=== PATIENT | female | born 1960 | race Caucasian/White ===

== ENCOUNTER 2020-02-23 09:09 | Outpatient (REF) | payer OTHER, SELFPAY ==
--- NOTE | 2020-02-23 09:18 | MM_ITS ---
EXAMINATION: BONE DENSITOMETRY CLINICAL INDICATION: Osteopenia after menopause. COMPARISON: Previous BD dated 11/26/2017 and baseline BD dated 07/01/2015. TECHNIQUE: Using a [employer] DXA System (software version: 13.1) manufactured by [employer], dual-energy x-ray absorptiometry was performed of the lumbar spine and left hip. The images are of good technical quality. Summary results are attached. FINDINGS: AP SPINE L1-L4: Current: BMD 1.064 g/cm2, Z-score 0.0, T-score -1.0, normal, 1.6% decrease from previous, 4.4% increase from baseline (<5% change is not significant). Prior: BMD 1.081 g/cm2. Baseline: BMD 1.019 g/cm2. LEFT FEMUR, NECK: Current: BMD 0.852 g/cm2, Z-score 0.3, T-score -1.3, osteopenia. Prior: BMD 0.725 g/cm2. Baseline: BMD 0.861 g/cm2. LEFT FEMUR, TOTAL: Current: BMD 0.930 g/cm2, Z-score 0.1, T-score -0.6, normal, 12.2% increase from previous, 0.2% decrease from baseline (<5% change is not significant). Prior: BMD 0.829 g/cm2. Baseline: BMD 0.932 g/cm2. IDENTIFIED RISK FACTORS: Menopause. HISTORY OF FRACTURE: None listed. MEDICATIONS: Calcium supplement and/or multivitamin. Vitamin D. IMPRESSION: 1. DIAGNOSIS: Osteopenia based on the lowest T-score value of -1.3 in the femoral neck applying World Health Organization criteria. 2. 10-YEAR FRACTURE RISK PREDICTION, FRAX: Major osteoporotic fracture (clinical spine, forearm, hip or shoulder) 4.2%. Hip fracture 0.3%. 3. Treatment Recommendations: NOF guidelines recommend consideration for treatment in postmenopausal women and men age 50 and older presenting with the following: -A hip or vertebral (clinical or morphometric) fracture. -T-score less than or equal to -2.5 at the femoral neck or spine after appropriate evaluation to exclude secondary causes. -Low bone mass at the hip or spine and a 10-year fracture probability by FRAX of greater than or equal to 3% for hip fracture or greater than or equal to 20% for major osteoporotic fracture based on the [place] adapted WHO algorithm. 4. Other Recommendations: All treatment decisions require clinical judgment and consideration of individual patient factors, including patient preferences, comorbidities, previous drug use, risk factors not captured in the FRAX model (e.g. frailty, falls, vitamin D deficiency, increased bone turnover, interval significant decline in bone density) and possible under or overestimation of fracture risk by FRAX. Additional medical evaluation for secondary cause of low bone mineral density may be appropriate. FUTURE SCAN RECOMMENDATION: People with diagnosed cases of osteoporosis or at high risk for fracture should have regular bone mineral density tests. For patients eligible for Medicare, routine testing is allowed once every 2 years. The testing frequency can be increased to one year for patients who have rapidly progressing disease, those who are receiving or discontinuing medical therapy to restore bone mass, or have additional risk factors.
== END 2020-02-23 09:10 | disposition home or self-care (01) ==
LOC: HO.MAMMO 09:09
PROVIDERS: Visit Provider Internal Medicine
DX: Z13.820 Encounter for screening for osteoporosis (principal); Z78.0 Asymptomatic menopausal state
CPT/HCPCS: 77080

== ENCOUNTER 2020-03-04 07:05 | Outpatient (REF) | payer OTHER, SELFPAY ==
[2020-03-04 08:15] LABS: MANUAL DIFF FLAG NO
[2020-03-04 08:17] LABS: Basophils Absolute Auto 0.1 X10*3/uL (0.0-0.2); Eosinophils Absolute Auto 0.1 X10*3/uL (0.0-0.4); Eosinophils Percent Auto 2.9 % (0-4); Hematocrit 41.1 % (37-47); Hemoglobin 13.6 g/dl (12.0-16.0); Imm Gran Abs Auto 0.01 X10*3/uL (0.00-0.03); Imm Gran Pct Auto 0.2 % (0.0-0.4); Lymphocytes Absolute Auto 1.6 X10*3/uL (1.2-4.9); Lymphocytes Percent Auto 34.1 % (20-40); Mean Corpuscular HGB Conc 33.1 g/dl (31.0-35.0); Mean Corpuscular Hemoglobin 30.2 pg (27.0-33.0); Mean Corpuscular Volume 91.3 fL (80-98); Mean Platelet Volume 10.9 fL (9.4-12.3); Monocytes Absolute Auto 0.5 X10*3/uL (0.1-1.2); Monocytes Percent Auto 9.4 % (2-11); Neutrophils Absolute Auto 2.5 X10*3/uL (2.0-8.3); Neutrophils Percent Auto 52.4 % (45-73); Platelet Count 327 X10*3/uL (160-400); Red Cell Distribution Width 13.7 % (11.0-16.0); White Blood Count 4.8 X10*3/uL (4.8-10.8)
[2020-03-04 08:26] LABS: Estimated Average Glucose 128 mg/dL; Hemoglobin A1C 150.6645 umol/L; Hemoglobin A1c % 6.1 %
[2020-03-04 08:33] LABS: INTERNATIONAL NORM RATIO 0.9 (0.9-1.1); Prothrombin Time 10.6 SEC (10.8-13.0)
[2020-03-04 08:53] LABS: Gamma Glutamyl Transpeptidase 36 U/L (7-33)
[2020-03-04 08:58] LABS: Ferritin 19 ng/mL (10-250); Hepatitis A Antibody IgG REACTIVE (Nonreactive); TSH reflex Free T4 1.17 mIU/mL (0.32-4.0); Vitamin D 25-OH Total 31.3 ng/mL (>30); ~Hepatitis A Antibody IgG 13.13 S/CO (0.00-0.99)
[2020-03-04 08:59] LABS: Alanine Aminotransferase 52 U/L (0-31); Albumin Level 4.7 g/dL (3.5-5.0); Alkaline Phosphatase 68 U/L (39-117); Aspartate Amino Transferase 51 U/L (5-31); Bilirubin Direct 0.3 mg/dL (0.0-0.5); Bilirubin Total 0.8 mg/dL (0.0-1.0); Lactate Dehydrogenase 198 U/L (122-220); Total Protein 7.4 g/dL (6.5-8.0)
[2020-03-07 15:36] LABS: Mitochondrial Antibodies NEGATIVE (NEGATIVE)
== END 2020-03-04 07:06 | disposition home or self-care (01) ==
LOC: HO.LAB 07:05
PROVIDERS: PCP Internal Medicine; Visit Provider Internal Medicine Gastroenterology
DX: K76.0 Fatty (change of) liver, not elsewhere classified (principal)
CPT/HCPCS: 36415; 80076; 82306; 82728; 82977; 83036; 83615; 84443; 85025; 85610; 86255; 86256; 86708

== ENCOUNTER → 2020-03-07 10:49 | Outpatient (BNVA) | payer OTHER, SELFPAY | PROVIDERS: PCP Internal Medicine; Referring Provider Internal Medicine; Visit Provider Internal Medicine Gastroenterology | DX: K76.0 Fatty (change of) liver, not elsewhere classified (principal); M32.9 Systemic lupus erythematosus, unspecified; Z79.899 Other long term (current) drug therapy | CPT/HCPCS: 99212 ==

== ENCOUNTER 2020-03-15 09:00 | Outpatient (REF) | payer OTHER, SELFPAY ==
[2020-03-15 10:24] LABS: MANUAL DIFF FLAG NO
[2020-03-15 10:32] LABS: Basophils Absolute Auto 0.1 X10*3/uL (0.0-0.2); Basophils Percent Auto 1.2 % (0-2); Eosinophils Absolute Auto 0.1 X10*3/uL (0.0-0.4); Eosinophils Percent Auto 2.4 % (0-4); Hematocrit 39.7 % (37-47); Hemoglobin 12.8 g/dl (12.0-16.0); Imm Gran Abs Auto 0.01 X10*3/uL (0.00-0.03); Imm Gran Pct Auto 0.2 % (0.0-0.4); Lymphocytes Absolute Auto 1.7 X10*3/uL (1.2-4.9); Lymphocytes Percent Auto 34.3 % (20-40); Mean Corpuscular HGB Conc 32.2 g/dl (31.0-35.0); Mean Corpuscular Hemoglobin 29.6 pg (27.0-33.0); Mean Corpuscular Volume 91.7 fL (80-98); Mean Platelet Volume 11.2 fL (9.4-12.3); Monocytes Absolute Auto 0.6 X10*3/uL (0.1-1.2); Monocytes Percent Auto 11.9 % (2-11); Neutrophils Absolute Auto 2.5 X10*3/uL (2.0-8.3); Platelet Count 299 X10*3/uL (160-400); Red Blood Count 4.33 X10*6/uL (4.20-5.50); Red Cell Distribution Width 13.9 % (11.0-16.0)
[2020-03-15 10:51] LABS: Alanine Aminotransferase 55 U/L (0-31); Albumin Level 4.5 g/dL (3.5-5.0); Alkaline Phosphatase 68 U/L (39-117); Anion Gap 13 (12-20); Aspartate Amino Transferase 58 U/L (5-31); Bilirubin Total 1.1 mg/dL (0.0-1.0); Blood Urea Nitrogen 7 mg/dL (9-16); C Reactive Protein 0.53 mg/dL (< or = 0.50); Calcium 9.8 mg/dL (8.4-10.2); Carbon Dioxide 32 mmol/L (22-29); Chloride 104 mmol/L (96-108); Estimated Glomerular Filt Rate > 60; Glucose Random 87 mg/dL (60-115); Potassium 4.6 mmol/l (3.3-5.1); Sodium 144 mmol/L (135-145); Total Protein 7.1 g/dL (6.5-8.0)
[2020-03-15 10:55] LABS: Glucose Urine UA NEG (NEG); Leukocyte Esterase Urine NEG (NEG); Nitrite Urine NEG (NEG); PH 7.5 (5.0-8.0); Urine Blood NEG (NEG); Urine Ketones NEG (NEG); Urine Protein NEG (NEG-TRACE)
[2020-03-15 10:56] LABS: Appearance Urine HAZY; Color Urine STRAW
[2020-03-15 11:30] LABS: Erythrocyte Sedimentation Rate 8 MM/HR (0-20)
[2020-03-16 11:31] LABS: Complement C3 143 mg/dL (83-193)
[2020-03-21 19:10] LABS: DNAds, Crithidia Antibody Negative (Negative)
== END 2020-03-15 09:01 | disposition home or self-care (01) ==
LOC: HO.LAB 09:00
PROVIDERS: PCP Internal Medicine; Visit Provider Student in an Organized Health Care Education/Training Program
DX: M32.9 Systemic lupus erythematosus, unspecified (principal); R74.01 Elevation of levels of liver transaminase levels; E55.9 Vitamin D deficiency, unspecified
CPT/HCPCS: 36415; 80053; 81003; 85025; 85652; 86140; 86160; 86255

== ENCOUNTER → 2020-03-18 08:14 | Outpatient (BNVA) | payer OTHER, SELFPAY | PROVIDERS: PCP Internal Medicine; Referring Provider Internal Medicine; Visit Provider Student in an Organized Health Care Education/Training Program | DX: M32.8 Other forms of systemic lupus erythematosus (principal); E55.9 Vitamin D deficiency, unspecified; Z79.899 Other long term (current) drug therapy | CPT/HCPCS: 99212 ==

== ENCOUNTER 2020-07-04 07:51 | Outpatient (REF) | payer OTHER, SELFPAY ==
--- NOTE | ~2020-07-04 | US_ITS ---
EXAMINATION: US COMPLETE ABDOMEN WITH LIVER ELASTOGRAPHY CLINICAL INFORMATION: Fatty change of liver COMPARISON: None. TECHNIQUE: Real-time imaging of the abdominal viscera. Noninvasive ultrasound liver fibrosis assessment is performed using [employer] point quantification shear wave elastography (pSWE) with a C5-2 MHz transducer. Multiple elastography samples are obtained. FINDINGS: PANCREAS: The pancreas is mostly obscured by overlying gas. ABDOMINAL AORTA: The proximal, middle, and distal aortic segments are normal in caliber. INFERIOR VENA CAVA: Visualized portions are normal. LIVER: The liver demonstrates normal size, contour and increased echogenicity. No focal lesion or intrahepatic biliary duct dilatation. The right lobe measures 14.3 cm in length. The left lobe measures 9.4 cm in length. Portal flow is hepatopedal. Shear wave liver elastography median stiffness is 1.58 m/s (reference: normal median stiffness is 1.3 m/s or less). IQR/median stiffness to assess sampling precision is 0.20 (reference: good quality data set is IQR/median stiffness of 0.15 or less). GALLBLADDER: Normal. The gallbladder is physiologically distended without evidence of stones, sludge, polyps, wall thickening or pericholecystic fluid. COMMON BILE DUCT: Normal in caliber measuring 0.6 cm in diameter. RIGHT KIDNEY: Normal. No hydronephrosis. No renal calculi or focal parenchymal lesions. The kidney measures 10.9 cm in maximum dimension. LEFT KIDNEY: There is anechoic cyst in the upper pole measuring 4.9 x 4.0 x 4.5 cm. No hydronephrosis. No renal calculi or focal parenchymal lesions. The kidney measures 10.9 cm in maximum dimension. SPLEEN: Normal. The spleen measures 8.9 cm in maximum dimension. FREE FLUID: None. US/US abdomen comp w elastography IMPRESSION: 1. Hepatic steatosis without any focal lesion. Normal hepatopedal flow seen in the portal vein. 2. Upper pole left renal cyst measuring 4.9 cm. 3. Liver elastography: Median stiffness 1.58. cACLD is ruled out. REFERENCE: Society of Radiologists in Ultrasound Liver Stiffness Thresholds (2019): LIVER STIFFNESS THRESHOLDS: *Liver Stiffness equal or less than 1.3 m/s: High probability of being normal. *Liver Stiffness less than 1.7 m/s: In the absence of other known clinical signs, rules out compensated advanced chronic liver disease. *Liver Stiffness 1.7-2.1 m/s: Suggestive of compensated advanced chronic liver disease but need further test for confirmation. *Liver Stiffness over 2.1 m/s: Rules in compensated advanced chronic liver disease. *Liver Stiffness over 2.4 m/s: Suggestive of clinically significant portal hypertension. QUALITY OF DATA SET: *IQR/Median value equal or less than 0.15 implies a quality data set. *IQR/Median value over 0.15 implies a poor quality data set. SIGNIFICANT CHANGE FROM PRIOR EXAM: Significant change if liver stiffness measurement is 10% or greater from prior exam. OTHER CONSIDERATIONS: The stage of liver fibrosis may be overestimated in the setting of acute hepatitis, liver inflammation, elevated liver function tests, hepatic vascular congestion, obstructive cholestasis, non-fasting state, and infiltrative diseases such as amyloidosis and lymphoma. In some patients with NAFLD, the liver stiffness thresholds for compensated advanced chronic liver disease may be lower. In causes other than viral hepatitis and NAFLD, liver stiffness thresholds are not well established.
[2020-07-04 08:28] LABS: MANUAL DIFF FLAG NO
[2020-07-04 08:33] LABS: Glucose Urine UA NEG (NEG); Leukocyte Esterase Urine NEG (NEG); Nitrite Urine NEG (NEG); Specific Gravity - Urine 1.025 (1.005-1.025); Urine Blood NEG (NEG); Urine Ketones NEG (NEG); Urine Protein 1+ MG/DL (NEG-TRACE)
[2020-07-04 08:35] LABS: Appearance Urine CLOUDY; Color Urine YELLOW
[2020-07-04 08:40] LABS: Basophils Percent Auto 0.5 % (0-2); Hematocrit 43.4 % (37-47); Hemoglobin 14.3 g/dl (12.0-16.0); Imm Gran Abs Auto 0.02 X10*3/uL (0.00-0.03); Imm Gran Pct Auto 0.4 % (0.0-0.4); Lymphocytes Absolute Auto 1.1 X10*3/uL (1.2-4.9); Lymphocytes Percent Auto 19.8 % (20-40); Mean Corpuscular HGB Conc 32.9 g/dl (31.0-35.0); Mean Corpuscular Hemoglobin 29.5 pg (27.0-33.0); Mean Corpuscular Volume 89.5 fL (80-98); Monocytes Absolute Auto 0.3 X10*3/uL (0.1-1.2); Monocytes Percent Auto 4.6 % (2-11); Neutrophils Absolute Auto 4.2 X10*3/uL (2.0-8.3); Neutrophils Percent Auto 74.7 % (45-73); Platelet Count 305 X10*3/uL (160-400); Red Blood Count 4.85 X10*6/uL (4.20-5.50); Red Cell Distribution Width 14.5 % (11.0-16.0); White Blood Count 5.7 X10*3/uL (4.8-10.8)
[2020-07-04 08:59] LABS: Bacteria Urine 2+ /LPF; Mucus Urine TRACE /LPF; RBC Urine 0 /HPF (0); Squamous Epithelial Cell Urine 3+ /LPF
[2020-07-04 09:31] LABS: Alanine Aminotransferase 37 U/L (0-31); Albumin Level 4.9 g/dL (3.5-5.0); Alkaline Phosphatase 77 U/L (39-117); Anion Gap 15 (12-20); Aspartate Amino Transferase 39 U/L (5-31); Bilirubin Total 0.8 mg/dL (0.0-1.0); Blood Urea Nitrogen 6 mg/dL (9-16); Carbon Dioxide 27 mmol/L (22-29); Chloride 105 mmol/L (96-108); Estimated Glomerular Filt Rate > 60; Glucose Random 146 mg/dL (60-115); Potassium 4.3 mmol/L (3.3-5.1); Sodium 143 mmol/L (135-145); Total Protein 7.7 g/dL (6.5-8.0)
[2020-07-04 11:39] LABS: Erythrocyte Sedimentation Rate 10 MM/HR (0-20)
[2020-07-05 12:52] LABS: Complement C3 164 mg/dL (83-193)
[2020-07-06 12:38] LABS: Anti DNA DS Antibody 11 IU/mL
== END 2020-07-04 07:52 | disposition home or self-care (01) ==
LOC: HO.US 07:51
PROVIDERS: Absent Provider Student in an Organized Health Care Education/Training Program; PCP Internal Medicine; Visit Provider Internal Medicine Gastroenterology
DX: M32.8 Other forms of systemic lupus erythematosus (principal); K76.0 Fatty (change of) liver, not elsewhere classified
CPT/HCPCS: 36415; 76705; 76981; 80053; 81001; 85025; 85652; 86140; 86160; 86225

== ENCOUNTER 2020-07-15 07:41 | Outpatient (REF) | payer OTHER, SELFPAY ==
[2020-07-15 09:46] LABS: Glucose Urine UA NEG (NEG); Leukocyte Esterase Urine TRACE (NEG); Nitrite Urine NEG (NEG); Urine Blood NEG (NEG); Urine Ketones NEG (NEG); Urine Protein NEG (NEG-TRACE)
[2020-07-15 09:52] LABS: Appearance Urine HAZY; Color Urine YELLOW
[2020-07-15 09:55] LABS: Mucus Urine TRACE /LPF; RBC Urine 0 /HPF (0); Squamous Epithelial Cell Urine 1+ /LPF
[2020-07-15 10:29] LABS: Creatinine Urine 81.11 mg/dL; Total Protein Urine Random 8 mg/dL (<12)
== END 2020-07-15 07:42 | disposition home or self-care (01) ==
LOC: HO.LAB 07:41
PROVIDERS: PCP Internal Medicine; Visit Provider Student in an Organized Health Care Education/Training Program
DX: M32.8 Other forms of systemic lupus erythematosus (principal); E55.9 Vitamin D deficiency, unspecified; K76.0 Fatty (change of) liver, not elsewhere classified; Z88.6 Allergy status to analgesic agent; Z88.0 Allergy status to penicillin; Z79.899 Other long term (current) drug therapy
CPT/HCPCS: 81001; 84156; 99212

== ENCOUNTER 2020-10-12 06:40 | Outpatient (REF) | payer OTHER, SELFPAY ==
[2020-10-12 07:53] LABS: MANUAL DIFF FLAG NO
[2020-10-12 08:10] LABS: Basophils Absolute Auto 0.1 X10*3/uL (0.0-0.2); Basophils Percent Auto 1.2 % (0-2); Eosinophils Absolute Auto 0.1 X10*3/uL (0.0-0.4); Eosinophils Percent Auto 2.5 % (0-4); Hematocrit 41.3 % (37-47); Hemoglobin 13.3 g/dl (12.0-16.0); Imm Gran Abs Auto 0.01 X10*3/uL (0.00-0.03); Imm Gran Pct Auto 0.2 % (0.0-0.4); Lymphocytes Absolute Auto 1.4 X10*3/uL (1.2-4.9); Lymphocytes Percent Auto 29.1 % (20-40); Mean Corpuscular HGB Conc 32.2 g/dl (31.0-35.0); Mean Corpuscular Hemoglobin 29.2 pg (27.0-33.0); Mean Corpuscular Volume 90.8 fL (80-98); Mean Platelet Volume 10.8 fL (9.4-12.3); Monocytes Absolute Auto 0.5 X10*3/uL (0.1-1.2); Neutrophils Absolute Auto 2.7 X10*3/uL (2.0-8.3); Platelet Count 303 X10*3/uL (160-400); Red Blood Count 4.55 X10*6/uL (4.20-5.50); Red Cell Distribution Width 14.4 % (11.0-16.0); White Blood Count 4.8 X10*3/uL (4.8-10.8)
[2020-10-12 08:25] LABS: Protein/Creatinine Ratio, Ur 0.18 (<0.2); Total Protein Urine Random 8 mg/dL (<12)
[2020-10-12 08:28] LABS: Alanine Aminotransferase 50 U/L (0-31); Albumin Level 4.8 g/dL (3.5-5.0); Alkaline Phosphatase 78 U/L (39-117); Anion Gap 12 (12-20); Aspartate Amino Transferase 55 U/L (5-31); Bilirubin Total 1.1 mg/dL (0.0-1.0); Blood Urea Nitrogen 8 mg/dL (9-16); C Reactive Protein 0.28 mg/dL (< or = 0.50); Calcium 10.2 mg/dL (8.4-10.2); Carbon Dioxide 28 mmol/L (22-29); Chloride 105 mmol/L (96-108); Cholesterol 177 mg/dL; Estimated Glomerular Filt Rate > 60; Glucose Fasting 111 mg/dL (60-99); HDL Cholesterol 56 mg/dL; LDL Cholesterol Calculated 99 mg/dl; Potassium 4.3 mmol/L (3.3-5.1); Sodium 141 mmol/L (135-145); Total Protein 7.5 g/dL (6.5-8.0); Triglycerides 114 mg/dL
[2020-10-12 08:37] LABS: Glucose Urine UA NEG (NEG); Leukocyte Esterase Urine 2+ (NEG); Nitrite Urine NEG (NEG); Specific Gravity - Urine <= 1.005 (1.005-1.025); Urine Blood NEG (NEG); Urine Ketones NEG (NEG); Urine Protein NEG (NEG-TRACE)
[2020-10-12 08:42] LABS: Appearance Urine HAZY; Color Urine YELLOW
[2020-10-12 09:02] LABS: Erythrocyte Sedimentation Rate 7 MM/HR (0-20)
[2020-10-12 09:14] LABS: Bacteria Urine 2+ /LPF; RBC Urine 0-2 /HPF (0); Squamous Epithelial Cell Urine 3+ /LPF
[2020-10-13 13:06] LABS: Anti DNA DS Antibody 11 IU/mL
[2020-10-14 22:03] LABS: Complement C3 123 mg/dL (83-193)
[2020-10-16 13:21] LABS: Vitamin D 25-OH, D2 <4 ng/mL; Vitamin D 25-OH, D3 29 ng/mL; Vitamin D 25-OH, Total 29 ng/mL (30-100)
== END 2020-10-12 06:41 | disposition home or self-care (01) ==
LOC: HO.LAB 06:40
PROVIDERS: PCP Internal Medicine; Visit Provider Student in an Organized Health Care Education/Training Program
DX: M32.8 Other forms of systemic lupus erythematosus (principal); E78.5 Hyperlipidemia, unspecified; K76.0 Fatty (change of) liver, not elsewhere classified; E55.9 Vitamin D deficiency, unspecified
CPT/HCPCS: 36415; 80053; 80061; 81001; 82306; 84156; 85025; 85652; 86140; 86160; 86225

== ENCOUNTER → 2020-10-14 07:38 | Outpatient (BNVA) | payer OTHER, SELFPAY | PROVIDERS: PCP Internal Medicine; Visit Provider Student in an Organized Health Care Education/Training Program | DX: M32.8 Other forms of systemic lupus erythematosus (principal); E55.9 Vitamin D deficiency, unspecified | CPT/HCPCS: 99212 ==

== ENCOUNTER → 2020-10-26 08:53 | Outpatient (REF) | payer OTHER, SELFPAY ==
--- NOTE | 2020-10-26 08:56 | CA_ITS ---
Transthoracic Echocardiogram Patient (Last, First, Middle): Irina Shetty, Gender: Female Date of : 1960 Age: 60 Procedure Date: 10/26/2020 Procedure Type: Transthoracic Echocardiogram Location: OP Height: 157.48 cm Weight: 75.3 kg BSA: 1.77 m2 Heart Rate: bpm BP: 135 / 95 mmHg Manager Utilization: ROXI Marquez MD: Nneka Everett MD Change Agent: Noel Garrido MD Symptoms: R06.02 - Shortness of breath Study Quality: Fair ECG Rhythm: Sinus Conclusions: - 1. Normal LV systolic function with grade 1 diastolic dysfunction 2. Trivial aortic regurgitation 3. No gross pericardial effusion Findings Left Ventricle Normal left ventricular size, thickness, and systolic function. The visually estimated ejection fraction is between 60-65%. Spectral Doppler is indicative of an impaired relaxation filling pattern. E/E prime ratio is <8, consistent with normal filling pressures. Evidence suggests grade I (mild) diastolic dysfunction. Right Ventricle Normal right ventricular cavity size and systolic function. Atria Both atria are normal in size. Aortic Valve There is mild calcification of the aortic valve. There is no aortic valve stenosis. There is trace (trivial) aortic valve regurgitation. Mitral Valve Normal mitral valve structure and function. There is trace mitral valve regurgitation. There is no mitral valve stenosis. Pulmonic Valve The pulmonic valve is likely normal. There is trace pulmonic valve regurgitation. Tricuspid Valve Likely normal tricuspid valve structure and function. There is trace tricuspid valve regurgitation. Tricuspid regurgitation envelope is inadequate for calculation of right ventricular systolic pressure. Great Vessels All visible segments of the aorta are normal in size. The pulmonary artery was not well visualized. Venous The inferior vena cava is normal in size and collapses greater than 50% with inspiration. Pericardium/Pleural There is no evidence of pericardial effusion. Prior Study Comparison No prior study available for comparison. Measurements M-Mode Liner Measurements Normals - Women/Men AOV Cusps: 1.90 1.5-2.6 cm/m2 2D Linear Measurements IVSd: 0.75 0.6-0.9/0.6-1.0 cm LVIDd: 4.39 3.9-5.3/4.2-5.9 cm LVIDd Index: 2.48 2.4-3.2/2.2-3.1 cm/m2 LVIDs: 2.68 2.0-3.6 cm LVPWd: 0.68 0.7-1.1 cm Ao Root: 2.80 2.1-3.5 cm LA Diam: 3.30 2.7-3.8/3.0-4.0 cm LAIDs Index: 1.86 1.5-2.3 cm/m2 LV Mass: 117.03 67-162/88-224 g LV Mass Index: 66.12 43-95/49-115 g/m2 LVOT Diam: 2.10 3.0+(-)1.3 cm 2D Systolic Function EF 4C: 60.50 >55% EF 2C: 61.80 >55% EF BiP: 61.80 >55% Mitral Valve MV Pk E: 0.58 MV PK A: 1.05 MV Decel Time: 305.00 E/A: 0.50 E'Lateral: 7.07 E'Medial: 5.33 E/E' Med: 10.80 E/E' Lat: 8.10 PHT: 89.00 MVA PHT: 2.47 Decel Ponce: 1.89 Aortic Valve AoV Pk Néstor: 1.31 AoV Mn Néstor: 1.01 AoV VTI: 0.26 AoV Pk Grad: 7.00 Aov Mn Grad: 4.00 CARMELA Cont.VTI: 2.49 AI Pk Néstor: 3.70 AI Ponce: 1.38 LVOT LVOT Pk Néstor: 0.80 LVOT Mn Néstor: 0.63 LVOT VTI: 0.19 LVOT Pk Grad: 3.00 LVOT Mn Grad: 2.00 LVOT Diam: 2.10 LVOT Area: 3.46 Diastolic Function MV Pk E: 0.58 MV Pk A: 1.05 E/A: 0.50 E'Medial: 5.33 E/E' Med: 10.80 E' Laterial: 7.07 E/E' Lat: 8.10 Tricuspid Valve RA Press: 3.00 Great Vessels Aorta Ao Root-2D: 2.80 2.0-3.7 cm Ao Asc: 2.70 2.1-3.4 cm Ao Arch: 3.30 Pulmonary Valve PV Pk Néstor: 0.88 Peak PV Grad: 3.00 Updated in Other Vendor System with Status of Final Noel Garrido MD electronically signed on 10/26/2020 5:39:24 PM with status of Final
== END ==
LOC: HO.CARD 08:53
PROVIDERS: PCP Internal Medicine; Visit Provider Internal Medicine
DX: R06.02 Shortness of breath (principal)
CPT/HCPCS: 93306

== ENCOUNTER → 2020-11-02 09:01 | Outpatient (BNVA) | payer OTHER, SELFPAY | PROVIDERS: PCP Internal Medicine; Referring Provider Internal Medicine; Visit Provider Physician Assistant ==

== ENCOUNTER 2020-11-15 07:04 | Outpatient (REF) | payer OTHER, SELFPAY ==
--- NOTE | ~2020-11-15 | XR_ITS ---
EXAMINATION: XR CHEST CLINICAL INFORMATION: Shortness of breath COMPARISON: Previous chest x-ray October 2018 TECHNIQUE: 2 views of the chest were obtained. FINDINGS: The cardiac and mediastinal contours are stable. The lungs are clear. There is no pleural effusion or pneumothorax. There are degenerative changes of the thoracic spine curvature to the right. XR/XR chest 2V IMPRESSION: No evidence for acute disease in the chest.
== END 2020-11-15 07:05 | disposition home or self-care (01) ==
LOC: HO.LAB 07:04
PROVIDERS: Absent Provider Internal Medicine; PCP Internal Medicine; Visit Provider Student in an Organized Health Care Education/Training Program
DX: R06.02 Shortness of breath (principal)
CPT/HCPCS: 71046

== ENCOUNTER 2021-04-05 07:40 | Outpatient (REF) | payer OTHER, SELFPAY ==
--- NOTE | ~2021-04-05 | XR_ITS ---
EXAMINATION: 1. RADIOGRAPHS RIGHT SHOULDER 2. RADIOGRAPHS LEFT SHOULDER CLINICAL INFORMATION: Bilateral shoulder pain COMPARISON: Chest x-ray 11/15/2020 and right shoulder x-rays 07/05/2016 TECHNIQUE: 4 views of each shoulder were obtained. FINDINGS: Right shoulder: Visualized portion of the proximal right humerus demonstrate no fracture. Humeral head demonstrates good articulation with the glenoid fossa. There are mild hypertrophic changes of the acromioclavicular joint. Visualized right-sided ribs and lung parenchyma are unremarkable. Left shoulder: Visualized portion of the proximal left humerus demonstrate no fracture. Humeral head demonstrates good articulation with the glenoid fossa. Minimal hypertrophic changes of the left acromioclavicular joint. Visualized left-sided ribs and lung parenchyma are unremarkable. XR/XR shoulder LT min 2V IMPRESSION: Mild degenerative changes of both shoulders without fracture or dislocation.
--- NOTE | ~2021-04-05 | XR_ITS ---
EXAMINATION: 1. RADIOGRAPHS RIGHT SHOULDER 2. RADIOGRAPHS LEFT SHOULDER CLINICAL INFORMATION: Bilateral shoulder pain COMPARISON: Chest x-ray 11/15/2020 and right shoulder x-rays 07/05/2016 TECHNIQUE: 4 views of each shoulder were obtained. FINDINGS: Right shoulder: Visualized portion of the proximal right humerus demonstrate no fracture. Humeral head demonstrates good articulation with the glenoid fossa. There are mild hypertrophic changes of the acromioclavicular joint. Visualized right-sided ribs and lung parenchyma are unremarkable. Left shoulder: Visualized portion of the proximal left humerus demonstrate no fracture. Humeral head demonstrates good articulation with the glenoid fossa. Minimal hypertrophic changes of the left acromioclavicular joint. Visualized left-sided ribs and lung parenchyma are unremarkable. XR/XR shoulder RT min 2V IMPRESSION: Mild degenerative changes of both shoulders without fracture or dislocation.
== END 2021-04-05 07:41 | disposition home or self-care (01) ==
LOC: HO.XRAY 07:40
PROVIDERS: PCP Internal Medicine; Visit Provider Internal Medicine Rheumatology
DX: M25.511 Pain in right shoulder (principal); M25.512 Pain in left shoulder
CPT/HCPCS: 73030

== ENCOUNTER → 2021-06-19 08:50 | Outpatient (BNVA) | payer OTHER, SELFPAY | PROVIDERS: PCP Internal Medicine; Referring Provider Internal Medicine; Visit Provider Physician Assistant ==

== ENCOUNTER 2021-11-16 07:29 | Outpatient (REF) | payer OTHER, SELFPAY ==
[2021-11-16 08:47] LABS: Alanine Aminotransferase 26 U/L (0-31); Albumin Level 4.8 g/dL (3.5-5.0); Alkaline Phosphatase 71 U/L (39-117); Anion Gap 15 (12-20); Aspartate Amino Transferase 30 U/L (5-31); Bilirubin Total 1.5 mg/dL (0.0-1.0); Blood Urea Nitrogen 7 mg/dL (9-16); Chloride 103 mmol/L (96-108); Estimated Glomerular Filt Rate > 60; Glucose Fasting 97 mg/dL (60-99); Potassium 4.6 mmol/L (3.3-5.1); Sodium 142 mmol/L (135-145); Total Protein 7.4 g/dL (6.5-8.0)
[2021-11-16 08:48] LABS: Carbon Dioxide 29 mmol/L (22-29)
[2021-11-22 13:22] LABS: Vitamin D 25-OH, D2 <4 ng/mL; Vitamin D 25-OH, D3 30 ng/mL; Vitamin D 25-OH, Total 30 ng/mL (30-100)
== END 2021-11-16 07:30 | disposition home or self-care (01) ==
LOC: HO.LAB 07:29
PROVIDERS: PCP Internal Medicine; Visit Provider Internal Medicine
DX: R73.02 Impaired glucose tolerance (oral) (principal); E55.9 Vitamin D deficiency, unspecified
CPT/HCPCS: 36415; 80053; 82306

== ENCOUNTER 2021-11-27 08:32 | Outpatient (REF) | payer OTHER, SELFPAY ==
--- NOTE | ~2021-11-27 | XR_ITS ---
EXAMINATION: XR ABDOMEN KUB CLINICAL INDICATION: R31.9 - Hematuria, unspecified COMPARISON: Abdominal ultrasound 07/04/2020, CT abdomen and pelvis noncontrast 12/09/2017 TECHNIQUE: AP x2 views of the abdomen. FINDINGS: There is scattered gas in the bowel of normal caliber. There is no obstruction or abnormal collections of gas. Lung bases are clear. There are some calcifications upper abdomen related to the costal cartilage. The punctate left lower pole renal calculus noted on CT 2017 is not visible. There are no visible urinary tract calculi. Numerous calcified pelvic phleboliths are similar to the CT study. There are scattered degenerative changes lower thoracic and lumbosacral spine. XR/XR KUB IMPRESSION: -No visible urinary tract calculi on plain film. -No bowel obstruction or abnormal collections of gas. Visualized lung bases clear.
== END 2021-11-27 08:33 | disposition home or self-care (01) ==
LOC: HO.XRAY 08:32
PROVIDERS: PCP Internal Medicine; Visit Provider Internal Medicine
DX: R31.9 Hematuria, unspecified (principal)
CPT/HCPCS: 74018

== ENCOUNTER 2021-11-29 07:34 | Outpatient (REF) | payer OTHER, SELFPAY ==
[2021-11-29 09:37] LABS: Alanine Aminotransferase 21 U/L (0-31); Albumin Level 4.5 g/dL (3.5-5.0); Alkaline Phosphatase 58 U/L (39-117); Anion Gap 11 (12-20); Aspartate Amino Transferase 26 U/L (5-31); Bilirubin Total 1.1 mg/dL (0.0-1.0); Blood Urea Nitrogen 7 mg/dL (9-16); Calcium 9.8 mg/dL (8.4-10.2); Carbon Dioxide 30 mmol/L (22-29); Chloride 106 mmol/L (96-108); Cholesterol 151 mg/dL; Estimated Glomerular Filt Rate > 60; Glucose Fasting 101 mg/dL (60-99); HDL Cholesterol 55 mg/dL; LDL Cholesterol Calculated 87 mg/dl; Potassium 4.4 mmol/L (3.3-5.1); Sodium 143 mmol/L (135-145); Total Protein 7.1 g/dL (6.5-8.0); Triglycerides 46 mg/dL
== END 2021-11-29 07:35 | disposition home or self-care (01) ==
LOC: HO.LAB 07:34
PROVIDERS: PCP Internal Medicine; Visit Provider Internal Medicine
DX: Z00.00 Encounter for general adult medical examination without abnormal findings (principal); E78.5 Hyperlipidemia, unspecified
CPT/HCPCS: 36415; 80053; 80061

== ENCOUNTER 2021-12-07 08:18 | Outpatient (REF) | payer OTHER, SELFPAY ==
--- NOTE | ~2021-12-07 | US_ITS ---
EXAMINATION: US RETROPERITONEAL LIMITED (RENAL ONLY) CLINICAL INFORMATION: Hematuria, unspecified. COMPARISON: X-ray KUB 11/27/2021 and 08/02/2015. Ultrasound abdomen complete 07/04/2020. Renal ultrasound 02/03/2020. CT abdomen and pelvis 12/09/2017. TECHNIQUE: Real-time imaging of the kidneys. FINDINGS: RIGHT KIDNEY: 9.8 x 5.5 x 5.4 cm (SAG x AP x TRV). The kidney is normal in size, contour, and echogenicity. Renal cortical thickness is normal. No calculi or focal parenchymal lesions. No hydronephrosis. LEFT KIDNEY: 9.8 x 4.8 x 4.8 cm (SAG x AP x TRV). The kidney is normal in size, contour, and echogenicity. Renal cortical thickness is normal. No renal calculi or hydronephrosis. Simple appearing cystic focus in the left renal upper pole measuring up to 4.0 cm, which does not follow up. US/US renal BI IMPRESSION: 1. No nephrolithiasis or hydronephrosis. 2. Simple appearing cystic focus in the left renal upper pole measuring up to 4.0 cm, which does not follow up.
--- NOTE | ~2021-12-07 | MM_ITS ---
EXAMINATION: MM SCREENING DIGITAL BREAST TOMOSYNTHESIS, BILATERAL CLINICAL INFORMATION: Screening. Asymptomatic. The lifetime risk of breast cancer based on the Tyrer-Cuzick Model is 7.0%. COMPARISON: Mammography: 08/01/2017 and studies dating back to 05/16/2016. TECHNIQUE: Digital breast tomosynthesis is performed in both the craniocaudal and mediolateral oblique views along with computer-aided detection (CAD). Synthesized 2D images are generated from the tomosynthesis. FINDINGS: The breasts are almost entirely fatty (ACR BI-RADS breast composition Category a). Patient had previously been followed up for bilateral breast densities which appeared to represent complex cystic structures. On today's study within the right breast there are 3 new partially circumscribed densities about the superior lateral aspect of the right breast approximately 6 cm from the nipple with both measuring approximately 3 mm in diameter and the more superior and lateral one having a bilobed appearance. Ultrasound evaluation of the right breast is recommended. Within the deep lateral aspect of the left breast at approximately the 3 o'clock position, there is a circumscribed 5 x 3 mm density approximately 10 cm from the nipple for which spot compression view and ultrasound is recommended. MM/MM tomosynthesis screening BI IMPRESSION: New bilateral breast densities for further evaluation as described. ASSESSMENT: BI-RADS 0: Incomplete - Need Additional Imaging Evaluation RECOMMENDATION: 1. Additional views of the bilateral breasts. 2. Targeted ultrasound if warranted after review of the additional views. 3. Radiology department staff will contact the patient for additional imaging. This patient's information was entered into a reminder system with a target due date for their next mammogram.
== END 2021-12-07 08:19 | disposition home or self-care (01) ==
LOC: HO.MAMMO 08:18
PROVIDERS: PCP Internal Medicine; Visit Provider Internal Medicine
DX: Z12.31 Encounter for screening mammogram for malignant neoplasm of breast (principal); R31.9 Hematuria, unspecified
CPT/HCPCS: 76775; 77063; 77067

== ENCOUNTER 2021-12-15 08:00 | Outpatient (RCR) | payer OTHER, SELFPAY | END 2022-01-10 10:22 | disposition home or self-care (01) | LOC: HO.PT 08:00 | PROVIDERS: Visit Provider Internal Medicine Rheumatology | DX: M70.62 Trochanteric bursitis, left hip (principal) | CPT/HCPCS: 97110; 97112; 97161 ==

== ENCOUNTER 2021-12-18 14:32 | Outpatient (REF) | payer OTHER, SELFPAY ==
--- NOTE | ~2021-12-18 | MM_ITS ---
EXAMINATION: MM DIAGNOSTIC DIGITAL BREAST TOMOSYNTHESIS, BILATERAL US DIAGNOSTIC ULTRASOUND BREAST, BILATERAL CLINICAL INFORMATION: Recall from screening for small bilateral nodularity. COMPARISON: Mammography: 12/07/2021, 08/01/2017, 11/22/2016, 05/16/2016. TECHNIQUE: Digital breast tomosynthesis is performed. 2D images are generated from the tomosynthesis. The following views are obtained: Spot left CC, spot left MLO, spot right MLO. Ultrasound bilateral breasts is performed to evaluate the areas of small smooth nodularity inner left breast and outer right breast, respectively. Grayscale imaging and color Doppler are performed without and with harmonics. FINDINGS: There are scattered areas of fibroglandular density (ACR BI-RADS breast composition Category b). The additional spot views show small smooth nodularity in the areas of interest. There is no architectural abnormality or ill-defined asymmetric density. Tiny bilateral waxing and waning nodularity is demonstrated suggesting bilateral cysts. Ultrasound left breast demonstrates cyst mid 3:00 position approximately 0.4 cm, anechoic and circumscribed. There is increased through-transmission of sound and no associated color flow. No solid mass or architectural abnormality. Ultrasound right breast demonstrates scattered small cysts upper outer quadrant, largest just under 0.4 cm at 9:00 position mid depth. The cysts are anechoic, circumscribed, increased through-transmission of sound, no associated color flow. No solid mass or architectural abnormality. Results are discussed with the patient at time of visit. MM/MM tomosynthesis diagnostic BI IMPRESSION: Small bilateral circumscribed waxing and waning cysts. ASSESSMENT: BI-RADS 2: Benign RECOMMENDATION: Routine annual mammography screening. This patient's information was entered into a reminder system with a target due date for their next mammogram.
== END 2021-12-18 14:33 | disposition home or self-care (01) ==
LOC: HO.MAMMO 14:32
PROVIDERS: PCP Internal Medicine; Visit Provider Internal Medicine
DX: R92.2 Inconclusive mammogram (principal); N63.20 Unspecified lump in the left breast, unspecified quadrant; N63.11 Unspecified lump in the right breast, upper outer quadrant
CPT/HCPCS: 76642; 77062; 77066

== ENCOUNTER 2021-12-25 03:12 | Observation (INO) | payer OTHER, SELFPAY ==
[2021-12-25] VITALS (13 sets, daily range): BP systolic 114–180; BP diastolic 59–86; PULSE 65–95; RESP 14–18; TEMP 36.1–37.1; O2SAT 91–100; BMI 27.6
--- NOTE | ~2021-12-25 | US_ITS ---
EXAMINATION: US ABDOMEN LIMITED CLINICAL INFORMATION: Right upper quadrant pain, evaluate for cholecystitis.. COMPARISON: CT scan of the abdomen and pelvis performed today. TECHNIQUE: Real-time imaging of the right upper quadrant abdominal viscera. FINDINGS: PANCREAS: Visualized portions unremarkable. LIVER: Unremarkable. GALLBLADDER: Echogenic gallstone measuring 1.6 cm as well as mild sludge are seen near the neck. There is minimal mural thickening measuring up to 0.4 cm. Trace pericholecystic fluid. Color Doppler showed no abnormal vascular flow. COMMON BILE DUCT: The common hepatic duct measures 0.5 cm and the common bile duct measures up to 0.6 cm without intraluminal abnormality. FREE FLUID: None. US/US abdomen limited IMPRESSION: Cholelithiasis/sludge with minimal mural thickening and trace pericholecystic fluid suggestive of acute mild cholecystitis.
--- NOTE | ~2021-12-25 | CT_ITS ---
EXAMINATION: CT ABDOMEN AND PELVIS WITH CONTRAST CLINICAL INFORMATION: Upper abdominal pain. Nausea. COMPARISON: CT from 12/09/2017 TECHNIQUE: Multidetector volumetric images were obtained from the superior aspect of the liver through the pubic symphysis following administration 85 mL of Omnipaque 350 intravenous contrast. Sagittal and coronal reformatted images were obtained on the technologist's workstation. Oral contrast: No This CT examination was performed using dose optimization techniques as appropriate, variously including the following: *Automated exposure control *Adjustment of mA and/or kV according to patient size (this includes techniques or standardized protocols for targeted exams where dose is matched to indication/reason for exam; i.e. extremities or head) *Use of iterative reconstruction technique DLP: 591 mGy-cm FINDINGS: LUNG BASES: Groundglass opacities at both lung bases, likely atelectasis. The visualized cardiac structures are unremarkable. LIVER, GALLBLADDER, AND BILIARY TREE: The liver is normal in size, shape, and attenuation. No focal hepatic lesion or biliary ductal dilatation is present. Normally distended gallbladder. No stones are seen. There is gallbladder wall thickening measuring up to 0.5 cm. PANCREAS: Unremarkable. SPLEEN: Unremarkable. ADRENAL GLANDS: Unremarkable. KIDNEYS AND URETERS: The kidneys are normal in size, shape, and attenuation. No hydronephrosis, hydroureter, or calculi seen. No perinephric stranding. Left upper pole simple renal cyst. No follow-up imaging recommended. BLADDER: Unremarkable. GASTROINTESTINAL TRACT: The stomach is unremarkable. Normal caliber of the small bowel. No obstruction. Normal appendix. No colonic wall thickening or acute inflammation. No free air or free fluid. ABDOMINAL WALL: No significant hernia is appreciated. LYMPH NODES: Normal. VASCULAR: Normal caliber aorta with minimal atherosclerotic calcification. PELVIC VISCERA: The uterus and adnexa are unremarkable. OSSEOUS STRUCTURES: No acute or suspicious osseous abnormality. Mild degenerative changes of the spine. CT/CT abdomen pelvis w con IMPRESSION: Gallbladder wall thickening. No radiopaque stones are seen. Suggest evaluation with ultrasound. Fleischner guidelines were followed.
--- NOTE | 2021-12-25 04:02 | ECG_ITS ---
Test Reason : ABDOMINAL PAIN Blood Pressure : / mmHG Vent. Rate : 076 BPM Atrial Rate : 076 BPM P-R Int : 126 ms QRS Dur : 096 ms QT Int : 398 ms P-R-T Axes : 025 001 037 degrees QTc Int : 447 ms Normal sinus rhythm Minimal voltage criteria for LVH, may be normal variant ( Paguate product ) Borderline ECG No previous ECGs available Referred By: Generic ED Physician Electronically Signed By:BUD HOSKINS
[2021-12-25 04:19] LABS: Basophils Absolute Auto 0.1 X10*3/uL (0.0-0.2); Basophils Percent Auto 0.7 % (0-2); Eosinophils Absolute Auto 0.1 X10*3/uL (0.0-0.4); Hematocrit 42.1 % (37.0-47.0); Hemoglobin 14.1 g/dl (12.0-16.0); Imm Gran Abs Auto 0.01 X10*3/uL (0.00-0.03); Imm Gran Pct Auto 0.1 % (0.0-0.4); Lymphocytes Absolute Auto 1.7 X10*3/uL (1.2-4.9); Lymphocytes Percent Auto 24.5 % (20-40); MANUAL DIFF FLAG NO; Mean Corpuscular HGB Conc 33.5 g/dl (31.0-35.0); Mean Corpuscular Hemoglobin 30.5 pg (27.0-33.0); Mean Corpuscular Volume 91.1 fL (80.0-98.0); Mean Platelet Volume 10.6 fL (9.4-12.3); Monocytes Absolute Auto 0.7 X10*3/uL (0.1-1.2); Monocytes Percent Auto 9.6 % (2-11); Neutrophils Absolute Auto 4.3 x10*3/uL (2.0-8.3); Neutrophils Percent Auto 63.1 % (45-73); Platelet Count 270 X10*3/uL (160-400); Red Blood Count 4.62 X10*6/uL (4.20-5.50); Red Cell Distribution Width 13.2 % (11.0-16.0); White Blood Count 6.9 X10*3/uL (4.8-10.8)
[2021-12-25 04:43] LABS: Alanine Aminotransferase 16 U/L (0-31); Albumin Level 4.5 g/dL (3.5-5.0); Alkaline Phosphatase 67 U/L (39-117); Anion Gap 17 (12-20); Aspartate Amino Transferase 23 U/L (5-31); Blood Urea Nitrogen 7 mg/dL (9-16); Calcium 9.6 mg/dL (8.4-10.2); Carbon Dioxide 25 mmol/L (22-29); Chloride 106 mmol/L (96-108); Creatinine Clr Calc Pharmacy 71.5; Estimated Glomerular Filt Rate > 60; Glucose Random 106 mg/dL (60-115); Lipase 86 U/L (8-78); Potassium 3.8 mmol/L (3.3-5.1); Sodium 144 mmol/L (135-145); Total Protein 7.1 g/dL (6.5-8.0)
[2021-12-25] MEDS: Morphine Sulfate 4 MG/ML CARTRIDGE IVPUSH (05:30)
[2021-12-25] MEDS: ondansetron HCL 4 MG/2 ML VIAL IVPUSH (05:30)
[2021-12-25] MEDS: Lactated Ringers 1,000 ML 999 ML IV (05:32)
--- NOTE | 2021-12-25 05:33 | ED.ABDPAIN ---
HPI - Abdominal Pain General Chief Complaint: Abdominal Pain Stated Complaint: upper abd pain Time Seen by Provider: 12/25/21 05:00 Source: patient, family and language interpreter Mode of arrival: ambulatory Limitations: no limitations History of Present Illness HPI narrative: 61 yo female hx of lupus, migraines, fatty liver, prior comes in with epigastric pain since 230am with nausea. No vomiting no diarrhea or fevers. Reports food at home no sick contacts. MD elicited complaint: abdominal pain Pertinent past history: none Onset (ago): hour(s) (230am today ) Location: epigastric and RUQ Severity: moderate Quality: aching and other (pressure) Radiation: none Migration to: no migration Exacerbating factors: movement Relieving factors: nothing Associated symptoms: nausea Related Data Previous Rx's Medication Instructions Recorded compression stockings #1 ea 02/08/21 baclofen 20 mg tablet 20 mg PO TID 90 days #270 tabs 06/15/21 betamethasone valerate 0.1 % 1 appl topical DAILY PRN skin 06/15/21 topical cream irritation 30 days #45 grams cholecalciferol (vitamin D3) 25 25 mcg PO DAILY #90 caps 06/15/21 mcg (1,000 unit) capsule cyclobenzaprine 10 mg tablet 10 mg PO TID 30 days #90 tabs 06/15/21 gabapentin 400 mg capsule 400 mg PO TID 30 days #90 caps 06/15/21 hydroxychloroquine 200 mg tablet 200 mg PO BID #180 tabs 12/10/21 (Plaquenil) Allergies Allergy/AdvReac Type Severity Reaction Status Date / Time Penicillins [PENICILLINS] Allergy Intermediate Verified 12/25/21 03:56 ? RXN sumatriptan AdvReac Intermediate stomach Verified 12/25/21 03:56 upset Review of Systems Review of Systems Constitutional : No Weight loss, No Fever, No Chills ENT/Mouth : No sore throat, No Rhinorrhea Eyes: No Swelling, No Redness Cardiovascular : No Chest Pain, No SOB, NoEdema Respiratory : No Cough, No Sputum, No Wheezing Gastrointestinal : Positive Nausea, no Vomiting, no Diarrhea, positive abdominal Pain, No Hematochezia, No Melena Genitourinary : No Dysuria, No Urinary Frequency, No Hematuria, No Urgency Musculoskeletal : No joint pain, No Myalgias, No Joint Swelling Skin : No Skin Lesions, No rash Neuro : No Weakness, No Numbness, No Dizziness, No Headache Psych : No Anxiety/Panic, No Depression Heme/Lymph: No Bruising, No Lymphadenopathy Endocrine : No Polyuria, No Polydipsia All other systems reviewed and are negative. [facility] Past Medical History Attestation statement: The following information was validated with the patient. Source: old records reviewed Medical History Hepatic steatosis Impaired glucose tolerance Lupus (systemic lupus erythematosus) Migraines Physical exam Shortness of breath Venous (peripheral) insufficiency Vitamin D deficiency Surgical History History of esophagogastroduodenoscopy (EGD) (~2003) History of root canal procedure Hx of colonoscopy Family History Family History Father No problems noted. Mother Arthritis Asthma Sister Diabetes Social History Social History Household Members: Spouse Housing: House Alcohol intake: unknown Patient Tobacco Use Status: Never used Tobacco e-Cigarette/Vaping Use: Never Used Second Hand Smoke Exposure: No Use of substances other than those prescribed or required for medical reasons: Unknown Advance Directives: No service: No Current occupational status: unemployed Cognitive needs: No Hearing needs: No Vision needs: No Physical Exam ED Vital Signs: Vital Signs - 24 hr 12/25/21 03:56 Temperature 98.4 F Pulse Rate 90 Respiratory Rate 16 Blood Pressure 166/85 H Pulse Oximetry 95 Oxygen Delivery Method Room Air BMI result Body Mass Index 27.6 Appearance: Alert. Oriented X3. No acute distress. Eyes: Pupils equal, round and reactive to light. ENT: Pharynx normal. Neck: Normal inspection. Neck supple. CVS: Normal heart rate and rhythm. Pulses normal. Respiratory: No respiratory distress. Breath sounds normal. Abdomen: Soft and moderate epigastric RUQ pain mild peoples's sign. Skin: Skin warm and dry. Normal skin color. Normal skin turgor. Extremities: No lower extremity edema. No calf ttp Neuro: Oriented X 3. No motor deficit. No sensory deficit. Course Course Course Narrative: signed out to Dr. Powell pending [facility] MDM - Abdominal Pain MDM Narrative Medical decision making narrative: 61 yo female with hx of lupus, migraines, fatty liver here with c/o RUQ and epigastric pain at this time will need labs, EKG, CT scan for pancreas/GB, IV morphine for pain. Dispo per results and findings. Lab Data Result diagrams: 12/25/21 04:08 12/25/21 04:08 Labs: Lab Results 12/25/21 12/25/21 12/25/21 Range/Units 04:08 04:08 04:08 WBC 6.9 (4.8-10.8) X10*3/uL RBC 4.62 (4.20-5.50) X10*6/uL Hgb 14.1 (12.0-16.0) g/dl Hct 42.1 (37.0-47.0) % MCV 91.1 (80.0-98.0) fL MCH 30.5 (27.0-33.0) pg MCHC 33.5 (31.0-35.0) g/dl RDW 13.2 (11.0-16.0) % Plt Count 270 (160-400) X10*3/uL MPV 10.6 (9.4-12.3) fL Immature Gran % (Auto) 0.1 (0.0-0.4) % Neut % (Auto) 63.1 (45-73) % Lymph % (Auto) 24.5 (20-40) % [place] % (Auto) 9.6 (2-11) % Eos % (Auto) 2.0 (0-4) % Baso % (Auto) 0.7 (0-2) % Lymph # (Auto) 1.7 (1.2-4.9) X10*3/uL [place] # (Auto) 0.7 (0.1-1.2) X10*3/uL Eos # (Auto) 0.1 (0.0-0.4) X10*3/uL Baso # (Auto) 0.1 (0.0-0.2) X10*3/uL Abs Immat Gran (auto) 0.01 (0.00-0.03) X10*3/uL Absolute Neuts (auto) 4.3 (2.0-8.3) x10*3/uL Absolute Nucleated RBC 0.000 (0.0-0.012) X10*3/uL Nucleated RBC % (auto) 0.0 (0.0-0.2) /100WBC Sodium 144 (135-145) mmol/L Potassium 3.8 (3.3-5.1) mmol/L Chloride 106 (96-108) mmol/L Carbon Dioxide 25 (22-29) mmol/L Anion Gap 17 (12-20) BUN 7 L (9-16) mg/dL Creatinine 0.74 (0.5-1.4) mg/dL Estim Creat Clear Calc 71.5 Estimated GFR > 60 Random Glucose 106 (60-115) mg/dL Calcium 9.6 (8.4-10.2) mg/dL Total Bilirubin 1.0 (0.0-1.0) mg/dL AST 23 (5-31) U/L ALT 16 (0-31) U/L Alkaline Phosphatase 67 (39-117) U/L Troponin I High Sens < 3.5 (<3.5-17.0) ng/L Total Protein 7.1 (6.5-8.0) g/dL Albumin 4.5 (3.5-5.0) g/dL Lipase 86 H (8-78) U/L COVID-19 (CYNTHIA) (Negative) COVID-19 Clin Com 12/25/21 Range/Units 05:45 WBC (4.8-10.8) X10*3/uL RBC (4.20-5.50) X10*6/uL Hgb (12.0-16.0) g/dl Hct (37.0-47.0) % MCV (80.0-98.0) fL MCH (27.0-33.0) pg MCHC (31.0-35.0) g/dl RDW (11.0-16.0) % Plt Count (160-400) X10*3/uL MPV (9.4-12.3) fL Immature Gran % (Auto) (0.0-0.4) % Neut % (Auto) (45-73) % Lymph % (Auto) (20-40) % [place] % (Auto) (2-11) % Eos % (Auto) (0-4) % Baso % (Auto) (0-2) % Lymph # (Auto) (1.2-4.9) X10*3/uL [place] # (Auto) (0.1-1.2) X10*3/uL Eos # (Auto) (0.0-0.4) X10*3/uL Baso # (Auto) (0.0-0.2) X10*3/uL Abs Immat Gran (auto) (0.00-0.03) X10*3/uL Absolute Neuts (auto) (2.0-8.3) x10*3/uL Absolute Nucleated RBC (0.0-0.012) X10*3/uL Nucleated RBC % (auto) (0.0-0.2) /100WBC Sodium (135-145) mmol/L Potassium (3.3-5.1) mmol/L Chloride (96-108) mmol/L Carbon Dioxide (22-29) mmol/L Anion Gap (12-20) BUN (9-16) mg/dL Creatinine (0.5-1.4) mg/dL Estim Creat Clear Calc Estimated GFR Random Glucose (60-115) mg/dL Calcium (8.4-10.2) mg/dL Total Bilirubin (0.0-1.0) mg/dL AST (5-31) U/L ALT (0-31) U/L Alkaline Phosphatase (39-117) U/L Troponin I High Sens (<3.5-17.0) ng/L Total Protein (6.5-8.0) g/dL Albumin (3.5-5.0) g/dL Lipase (8-78) U/L COVID-19 (CYNTHIA) Negative (Negative) COVID-19 Clin Com See Note ECG Data Attestation: I personally reviewed and interpreted this ECG as follows: ECG interpretation date: 12/25/21 ECG interpretation time: 05:49 Interpretation: Rate: 76 Rhythm: NSR [place]: normal Normal P waves. Normal JAYE. Normal QRS complex. ST T wave : normal no JORY qTC: normal prior studies: no acute ischemia The study has been interpreted contemporaneously by me. . Discharge Plan Discharge Clinical Impression: Abdominal pain Patient Disposition: Still a Patient Prescriptions: No Action (DME) compression stockings See Rx Instructions .Route .MEDSUPPLY Qty: 1 0RF Rx Instructions: As directed hydroxychloroquine [Plaquenil] 200 mg tablet 200 mg PO BID Qty: 180 1RF baclofen 20 mg tablet 20 mg PO TID 90 Days Qty: 270 2RF betamethasone valerate 0.1 % cream 1 appl topical DAILY PRN (Reason: skin irritation) 30 Days Qty: 45 1RF cholecalciferol (vitamin D3) 25 mcg (1,000 unit) capsule 25 mcg PO DAILY Qty: 90 1RF cyclobenzaprine 10 mg tablet 10 mg PO TID 30 Days Qty: 90 4RF gabapentin 400 mg capsule 400 mg PO TID 30 Days Qty: 90 3RF
[2021-12-25 05:37] LABS: Troponin-I High Sensitivity < 3.5 ng/L (<3.5-17.0)
--- NOTE | 2021-12-25 05:50 | PC.NURSE ---
pt taken to CAT scan
[2021-12-25] MEDS: iohexoL 350 MG/ML 100 ML INFUS..BTL IV (05:56)
[2021-12-25 06:21] LABS: COVID-19 Test Negative (Negative)
--- NOTE | 2021-12-25 09:25 | PC.NURSE ---
PT NPO PENDING SURGICAL CONSULT
--- NOTE | 2021-12-25 10:11 | P.HPGS_ITS ---
History of Present Illness History of Present Illness Date of Service: 12/25/21 Chief complaint: upper abd pain Narrative: Irina Mendez is a 61 year old female with a history of lupus who is seen at the request of the emergency room physician due to abdominal pain that was relatively acute in onset. The patient is seen with the help of an certified court interpreter since she does not speak Romansh. Patient reports that she was having epigastric and upper abdominal pain earlier, several hours ago that was associated with nausea but no vomiting. When the pain failed to improve, she presented to the emergency department where she was worked up and found to have a mild hyperlipasemia, a normal white blood cell count and a CT demonstrating akshat cholecystic fluid and likely early acute calculous cholecystitis. Her common bile duct is 5 mm and liver function tests are essentially normal. I was asked to see and evaluate the patient to facilitate her care. At this time, the patient reports that she is doing better and having less pain. The patient reports a history of a penicillin allergy but reports that she was told she was given penicillin as a child, had an unknown reaction and to the best of her knowledge is not been administered at since. Review of Systems Review of Systems: Yes all other systems are reviewed and are negative Constitutional: Constitutional: Reports as per [facility] Past Medical History Medical History Hepatic steatosis Impaired glucose tolerance Lupus (systemic lupus erythematosus) Migraines Physical exam Shortness of breath Venous (peripheral) insufficiency Vitamin D deficiency Family History Family History Father No problems noted. Mother Arthritis Asthma Sister Diabetes Surgical History Surgical History History of esophagogastroduodenoscopy (EGD) (~2003) History of root canal procedure Hx of colonoscopy Social History Social History Household Members: Spouse Housing: House Alcohol intake: unknown Patient Tobacco Use Status: Never used Tobacco e-Cigarette/Vaping Use: Never Used Second Hand Smoke Exposure: No Use of substances other than those prescribed or required for medical reasons: Unknown Advance Directives: No service: No Current occupational status: unemployed Cognitive needs: No Hearing needs: No Vision needs: No Meds Allergies Allergy/AdvReac Type Severity Reaction Status Date / Time Penicillins [PENICILLINS] Allergy Intermediate Verified 12/25/21 03:56 ? RXN sumatriptan AdvReac Intermediate stomach Verified 12/25/21 03:56 upset Physical Exam Vital Signs: Vital Signs: Last Vital Signs Temp 98.4 F 12/25/21 03:56 Pulse 90 12/25/21 03:56 Resp 16 12/25/21 03:56 BP 166/85 H 12/25/21 03:56 Pulse Ox 95 12/25/21 03:56 O2 Del Method 12/25/21 03:56 BMI result Body Mass Index 27.6 Results Results Labs: Short CBC 12/25/21 Range/Units 04:08 WBC 6.9 (4.8-10.8) X10*3/uL Hgb 14.1 (12.0-16.0) g/dl Hct 42.1 (37.0-47.0) % Plt Count 270 (160-400) X10*3/uL BMP 12/25/21 04:08 Sodium 144 Potassium 3.8 Chloride 106 Carbon Dioxide 25 BUN 7 L Creatinine 0.74 Calcium 9.6 Liver Function 12/25/21 Range/Units 04:08 Total Bilirubin 1.0 (0.0-1.0) mg/dL AST 23 (5-31) U/L ALT 16 (0-31) U/L Alkaline Phosphatase 67 (39-117) U/L Albumin 4.5 (3.5-5.0) g/dL Abdomen CT scan report/results: report reviewed and image reviewed CT scan - pelvis: report reviewed and image reviewed Assessment and Plan (1) Cholecystitis: Status: Acute (2) Impaired glucose tolerance: Status: Acute (3) Acute calculous cholecystitis: Status: Acute (4) Lupus (systemic lupus erythematosus): Qualifiers: Systemic lupus erythematosus organ involvement: unspecified Systemic lupus erythematosus type: other Qualified Code(s): M32.8 - Other forms of systemic lupus erythematosus Status: Acute (5) Hepatic steatosis: Status: Acute Plan Via the certified court interpreter, I explained to the patient that her gallbladder is sick/acutely inflamed and in the early stages of inflammation and surrounded by fluid as evidence by CT. I further explained that she had stones. I reviewed option of continued observation and hope that her symptoms improved verses cholecystectomy which would likely be the laparoscopic but might be via open surgery. I explained that worsening of the inflammation will increase the likelihood of need for an open operation and a prolonged hospitalization. I also reviewed the inherent risks of bleeding, infection, need for open surgery, the unlikely but possible issues of bile leak and retained common duct stones that could require ERCP in the unlikely but possible issue of 05/999 common bile duct injury that could require transfer to a larger hospital. The patient seemed to understand and her questions seemed to be satisfactorily answered. The patient's daughter, Akira was at the bedside and had her questions answered and provided her cell phone for contact later. [phone]. OR consent was signed & is in my possession. NPO, IVF, Ancef 2gm IV on-call Heparin, 5000 units SQ SCDs For OR this afternoon Quality Stroke Does the patient have a stroke diagnosis?: No VTE Prior VTE?: No VTE Risk Level:: Surgical - moderate VTE Device Contraindication: N/A - Device Ordered VTE Drug Contraindication: N/A - Med Ordered Procedures Date of Service Date of Service: 12/25/21
--- NOTE | 2021-12-25 11:19 | PHA.MEDREC ---
Pharmacy Consult ? Medication Reconciliation Pharmacy has completed the medication reconciliation.
--- NOTE | 2021-12-25 11:29 | W.PM.OPN ---
Operative Note Operative Note Date of Service: 12/25/21 Narrative: Preop diagnosis: [acute calculus cholecystitis] Postop diagnosis: [same] Procedure: [lap kimberly] Surgeon: Kwabena Salazar MD Assist: [none] Anesthesia: [GET; local 0.5% ropivicaine] Estimated blood loss: [10cc] Specimen: [GB & contents] Intraoperative findings: [edematous GB & paulo; cystic duct 4-5mm, cystic artery 3-4mm; critical view of safety demonstrated] Indications: [The pt is a 61yo woman w/ h/o lupus presenting with abd pain & CT concerning for early acute calculus cholecystitis. With an diplomatic interpreter/translator & in front of the pt's daughter, Cherie ([phone]) laparoscopic cholecystectomy, possible open was recommended. The inherent risk & options were discussed & apparently understood. The risks of bleeding, infection, need for open surgery, retained CBD stones or bile leak that could require ERCP & unlikely but possible risk of CBD injury 05/999 cases & need for transfer were reviewed & apparently understood.] Procedure: [The patient was identified in preoperative holding and again in the operating room and placed supine on the table. The patient voided bladder construction administrative assistant, sequential compression stockings were in place, subcu heparin had been administered and antibiotics per protocol were given. The patient was induced in general endotracheal anesthesia administered with excellent effect. An appropriate time-out was performed. A footboard was utilized. The patient's abdomen was widely prepped and draped in the usual manner for surgery using chlorhexidine. Preemptive local was used at all trocar insertion sites. Due to the infraumbilical scar, I made a left subcostal stab incition & placed the Verress needle without difficulty. An appropriate drop test was performed and a pneumoperitoneum of 15 mmHg was obtained using carbon dioxide. Opening pressures were 6mm Hg. Next, local was infiltrated in the pt's right anterior axillary line at the level of the umbilicus & a 6mm incision made. The 5 mm/30 degree laparoscope over Optiview trocar was used to access the abdomen without incident. Upon examining the abdomen, there was no evidence of injury from the Veress needle or trocar and the Verress needle removed. Next, 5 mm trocars were placed in the epigastric, subcostal and right anterior axillary line just above the line of the umbilicus. Under direct laparoscopic vision, the umbilical port 12 mm. The patient was then positioned in reverse Trendelenburg position and banked left. The gallbladder was clearly identified and grasped by its fundus. It was retracted cranially and anteriorly and dissection began in the cystic triangle. The cystic duct was identified at its junction on the gallbladder and dissection began laterally, then circumferentially dissected using the [place] dissector and hook. The cystic artery was then carefully identified and circumferentially dissected. Once dissection of both structures was complete and the critical view of safety demonstrated, the duct and artery were double clipped proximally and once distally and sharply divided. Electrocautery was used to remove the gallbladder from its fossa on the liver. Liver bed was inspected for hemostasis and the clips were noted to be on the respective structures. The gallbladder was placed in an Endo-Catch bag and delivered through the umbilicus under direct laparoscopic vision. The abdomen was again inspected with the laparoscoped and a abdomen deflated to assess for hemostasis. The patient was returned to neutral position, the abdomen deflated and the fascia of the supraumbilical incision closed with interrupted Vicryl sutures. Skin was closed with 4-0 Monocryl subcuticular sutures. Mastisol and Steri-Strips were applied followed by Band-Aids. The patient tolerated the procedure well and was extubated recovered in stable condition. All sponge instrument counts were correct. At the patient's request I spoke with her daughter Syed in person & left a message with Cherie at [[phone]] and apprise them of the operation and plan. Their questions seemed to be satisfactorily answered.]
[2021-12-25 12:23] LABS: Appearance Urine Clear; Color Urine Yellow; Glucose Urine UA Negative (Negative); Leukocyte Esterase Urine Moderate (2+) (Negative); Nitrite Urine Negative (Negative); PH 8.5 (5.0-8.0); Specific Gravity - Urine >= 1.030 (1.005-1.025); Urine Blood Negative (Negative); Urine Ketones Negative (Negative); Urine Protein Negative (Neg-Trace)
[2021-12-25 12:25] LABS: Bacteria Urine 2+ (None Seen); Hyaline Casts Urine 0-2 /LPF (0-2); RBC Urine 0-2 /HPF (0-2); UACC Culture Trigger YES
[2021-12-25] MEDS: Acetaminophen 325 MG TABLET PO (12:32)
--- NOTE | 2021-12-25 15:53 | P.CONAN_ITS ---
HPI - Anesthesia Eval Consult details Narrative: 61 F for Lap Giulia Lupus shoulder , rash low back pain with radiation to LE , tingling numbness neck pain with radiation to UE and tingling , numbness . PMF Active Problems Active Problems: All Active Problems (Updated 12/25/21 @ 10:15 by Kwabena Salazar MD) Acute calculous cholecystitis (Acute) Abdominal pain (Acute) Cholecystitis (Acute) Postmenopausal bleeding (Acute) Osteopenia (Acute) Hematuria (Acute) Physical exam (Acute) Impaired glucose tolerance (Acute) Venous (peripheral) insufficiency (Acute) Migraines (Acute) Physical exam (Acute) Shortness of breath (Acute) Vitamin D deficiency (Acute) Lupus (systemic lupus erythematosus) (Acute) Hepatic steatosis (Acute) Past Medical History Medical History Hepatic steatosis Impaired glucose tolerance Lupus (systemic lupus erythematosus) Migraines Physical exam Shortness of breath Venous (peripheral) insufficiency Vitamin D deficiency Family History Family History Father No problems noted. Mother Arthritis Asthma Sister Diabetes Family history of problems with anesthesia: No Surgical History Surgical History History of esophagogastroduodenoscopy (EGD) (~2003) History of root canal procedure Hx of colonoscopy History of Problems with Anesthesia: No Social History Social History Household Members: Spouse and Children Housing: House Alcohol intake: unknown Patient Tobacco Use Status: Never used Tobacco e-Cigarette/Vaping Use: Never Used Second Hand Smoke Exposure: No service: No Current occupational status: unemployed Cognitive needs: No Hearing needs: No Vision needs: No Meds Allergies Allergy/AdvReac Type Severity Reaction Status Date / Time Penicillins [PENICILLINS] Allergy Intermediate INFANT Verified 12/25/21 03:56 ? RXN sumatriptan AdvReac Intermediate stomach Verified 12/25/21 03:56 upset Active Medications: Current Medications Acetaminophen (Acetaminophen 325 Mg Tablet) 325 mg PO Q6H PRN PRN Reason: Pain, Mild (Pain Scale 1-3) Last Admin: 12/25/21 12:32 Dose: 325 mg Acetaminophen (Ofirmev) 1,000 mg in 100 mls @ 400 mls/hr IV Q6H [facility] Last Admin: 12/25/21 14:59 Dose: Not Given Sodium Chloride (0.9 % Sodium Chloride Flush 3 Ml Syringe) 3 ml IVFLUSH QSHIFT [facility] Exam Exam Date and Time: December 25, 2021 1553 Height,Weight and Vital Signs: Height 5 ft 2 in Weight 68.492 kg Last Vital Signs Temp 98.6 F 12/25/21 10:00 Pulse 65 12/25/21 10:00 Resp 18 12/25/21 10:00 BP 150/72 H 12/25/21 10:00 Pulse Ox 97 12/25/21 10:00 O2 Del Method 12/25/21 10:00 Pertinent Lab Results Pertinent Lab Results: Laboratory Tests 12/25/21 12/25/21 12/25/21 04:08 04:08 04:08 WBC 6.9 RBC 4.62 Hgb 14.1 Hct 42.1 MCV 91.1 MCH 30.5 MCHC 33.5 RDW 13.2 Plt Count 270 MPV 10.6 Immature Gran % (Auto) 0.1 Neut % (Auto) 63.1 Lymph % (Auto) 24.5 [place] % (Auto) 9.6 Eos % (Auto) 2.0 Baso % (Auto) 0.7 Lymph # (Auto) 1.7 [place] # (Auto) 0.7 Eos # (Auto) 0.1 Baso # (Auto) 0.1 Abs Immat Gran (auto) 0.01 Absolute Neuts (auto) 4.3 Absolute Nucleated RBC 0.000 Nucleated RBC % (auto) 0.0 Sodium 144 Potassium 3.8 Chloride 106 Carbon Dioxide 25 Anion Gap 17 BUN 7 L Creatinine 0.74 Estim Creat Clear Calc 71.5 Estimated GFR > 60 Random Glucose 106 Calcium 9.6 Total Bilirubin 1.0 AST 23 ALT 16 Alkaline Phosphatase 67 Troponin I High Sens < 3.5 Total Protein 7.1 Albumin 4.5 Lipase 86 H Urine Color Urine Appearance Urine pH Ur Specific [place] Urine Protein Urine Glucose (UA) Urine Ketones Urine Blood Urine Nitrite Ur Leukocyte Esterase Urine RBC Urine WBC Ur Squamous Epith Cells Urine Bacteria Hyaline Casts COVID-19 (CYNTHIA) COVID-19 Clin Com 12/25/21 12/25/21 05:45 12:13 WBC RBC Hgb Hct MCV MCH MCHC RDW Plt Count MPV Immature Gran % (Auto) Neut % (Auto) Lymph % (Auto) [place] % (Auto) Eos % (Auto) Baso % (Auto) Lymph # (Auto) [place] # (Auto) Eos # (Auto) Baso # (Auto) Abs Immat Gran (auto) Absolute Neuts (auto) Absolute Nucleated RBC Nucleated RBC % (auto) Sodium Potassium Chloride Carbon Dioxide Anion Gap BUN Creatinine Estim Creat Clear Calc Estimated GFR Random Glucose Calcium Total Bilirubin AST ALT Alkaline Phosphatase Troponin I High Sens Total Protein Albumin Lipase Urine Color Yellow Urine Appearance Clear Urine pH 8.5 H Ur Specific [place] >= 1.030 H Urine Protein Negative Urine Glucose (UA) Negative Urine Ketones Negative Urine Blood Negative Urine Nitrite Negative Ur Leukocyte Esterase Moderate (2+) H Urine RBC 0-2 Urine WBC 6-10 H Ur Squamous Epith Cells 11-20 Urine Bacteria 2+ Hyaline Casts 0-2 COVID-19 (CYNTHIA) Negative COVID-19 Clin Com See Note Airway Mallampati Class: III TM Dist: >3cm Neck ROM: Full Partial: Upper Loose/Missing/Broken Teeth: Yes Heart: S1,S2 Lungs: b/l breath sounds Assessment and Plan Assessment Anesthesia Assessment: Anesthesia Plan Discussed and Chart Reviewed Final Anesthetic Review Family History of Problems with Anesthesia: No History of Problems with Anesthesia: No ASA Class: II and Emergency Final Preanesthetic Review: Meds/Allgs Chart Reviewed, Consent Obtained/Reviewed and Anes Risks/Benef Reviewed Patient Risk: Intermediate Procedure Risk: Intermediate Anesthetic Plan Anesthetic Plan: GA Disposition: Inp. Admit - Standard Bed
[2021-12-25] MEDS: ceFAZolin Sodium/Dextrose,Iso 2 GM/50 ML PIGGYBACK IV (16:35)
[2021-12-25] MEDS: Heparin Sodium,Porcine 5,000 UNIT/ML VIAL 5000 UNIT SUBCUT (17:35)
[2021-12-25] MEDS: 0.9 % Sodium Chloride Flush 3 ML SYRINGE IVFLUSH (21:34)
[2021-12-25] MEDS: oxyCODONE HCl Immed Release 5 MG TABLET PO (21:34)
[2021-12-25] MEDS: Docusate Sodium 100 MG CAPSULE 200 MG PO (21:34)
[2021-12-25] MEDS: HYDROmorphone HCl 0.5 MG/0.5 ML SYRINGE IVPUSH (23:51)
[2021-12-26] MEDS: oxyCODONE HCl Immed Release 5 MG TABLET PO ×3 (01:53→11:48)
[2021-12-26 03:24] VITALS: BP 130/71; PULSE 111; RESP 16; TEMP 36.2; O2SAT 97
[2021-12-26] MEDS: HYDROmorphone HCl 0.5 MG/0.5 ML SYRINGE IVPUSH (04:33)
[2021-12-26] MEDS: Heparin Sodium,Porcine 5,000 UNIT/ML VIAL 5000 UNIT SUBCUT (04:35)
[2021-12-26 06:28] LABS: Alanine Aminotransferase 91 U/L (0-31); Alkaline Phosphatase 79 U/L (39-117); Anion Gap 16 (12-20); Aspartate Amino Transferase 104 U/L (5-31); Bilirubin Total 1.8 mg/dL (0.0-1.0); Blood Urea Nitrogen 9 mg/dL (9-16); Calcium 9.2 mg/dL (8.4-10.2); Carbon Dioxide 26 mmol/L (22-29); Chloride 103 mmol/L (96-108); Creatinine Clr Calc Pharmacy 76.7; Estimated Glomerular Filt Rate > 60; Glucose Random 122 mg/dL (60-115); Potassium 4.2 mmol/L (3.3-5.1); Sodium 141 mmol/L (135-145); Total Protein 6.2 g/dL (6.5-8.0)
[2021-12-26 06:46] VITALS: BP 144/69; PULSE 102; RESP 17; TEMP 36.6; O2SAT 98
[2021-12-26] MEDS: Docusate Sodium 100 MG CAPSULE 200 MG PO (07:43)
[2021-12-26] MEDS: 0.9 % Sodium Chloride Flush 3 ML SYRINGE IVFLUSH (07:47)
--- NOTE | 2021-12-26 07:48 | PM.PNGS ---
Subjective Subjective Date of Service: 12/26/21 Patient reports: still having pain and tolerating liquids well Interval history: The patient is seen with multiple punch press operator Lorene to physical a take the interview. Patient reports that she is having incisional pain in addition to upper abdominal pain, specifically right upper quadrant pain. She denies any nausea or vomiting and denies any lower abdominal/pelvic pain to suggest bleeding. She otherwise denies any headache, visual changes, upper lower extremity weakness or difficulty breathing Physical Exam Vital Signs: Vital Signs: Last Vital Signs Temp 98 F 12/26/21 06:46 Pulse 102 H 12/26/21 06:46 Resp 17 12/26/21 06:46 BP 144/69 H 12/26/21 06:46 Pulse Ox 98 12/26/21 06:46 O2 Del Method 12/26/21 06:46 O2 Flow Rate 2 12/26/21 06:46 Oxygen Flow Rate 2 12/25/21 18:32 BMI result Body Mass Index 27.6 On exam, she is nontoxic Sclera anicteric Abdomen is right upper quadrant tenderness and dressings are clean, dry and intact Objective Data Active Medications Acetaminophen (Acetaminophen 325 Mg Tablet) 325 mg PO Q6H PRN PRN Reason: Pain, Mild (Pain Scale 1-3) Last Admin: 12/25/21 12:32 Dose: 325 mg Documented By: ANDREW Docusate Sodium (Docusate Sodium 100 Mg Capsule) 200 mg PO BID [facility] Last Admin: 12/26/21 07:43 Dose: 200 mg Documented By: ROSI Fentanyl (Fentanyl Citrate/Pf 100 Mcg/2 Ml Vial) 50 mcg IVPUSH Q5M PRN; Protocol PRN Reason: Pain, Severe (Pain Scale 7-10) Heparin Sodium (Porcine) (Heparin Sodium,Porcine 5,000 Unit/Ml Vial) 5,000 unit SUBCUT Q12H [facility] Last Admin: 12/26/21 04:35 Dose: 5,000 unit Documented By: HOSSEIN Hydromorphone HCl (Hydromorphone Hcl 0.5 Mg/0.5 Ml Syringe) 0.5 mg IVPUSH Q5M PRN; Protocol PRN Reason: Pain, Severe (Pain Scale 7-10) Last Admin: 12/26/21 04:33 Dose: 0.5 mg Documented By: HOSSEIN Acetaminophen (Ofirmev) 1,000 mg in 100 mls @ 400 mls/hr IV Q6H [facility] Last Admin: 12/26/21 07:43 Dose: 400 mls/hr Documented By: ROSI Promethazine HCl 12.5 mg/ (Sodium Chloride) 50.5 mls @ 202 mls/hr IV ONCE PRN PRN Reason: Nausea and Vomiting Ibuprofen (Ibuprofen 400 Mg Tablet) 400 mg PO Q6H PRN PRN Reason: Pain, Mild (Pain Scale 1-3) Ondansetron HCl (Ondansetron Hcl 4 Mg/2 Ml Vial) 4 mg IVPUSH ONCE PRN PRN Reason: Nausea and Vomiting Ondansetron HCl (Ondansetron Hcl 4 Mg/2 Ml Vial) 4 mg IVPUSH Q6H PRN PRN Reason: Nausea and Vomiting Oxycodone HCl (Oxycodone Hcl Immed Release 5 Mg Tablet) 5 mg PO Q4H PRN PRN Reason: Pain, Moderate (Pain Scale 4-6 Last Admin: 12/26/21 07:43 Dose: 5 mg Documented By: ROSI Sodium Chloride (0.9 % Sodium Chloride Flush 3 Ml Syringe) [facility] Last Admin: 12/26/21 07:47 Dose: 3 ml Documented By: ROSI Labs CBC & Chem 7: 12/26/21 08:28 12/26/21 05:36 Labs: Laboratory Results - last 24 hr 12/25/21 12/26/21 12:13 05:36 Anion Gap 16 Estim Creat Clear Calc 76.7 Estimated GFR > 60 Random Glucose 122 H Calcium 9.2 Total Bilirubin 1.8 H AST 104 H ALT 91 H Alkaline Phosphatase 79 Total Protein 6.2 L Albumin 4.0 Urine Color Yellow Urine Appearance Clear Urine pH 8.5 H Ur Specific [place] >= 1.030 H Urine Protein Negative Urine Glucose (UA) Negative Urine Ketones Negative Urine Blood Negative Urine Nitrite Negative Ur Leukocyte Esterase Moderate (2+) H Urine RBC 0-2 Urine WBC 6-10 H Ur Squamous Epith Cells 11-20 Urine Bacteria 2+ Hyaline Casts 0-2 Procedures Date of Service Date of Service: 12/26/21 Progress Note: A&P Assessment and plan (1) Cholecystitis: Status: Acute (2) S/P laparoscopic cholecystectomy: Status: Acute (3) Lupus (systemic lupus erythematosus): Status: Acute Plan With the help of the multiple punch press operator, I explained to the patient that her operation went very well and that there was a fair amount of edema around the gallbladder. Given this, I have ordered a stat CBC to be sure that she isn't having ongoing bleeding to explain her pain, however given that she has no lower abdominal or pelvic pain, I suspect this is unlikely. Will advance to a low-fat diet. Activity restrictions and dietary recommendations were reviewed via under ground miner. The patient's daughter had requested a phone call and I will review these instructions. Once we get the patient's pain better controlled, she should be okay for discharge later today. I spoke with Gaston, the pt's daughter by telephone at [phone] and explained the plan to advance her to a low-fat diet, reviewed activity restrictions and also plan for a possible discharge later today if her pain is better controlled. The daughter's questions seemed to be satisfactorily answered. I also explained about the unclear concern regarding hospice and explained that there is absolutely no reason hospice would factor in to her care at this point. I suspect it was a translation issue. CBCD noted, Hb stable ADDENDUM Pt tolerated low fat diet & has adequate analgesia from oxycodone. Plan D/C Time Spent With Patient Time: Total time spent is greater than 50% in coordination of care (as documented) at patient's floor/unit and/or counseling patient: Quality Stroke Does the patient have a stroke diagnosis?: No VTE Prior VTE?: No VTE Risk Level:: Surgical - moderate VTE Device Contraindication: N/A - Device Ordered VTE Drug Contraindication: N/A - Med Ordered
--- NOTE | 2021-12-26 08:49 | HO.POSTANES ---
Post Anesthesia Evaluation Post Anesthesia Evaluation Vital Signs: Vital Signs Temp Pulse Resp BP Pulse Ox O2 Del Method O2 Flow Rate 12/26/21 06:46 98 F 102 H 17 144/69 H 98 Nasal Cannula 2 12/26/21 03:24 97.2 F 111 H 16 130/71 97 Nasal Cannula 2 12/25/21 23:18 97 F 70 16 120/59 L 93 Nasal Cannula 2 Anesthesia: General Endotracheal-GETA Mental Status: Awake Pain Control: Satisfactory (mild incisional pain) Nausea/Vomiting: None Hydration: Adequate Anesthesia-Related Issues: No Anes. Related Issues
[2021-12-26 09:03] LABS: MANUAL DIFF FLAG NO
[2021-12-26 09:07] LABS: Basophils Percent Auto 0.1 % (0-2); Hematocrit 36.3 % (37.0-47.0); Hemoglobin 12.2 g/dl (12.0-16.0); Imm Gran Abs Auto 0.03 X10*3/uL (0.00-0.03); Imm Gran Pct Auto 0.3 % (0.0-0.4); Lymphocytes Absolute Auto 0.7 X10*3/uL (1.2-4.9); Lymphocytes Percent Auto 6.2 % (20-40); Mean Corpuscular HGB Conc 33.6 g/dl (31.0-35.0); Mean Corpuscular Volume 92.4 fL (80.0-98.0); Monocytes Absolute Auto 0.7 X10*3/uL (0.1-1.2); Monocytes Percent Auto 5.7 % (2-11); Neutrophils Percent Auto 87.7 % (45-73); Platelet Count 273 X10*3/uL (160-400); Red Blood Count 3.93 X10*6/uL (4.20-5.50); Red Cell Distribution Width 13.2 % (11.0-16.0); White Blood Count 11.4 X10*3/uL (4.8-10.8)
--- NOTE | 2021-12-26 09:23 | MHC.CM.PN ---
MICKI ADDRESSED, PATIENT GIVEN YELLOW COPY AND WHITE COPY FILED IN CHART [facility] [place] SPEAKING PAIENT-PRINTER APPRENTICE NEEDED PATIENT REPORTS SHE LIVES WITH SPOUSE AND CHILDREN. IS INDEPENDENT AT HOME AND COMMUNITY. DENIES USE OF DME OR RECEIVING HOME SERVICES. SYDNI LOZOYA'Su[employer] X3 (CAN'T REMEMBER BRAND) PCP: MIKE FREED HCP-PATIENT EDUCATED/SHE DECLINED TO COMPLETE AT THIS TIME TRANSPORT BY FAMILY D/C PLAN: HOME SELF-CARE
[2021-12-26] MEDS: Ibuprofen 400 MG TABLET PO (10:36)
[2021-12-26 11:08] VITALS: BP 141/77; PULSE 95; RESP 18; TEMP 36.6; O2SAT 98
--- NOTE | 2021-12-26 12:43 | PM.DS ---
DS: Providers Provider Date of Service: 12/26/21 Date of admission: 12/25/21 10:42 Primary care physician: Nneka Everett MD Consults: 12/25/21 09:20 Consult to General Surgery Stat Consulting Provider: Kwabena Salazar Reason for consultation: cholecystitis DS: Diagnosis Discharge Diagnosis (1) Cholecystitis: Status: Acute (2) S/P laparoscopic cholecystectomy: Status: Acute (3) Lupus (systemic lupus erythematosus): Status: Acute DS: Summary Hospital Course Hospital Course: See admitting H and P for full details. Briefly, this 61-year-old woman with a history of lupus presented with abdominal pain and gallstones. CT and ultrasound demonstrated gallbladder wall thickening and inflammation consistent with early acute calculous cholecystitis. Cholecystectomy was recommended. The patient tolerated the procedure and no unusual pathology was encountered. Patient was kept overnight for pain management and IV hydration. She tolerated clear liquids and her diet was advanced to low fat. She tolerated low-fat diet and her pain was controlled with p.o. meds. Discharge instructions regarding diet and activity were discussed with the patient's daughter by telephone. Overall condition at the time of discharge is improved. Time Spent with Patient Time attestation: Total time spent providing and/or coordinating discharge services: Discharge coordination time: Less than 30 minutes Quality: Safe Use of Opioids Does Pt have an Active Cancer Diagnosis on the Problem List?: No Quality: Stroke Does the patient have a stroke diagnosis?: No Physical Exam Vital Signs: Vital Signs: Last Vital Signs Temp 97.9 F 12/26/21 11:08 Pulse 95 12/26/21 11:08 Resp 18 12/26/21 11:08 BP 141/77 H 12/26/21 11:08 Pulse Ox 98 12/26/21 11:08 O2 Del Method 12/26/21 11:08 O2 Flow Rate 2 12/26/21 06:46 Oxygen Flow Rate 2 12/25/21 18:32 BMI result Body Mass Index 27.6 DS: Data Data Completed and Pending Pending studies at discharge: Pending at discharge 12/25/21 17:57 Surgical [PTH] Routine Labs on day of discharge: Laboratory Results - last 24 hr 12/26/21 12/26/21 05:36 08:28 WBC 11.4 H RBC 3.93 L Hgb 12.2 Hct 36.3 L MCV 92.4 MCH 31.0 MCHC 33.6 RDW 13.2 Plt Count 273 MPV 11.0 Immature Gran % (Auto) 0.3 Neut % (Auto) 87.7 H Lymph % (Auto) 6.2 L [place] % (Auto) 5.7 Eos % (Auto) 0.0 Baso % (Auto) 0.1 Lymph # (Auto) 0.7 L [place] # (Auto) 0.7 Eos # (Auto) 0.0 Baso # (Auto) 0.0 Abs Immat Gran (auto) 0.03 Absolute Neuts (auto) 10.0 H Absolute Nucleated RBC 0.000 Nucleated RBC % (auto) 0.0 Sodium 141 Potassium 4.2 Chloride 103 Carbon Dioxide 26 Anion Gap 16 BUN 9 Creatinine 0.69 Estim Creat Clear Calc 76.7 Estimated GFR > 60 Random Glucose 122 H Calcium 9.2 Total Bilirubin 1.8 H AST 104 H ALT 91 H Alkaline Phosphatase 79 Total Protein 6.2 L Albumin 4.0 Discharge Plan Discharge Patient Disposition: Home, Self-Care Referrals: Nneka Daly MD [Primary Care Provider] - 1 Week Kwabena Salazar MD [Physician] - 1 Week Discharge Medications: Continued (DME) compression stockings See Rx Instructions .Route .MEDSUPPLY Qty: 1 0RF Rx Instructions: As directed hydroxychloroquine [Plaquenil] 200 mg tablet 200 mg PO BID Qty: 180 1RF baclofen 20 mg tablet 20 mg PO TID 90 Days Qty: 270 2RF cholecalciferol (vitamin D3) 25 mcg (1,000 unit) capsule 25 mcg PO DAILY Qty: 90 1RF cyclobenzaprine 10 mg tablet 10 mg PO TID 30 Days Qty: 90 4RF gabapentin 400 mg capsule 400 mg PO TID 30 Days Qty: 90 3RF Discharge Orders: Discharge Order (Routine); Ordered 12/26/21 Ordered By: Kwabena Salazar Diet: Low Fat Activity on Discharge: No heavy lifting Stand Alone Forms: Patient Portal Discharge page Activity Restrictions/Additional Instructions: You had a laparoscopic cholecystectomy performed by Dr. Salazar. It is normal to experience some neck or shoulder pain from the gas used to inflate your abdomen. It is also normal to have pain or discomfort in your abdomen/belly as well as at the trocar sites (small incisions). This discomfort will resolve over the next 1-3 days, however, if it gets progressively worse, if you should develop worsening pain, nausea, vomiting and cannot keep liquids down, chest pain, difficulty breathing or shortness of breath, fevers over 100F please report to the nearest emergency department. Unless otherwise directed by Dr. Salazar, you should resume taking your regular medications. As Dr. Salazar reviewed in the office, you must not lift more than 20 lb for the next 4 weeks. Strenuous activities can tear out your sutures and cause an incisional hernia that would require another operation. Activities to be avoided include: sports, running, bicycling, yoga, lifting more than 20 lb, digging, gardening, splitting/carrying wood, swimming, hiking uphill, and other activities. If you have questions regarding this specific activity, please check with Dr. Salazar. If your incisions become red, swollen, tender or draining pus, please contact Dr. Salazar or go to the nearest emergency department. Do not shower or bathe for 48 hours. If there are bandages on your incisions, remove them in 48 hours. Do not allow your bandages to become wet for 48 hours. Do not soak in a tub or swimming pool until your incisions have completely sealed, usually 2 or more weeks. After the dressings are removed in 48 hours, you will notice paper tapes called butterflies/Steri-Strips. These tapes will fall off on their own in 1-2 weeks. You do not need to apply another bandage unless your clothing irritates your incisions. If you need to place another Band-Aid on your incisions, be sure to wait until the Steri strip is dry. You have been prescribed narcotic pain medicine that will cause constipation. Please purchase oaid-pnu-vuqfhon stool softener known as Colace/docusate, 100 mg. Take 2 tablets with breakfast and the morning and 2 tablets in the evening after dinner until your bowels are moving and urine or longer taking narcotics. Please note that if you are not taking narcotics, the general anesthesia for the procedure can still cause constipation. If you experience diarrhea, stop taking the stool softener medicine. You can take xgzj-[id number]-[id number] Tylenol/acetaminophen with iimf-cii-mmrxenp ibuprofen or naproxen for pain unless you have an allergy or medical reason you are not not allowed to take these medications, such as peptic ulcers, taking blood thinners or kidney problems. You should also use ice packs to the operative site to help minimize pain and swelling for the first 3 days, or as needed afterwards. Unless there is a medical reason to avoid these medicines, you should take 2 jjkl-fio-yixqpat Tylenol with two (2) mjfh-myb-fcxikfq ibuprofen together, every 6 hours for the first 3 days to help with pain. Remember that the gallbladder helps to to digest fatty foods. If you eat fried foods; rich, creamy sauces; cheese; gravies or other such heavy, greasy foods, you will likely develop gas and bloating and diarrhea. To minimize this risk, eat a high protein, high-fiber, low-fat diet for the next few weeks. Care Plan Goals: allow post-op healing; f/u re: impaired glucose & lupus with PCP Health Concerns: Impaired glucose & lupus Plan of Treatment: Appropriate post-op healing Assessment: s/p roby harris
--- NOTE | 2021-12-26 12:47 | MHC.CM.PN ---
PATIENT HAS BEEN MEDICALLY CLEARED FOR DISCHARGE TODAY; DISCHARGE DISPOSITION IS HOME SELF-CARE. FAMILY WILL TRANSPORT.
== END 2021-12-26 14:13 | disposition home or self-care (01) ==
LOC: HO.ED 10:08 → HO.EDOVER 10:48 → HO.S3 19:26
PROVIDERS: Emergency Medicine; Admitting Provider Surgery; Emergency Provider Emergency Medicine; PCP Internal Medicine; Visit Provider Surgery
PROC: 0FT44ZZ Resection of Gallbladder, Percutaneous Endoscopic Approach (ICD-10-PCS; CPT 47562; principal; 2021-12-25 15:30)
DX: K80.00 Calculus of gallbladder with acute cholecystitis without obstruction (principal); R73.02 Impaired glucose tolerance (oral); M32.8 Other forms of systemic lupus erythematosus; K76.0 Fatty (change of) liver, not elsewhere classified; E55.9 Vitamin D deficiency, unspecified; G43.909 Migraine, unspecified, not intractable, without status migrainosus; I87.2 Venous insufficiency (chronic) (peripheral); R06.02 Shortness of breath; Z20.822 Contact with and (suspected) exposure to COVID-19; Z79.899 Other long term (current) drug therapy
CPT/HCPCS: 47562; 36415; 74177; 76705; 80053; 81001; 83690; 84484; 85025; 87086; 87635; 88304; 93005; 99285; J0131; J0690; J1100; J1170; J2250; J2270; J2370; J2405; J2795; J3010; Q9967

== ENCOUNTER → 2022-01-22 14:53 | Outpatient (BNVA) | payer OTHER, SELFPAY | PROVIDERS: PCP Internal Medicine; Referring Provider Internal Medicine; Visit Provider Physician Assistant | DX: K76.0 Fatty (change of) liver, not elsewhere classified (principal) | CPT/HCPCS: 99212 ==

== ENCOUNTER 2022-01-24 | Outpatient (REF) | payer OTHER, SELFPAY ==
[2022-01-29 23:37] LABS: HPV mRNA E6/E7 rflx Not Detected (Not Detected)
== END 2022-01-24 00:01 | disposition home or self-care (01) ==
LOC: HO.LNP
PROVIDERS: Visit Provider Obstetrics & Gynecology
DX: Z01.419 Encounter for gynecological examination (general) (routine) without abnormal findings (principal); Z11.51 Encounter for screening for human papillomavirus (HPV)
CPT/HCPCS: 87624; 88142

== ENCOUNTER 2022-02-28 07:40 | Outpatient (REF) | payer OTHER, SELFPAY ==
--- NOTE | ~2022-02-28 | MM_ITS ---
EXAMINATION: BONE DENSITOMETRY CLINICAL INDICATION: Other specified disorders of bone density/osteopenia. COMPARISON: Previous BD dated 02/23/2020 and baseline BD dated 07/01/2015. TECHNIQUE: Using a spotflux DXA System (software version: 13.1) manufactured by [employer], dual-energy x-ray absorptiometry was performed of the lumbar spine and left hip. The images are of good technical quality. Summary results are attached. FINDINGS: AP SPINE L1-L4: Current: BMD 1.014 g/cm2, Z-score -0.3, T-score -1.4, osteopenia, 4.7% decrease from previous, 0.5% decrease from baseline (<5% change is not significant). Prior: BMD 1.064 g/cm2. Baseline: BMD 1.019 g/cm2. LEFT FEMUR, NECK: Current: BMD 0.870 g/cm2, Z-score -0.1, T-score -1.2, osteopenia. Prior: BMD 0.852 g/cm2. Baseline: BMD 0.861 g/cm2. LEFT FEMUR, TOTAL: Current: BMD 0.938 g/cm2, Z-score 0.3, T-score -0.6, normal, 0.9% increase from previous, 0.6% increase from baseline (<5% change is not significant). Prior: BMD 0.930 g/cm2. Baseline: BMD 0.932 g/cm2. IDENTIFIED RISK FACTORS: Menopause, hysterectomy, history of fracture (adult). HISTORY OF FRACTURE: Humerus. MEDICATIONS: Calcium supplements or multivitamin, vitamin D. MM/XR DEXA axial skeleton IMPRESSION: 1. DIAGNOSIS: Osteopenia based on the lowest T-score value of -1.4 in the lumbar spine applying World Health Organization criteria. 2. 10-YEAR FRACTURE RISK PREDICTION, FRAX: Major osteoporotic fracture (clinical spine, forearm, hip or shoulder) 7.3%. Hip fracture 0.5%. 3. Treatment Recommendations: NOF guidelines recommend consideration for treatment in postmenopausal women and men age 50 and older presenting with the following: -A hip or vertebral (clinical or morphometric) fracture. -T-score less than or equal to -2.5 at the femoral neck or spine after appropriate evaluation to exclude secondary causes. -Low bone mass at the hip or spine and a 10-year fracture probability by FRAX of greater than or equal to 3% for hip fracture or greater than or equal to 20% for major osteoporotic fracture based on the [place] adapted WHO algorithm. 4. Other Recommendations: All treatment decisions require clinical judgment and consideration of individual patient factors, including patient preferences, comorbidities, previous drug use, risk factors not captured in the FRAX model (e.g. frailty, falls, vitamin D deficiency, increased bone turnover, interval significant decline in bone density) and possible under or overestimation of fracture risk by FRAX. Additional medical evaluation for secondary cause of low bone mineral density may be appropriate. FUTURE SCAN RECOMMENDATION: People with diagnosed cases of osteoporosis or at high risk for fracture should have regular bone mineral density tests. For patients eligible for Medicare, routine testing is allowed once every 2 years. The testing frequency can be increased to one year for patients who have rapidly progressing disease, those who are receiving or discontinuing medical therapy to restore bone mass, or have additional risk factors.
== END 2022-02-28 07:41 | disposition home or self-care (01) ==
LOC: HO.MAMMO 07:40
PROVIDERS: PCP Internal Medicine; Visit Provider Internal Medicine
DX: Z13.820 Encounter for screening for osteoporosis (principal); M85.80 Other specified disorders of bone density and structure, unspecified site; Z78.0 Asymptomatic menopausal state
CPT/HCPCS: 77080

== ENCOUNTER 2022-06-02 07:03 | Emergency (ER) | payer OTHER, SELFPAY ==
--- NOTE | ~2022-06-02 | XR_ITS ---
EXAMINATION: XR LUMBAR SPINE XR HIP, LEFT CLINICAL INFORMATION: Pain. COMPARISON: Most recent CT abdomen/pelvis dated 12/25/2021. TECHNIQUE: AP, lateral, and coned down views of the lumbar spine. AP view of the pelvis with AP and frog-leg lateral views of the left hip. FINDINGS: Lumbar Spine: Normal vertebral body alignment. The lumbar lordosis is maintained. No acute fracture or subluxation. No loss of vertebral body height. Mild multilevel loss of intervertebral disc height with endplate osteophytes, most prominent within the lower thoracic and upper lumbar spine. No concerning lytic or blastic osseous lesion. No abnormal soft tissue calcification. Left Hip: No acute fracture or dislocation. Small bilateral hip marginal osteophytes. No osseous erosion. Phleboliths within the pelvis. XR/XR lumbar spine 2-3V IMPRESSION: LUMBAR SPINE: Mild multilevel degenerative disc disease, most prominent within the lower thoracic and upper lumbar spine. LEFT HIP: Mild osteoarthritis.
--- NOTE | ~2022-06-02 | XR_ITS ---
EXAMINATION: XR LUMBAR SPINE XR HIP, LEFT CLINICAL INFORMATION: Pain. COMPARISON: Most recent CT abdomen/pelvis dated 12/25/2021. TECHNIQUE: AP, lateral, and coned down views of the lumbar spine. AP view of the pelvis with AP and frog-leg lateral views of the left hip. FINDINGS: Lumbar Spine: Normal vertebral body alignment. The lumbar lordosis is maintained. No acute fracture or subluxation. No loss of vertebral body height. Mild multilevel loss of intervertebral disc height with endplate osteophytes, most prominent within the lower thoracic and upper lumbar spine. No concerning lytic or blastic osseous lesion. No abnormal soft tissue calcification. Left Hip: No acute fracture or dislocation. Small bilateral hip marginal osteophytes. No osseous erosion. Phleboliths within the pelvis. XR/XR hip LT w PEL1V IMPRESSION: LUMBAR SPINE: Mild multilevel degenerative disc disease, most prominent within the lower thoracic and upper lumbar spine. LEFT HIP: Mild osteoarthritis.
[2022-06-02 07:19] VITALS: BP 188/93; PULSE 105; RESP 16; TEMP 36.8; O2SAT 98; BMI 27.3
[2022-06-02 07:21] VITALS: BP 188/93; PULSE 105; RESP 16; TEMP 36.8; O2SAT 98
--- NOTE | 2022-06-02 07:23 | PC.NURSE ---
61 y/o F pw lower back pain x2 days. no trauma to the area. pt is aox3, calm and cooperative, VSS.
--- NOTE | 2022-06-02 07:46 | ED.BACK ---
HPI - Back Pain/Injury General Chief Complaint: Back Pain/Injury Stated Complaint: lower back pain Time Seen by Provider: 06/02/22 07:41 Source: patient Mode of arrival: ambulatory Limitations: no limitations History of Present Illness HPI Narrative: This is a patient with history of lupus, chronic pain, presented to the emergency department complaining of lower back pain left hip pain she was seen 3 days ago by the PCP as well, there is no injury, she is ambulatory to the ED. MD elicited complaint: back pain Onset (ago): day(s) (3) Timing: constant Severity: moderate Quality: sharp and dull Location: lumbar spine Radiation: none Exacerbating factors: none Relieving factors: none Associated symptoms: denies other symptoms Related Data Previous Rx's Medication Instructions Recorded compression stockings #1 ea 02/08/21 cyclobenzaprine 10 mg tablet 10 mg PO TID 30 days #90 tabs 06/15/21 hydroxychloroquine 200 mg tablet 200 mg PO BID #180 tabs 12/10/21 (Plaquenil) cholecalciferol (vitamin D3) 25 25 mcg PO DAILY #90 caps 01/11/22 mcg (1,000 unit) capsule gabapentin 400 mg capsule 400 mg PO TID 30 days #90 caps 02/20/22 baclofen 20 mg tablet 20 mg PO TID 90 days #270 tabs 05/09/22 acetaminophen 650 mg 1,300 mg PO Q8H 30 days #180 tabs 05/30/22 tablet,extended release (Mapap Arthritis Pain) betamethasone valerate 0.1 % 1 appl topical DAILY PRN skin 05/30/22 topical cream irritation 2 weeks #15 grams oxycodone 5 mg capsule 5 mg PO Q8H PRN pain #12 caps 06/02/22 Allergies Allergy/AdvReac Type Severity Reaction Status Date / Time Penicillins [PENICILLINS] Allergy Intermediate Verified 05/30/22 08:17 ? RXN sumatriptan AdvReac Intermediate stomach Verified 05/30/22 08:17 upset Review of Systems Constitutional: Constitutional: Reports no additional constitutional complaints Eyes: Eyes: Reports no additional eye complaints Cardiovascular: Cardiovascular: Reports no additional cardiovascular complaints Neurologic: Reports system reviewed and no additional complaints, except as documented PMFSH Past Medical History Medical History Hepatic steatosis Impaired glucose tolerance Lupus (systemic lupus erythematosus) Migraines Physical exam Shortness of breath Venous (peripheral) insufficiency Vitamin D deficiency Surgical History History of esophagogastroduodenoscopy (EGD) (~2003) History of root canal procedure Hx of cholecystectomy Hx of colonoscopy Family History Family History Father No problems noted. Mother Arthritis Asthma Sister Diabetes Social History Social History Household Members: Spouse and Children Housing: House Alcohol intake: never Patient Tobacco Use Status: Never used Tobacco e-Cigarette/Vaping Use: Never Used Second Hand Smoke Exposure: No Advance Directives: No service: No Current occupational status: unemployed Cognitive needs: No Hearing needs: No Vision needs: No Physical Exam Vital Signs: Vital Signs: Last Vital Signs Temp 98.3 F 06/02/22 07:21 Pulse 105 H 06/02/22 07:21 Resp 16 06/02/22 07:21 BP 188/93 H 06/02/22 07:21 Pulse Ox 98 06/02/22 07:21 O2 Del Method 06/02/22 07:21 BMI result Body Mass Index 27.3 Const: General: cooperative, healthy appearing and comfortable Nutritional Appearance: average body habitus Orientation/consciousness: patient oriented x3 Limitations: no limitations HEENT: Head: Yes normal to inspection Face and sinus: Yes normal facial exam Mouth: Normal oral and palatal mucosa present Throat: Yes posterior oropharynx normal Neck: Neck: Yes normal visual inspection and Yes full ROM Chest: Chest palpation & inspection: normal inspection of the chest Resp: Effort & Inspection: normal respiratory effort Auscultation: clear to auscultation bilaterally Cardio: Jugular venous distension: no JVD Rate: regular rate Rhythm: regular rhythm GI: Inspection: Yes normal to inspection Palpation (GI): Soft to palpation Percussion: Yes normal to percussion Auscultation: normal bowel sounds Back/Spine/Pelvis: Other: Tenderness in the LS spine Neuro: General: patient oriented x3 Cranial nerves: Yes CN's II-XII intact bilaterally Cognition (Neuro): normal cognition Gait exam (Neuro): Normal gait present Motor exam (neuro): 09/07 motor strength present throughout Course Reevaluation(s) Reevaluation #1: X-ray review by me I do not see any evidence of compressive fracture. I think the patient can be discharged home return follow-up with ortho Time: 08:29 Medical Decision Making Medical Decision Making [facility] Narrative: Three days of lower back pain we get imaging given their age of [age] years old. Differential Diagnosis Differential Diagnoses: The differential diagnosis associated with the presentation includes DJD, muscular spasm , compressive fracture Independent Interpretation I performed an independent interpretation of an: Plain X-Ray Interpretation: No fracture Radiology Impression Discussion of test interpretation with radiology: I have reviewed the radiologist's reading. Radiologist Impression: COMPARISON: Most recent CT abdomen/pelvis dated 12/25/2021.? TECHNIQUE: AP, lateral, and coned down views of the lumbar spine. AP view of the pelvis with AP and frog-leg lateral views of the left hip.? FINDINGS: Lumbar Spine: Normal vertebral body alignment. The lumbar lordosis is maintained. No acute fracture or subluxation. No loss of vertebral body height. Mild multilevel loss of intervertebral disc height with endplate osteophytes, most prominent within the lower thoracic and upper lumbar spine. No concerning lytic or blastic osseous lesion. No abnormal soft tissue calcification. Left Hip: No acute fracture or dislocation. Small bilateral hip marginal osteophytes. No osseous erosion. Phleboliths within the pelvis. XR/XR lumbar spine 2-3V IMPRESSION: LUMBAR SPINE: Mild multilevel degenerative disc disease, most prominent within the lower thoracic and upper lumbar spine. ? LEFT HIP: Mild osteoarthritis. Independent Historian Clinical information obtained from an independent historian. History obtained from or confirmed by: Other (daughter) External Record Review External record reviewed: Inpatient record Prescription Management I considered prescription management with: Pain Medication Chronic Conditions Patient?s care impacted by: Other Lupus Discharge Plan Discharge Clinical Impression: Acute hip pain, Back pain Patient Disposition: Home, Self-Care Instructions: Back Pain (ED), Hip Pain (ED) Additional Instructions: follow up with Primary care and Ortho Prescriptions: New oxycodone 5 mg capsule 5 mg PO Q8H PRN (Reason: pain) Qty: 12 0RF Rx Instructions: Partial Fill upon patient request. No Action (DME) compression stockings See Rx Instructions .Route .MEDSUPPLY Qty: 1 0RF Rx Instructions: As directed hydroxychloroquine [Plaquenil] 200 mg tablet 200 mg PO BID Qty: 180 1RF cholecalciferol (vitamin D3) 25 mcg (1,000 unit) capsule 25 mcg PO DAILY Qty: 90 1RF gabapentin 400 mg capsule 400 mg PO TID 30 Days Qty: 90 3RF baclofen 20 mg tablet 20 mg PO TID 90 Days Qty: 270 2RF cyclobenzaprine 10 mg tablet 10 mg PO TID 30 Days Qty: 90 4RF betamethasone valerate 0.1 % cream 1 appl topical DAILY PRN (Reason: skin irritation) 14 Days Qty: 15 0RF acetaminophen [Mapap Arthritis Pain] 650 mg tablet extended release 1,300 mg PO Q8H 30 Days Qty: 180 1RF Referrals: Claudio Kessler MD [Physician] - 3 days Interventions: ED Discharge Assessment Last Done: 06/02/22 08:50 Discharge Date/Time: 06/02/22 08:54
== END 2022-06-02 08:54 | disposition home or self-care (01) ==
PROVIDERS: Emergency Provider Emergency Medicine; PCP Internal Medicine
DX: M25.552 Pain in left hip (principal); M54.50 Low back pain, unspecified; M16.12 Unilateral primary osteoarthritis, left hip; Z90.49 Acquired absence of other specified parts of digestive tract; Z79.899 Other long term (current) drug therapy
CPT/HCPCS: 72100; 73502; 99283; 99284

== ENCOUNTER 2022-06-06 08:24 | Outpatient (REF) | payer OTHER, SELFPAY ==
--- NOTE | ~2022-06-06 | US_ITS ---
EXAMINATION: US ABDOMEN LIMITED CLINICAL INFORMATION: Fatty (change of) liver, not elsewhere classified. COMPARISON: CT abdomen and pelvis with contrast 12/25/2021. Ultrasound abdomen limited 12/25/2021. Ultrasound retroperitoneal limited (renal only) 12/07/2021. X-ray abdomen KUB 11/27/2021 and 08/02/2015. TECHNIQUE: Real-time imaging of the right upper quadrant abdominal viscera. Technically limited study secondary to bowel gas. FINDINGS: PANCREAS: Normal. LIVER: The liver is normal in size. The liver contour is normal. There is mild increased liver echogenicity No focal hepatic lesion. There is no intrahepatic biliary duct dilatation seen. GALLBLADDER: Surgically absent. COMMON BILE DUCT: Normal in caliber measuring 0.8 cm in diameter. RIGHT KIDNEY: No hydronephrosis. No renal calculi or focal parenchymal lesions. The kidney measures 8.9 cm in maximum dimension. FREE FLUID: None. US/US abdomen limited IMPRESSION: There is mild hepatic echogenicity. No focal lesion is seen. The gallbladder has been surgically removed.
== END 2022-06-06 08:25 | disposition home or self-care (01) ==
LOC: HO.US 08:24
PROVIDERS: PCP Internal Medicine; Visit Provider Physician Assistant
DX: K76.0 Fatty (change of) liver, not elsewhere classified (principal)
CPT/HCPCS: 76705

== ENCOUNTER 2022-10-05 13:35 | Outpatient (REF) | payer OTHER, SELFPAY ==
--- NOTE | ~2022-10-05 | XR_ITS ---
EXAMINATION: 1. RADIOGRAPHS THORACIC SPINE 2. RADIOGRAPHS RIGHT SHOULDER 3. RADIOGRAPHS RIGHT SCAPULA 4. RADIOGRAPHS ABDOMEN KUB CLINICAL INFORMATION: Diffuse pain COMPARISON: CT abdomen pelvis December 25, 2021, abdominal KUB November 27, 2021 and right shoulder x-rays April 05, 2021 TECHNIQUE: 3 views of the thoracic spine, 3 views of the right shoulder, 2 views of the right scapula and a frontal view of the abdomen was obtained. FINDINGS: Thoracic spine: Normal alignment of the thoracic spine. Thoracic vertebral body heights are maintained. Thoracic disc spaces are relatively well-maintained diffusely. Small osteophytes are scattered throughout the thoracic spine. Visualized lung parenchyma is well aerated. Right shoulder/right scapula: Visualized portion of the proximal right humerus demonstrate no fracture. Humeral head demonstrates good articulation with the glenoid fossa. No fracture of the right scapula. There are mild hypertrophic changes of the right acromioclavicular joint. Visualized right-sided ribs and lung parenchyma are unremarkable. Abdominal KUB: No dilated air-filled loops of small bowel to suggest an obstructive process. There is a moderate stool burden throughout the majority the colon. Surgical clips in the right upper abdomen suggest prior cholecystectomy. Small pelvic calcifications are likely vascular in nature. XR/XR KUB IMPRESSION: 1. Mild degenerative changes of the thoracic spine without compression deformity. 2. Mild degenerative changes of the right shoulder without fracture or dislocation. 3. Moderate colonic stool burden suggesting constipation.
--- NOTE | ~2022-10-05 | XR_ITS ---
EXAMINATION: 1. RADIOGRAPHS THORACIC SPINE 2. RADIOGRAPHS RIGHT SHOULDER 3. RADIOGRAPHS RIGHT SCAPULA 4. RADIOGRAPHS ABDOMEN KUB CLINICAL INFORMATION: Diffuse pain COMPARISON: CT abdomen pelvis December 25, 2021, abdominal KUB November 27, 2021 and right shoulder x-rays April 05, 2021 TECHNIQUE: 3 views of the thoracic spine, 3 views of the right shoulder, 2 views of the right scapula and a frontal view of the abdomen was obtained. FINDINGS: Thoracic spine: Normal alignment of the thoracic spine. Thoracic vertebral body heights are maintained. Thoracic disc spaces are relatively well-maintained diffusely. Small osteophytes are scattered throughout the thoracic spine. Visualized lung parenchyma is well aerated. Right shoulder/right scapula: Visualized portion of the proximal right humerus demonstrate no fracture. Humeral head demonstrates good articulation with the glenoid fossa. No fracture of the right scapula. There are mild hypertrophic changes of the right acromioclavicular joint. Visualized right-sided ribs and lung parenchyma are unremarkable. Abdominal KUB: No dilated air-filled loops of small bowel to suggest an obstructive process. There is a moderate stool burden throughout the majority the colon. Surgical clips in the right upper abdomen suggest prior cholecystectomy. Small pelvic calcifications are likely vascular in nature. XR/XR scapula RT IMPRESSION: 1. Mild degenerative changes of the thoracic spine without compression deformity. 2. Mild degenerative changes of the right shoulder without fracture or dislocation. 3. Moderate colonic stool burden suggesting constipation.
--- NOTE | ~2022-10-05 | XR_ITS ---
EXAMINATION: 1. RADIOGRAPHS THORACIC SPINE 2. RADIOGRAPHS RIGHT SHOULDER 3. RADIOGRAPHS RIGHT SCAPULA 4. RADIOGRAPHS ABDOMEN KUB CLINICAL INFORMATION: Diffuse pain COMPARISON: CT abdomen pelvis December 25, 2021, abdominal KUB November 27, 2021 and right shoulder x-rays April 05, 2021 TECHNIQUE: 3 views of the thoracic spine, 3 views of the right shoulder, 2 views of the right scapula and a frontal view of the abdomen was obtained. FINDINGS: Thoracic spine: Normal alignment of the thoracic spine. Thoracic vertebral body heights are maintained. Thoracic disc spaces are relatively well-maintained diffusely. Small osteophytes are scattered throughout the thoracic spine. Visualized lung parenchyma is well aerated. Right shoulder/right scapula: Visualized portion of the proximal right humerus demonstrate no fracture. Humeral head demonstrates good articulation with the glenoid fossa. No fracture of the right scapula. There are mild hypertrophic changes of the right acromioclavicular joint. Visualized right-sided ribs and lung parenchyma are unremarkable. Abdominal KUB: No dilated air-filled loops of small bowel to suggest an obstructive process. There is a moderate stool burden throughout the majority the colon. Surgical clips in the right upper abdomen suggest prior cholecystectomy. Small pelvic calcifications are likely vascular in nature. XR/XR thoracic spine 2V IMPRESSION: 1. Mild degenerative changes of the thoracic spine without compression deformity. 2. Mild degenerative changes of the right shoulder without fracture or dislocation. 3. Moderate colonic stool burden suggesting constipation.
--- NOTE | ~2022-10-05 | XR_ITS ---
EXAMINATION: 1. RADIOGRAPHS THORACIC SPINE 2. RADIOGRAPHS RIGHT SHOULDER 3. RADIOGRAPHS RIGHT SCAPULA 4. RADIOGRAPHS ABDOMEN KUB CLINICAL INFORMATION: Diffuse pain COMPARISON: CT abdomen pelvis December 25, 2021, abdominal KUB November 27, 2021 and right shoulder x-rays April 05, 2021 TECHNIQUE: 3 views of the thoracic spine, 3 views of the right shoulder, 2 views of the right scapula and a frontal view of the abdomen was obtained. FINDINGS: Thoracic spine: Normal alignment of the thoracic spine. Thoracic vertebral body heights are maintained. Thoracic disc spaces are relatively well-maintained diffusely. Small osteophytes are scattered throughout the thoracic spine. Visualized lung parenchyma is well aerated. Right shoulder/right scapula: Visualized portion of the proximal right humerus demonstrate no fracture. Humeral head demonstrates good articulation with the glenoid fossa. No fracture of the right scapula. There are mild hypertrophic changes of the right acromioclavicular joint. Visualized right-sided ribs and lung parenchyma are unremarkable. Abdominal KUB: No dilated air-filled loops of small bowel to suggest an obstructive process. There is a moderate stool burden throughout the majority the colon. Surgical clips in the right upper abdomen suggest prior cholecystectomy. Small pelvic calcifications are likely vascular in nature. XR/XR shoulder RT min 2V IMPRESSION: 1. Mild degenerative changes of the thoracic spine without compression deformity. 2. Mild degenerative changes of the right shoulder without fracture or dislocation. 3. Moderate colonic stool burden suggesting constipation.
== END 2022-10-05 13:36 | disposition home or self-care (01) ==
LOC: HO.XRAY 13:35
PROVIDERS: PCP Internal Medicine; Visit Provider Internal Medicine
DX: M54.6 Pain in thoracic spine (principal); M89.8X1 Other specified disorders of bone, shoulder; M25.511 Pain in right shoulder; M54.9 Dorsalgia, unspecified
CPT/HCPCS: 72070; 73010; 73030; 74018

== ENCOUNTER 2022-11-30 08:21 | Outpatient (REF) | payer OTHER, SELFPAY ==
[2022-11-30 08:33] LABS: MANUAL DIFF FLAG NO
[2022-11-30 09:01] LABS: Basophils Absolute Auto 0.1 X10*3/uL (0.0-0.2); Basophils Percent Auto 0.9 % (0-2); Eosinophils Percent Auto 0.3 % (0-4); Hematocrit 45.5 % (37.0-47.0); Hemoglobin 14.9 g/dl (12.0-16.0); Imm Gran Abs Auto 0.01 X10*3/uL (0.00-0.03); Imm Gran Pct Auto 0.2 % (0.0-0.4); Lymphocytes Absolute Auto 1.4 X10*3/uL (1.2-4.9); Lymphocytes Percent Auto 24.3 % (20-40); Mean Corpuscular HGB Conc 32.7 g/dl (31.0-35.0); Mean Corpuscular Hemoglobin 30.1 pg (27.0-33.0); Mean Corpuscular Volume 91.9 fL (80.0-98.0); Monocytes Absolute Auto 0.5 X10*3/uL (0.1-1.2); Monocytes Percent Auto 8.3 % (2-11); Neutrophils Absolute Auto 3.8 x10*3/uL (2.0-8.3); Platelet Count 274 X10*3/uL (160-400); Red Blood Count 4.95 X10*6/uL (4.20-5.50); Red Cell Distribution Width 13.2 % (11.0-16.0); White Blood Count 5.8 X10*3/uL (4.8-10.8)
[2022-11-30 09:45] LABS: Alanine Aminotransferase 27 U/L (0-31); Alkaline Phosphatase 62 U/L (39-117); Aspartate Amino Transferase 32 U/L (5-31); Bilirubin Direct 0.6 mg/dL (0.0-0.5); Bilirubin Total 2.2 mg/dL (0.0-1.0); Vitamin D 25-OH Total 33.1 ng/mL (>30)
== END 2022-11-30 08:22 | disposition home or self-care (01) ==
LOC: HO.LAB 08:21
PROVIDERS: PCP Internal Medicine; Visit Provider Internal Medicine
DX: K76.0 Fatty (change of) liver, not elsewhere classified (principal); E55.9 Vitamin D deficiency, unspecified; M32.9 Systemic lupus erythematosus, unspecified
CPT/HCPCS: 36415; 80076; 82306; 85025

== ENCOUNTER 2022-12-05 07:32 | Outpatient (AMB) | payer OTHER, SELFPAY ==
[2022-12-05 07:46] VITALS: BP 130/80; BMI 26.9
--- NOTE | 2022-12-05 07:46 | A.OFFPC_ITS ---
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 RXN sumatriptan Adverse Reaction (Intermediate, Verified 12/05/22 08:07) stomach upset Medication List - Last Reconciled 12/05/22 by Nneka Everett MD acetaminophen ER (Mapap Arthritis Pain) 1,300 mg (2 x 650 mg) PO Q8H 30 days baclofen 20 mg PO TID 90 days betamethasone valerate 0.1% 1 appl topical DAILY PRN 2 weeks cholecalciferol (vitamin D3) 25 mcg PO DAILY [compression stockings As directed] cyclobenzaprine 10 mg PO TID 30 days gabapentin 400 mg PO TID 30 days hydroxychloroquine (Plaquenil) 200 mg PO BID oxycodone 5 mg PO Q8H PRN 5 days Tobacco use date assessed: 05/30/22 Dental Screening Dental Screen Date: 12/05/22 Did you have a dental visit in the last 12 months?: Yes Did you have a dental problem in the last 6 months where you did not have access to dental care?: No Was dental information given to patient?: Patient has dentist HPI HPI Comments History of Present Illness Details This is a 62-year-old female that comes today accompanied by for physical exam. She has lupus follow by Rheumatology that has been stable with hydroxychloroquine. Last colonoscopy was 2015 and was normal. Has mammogram scheduled for this month. Last Pap smear was 2021 and was normal with HPV negative. No chest pain or shortness of breath. Has cholecystectomy and still complains of right upper quadrant abdominal pain associated with fatty foods. [facility] Medical History (Updated 10/04/22 @ 16:43 by Nneka Everett MD) Hepatic steatosis Impaired glucose tolerance Lupus (systemic lupus erythematosus) Migraines Physical exam Shortness of breath Venous (peripheral) insufficiency Vitamin D deficiency Surgical History History of esophagogastroduodenoscopy (EGD) (~2003) History of root canal procedure Hx of cholecystectomy Hx of colonoscopy Family History (Updated 12/05/22 @ 08:11 by Nneka Everett MD) Father Schizophrenia Mother Arthritis Asthma Hypothyroidism Sister Diabetes Social History Household Members: Spouse and Children Housing: House Alcohol intake: never Patient Tobacco Use Status: Never used Tobacco e-Cigarette/Vaping Use: Never Used Second Hand Smoke Exposure: No service: No Current occupational status: unemployed Cognitive needs: No Hearing needs: No Vision needs: No Questionnaire Thrive Questionnaire Date Thrive assessed: 05/30/22 IVON-7 AMB Questionnaire IVON-7 Date IVON - 7 assessed: 05/30/22 Source: Developed by Drs. Elpidio Cabrera, Indiana Murphy, Pete Elizabeth and colleagues, with an educational tommie from [employer]. Review of Systems Const All systems reviewed & are unremarkable except as noted in HPI and below Eyes Reports no additional complaints, Denies change in vision and Denies other visual disturbances Card Denies chest pain at rest, Denies chest pain with activity, Denies edema, Denies irregular heart rhythm, Denies claudication, Denies dyspnea, Denies dyspnea on exertion, Denies orthopnea, Denies paroxysmal nocturnal dyspnea and Denies slow heart rate Resp Denies cough, Denies dyspnea and Denies dyspnea on exertion GI Denies abdominal pain, Denies change in bowel habits, Denies excessive flatus, Denies nausea and Denies vomiting Denies urinary incontinence, Denies urinary hesitancy and Denies urinary urgency Musc Denies abnormal gait, Denies atrophy, Denies deformity and Denies limited range of motion Skin/Breast Denies bleeding lesions, Denies changing lesions and Denies rash Neuro Denies abnormal gait, Denies behavioral changes, Denies confusion and Denies lack of coordination Psych Denies behavioral changes and Denies confusion Physical exam (Primary Care) Vital Signs: Last Vital Signs BP 130/80 12/05/22 07:46 BMI result Body Mass Index 26.9 Tobacco/Smoking Status: Tobacco use Status Tobacco use date assessed 05/30/22 12/05/22 07:49 Patient Tobacco Use Status Never used Tobacco 12/05/22 07:49 e-Cigarette/Vaping Use Never Used 12/05/22 07:49 Thrive Assessment: Date of Thrive Assessment Date Thrive assessed 05/30/22 12/05/22 07:49 Const General: No confusion Orientation/consciousness: patient oriented x3 and No confusion HENMT Head: Yes normal to inspection, Yes normocephalic and Yes atraumatic Ears: external ears normal Eyes General: appearance normal, both eyes and all related structures Eyelids: Yes eyelids normal Conjunctivae: conjunctivae normal Neck Neck: Yes normal visual inspection and Yes supple Resp Effort & Inspection: normal respiratory effort Auscultation: clear to auscultation bilaterally Cardio Jugular venous distension: no JVD Rate: regular rate Rhythm: regular rhythm Heart sounds: S1 normal heart sound present and S2 normal heart sound present GI Inspection: Yes normal to inspection Palpation (GI): Soft to palpation and nontender Auscultation: normal bowel sounds Skin General skin exam: no rashes or lesions noted Neuro General: patient oriented x3, no focal motor deficits and No confusion Extrem General: Yes full ROM Psych Appearance: grossly normal Assessment and Plan Assessment & Plan (1) Physical exam: Code(s): Z00.00 - Encounter for general adult medical examination without abnormal findings Plan: Repeat in a year (2) Lupus (systemic lupus erythematosus): Code(s): M32.9 - Systemic lupus erythematosus, unspecified Qualifiers: Systemic lupus erythematosus type: other Systemic lupus erythematosus organ involvement: unspecified Qualified Code(s): M32.8 - Other forms of systemic lupus erythematosus Plan: Continue hydroxychloroquine. Follow-up with rheumatology. Orders: Orders Comprehensive Echo. Panel Fast Today Z00.00 - Encounter for general adult medical examination without abnormal findings Lipid Panel Today Z00.00 - Encounter for general adult medical examination without abnormal findings Coding Level of Care Code Est Pt Prev Care 40-64y(36282) Diagnoses Physical exam Z00.00 Lupus (systemic lupus erythematosus) M32.8 Systemic lupus erythematosus type: other Systemic lupus erythematosus organ involvement: unspecified Time Spent (min) 32
== END 2022-12-05 08:24 | disposition home or self-care (01) ==
PROVIDERS: PCP Internal Medicine; Visit Provider Internal Medicine
DX: Z00.00 Encounter for general adult medical examination without abnormal findings (principal); M32.8 Other forms of systemic lupus erythematosus
CPT/HCPCS: 99396

== ENCOUNTER 2022-12-10 08:05 | Outpatient (REF) | payer OTHER, SELFPAY ==
--- NOTE | ~2022-12-10 | MM_ITS ---
EXAMINATION: MM SCREENING DIGITAL BREAST TOMOSYNTHESIS, BILATERAL CLINICAL INFORMATION: Screening. Asymptomatic. The lifetime risk of breast cancer based on the Tyrer-Cuzick Model is 4.5%. COMPARISON: Mammography: 12/18/2021, and exams dating back to 2017. Bilateral breast ultrasound 12/18/2021. TECHNIQUE: Digital breast tomosynthesis is performed in both the craniocaudal and mediolateral oblique views along with computer-aided detection (CAD). Synthesized 2D images are generated from the tomosynthesis. FINDINGS: There are scattered areas of fibroglandular density (ACR BI-RADS breast composition Category b). Previously seen small 4 mm circumscribed oval masses in the bilateral breasts are again noted, representing cysts on previous ultrasound. There are benign vascular calcifications in both breasts. There are no suspicious masses, suspicious grouped calcifications, or areas of architectural distortion. The parenchymal pattern is stable from prior exams. MM/MM tomosynthesis screening BI IMPRESSION: No mammographic evidence of malignancy. Stable benign findings. ASSESSMENT: BI-RADS BI-RADS 2 - Benign Findings RECOMMENDATION: Routine annual mammography screening. 1 year F/U This examination should not preclude the clinical evaluation of a suspicious palpable abnormality. This patient's information was entered into a reminder system with a target due date for their next mammogram.
== END 2022-12-10 08:06 | disposition home or self-care (01) ==
LOC: HO.MAMMO 08:05
PROVIDERS: PCP Internal Medicine; Visit Provider Internal Medicine
DX: Z12.31 Encounter for screening mammogram for malignant neoplasm of breast (principal)
CPT/HCPCS: 77063; 77067

== ENCOUNTER → 2022-12-10 08:30 | Outpatient (BNV) | payer OTHER, SELFPAY | PROVIDERS: PCP Internal Medicine; Visit Provider Radiology Diagnostic Radiology | DX: Z12.31 Encounter for screening mammogram for malignant neoplasm of breast (principal) | CPT/HCPCS: 77063; 77067 ==

== ENCOUNTER 2023-05-14 08:31 | Outpatient (REF) | payer OTHER, SELFPAY ==
--- NOTE | ~2023-05-14 | XR_ITS ---
EXAMINATION: XR HIP, RIGHT CLINICAL INFORMATION: Pain. COMPARISON: Left hip and pelvis radiographs dated 06/02/2022. TECHNIQUE: AP and frog-leg lateral views of the right hip. FINDINGS: Bony alignment and mineralization are normal. The right acetabular joint space is well-maintained. There is mild subchondral sclerosis of the right acetabular roof. The right femoral head is smooth. There is no fracture or dislocation. The pubic symphysis is intact. There are pelvic phleboliths. XR/XR hip RT min 2V IMPRESSION: There is very mild osteoarthritic change of the right hip. No fracture or dislocation is seen.
[2023-05-14 09:55] LABS: Alanine Aminotransferase 23 U/L (0-31); Albumin Level 4.7 g/dL (3.5-5.0); Alkaline Phosphatase 59 U/L (39-117); Anion Gap 11 (12-20); Aspartate Amino Transferase 27 U/L (5-31); Blood Urea Nitrogen 8 mg/dL (9-16); Calcium 10.1 mg/dL (8.4-10.2); Carbon Dioxide 31 mmol/L (22-29); Chloride 105 mmol/L (96-108); Cholesterol 176 mg/dL (<200); Estimated Glomerular Filt Rate > 60; Glucose Fasting 101 mg/dL (60-99); HDL Cholesterol 53 mg/dL (>40); LDL Cholesterol Calculated 103 mg/dL (<100); Potassium 4.3 mmol/L (3.3-5.1); Sodium 143 mmol/L (135-145); Total Protein 7.4 g/dL (6.5-8.0); Triglycerides 100 mg/dL (<150)
== END 2023-05-14 08:32 | disposition home or self-care (01) ==
LOC: HO.XRAY 08:31
PROVIDERS: PCP Internal Medicine; Visit Provider Internal Medicine
DX: M25.551 Pain in right hip (principal); Z00.00 Encounter for general adult medical examination without abnormal findings
CPT/HCPCS: 36415; 73502; 80053; 80061

== ENCOUNTER 2023-05-16 07:50 | Outpatient (AMB) | payer OTHER, SELFPAY ==
[2023-05-16 08:04] VITALS: BP 120/80; BMI 26.9
--- NOTE | 2023-05-16 08:04 | A.OFFPC_ITS ---
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 RXN sumatriptan Adverse Reaction (Intermediate, Verified 05/16/23 08:26) stomach upset Medication List - Last Reconciled 05/16/23 by Nneka Everett MD acetaminophen ER (Mapap Arthritis Pain) 1,300 mg (2 x 650 mg) PO Q8H 30 days baclofen 20 mg PO TID 90 days betamethasone valerate 0.1% 1 appl topical DAILY PRN 2 weeks ibrytcvyfe-yohiexvtqmjes-etjy 50-300-40 mg 1 cap PO Q8H PRN 30 days cholecalciferol (vitamin D3) 25 mcg PO DAILY [compression stockings As directed] cyclobenzaprine 10 mg PO TID 30 days gabapentin 400 mg PO TID 30 days hydroxychloroquine (Plaquenil) 200 mg PO BID Tobacco use date assessed: 05/16/23 Dental Screening Dental Screen Date: 05/16/23 Did you have a dental visit in the last 12 months?: Yes Did you have a dental problem in the last 6 months where you did not have access to dental care?: No Was dental information given to patient?: Patient has dentist HPI HPI Comments History of Present Illness Details This is a 62-year-old female with osteopenia, migraines, lupus and vitamin-D deficiency that comes today for follow-up on her conditions. Last bone density was February 2022 and will be repeated in February 2024. Compliant with calcium with vitamin-D. Migraines are still present few times a week and resolved with Fioricet as needed which she is aware can cause rebound headache. Has lupus on hydroxychloroquine and this is follow by Rheumatology. On vitamin- D supplements for her low vitamin-D. Patient is accompanied by . No chest pain or shortness of breath. Complains of diffuse joint pain. PENDING SALE TO [facility] Medical History (Updated 05/16/23 @ 09:11 by Nneka Everett MD) Impaired glucose tolerance Venous (peripheral) insufficiency Migraines Physical exam Shortness of breath Vitamin D deficiency Lupus (systemic lupus erythematosus) Hepatic steatosis Surgical History Hx of cholecystectomy History of root canal procedure History of esophagogastroduodenoscopy (EGD) (~2003) Hx of colonoscopy Family History Father Schizophrenia Mother Arthritis Asthma Hypothyroidism Sister Diabetes Social History Household Members: Spouse and Children Housing: House Alcohol intake: never Patient Tobacco Use Status: Never used Tobacco e-Cigarette/Vaping Use: Never Used Second Hand Smoke Exposure: No service: No Current occupational status: unemployed Cognitive needs: No Hearing needs: No Vision needs: No Questionnaire PHQ-9 Over the last 2 weeks, how often have you been bothered by any of the following problems? 1. Little interest or pleasure in doing things: not at all 2. Feeling down, depressed, or hopeless: not at all 3. Trouble falling or staying asleep, or sleeping too much: not at all 4. Feeling tired or having little energy: not at all 5. Poor appetite or overeating: not at all 6. Feeling bad about yourself - or that you are a failure or have let yourself or your family down: not at all 7. Trouble concentrating on things, such as reading the newspaper or watching television: not at all 8. Moving or speaking so slowly that other people could have noticed. Or the opposite - being so fidgety or restless that you have been moving around a lot more than usual: not at all 9. Thoughts that you would be better off or of hurting yourself in some way: not at all Total score: 0 Depression Screening Interpretation: Negative Depression Screening Done: Yes 38266 - PHQ-9 Billing: Yes Source: Developed by Drs. Elpidio Cabrera, Indiana Murphy, Pete Elizabeth and colleagues, with an educational tommie from [employer]. Thrive Questionnaire Date Thrive assessed: 05/16/23 I am a: Patient What is your living situation today?: I have a steady place to live Within the past 12 months, did the food you bought not last and you didn't have the money to get more?: Never true Within the past 12 months, did you worry whether your food would run out before you got money to buy more?: Never true Do you have trouble paying for medicines?: No Do you have trouble getting transportation to medical appointments?: No Do you have trouble paying your heating and electricity bill?: No Do you have trouble taking care of your child, family member or friend?: No Do you have trouble with day-to-day activities such as bathing, preparing meals, shopping, managing finances, etc.?: No Are you currently unemployed and looking for a job?: No Are you interested in more education?: No Please select the resources that you would like help with: None Currently or been in a relationship where the following occur: no concerns reported AUDIT C Alcohol Use Questionnaire (AUDIT-C) 1. How often do you have a drink containing alcohol?: Never Total Score: 0 IVON-7 AMB Questionnaire IVON-7 Date IVON - 7 assessed: 05/16/23 Feeling nervous, anxious, or on edge: 0 = Not at all Not being able to stop or control worryin = Not at all Worrying too much about different things: 0 = Not at all Trouble relaxin = Not at all Being so restless that it is hard to sit still: 0 = Not at all Becoming easily annoyed or irritable: 0 = Not at all Feeling afraid as if something awful might happen: 0 = Not at all Total IVON-7 score (0-4 normal; 5-9 mild; 10-14 moderate; 15-21 severe): 0 Source: Developed by Drs. Elpidio Cabrera, Indiana Murphy, Pete Elizabeth and colleagues, with an educational tommie from [employer]. IVON-7 Assessment Billing IVON-7 Assessment Tool: IVON-7 Assessment 07619 Review of Systems Const All systems reviewed & are unremarkable except as noted in HPI and below Eyes Reports no additional complaints, Denies change in vision and Denies other visual disturbances Card Denies chest pain at rest, Denies chest pain with activity, Denies edema, Denies irregular heart rhythm, Denies claudication, Denies dyspnea, Denies dyspnea on exertion, Denies orthopnea, Denies paroxysmal nocturnal dyspnea and Denies slow heart rate Resp Denies cough, Denies dyspnea and Denies dyspnea on exertion GI Denies abdominal pain, Denies change in bowel habits, Denies excessive flatus, Denies nausea and Denies vomiting Denies urinary incontinence, Denies urinary hesitancy and Denies urinary urgency Musc Denies atrophy, Denies deformity and Denies limited range of motion Skin/Breast Denies bleeding lesions, Denies changing lesions and Denies rash Physical exam (Primary Care) Vital Signs: Last Vital Signs BP 120/80 05/16/23 08:04 BMI result Body Mass Index 26.9 Tobacco/Smoking Status: Tobacco use Status Tobacco use date assessed 05/16/23 05/16/23 08:07 Patient Tobacco Use Status Never used Tobacco 05/16/23 08:07 e-Cigarette/Vaping Use Never Used 05/16/23 08:07 PHQ-9: PHQ-9 Score PHQ-9: Total score 0 05/16/23 08:33 Depression Screening Interpretation: Negative Thrive Assessment: Date of Thrive Assessment Date Thrive assessed 05/16/23 05/16/23 08:07 Currently or been in a relationship where the following occur: no concerns reported Neck Neck: Yes normal visual inspection and Yes supple Resp Effort & Inspection: normal respiratory effort Auscultation: clear to auscultation bilaterally Cardio Jugular venous distension: no JVD Rate: regular rate Rhythm: regular rhythm Heart sounds: S1 normal heart sound present and S2 normal heart sound present Extrem General: Yes full ROM Office Procedures Flu Questionnaire Does the patient have a severe egg allergy?: No Immunizations flu vacc [id number] 6mos up(PF) 60 mcg(15 mcgx4)/0.5 mL IM syringe Performing Provider: Nneka Everett MD [place] [facility] Documented (not given) by: JAREN Espinoza on 05/16/23 08:07 Reason Not Given: Patient Refused Assessment and Plan Assessment & Plan (1) Migraines: Code(s): G43.909 - Migraine, unspecified, not intractable, without status migrainosus Qualifiers: Migraine type: without aura Status migrainosus presence: without status migrainosus Intractability: not intractable Qualified Code(s): G43.009 - Migraine without aura, not intractable, without status migrainosus Plan: Use fioricet prn. (2) Lupus (systemic lupus erythematosus): Code(s): M32.9 - Systemic lupus erythematosus, unspecified Qualifiers: Systemic lupus erythematosus type: other Systemic lupus erythematosus organ involvement: unspecified Qualified Code(s): M32.8 - Other forms of systemic lupus erythematosus Plan: Continue hydroxychloroquine. (3) Vitamin D deficiency: Code(s): E55.9 - Vitamin D deficiency, unspecified Plan: Continue vitamin-D supplements. (4) Osteopenia: Code(s): M85.80 - Other specified disorders of bone density and structure, unspecified s ite Qualifiers: Osteopenia location: multiple sites Qualified Code(s): M85.89 - Other s pecified disorders of bone density and structure, multiple sites Plan: Continue calcium with vitamin-D. Orders: Orders Influenza [id number] Immunization Today Z23 - Encounter for immunization Comprehensive [place]. Panel Fast 8 Months G43.009 - Migraine without aura, not intractable, without status migrainosus Lipid Panel 8 Months Z00.00 - Encounter for general adult medical examination without abnormal findings Complement C4 8 Months M32.8 - Other forms of systemic lupus erythematosus Complete Blood Count Auto Diff 8 Months M32.8 - Other forms of systemic lupus erythematosus Vitamin D 25-OH Total 8 Months E55.9 - Vitamin D deficiency, unspecified Complement C3 8 Months M32.8 - Other forms of systemic lupus erythematosus Referrals Rheumatology Referral M32.9 - Systemic lupus erythematosus, unspecified Medications: New hxqtfuemii-dleiaqivqxqxy-vbkd 50-300-40 mg 1 cap PO Q8H 30 days PRN 10 caps 0RF pain Refilled cyclobenzaprine 10 mg PO TID 30 days 90 tabs 4RF gabapentin 400 mg PO TID 30 days 90 caps 3RF Coding Level of Care Code Est Pt Level 4 (79636) Diagnoses Migraine without aura and without status migrainosus, not intractable G43.009 Migraine type: without aura Status migrainosus presence: without status migrainosus Intractability: not intractable Other forms of systemic lupus erythematosus, unspecified organ involvement status M32.8 Systemic lupus erythematosus type: other Systemic lupus erythematosus organ involvement: unspecified Vitamin D deficiency E55.9 Osteopenia of multiple sites M85.89 Osteopenia location: multiple sites Additional Codes IVON-7 Assessment Billing - IVON-7 Assessment Tool: IVON-7 Assessment 28883 ([id number]) Time Spent (min) 22
== END 2023-05-16 08:38 | disposition home or self-care (01) ==
PROVIDERS: PCP Internal Medicine; Visit Provider Internal Medicine
DX: G43.009 Migraine without aura, not intractable, without status migrainosus (principal); M32.8 Other forms of systemic lupus erythematosus; E55.9 Vitamin D deficiency, unspecified; M85.89 Other specified disorders of bone density and structure, multiple sites
CPT/HCPCS: 99214

== ENCOUNTER 2023-07-02 09:45 | Outpatient (AMB) | payer OTHER, SELFPAY ==
--- NOTE | 2023-07-02 10:59 | AM.OFFWIN_ITS ---
Intake Vital Signs 3 07/02/23 11:02 Height 5 ft 2 in Weight 149 lb BMI 27.2 BP 130/72 Blood Pressure Location Rt brachial Position Sitting Pulse 69 Pulse Source Pulse Oximeter Pulse Oximetry (%) 96 Oxygen Delivery Method Room Air Intake Visit Reasons: EST/left foot swollen 2nd toe (lobby) Patient Tobacco Use Status: Never used Tobacco Allergies Penicillins [PENICILLINS] Allergy (Intermediate, Verified 07/02/23 11:03) INFANT ? RXN sumatriptan Adverse Reaction (Intermediate, Verified 07/02/23 11:03) stomach upset Medication List - Last Reconciled 07/02/23 by Petrona Bunn MD acetaminophen ER (Mapap Arthritis Pain) 1,300 mg (2 x 650 mg) PO Q8H 30 days baclofen 20 mg PO TID 90 days betamethasone valerate 0.1% 1 appl topical DAILY PRN 2 weeks ycsdxljqsi-ikoepdadyvruv-psnd 50-300-40 mg 1 cap PO Q8H PRN 30 days cholecalciferol (vitamin D3) 25 mcg PO DAILY [compression stockings As directed] cyclobenzaprine 10 mg PO TID 30 days gabapentin 400 mg PO TID 30 days hydroxychloroquine (Plaquenil) 200 mg PO BID Do you need a note to return to daycare/school/sports/work: No HPI EST/left foot swollen 2nd toe (lobby) 2 HPI0 Details Patient is 62-year-old female with Raynaud's disease came in today to be evaluated for left 2nd toe pain Patient says that he noticed her toe was purple this morning Her son is with her who is translating for the patient and tells me that the color is slightly coming back However they are not sure if she has injured the toe I have ordered x-ray I would recommend to keep the feet warm especially during these winter months She is wearing slippers which is not warm enough they need to get proper shoes. She has sensation in her to only medial aspect of 2nd left toe is cyanosed. Dorsalis pedis pulse 2 + PFSH Medical History Impaired glucose tolerance Venous (peripheral) insufficiency Migraines Physical exam Shortness of breath Vitamin D deficiency Lupus (systemic lupus erythematosus) Hepatic steatosis Surgical History Hx of cholecystectomy History of root canal procedure History of esophagogastroduodenoscopy (EGD) (~2003) Hx of colonoscopy Family History Father Schizophrenia Mother Arthritis Asthma Hypothyroidism Sister Diabetes Social History Household Members: Spouse and Children Housing: House Alcohol intake: never Patient Tobacco Use Status: Never used Tobacco e-Cigarette/Vaping Use: Never Used Second Hand Smoke Exposure: No service: No Current occupational status: unemployed Cognitive needs: No Hearing needs: No Vision needs: No Review of Systems Const All systems reviewed & are unremarkable except as noted in HPI and below Physical Exam Vital Signs: Last Vital Signs Pulse 69 07/02/23 11:02 BP 130/72 07/02/23 11:02 Pulse Ox 96 07/02/23 11:02 Oxygen Delivery Method Room Air 07/02/23 11:02 BMI result Body Mass Index 27.2 Const General: no acute distress Orientation/consciousness: patient oriented x3 Eyes General: appearance normal, both eyes and all related structures Resp Effort & Inspection: normal respiratory effort and able to speak in complete sentences Auscultation: clear to auscultation bilaterally Neuro General: patient oriented x3 Extrem Ankle/foot/toe images: 2 1. Cyanosis part of 2nd left toe lateral aspect, sensory intact, patient able to move the toe Psych Mental Status: mental status grossly normal Assessment & Plan Assessment & Plan (1) Raynauds disease: Code(s): I73.00 - Raynaud's syndrome without gangrene Qualifiers: Raynaud?s-associated gangrene presence: without gangrene Qualified Code(s): I73.00 - Raynaud's syndrome without gangrene (2) Toe pain: Code(s): M79.676 - Pain in unspecified toe(s) Qualifiers: Laterality: left Qualified Code(s): M79.675 - Pain in left toe(s) Plan Patient is 62-year-old female with Raynaud's disease came in today to be evaluated for left 2nd toe pain Patient says that he noticed her toe was purple this morning Her son is with her who is translating for the patient and tells me that the color is slightly coming back However they are not sure if she has injured the toe I have ordered x-ray I would recommend to keep the feet warm especially during these winter months She is wearing slippers which is not warm enough they need to get proper shoes. She has sensation in her to only lateral aspect of 2nd left toe is cyanosed. Dorsalis pedis pulse 2 + Orders: Orders 2 XR toe LT min 2V Today I73.00 - Raynaud's syndrome without gangrene, M79.676 - Pain in unspecified toe(s) Coding Level of Care Code Est Pt Level 3 (95067) Diagnoses Raynaud's disease without gangrene I73.00 Raynaud?s-associated gangrene presence: without gangrene Pain of toe of left foot M79.675 Laterality: left
[2023-07-02 11:02] VITALS: BP 130/72; PULSE 69; O2SAT 96; BMI 27.2
== END 2023-07-02 11:15 | disposition home or self-care (01) ==
PROVIDERS: PCP Internal Medicine; Visit Provider Internal Medicine
DX: I73.00 Raynaud's syndrome without gangrene (principal); M79.675 Pain in left toe(s)
CPT/HCPCS: 99213

== ENCOUNTER 2023-07-02 11:15 | Outpatient (REF) | payer OTHER, SELFPAY ==
--- NOTE | ~2023-07-02 | XR_ITS ---
EXAMINATION: XR TOES, RIGHT CLINICAL INFORMATION: Pain in unspecified toe. Radiopaque marker placed indicating second toe. COMPARISON: None available. TECHNIQUE: 3 views of the right toes were obtained. 3 views of the right second toe were obtained. Visualization limited particularly on the lateral view due to overlying bony structures. FINDINGS: Moderate degenerative changes in the first metatarsophalangeal joint with joint space narrowing and hypertrophic change. There is attenuation and irregularity at the distal tuft of the second toe of indeterminate age and etiology. Mild degenerative changes in the IP joints of the second toe. XR/XR toe RT min 2V IMPRESSION: 1. Attenuation and irregularity at the distal tuft of the second toe of indeterminate age and etiology. Correlation with clinical exam recommended. 2. Moderate degenerative changes first metatarsophalangeal joint. Recommend follow up imaging in 10-14 days if fracture is suspected.
== END 2023-07-02 11:16 | disposition home or self-care (01) ==
LOC: HO.HMGCX 11:15
PROVIDERS: PCP Internal Medicine; Visit Provider Internal Medicine
DX: M79.674 Pain in right toe(s) (principal); I73.00 Raynaud's syndrome without gangrene
CPT/HCPCS: 73660

== ENCOUNTER 2023-07-11 12:23 | Outpatient (AMB) | payer OTHER, SELFPAY ==
[2023-07-11 12:27] VITALS: BP 136/82; BMI 27.2
--- NOTE | 2023-07-11 12:27 | A.OFFPC_ITS ---
Vital Signs 07/11/23 12:27 Height 5 ft 2 in Weight 149 lb BMI 27.2 BP 136/82 Blood Pressure Location Lt brachial Position Sitting Intake Visit Reasons: toe bruising and swelling Intake Note: Patient here for right foot toe pain, swelling and bruising Auto Transmission Specialist Required: No Accompanied by: Daughter Allergies Penicillins [PENICILLINS] Allergy (Intermediate, Verified 07/11/23 12:43) INFANT ? RXN sumatriptan Adverse Reaction (Intermediate, Verified 07/11/23 12:43) stomach upset Medication List - Last Reconciled 07/11/23 by Nneka Everett MD acetaminophen ER (Mapap Arthritis Pain) 1,300 mg (2 x 650 mg) PO Q8H 30 days baclofen 20 mg PO TID 90 days betamethasone valerate 0.1% 1 appl topical DAILY PRN 2 weeks fiuaffphdv-vfrdoyjcywrrj-fbzk 50-300-40 mg 1 cap PO Q8H PRN 30 days cholecalciferol (vitamin D3) 25 mcg PO DAILY [compression stockings As directed] cyclobenzaprine 10 mg PO TID 30 days gabapentin 400 mg PO TID 30 days hydroxychloroquine (Plaquenil) 200 mg PO BID Tobacco use date assessed: 05/16/23 HPI HPI Comments History of Present Illness Details This is a 62-year-old female with lupus, vitamin-D deficiency on right shoulder pain that comes accompanied by daughter complaining of right 2nd toe pain that has been present for about 3 weeks. That toe is swollen and darker. X-ray done showing some deformity. I will start her on antibiotics, repeat the x-ray and refer her to Podiatry. Lupus is follow by Rheumatology and is on hydroxychloroquine. Vitamin-D supplements for her low vitamin-D. On Tylenol as needed for her right shoulder pain. [facility] Medical History (Updated 07/02/23 @ 11:14 by Petrona Bunn MD) Impaired glucose tolerance Venous (peripheral) insufficiency Migraines Physical exam Shortness of breath Vitamin D deficiency Lupus (systemic lupus erythematosus) Hepatic steatosis Surgical History Hx of cholecystectomy History of root canal procedure History of esophagogastroduodenoscopy (EGD) (~2003) Hx of colonoscopy Family History Father Schizophrenia Mother Arthritis Asthma Hypothyroidism Sister Diabetes Social History Household Members: Spouse and Children Housing: House Alcohol intake: never Patient Tobacco Use Status: Never used Tobacco e-Cigarette/Vaping Use: Never Used Second Hand Smoke Exposure: No service: No Current occupational status: unemployed Cognitive needs: No Hearing needs: No Vision needs: No Questionnaire Thrive Questionnaire Date Thrive assessed: 05/16/23 IVON-7 AMB Questionnaire IVON-7 Date IVON - 7 assessed: 05/16/23 Source: Developed by Drs. Elpidio Cabrera, Indiana Murphy, Pete Elizabeth and colleagues, with an educational tommie from [employer]. Review of Systems Const All systems reviewed & are unremarkable except as noted in HPI and below Eyes Reports no additional complaints, Denies change in vision and Denies other visual disturbances Card Denies chest pain at rest, Denies chest pain with activity, Denies edema, Denies irregular heart rhythm, Denies claudication, Denies dyspnea, Denies dyspnea on exertion, Denies orthopnea, Denies paroxysmal nocturnal dyspnea and Denies slow heart rate Resp Denies cough, Denies dyspnea and Denies dyspnea on exertion GI Denies abdominal pain, Denies change in bowel habits, Denies excessive flatus, Denies nausea and Denies vomiting Denies urinary incontinence, Denies urinary hesitancy and Denies urinary urgency Musc Denies abnormal gait, Denies atrophy, Denies deformity and Denies limited range of motion Skin/Breast Denies bleeding lesions, Denies changing lesions and Denies rash Neuro Denies abnormal gait, Denies behavioral changes and Denies lack of coordination Psych Denies behavioral changes Physical exam (Primary Care) Vital Signs: Last Vital Signs BP 136/82 07/11/23 12:27 BMI result Body Mass Index 27.2 Tobacco/Smoking Status: Tobacco use Status Tobacco use date assessed 05/16/23 07/11/23 12:31 Patient Tobacco Use Status Never used Tobacco 07/11/23 12:31 e-Cigarette/Vaping Use Never Used 07/11/23 12:31 Thrive Assessment: Date of Thrive Assessment Date Thrive assessed 05/16/23 07/11/23 12:31 Eyes General: appearance normal, both eyes and all related structures Eyelids: Yes eyelids normal Conjunctivae: conjunctivae normal Neck Neck: Yes normal visual inspection and Yes supple Resp Effort & Inspection: normal respiratory effort Auscultation: clear to auscultation bilaterally Cardio Jugular venous distension: no JVD Rate: regular rate Rhythm: regular rhythm Heart sounds: S1 normal heart sound present and S2 normal heart sound present Extrem Other: right 2nd toe with darker pigmentation General: Yes full ROM Assessment and Plan Assessment & Plan (1) Toe pain: Code(s): M79.676 - Pain in unspecified toe(s) Qualifiers: Laterality: left Qualified Code(s): M79.675 - Pain in left toe(s) Plan: X-ray ordered. Referred to Podiatry. Start antibiotics. (2) Lupus (systemic lupus erythematosus): Code(s): M32.9 - Systemic lupus erythematosus, unspecified Qualifiers: Systemic lupus erythematosus type: other Systemic lupus erythematosus organ involvement: unspecified Qualified Code(s): M32.8 - Other forms of systemic lupus erythematosus Plan: Continue hydroxychloroquine. Follow-up with rheumatology. (3) Vitamin D deficiency: Code(s): E55.9 - Vitamin D deficiency, unspecified Plan: Continue vitamin-D supplements. (4) Right shoulder pain: Code(s): M25.511 - Pain in right shoulder Plan: Continue Tylenol as needed. Orders: Orders XR toe RT min 2V Today M79.676 - Pain in unspecified toe(s) Referrals Podiatry Referral M79.676 - Pain in unspecified toe(s) Medications: New doxycycline hyclate 100 mg PO BID 5 days 10 tabs 0RF Coding Level of Care Code Est Pt Level 4 (57152) Diagnoses Pain of toe of left foot M79.675 Laterality: left Other forms of systemic lupus erythematosus, unspecified organ involvement status M32.8 Systemic lupus erythematosus type: other Systemic lupus erythematosus organ involvement: unspecified Vitamin D deficiency E55.9 Right shoulder pain M25.511 Time Spent (min) 20
== END 2023-07-11 12:55 | disposition home or self-care (01) ==
PROVIDERS: PCP Internal Medicine; Visit Provider Internal Medicine
DX: M79.675 Pain in left toe(s) (principal); M32.8 Other forms of systemic lupus erythematosus; E55.9 Vitamin D deficiency, unspecified; M25.511 Pain in right shoulder
CPT/HCPCS: 99214

== ENCOUNTER 2023-07-15 08:03 | Outpatient (AMB) | payer OTHER, SELFPAY ==
--- NOTE | 2023-07-15 08:05 | A.OFFVIS_ITS ---
Intake Vital Signs 07/15/23 08:06 Height 5 ft 2 in Weight 152 lb 8.958 oz BMI 27.9 BP 132/78 Blood Pressure Location Rt brachial Position Sitting Pulse 72 Pulse Source Pulse Oximeter Temp 97.2 F Temp Source Skin Pulse Oximetry (%) 98 Oxygen Delivery Method Room Air Intake Visit Reasons: Lupus Intake Note: New patient, presents today for lupus. Last seen by Dr. Whelan in October,. Seen by ATC since then. Reports marcella hip pain Bit Tripoler Required: Yes Bit Tripoler Name: Woody Pineda #[id number] Information Interpreted: clinical only Accompanied by: Daughter Allergies Penicillins [PENICILLINS] Allergy (Intermediate, Verified 07/15/23 08:06) INFANT ? RXN sumatriptan Adverse Reaction (Intermediate, Verified 07/15/23 08:06) stomach upset Medication List - Last Reconciled 07/15/23 by Jj Saul MD acetaminophen ER (Mapap Arthritis Pain) 1,300 mg (2 x 650 mg) PO Q8H 30 days baclofen 20 mg PO TID 90 days betamethasone valerate 0.1% 1 appl topical DAILY PRN 2 weeks gcmntqkpbu-smblsirvnjcqd-alcm 50-300-40 mg 1 cap PO Q8H PRN 30 days cholecalciferol (vitamin D3) 25 mcg PO DAILY [compression stockings As directed] cyclobenzaprine 10 mg PO TID 30 days doxycycline hyclate 100 mg PO BID 5 days gabapentin 400 mg PO TID 30 days hydroxychloroquine (Plaquenil) 200 mg PO BID HPI HPI Comments History of Present Illness Details This is a 62-year-old female with SLE who presents for follow-up. She used to see Dr. Whelan, most recently she used to be followed up by Dr. De Paz at [facility]. She is on hydroxychloroquine 20 mg Twice daily. She states that she has been doing fairly well. Last month patient was having purplish discoloration swelling and mild pain of the right 1st and 2nd toes. She was evaluated by her PCP and had an antibiotic course done. Advised to keep foot warm and dry. It has resolved. States that she gets intermittent bilateral hip pain. Per Dr. Whelan Patient's SLE was diagnosed based on a positive MIKE, elevated ds DNA, leukopenia, photosensitive rash, fatigue. On Plaquenil 400 mg daily tolerating medication well. Follows regularly with Ophthalmology for monitoring. Patient states she did not increase her Plaquenil dose to 200 mg twice daily as she did not remember. She reports incidence of mouth sores approximately 2 weeks ago which were painful but they have resolved. She denies any recent fevers, skin rash, joint swelling. She does report some difficulty with sleep. Specifically, she has trouble staying asleep and states she has only been sleeping 3-4 hours per night. States that pain is not the reason she is having difficulty sleeping, she is not quite sure why. Continues to follow with GI for transaminitis. . [facility] Medical History Impaired glucose tolerance Venous (peripheral) insufficiency Migraines Physical exam Shortness of breath Vitamin D deficiency Lupus (systemic lupus erythematosus) Hepatic steatosis Surgical History Hx of cholecystectomy History of root canal procedure History of esophagogastroduodenoscopy (EGD) (~2003) Hx of colonoscopy Family History Father Schizophrenia Mother Arthritis Asthma Hypothyroidism Sister Diabetes Daughter Lupus Social History Household Members: Spouse and Children Housing: House Alcohol intake: never Patient Tobacco Use Status: Never used Tobacco e-Cigarette/Vaping Use: Never Used Second Hand Smoke Exposure: No service: No Current occupational status: unemployed Cognitive needs: No Hearing needs: No Vision needs: No Review of Systems Musc Reports arthralgias Physical Exam Vital Signs: Last Vital Signs Temp 97.2 F 07/15/23 08:06 Pulse 72 07/15/23 08:06 BP 132/78 07/15/23 08:06 Pulse Ox 98 07/15/23 08:06 Oxygen Delivery Method Room Air 07/15/23 08:06 BMI result Body Mass Index 27.9 Const General: cooperative, healthy appearing, comfortable and no acute distress Nutritional Appearance: overweight Orientation/consciousness: patient oriented x3 Limitations: no limitations HEENT Head: Yes normocephalic and Yes atraumatic Mouth: moist mucous membranes Resp Effort & Inspection: normal respiratory effort and able to speak in complete sentences Auscultation: clear to auscultation bilaterally Cardio Rate: regular rate Skin General skin exam: no rashes or lesions noted Neuro General: patient oriented x3 Extrem Other: Mild osteoarthritic changes of both hands with no active synovitis Normal nailfold capillaroscopy Normal range of motion of hands, wrists, elbows and shoulders without pain Negative straight leg raise test bilaterally Results Reviewed Results Reviewed: Laboratory Tests 12/11/19 07/04/20 07/04/20 07:05 08:00 08:00 WBC 5.7 Hgb 14.3 MCV Plt Count 305 ESR 10 Creatinine Calcium AST ALT C-Reactive Protein Urine Protein Urine Blood Protein/Creatinin Ratio Double Strand DNA Ab 10 H Complement C3 Complement C4 07/04/20 07/04/20 07/04/20 08:00 08:00 Unknown WBC Hgb MCV Plt Count ESR Creatinine 0.82 Calcium AST 39 H ALT 37 H C-Reactive Protein Urine Protein 1+ H Urine Blood Protein/Creatinin Ratio Double Strand DNA Ab 11 H Complement C3 164 Complement C4 29 10/12/20 10/12/20 10/12/20 06:52 06:52 06:52 WBC 4.8 Hgb 13.3 MCV 90.8 Plt Count 303 ESR 7 Creatinine Calcium AST ALT C-Reactive Protein Urine Protein NEG Urine Blood NEG Protein/Creatinin Ratio Double Strand DNA Ab Complement C3 Complement C4 10/12/20 10/12/20 10/12/20 06:52 06:52 06:52 WBC Hgb MCV Plt Count ESR Creatinine 0.79 Calcium 10.2 AST 55 H ALT 50 H C-Reactive Protein 0.28 Urine Protein Urine Blood Protein/Creatinin Ratio 0.18 Double Strand DNA Ab 11 H Complement C3 Complement C4 Assessment & Plan Assessment & Plan (1) Lupus (systemic lupus erythematosus): Comment: dx 2017(leukopenia, photosensitive rash, fatigue + MIKE + dsDNA) Code(s): M32.9 - Systemic lupus erythematosus, unspecified Qualifiers: Systemic lupus erythematosus organ involvement: unspecified Systemic lupus erythematosus type: other Qualified Code(s): M32.8 - Other forms of systemic lupus erythematosus Plan: This is a 62-year-old female with SLE who presents for follow-up. On hydroxychloroquine 200 mg Twice daily. Doing well overall. But no signs of active SLE. Patient showed me a picture of her skin rash on her right 1st and 2nd toes last month, seems to be more consistent with pernio. Discussed pernio. Advised patient to keep her foot warm and dry. Call us if she has another episode Continue with hydroxychloroquine, will adjust it based on her weight. 400 mg daily x5 days a week and 200 mg daily x2 days a week Labs before next visit in 3 month (2) Long-term use of hydroxychloroquine: Code(s): Z79.899 - Other senior care (current) drug therapy Plan: Follow-up regularly with Ophthalmology Plan I spent 36 minutes reviewing patient's chart, evaluating patient, ordering diagnostic workup, counseling patient and documenting in the chart Orders: Orders Complement C4 3 Months M32.9 - Systemic lupus erythematosus, unspecified Erythrocyte Sedimentation Rate 3 Months M32.9 - Systemic lupus erythematosus, unspecified DNA Double Stranded-Crithidia 3 Months M32.9 - Systemic lupus erythematosus, unspecified Protein Creatinine Ratio, Ur 3 Months M32.9 - Systemic lupus erythematosus, unspecified Anti DNA DS Antibody 3 Months M32.9 - Systemic lupus erythematosus, unspecified Complement C3 3 Months M32.9 - Systemic lupus erythematosus, unspecified C Reactive Protein 3 Months M32.9 - Systemic lupus erythematosus, unspecified UA w Microscopic 3 Months M32.9 - Systemic lupus erythematosus, unspecified Complete Blood Count Auto Diff 3 Months M32.9 - Systemic lupus erythematosus, unspecified Comprehensive Met. Panel 3 Months M32.9 - Systemic lupus erythematosus, unspecified Medications: Changed From hydroxychloroquine (Plaquenil) 200 mg PO BID 180 tabs 1RF M32.8 - Other forms of systemic lupus erythematosus To hydroxychloroquine (Plaquenil) Take 2 tabs daily 5 days a week and 1 tab daily 2 days a week 144 tabs 1RF M32.8 - Other forms of systemic lupus e rythematosus Coding Level of Care Code Est Pt Level 4 (64187) Diagnoses Other forms of systemic lupus erythematosus, unspecified organ involvement status M32.8 Systemic lupus erythematosus organ involvement: unspecified Systemic lupus erythematosus type: other Long-term use of hydroxychloroquine Z79.899
[2023-07-15 08:06] VITALS: BP 132/78; PULSE 72; TEMP 36.2; O2SAT 98; BMI 27.9
== END 2023-07-15 08:41 | disposition home or self-care (01) ==
PROVIDERS: PCP Internal Medicine; Visit Provider Student in an Organized Health Care Education/Training Program
DX: M32.8 Other forms of systemic lupus erythematosus (principal); Z79.899 Other long term (current) drug therapy
CPT/HCPCS: 99214

== ENCOUNTER → 2023-07-15 08:03 | Outpatient (BNVA) | payer OTHER, SELFPAY | PROVIDERS: PCP Internal Medicine; Visit Provider Student in an Organized Health Care Education/Training Program | DX: M32.8 Other forms of systemic lupus erythematosus (principal); Z79.899 Other long term (current) drug therapy | CPT/HCPCS: 99212 ==

== ENCOUNTER 2023-07-23 07:19 | Outpatient (AMB) | payer OTHER, SELFPAY ==
--- NOTE | 2023-07-23 07:24 | A.OFFVIS_ITS ---
Intake Vital Signs 07/23/23 07:29 Height 5 ft 2 in Weight 146 lb BMI 26.7 BP 110/72 Intake Visit Reasons: Annual Intake Note: no concerns Patrol Police Sergeant Required: Yes Patrol Police Sergeant Language: Plate Conditioner Name: Lani EASTMAN Information Interpreted: non-clinical & clinical Transmission Mechanic: Transmission Mechanic Present (Lani EASTMAN) Accompanied by: Self / Same As Patient Allergies Penicillins [PENICILLINS] Allergy (Intermediate, Verified 07/23/23 07:31) INFANT ? RXN sumatriptan Adverse Reaction (Intermediate, Verified 07/23/23 07:31) stomach upset Post menopausal: Yes HPI HPI Comments History of Present Illness Details Presenting for annual exam. No complaints. Last Pap/HPV was in 01/25 was negative Last Mammogram was BI-RADS 2 in 12/26 Last Colonoscopy was in 2015, the recommendation was to repeat in 2025 [facility] Medical History Impaired glucose tolerance Venous (peripheral) insufficiency Migraines Physical exam Shortness of breath Vitamin D deficiency Lupus (systemic lupus erythematosus) Hepatic steatosis Surgical History Hx of cholecystectomy History of root canal procedure History of esophagogastroduodenoscopy (EGD) (~2003) Hx of colonoscopy Family History Father Schizophrenia Mother Arthritis Asthma Hypothyroidism Sister Diabetes Daughter Lupus Social History Household Members: Spouse and Children Housing: House Alcohol intake: never Patient Tobacco Use Status: Never used Tobacco e-Cigarette/Vaping Use: Never Used Second Hand Smoke Exposure: No service: No Current occupational status: unemployed Cognitive needs: No Hearing needs: No Vision needs: No Female Reproductive History Menstrual control method: permanent sterilization Menopause type: natural Total pregnancies: 5 Full term: 4 Number of Living Children: 4 Date of last pap smear: 01/25/22 Date of Mammogram: 12/10/22 Review of Systems Const All systems reviewed & are unremarkable except as noted in HPI and below Card Reports as per HPI Resp Reports as per HPI GI Reports as per HPI and Reports no additional complaints Reports as per HPI Physical Exam Vital Signs: Last Vital Signs BP 110/72 07/23/23 07:29 BMI result Body Mass Index 26.7 Const General: cooperative, healthy appearing and comfortable Chest Chest palpation & inspection: normal inspection of the chest and normal palpation of entire chest wall Breast/axilla inspection: normal inspection of the breasts and normal inspection of the axillae Breast/axilla palpation: normal palpation of the breasts, normal palpation of the axillae and no axillary lymphadenopathy Resp Effort & Inspection: normal respiratory effort Auscultation: clear to auscultation bilaterally Percussion: percussion normal Cardio Palpation: normal PMI Rate: regular rate Rhythm: regular rhythm Heart sounds: no murmurs and no rubs Peripheral pulses: Peripheral pulses 2+ throughout GI Inspection: Yes normal to inspection Palpation (GI): Soft to palpation, nontender, no guarding, not rigid and No hepatosplenomegaly present Percussion: Yes normal to percussion Auscultation: normal bowel sounds Rectal Exam - Female: deferred General: Yes bladder normal to palpation External Female Exam: No lesion Speculum Exam - Vagina: normal appearance of the vagina, normal palpation, normal vaginal discharge and not erythematous Speculum Exam - Cervix: normal appearance of the cervix and normal palpation Bimanual exam- vagina & uterus: normal bimanual exam, normal palpation, uterine size normal, bladder normal to palpation, consistency normal and normal palpation Bimanual Exam- Adnexa, other: normal adnexae, no masses and no tenderness Assessment & Plan Assessment & Plan (1) Well woman exam: Code(s): Z01.419 - Encounter for gynecological examination (general) (routine) without abnormal findings Plan: Co testing not indicated this year. Counseled the patient about the recommended dietary allowance of 1200 mg of Calcium & 600 IU of vitamin D. Instructions given the patient to schedule next screening Mammogram in 12/27 The patient was instructed to perform monthly self-breast exams and schedule annual exam in a year. All questions answered and the patient verbalized understanding. Coding Level of Care Code Est Pt Prev Care 40-64y(05354) Diagnoses Well woman exam Z01.419
[2023-07-23 07:29] VITALS: BP 110/72; BMI 26.7
== END 2023-07-23 07:55 | disposition home or self-care (01) ==
PROVIDERS: PCP Internal Medicine; Visit Provider Obstetrics & Gynecology
DX: Z01.419 Encounter for gynecological examination (general) (routine) without abnormal findings (principal)
CPT/HCPCS: 99396

== ENCOUNTER → 2023-07-23 07:19 | Outpatient (BNVA) | payer OTHER, SELFPAY | PROVIDERS: Visit Provider Obstetrics & Gynecology | DX: Z01.419 Encounter for gynecological examination (general) (routine) without abnormal findings (principal) | CPT/HCPCS: 99396 ==

== ENCOUNTER 2023-09-13 15:32 | Inpatient (IN) | payer OTHER, SELFPAY ==
[2023-09-13] VITALS (9 sets, daily range): BP systolic 157–201; BP diastolic 78–104; PULSE 68–104; RESP 13–18; TEMP 36.3–36.4; O2SAT 92–97; BMI 25.9; BMI 25.7
--- NOTE | ~2023-09-13 | MR_ITS ---
EXAMINATION: MR BRAIN WITHOUT CONTRAST CLINICAL INFORMATION: Weakness and fixed gaze. Altered mental status. COMPARISON: Head CT from 09/13/2023. CT dated 01/30/2016. TECHNIQUE: Multiplanar, multisequence imaging of the brain was performed without contrast. FINDINGS: No diffusion abnormalities are identified to suggest an acute infarct. The ventricles are normal in size. No mass effect or midline shift is seen. The brainstem and cerebellum are normal. The gradient refocused acquisition is normal. Mild scattered white matter signal changes are nonspecific but may be due to chronic microangiopathy. There is symmetric prominence of the bifrontal extra-axial fluid spaces which may be due to parenchymal volume loss versus small chronic subdural hygromas; findings have been present CT imaging from 01/30/2016. Partially empty sella evident. The craniovertebral junction, marrow signal, and remaining midline structures are normal. The major intracranial flow voids at the level of the [place] are preserved. The dural venous sinus flow voids are maintained. The mastoid air cells and paranasal sinuses are well aerated. Significant prominence of Meckel's cave bilaterally resulting in petrous apex cephaloceles again noted, extending into the jugular tubercle on the right side. There are prominent arachnoid granulations along the right occipital bone at the interface with the right transverse venous sinus. Scattered arachnoid pits are present in the greater sphenoid wings bilaterally. MR/MR head/brain wo con IMPRESSION: No acute intracranial process. Mild scattered white matter signal changes which may be due to chronic microangiopathy. Chronic prominence of the bifrontal extra-axial fluid spaces which may reflect subdural hygromas. Enlargement of Meckel's cave bilaterally with petrous apex cephaloceles. Scattered prominent arachnoid granulations along the inner cortical table of the right occipital bone and arachnoid pits in the greater sphenoid wings bilaterally. Imaging findings may be incidental or could signify the effects of chronic alterations in CSF flow dynamics, as can be seen in long-standing intracranial hypertension; clinically correlate.
--- NOTE | ~2023-09-13 | CT_ITS ---
EXAMINATION: CT head for stroke CLINICAL INFORMATION: Reason for Exam ams, leftward gaze, weakness COMPARISON: None available. TECHNIQUE: Contiguous axial imaging was performed from the skull base to vertex without intravenous contrast. Sagittal and coronal reformatted images were obtained. This CT examination was performed using dose optimization techniques as appropriate, variously including the following: * Automated exposure control * Adjustment of mA and/or kV according to patient size (this includes techniques or standardized protocols for targeted exams where dose is matched to indication/reason for exam; i.e. extremities or head) Use of iterative reconstruction technique DLP: 683.6 mGy-cm mGy-cm FINDINGS: There is no evidence of acute intracranial hemorrhage. No mass-effect or ventricular shift is noted. No acute, territorial loss of torres-white differentiation. Expanded, partially empty sella turcica. The ventricles and sulci are appropriate in size and configuration for the patient's stated age. No depressed calvarial fracture. The paranasal sinuses are well-aerated. The mastoid air cells are clear. CT/CT head for stroke IMPRESSION: No acute intracranial hemorrhage or territorial loss of torres-white differentiation. This critical result was discussed with Dr. Davis at 4:22 on 09/13/2023 and it was ascertained that the content and urgency of the report was understood at the time of direct communication.
--- NOTE | ~2023-09-13 | XR_ITS ---
EXAMINATION: XR CHEST CLINICAL INFORMATION: Hypoxia COMPARISON: Chest 11/15/2020 TECHNIQUE: AP upright portable view of the chest was obtained. 8:42 AM FINDINGS: Slight linear density in the right midlung most likely represents atelectasis. No convincing focal infiltrate, interstitial pulmonary edema or pneumothorax. Question slight blunting of the left costophrenic angle consistent with trace pleural effusion. The cardiomediastinal silhouette is within normal limits. Surgical clips in the right upper quadrant are consistent with prior cholecystectomy. Calcific density adjacent to the right humeral head and possibly the left humeral head can be seen with calcific tendinitis. XR/XR chest 1V IMPRESSION: 1. No convincing evidence of pneumonia. 2. Question of trace left pleural effusion.
--- NOTE | ~2023-09-13 | CT_ITS ---
EXAMINATION: CT ANGIOGRAM HEAD CT ANGIOGRAM NECK CLINICAL INFORMATION: Reason for Exam weakness, leftward gaze COMPARISON: None. TECHNIQUE: Test bolus sequences followed by intravenous administration 70 mL of Omnipaque 350. Helical imaging was performed in the axial plane from the aortic arch to the skull vertex. Delayed postcontrast imaging of the head was also performed. The data was processed at the ocular care technologist's workstation for generation of MIP sequences. Angled MIPs and volume rendered reformatted images were also generated at an offline 3D workstation. Stenoses are assessed in accordance with Alicia et al. Quantification of Carotid Stenosis on CT Angiography. AJR 2006. 27(1):13-19. [address] CT examination was performed using dose optimization techniques as appropriate, variously including the following: *Automated exposure control *Adjustment of mA and/or kV according to patient size (this includes techniques or standardized protocols for targeted exams where dose is matched to indication/reason for exam; i.e. extremities or head) *Use of iterative reconstruction technique DLP: 1441.08 mGy-cm FINDINGS: CT HEAD: Intracranial findings discussed separately. No pathologic intra-axial enhancement or regional oligemia. CTA HEAD: Venous contamination limits assessment of the distal intracranial arterial vasculature. Age indeterminate occlusion of the posterior/distal aspect of the right posterior communicating artery (image [id number], series 6). No hemodynamically significant stenosis in the anterior or posterior circulation. Trace calcific plaque along the carotid siphons without associated stenosis. Dominant right A1 MARILY. left [employer]ER. 1.5 mm inferiorly projecting infundibulum versus aneurysm arising from the terminal right ICA at the right posterior communicating artery origin. High flow vascular malformations. Timing of the contrast bolus allows assessment of the major dural venous sinuses, which all opacify normally CTA NECK: Common origin of the innominate and left common carotid arteries. The bilateral vertebral arteries arise directly from the aortic arch, with the right vertebral artery demonstrating a retroesophageal course. Trace calcific plaque at the left subclavian artery origin. Origins of the great vessels are widely patent. The common carotid arteries are widely patent. Mild partially calcified plaque at the right carotid bifurcation without associated stenosis. The left carotid bifurcation is normal. The internal carotid arteries are normal. The left vertebral artery is dominant. The vertebral artery ostia are widely patent. Both vertebral arteries are widely patent throughout their extracranial cervical course. Aberrant course of the distal vertebral arteries, which demonstrates focal tortuosity distal to the C2 transverse foramina, making hairpin turns as they course superiorly then inferiorly prior to piercing the dura at C1-C2. CT NECK: Patchy ground glass attenuation and interlobular septal thickening in the imaged lungs may reflect mild pulmonary edema. Cervical spondylosis, notably with central disc protrusions at C4-C5 greater than C3-C4 contributing to apparent moderate spinal canal stenosis and mass effect along the ventral cord. Varying degrees of neural foraminal stenosis. CT/CT angio head neck stroke IMPRESSION: 1. Age indeterminate occlusion of the posterior/distal aspect of the right posterior communicating artery (image [id number], series 6). 2. 1.5 mm inferiorly projecting infundibulum versus aneurysm arising from the terminal right ICA at the right posterior communicating artery origin. 3. Patchy ground glass attenuation and interlobular septal thickening in the imaged lungs may reflect mild pulmonary edema. 4. Cervical spondylosis, notably with central disc protrusions at C4-C5 greater than C3-C4 contributing to apparent moderate spinal canal stenosis and mass effect along the ventral cord. Consider further evaluation with cervical spine MRI there is referrable myelopathy/radiculopathy.
--- NOTE | 2023-09-13 15:49 | ECG_ITS ---
Test Reason : ?STROKE Blood Pressure : / mmHG Vent. Rate : 084 BPM Atrial Rate : 084 BPM P-R Int : 148 ms QRS Dur : 094 ms QT Int : 376 ms P-R-T Axes : 043 -09 022 degrees QTc Int : 444 ms Normal sinus rhythm Minimal voltage criteria for LVH, may be normal variant ( R in aVL ) Borderline ECG When compared with ECG of 25-DEC-2021 04:12, No significant change was found Referred By: Antonio Davis Electronically Signed By:Jarred Mckinney
[2023-09-13 15:52] LABS: Glucose, Whole Blood 136 mg/dL (60-115)
--- NOTE | 2023-09-13 15:52 | ED_ITS ---
HPI - Neuro Symptoms/Deficit General Chief Complaint: Stroke Stated Complaint: AMS, altered from baseline, slurred speech LKWT 1p Time Seen by Provider: 09/13/23 15:40 Source: patient Mode of arrival: EMS Limitations: language barrier and altered mental status History of Present Illness HPI Narrative: This is a 63-year-old woman with a past medical history of lupus (on hydroxychloroquine), peripheral venous insufficiency, migraines who was brought in by EMS for evaluation of change in mental status weakness. Patient's daughter and present at time of history and exam. They offered supervisor marble, but daughter states that she would like to transient feels comfortable doing so. She states that her mother was playing bingo at about 2:12 p.m. She states that her father, the patient's , reported during that patient was acting unusual and developed weakness at approximately 2:43 p.m. she states no previous history of MT, diabetes or cerebrovascular accident. She states no history of brain, neck or back surgery. She states no use of anticoagulating medications. She reports no previous bleeding diathesis, gastrointestinal bleeding or bleeding complications from surgery. Related Data Previous Rx's ?Medication ?Instructions ?Recorded compression stockings #1 ea 02/08/21 cholecalciferol (vitamin D3) 25 25 mcg PO DAILY #90 caps 01/11/22 mcg (1,000 unit) capsule baclofen 20 mg tablet 20 mg PO TID 90 days #270 tabs 02/14/23 acetaminophen 650 mg 1,300 mg (2 x 650 mg) PO Q8H 30 02/28/23 tablet,extended release (Mapap days #180 tabs Arthritis Pain) betamethasone valerate 0.1 % 1 appl topical DAILY PRN skin 03/23/23 topical cream irritation 2 weeks #15 grams nhqmshfwju-haiyjjibpyfmc-sqzzyygh 1 cap PO Q8H PRN pain 30 days #10 05/16/23 50 mg-300 mg-40 mg capsule caps gabapentin 400 mg capsule 400 mg PO TID 30 days #90 caps 05/16/23 hydroxychloroquine 200 mg tablet See Rx Instructions PO .COMPLEX 07/15/23 (Plaquenil) #144 tabs Allergies Allergy/AdvReac Type Severity Reaction Status Date / Time Penicillins [PENICILLINS] Allergy Intermediate INFANT Verified 09/13/23 15:46 ? RXN sumatriptan AdvReac Intermediate stomach Verified 09/13/23 15:46 upset PMFSH Past Medical History Medical History Impaired glucose tolerance Venous (peripheral) insufficiency Migraines Physical exam Shortness of breath Vitamin D deficiency Lupus (systemic lupus erythematosus) Hepatic steatosis Surgical History Hx of cholecystectomy History of root canal procedure History of esophagogastroduodenoscopy (EGD) (~2003) Hx of colonoscopy Family History Family History Father Schizophrenia Mother Arthritis Asthma Hypothyroidism Sister Diabetes Daughter Lupus Social History Social History Household Members: Spouse and Children Housing: House Alcohol intake: never Patient Tobacco Use Status: Never used Tobacco Smoked in Last 30 Days: No e-Cigarette/Vaping Use: Never Used Second Hand Smoke Exposure: No Use of substances other than those prescribed or required for medical reasons: No Advance Directives: No Advance Directives Information Provided: No service: No Current occupational status: unemployed Cognitive needs: No Hearing needs: No Vision needs: No Physical Exam 2 Vital Signs: Vital Signs: Last Vital Signs Temp 97.6 F 09/13/23 15:39 Pulse 80 09/13/23 17:43 Resp 16 09/13/23 17:43 BP 159/92 H 09/13/23 17:43 Pulse Ox 92 09/13/23 17:43 O2 Del Method Room Air 09/13/23 17:43 BMI result Body Mass Index 25.7 Medications Administered Discontinued Medications Generic Name Dose Route Start Last Admin Trade Name Freq PRN Reason Stop Dose Admin Iohexol 70 ml 09/13/23 16:20 09/13/23 16:20 Iohexol 350 Mg/Ml 100 Ml Infus..Btl IV 09/13/23 16:21 70 ml ONCE ONE Administration Labetalol HCl 10 mg 09/13/23 16:19 09/13/23 16:21 Labetalol Hcl 100 Mg/20 Ml Vial IVPUSH 09/13/23 16:20 10 mg ONCE ONE Administration Medical Decision Making Medical Decision Making MDM Narrative: Differential diagnosis includes, but is not limited to spontaneous intracraniaial hemorrhage, acute ischemic stroke, cerebral tumor. Code stroke activated on arrival approximately 1550 with NIHSS 15. I discussed and consulted with Neurologist, Dr. Bunn, at 1606. He recommends stat MRI and to keep systolic BP <185mmHg. He does not recommend thrombolysis at this time. Patient is initially hypertensive, but will wait for patient to return to the room for repeat blood pressure and plan to treat with Labetalol if systolic BP >[address] scanner and I am awaiting formal radiology interpretation. However, on my review and interpretation of the CT non-contrast I do not appreciate any visible intracranial hemorrhage. Patient hypertensive at 1620 on return to the room with systolic blood pressure >200 mmHg. Will provide 10mg IV labetalol. I discussed with Dr. Garcia [address] Garcia who states nothing acute . Dr. Calabrese notifies me at 1702 that patient's CTA demonstrates an age indeterminate distal right posterior communication artery Review of the MRI brain results [id number] demonstrates no acute intracranial process. There is no indication for thrombolysis given lack of MRI findings consistent with acute ischemia. BP remains at goal SBP of less than <185 mmgHg at time of admission. Etiologies of symptoms are unclear, but given incomplete resolution of symptoms patient certainly meets criteria for admission and further work up. Patient is admitted to telemetry bed under care of Dr. Carter. Admission/Observation Consideration of admission/observation: Escalation of care including admission/observation considered Consult Healthcare Provider Management of the patient was discussed with: Blow Mold Technician Discussed with the microsoft dynamics consultant (neurologist) Dr. Bunn as above Lab Data MDM Lab Attestation statement: I reviewed the patient's lab results. 09/13/23 16:21 09/13/23 16:21 Labs: Lab Results 09/13/23 09/13/23 09/13/23 Range/Units 15:45 15:48 16:21 WBC 3.8 L (4.8-10.8) X10*3/uL RBC 4.08 L (4.20-5.50) X10*6/uL Hgb 12.7 (12.0-16.0) g/dl Hct 37.4 (37.0-47.0) % MCV 91.7 (80.0-98.0) fL MCH 31.1 (27.0-33.0) pg MCHC 34.0 (31.0-35.0) g/dl RDW 13.2 (11.0-16.0) % Plt Count 239 (160-400) X10*3/uL MPV 10.5 (9.4-12.3) fL Immature Gran % (Auto) 0.3 (0.0-0.4) % Neut % (Auto) 57.0 (45-73) % Lymph % (Auto) 28.9 (20-40) % [place] % (Auto) 11.1 H (2-11) % Eos % (Auto) 1.6 (0-4) % Baso % (Auto) 1.1 (0-2) % Lymph # (Auto) 1.1 L (1.2-4.9) X10*3/uL [place] # (Auto) 0.4 (0.1-1.2) X10*3/uL Eos # (Auto) 0.1 (0.0-0.4) X10*3/uL Baso # (Auto) 0.0 (0.0-0.2) X10*3/uL Abs Immat Gran (auto) 0.01 (0.00-0.03) X10*3/uL Absolute Neuts (auto) 2.2 (2.0-8.3) x10*3/uL Absolute Nucleated RBC 0.000 (0.0-0.012) X10*3/uL Nucleated RBC % (auto) 0.0 (0.0-0.2) /100WBC PT 11.1 (11.1-13.3) SEC Whole Blood PT 11.5 (11.1-13.5) sec INR 0.9 (0.9-1.1) Whole Blood INR 1.0 (0.9-1.1) APTT 33.0 (26.0-36.8) SEC Sodium 140 (135-145) mmol/L Potassium 4.0 (3.3-5.1) mmol/L Chloride 108 (96-108) mmol/L Carbon Dioxide 22 (22-29) mmol/L Anion Gap 14 (12-20) BUN 9 (9-16) mg/dL Creatinine 0.75 (0.5-1.4) mg/dL Estim Creat Clear Calc 71.7 Estimated GFR > 60 POC Glucose 136 H (60-115) mg/dL Random Glucose 116 H (60-115) mg/dL Calcium 9.4 D (8.4-10.2) mg/dL Total Creatine Kinase 113 (26-140) U/L Troponin I High Sens < 2.7 (<3.5-17.0) ng/L Independent Interpretation I performed an independent interpretation of an: EKG Interpretation: EKG demonstrates normal sinus rhythm at 84 beats per minute, normal axis, NC 148, QRS 94, QTC 444, no STEMI Radiology Impression Discussion of test interpretation with radiology: I discussed test interpretation with the radiologist and I have reviewed the radiologist's reading. Radiologist Impression: MR/MR head/brain wo con IMPRESSION: No acute intracranial process. Mild scattered white matter signal changes which may be due to chronic microangiopathy. Chronic prominence of the bifrontal extra-axial fluid spaces which may reflect subdural hygromas. Enlargement of Meckel's cave bilaterally with petrous apex cephaloceles. Scattered prominent arachnoid granulations along the inner cortical table of the right occipital bone and arachnoid pits in the greater sphenoid wings bilaterally. Imaging findings may be incidental or could signify the effects of chronic alterations in CSF flow dynamics, as can be seen in long-standing intracranial hypertension; clinically correlate. Dictated By: SANCHO NASH MD Signed By: <Electronically signed by SANCHO NASH MD in [place]> 09/13/[address]/CT head for stroke IMPRESSION: No acute intracranial hemorrhage or territorial loss of torres-white differentiation. This critical result was discussed with Dr. Davis at 4:22 on 09/13/2023 and it was ascertained that the content and urgency of the report was understood at the time of direct communication. Dictated By: Danilo Gracia MD Signed By: <Electronically signed by Danilo Garcia MD in [place]> 09/13/[address]/CT angio head neck stroke IMPRESSION: 1. Age indeterminate occlusion of the posterior/distal aspect of the right posterior communicating artery (image [id number], series 6). 2. 1.5 mm inferiorly projecting infundibulum versus aneurysm arising from the terminal right ICA at the right posterior communicating artery origin. 3. Patchy ground glass attenuation and interlobular septal thickening in the imaged lungs may reflect mild pulmonary edema. 4. Cervical spondylosis, notably with central disc protrusions at C4-C5 greater than C3-C4 contributing to apparent moderate spinal canal stenosis and mass effect along the ventral cord. Consider further evaluation with cervical spine MRI there is referrable myelopathy/radiculopathy. Dictated By: Shelia Calabrese Signed By: <Electronically signed by Shelia Calabrese in [place]> 09/13/23 1643 Independent Historian Daughter NIH Stroke Scale Internal: Initial- Upon Arrival Level of Consciousness: Alert Level of Consciousness Questions: Answers both questions correctly Level of Consciousness Commands: Performs both tasks correctly Best Gaze: Forced deviation Visual: No visual loss Facial Palsy: Normal Motor Arm (Right): Some effort against gravity Motor Arm (Left): Some effort against gravity Motor Leg (Right): No effort against gravity Motor Leg (Left): No effort against gravity Limb Ataxia: Present in two limbs Sensory: Normal Best Language: No aphasia Dysarthia: Mild to moderate dysarthria Extinction and Inattention: No abnormality Score: 15 Discharge Plan Discharge Clinical Impression: Speech abnormality, Weakness Patient Disposition: Admitted As Inpatient Prescriptions: No Action (DME) compression stockings See Rx Instructions .Route .MEDSUPPLY Qty: 1 0RF Rx Instructions: As directed cholecalciferol (vitamin D3) 25 mcg (1,000 unit) capsule 25 mcg PO DAILY Qty: 90 1RF baclofen 20 mg tablet 20 mg PO TID 90 Days Qty: 270 2RF acetaminophen [Mapap Arthritis Pain] 650 mg tablet extended release 1,300 mg PO Q8H 30 Days Qty: 180 1RF betamethasone valerate 0.1 % cream 1 appl topical DAILY PRN (Reason: skin irritation) 14 Days Qty: 15 0RF gabapentin 400 mg capsule 400 mg PO TID 30 Days Qty: 90 3RF adqiorotrs-lxpwemlqhantp-yyee 50-300-40 mg capsule 1 cap PO Q8H PRN (Reason: pain) 30 Days Qty: 10 0RF hydroxychloroquine [Plaquenil] 200 mg tablet See Rx Instructions PO .COMPLEX Qty: 144 1RF Rx Instructions: Take 2 tabs daily 5 days a week and 1 tab daily 2 days a week Print Language: Estonian
[2023-09-13 16:16] LABS: Prothrombin Time Whole Bld POC 11.5 sec (11.1-13.5)
[2023-09-13] MEDS: iohexoL 350 MG/ML 100 ML INFUS..BTL 70 ML IV (16:20)
[2023-09-13] MEDS: Labetalol HCL 100 MG/20 ML VIAL 10 MG IVPUSH (16:21)
[2023-09-13 16:27] LABS: MANUAL DIFF FLAG NO
[2023-09-13 16:28] LABS: Basophils Percent Auto 1.1 % (0-2); Eosinophils Absolute Auto 0.1 X10*3/uL (0.0-0.4); Eosinophils Percent Auto 1.6 % (0-4); Hematocrit 37.4 % (37.0-47.0); Hemoglobin 12.7 g/dl (12.0-16.0); Imm Gran Abs Auto 0.01 X10*3/uL (0.00-0.03); Imm Gran Pct Auto 0.3 % (0.0-0.4); Lymphocytes Absolute Auto 1.1 X10*3/uL (1.2-4.9); Lymphocytes Percent Auto 28.9 % (20-40); Mean Corpuscular Hemoglobin 31.1 pg (27.0-33.0); Mean Corpuscular Volume 91.7 fL (80.0-98.0); Mean Platelet Volume 10.5 fL (9.4-12.3); Monocytes Absolute Auto 0.4 X10*3/uL (0.1-1.2); Monocytes Percent Auto 11.1 % (2-11); Neutrophils Absolute Auto 2.2 x10*3/uL (2.0-8.3); Platelet Count 239 X10*3/uL (160-400); Red Blood Count 4.08 X10*6/uL (4.20-5.50); Red Cell Distribution Width 13.2 % (11.0-16.0); White Blood Count 3.8 X10*3/uL (4.8-10.8)
--- NOTE | 2023-09-13 16:32 | PC.NURSE ---
pt slurred speech, no strength in upper extremities, able to wiggle toes. labs done, CT scan done, pt to STAT MRI, EKG to be done after. clinical coordinator went with pt to MRI. Labetalol given before transport to MRI
[2023-09-13 16:35] LABS: INTERNATIONAL NORM RATIO 0.9 (0.9-1.1); Prothrombin Time 11.1 SEC (11.1-13.3)
[2023-09-13 16:38] LABS: Stroke Lab Use COMPLETE
[2023-09-13 16:53] LABS: Anion Gap 14 (12-20); Blood Urea Nitrogen 9 mg/dL (9-16); Calcium 9.4 mg/dL (8.4-10.2); Carbon Dioxide 22 mmol/L (22-29); Chloride 108 mmol/L (96-108); Creatinine Clr Calc Pharmacy 71.7; Estimated Glomerular Filt Rate > 60; Glucose Random 116 mg/dL (60-115); Sodium 140 mmol/L (135-145)
[2023-09-13 17:02] LABS: Troponin-I High Sensitivity < 2.7 ng/L (<3.5-17.0)
--- NOTE | 2023-09-13 17:16 | PC.NURSE ---
pt return from MRI
--- NOTE | 2023-09-13 17:28 | MHC.STROKE ---
Called to ED for stroke alert. Pt awake, will respond with head shake to some questions but has been nonverbal. Slight moaning at times. Pt unable to squeeze hands when asked. Not moving any of her extremities intially. Pt tearful. Hypertensive with BP 188/153. CTH and CTA completed. Medicated with Labetolol prior to MRI. Accompanied patient to MRI. BP 186/88 prior to entering MRI. BP 185/88 post MRI. Upon return to ED, some movement noted in left hand. Hx: Per , patient reported that her head felt strange starting around 11am. Reported dizziness. Pt went about her day with no further complaints. Around 1443, stated that the patient was sitting on the couch and not moving, difficult to understand and that her hands seemed stiff . No seizure like activity per family. Family reports patient was well yesterday and this am. Plan of care discussed with patient. Stroke Education provided. Will continue to assist as needed
--- NOTE | 2023-09-13 18:06 | P.HPHOSP_ITS ---
History of Present Illness Date of Service: 09/13/23 Attending physician on admission: Zack Carter Chief Complaint: Generalized weakness, inability to move Pt is a 63-year-old female with a PMH significant for?lupus, Raynaud's, peripheral venous insufficiency, and migraines who presents to the ED for evaluation of sudden onset whole-body paralysis. Patient reports she was in her normal state of health yesterday and initially this morning upon waking. However, later developed a headache that was different in unspecified ways from her normal migraines. A few hours later pt was resting on the couch playing BINGO on her iPad when she felt lightheaded and dizzy and experienced some difficulty seeing she is unable to offer further clarification on. Closed her eyes for a few minutes and then found she could barely move, including speaking, holding up her head, or even wiggling fingers or toes. Denies any other symptoms: No confusion or LOC. Denies any musculoskeletal pain. No loss of bowel or bladder function. No numbness or tingling in extremities. Denies chest pain/pressure, palpitations. No shortness of breath. Denies fever, chills, nausea, vomiting, abdominal pain. Patient denies any recent illness. No sick contacts. Has never experienced anything like this before. Patient not on antihypertensives and not noted to have high blood pressure in the past. In the ED pt was tachycardic up to 104, and hypertensive as high as 201/104. Labs were significant for leukopenia of 3.8, otherwise grossly unremarkable and at baseline for patient. Stable H& H. No significant electrolyte abnormalities. Renal and hepatic function WNL. Troponin negative. CT?of head negative for acute intracranial hemorrhage or territorial loss of torres-white differentiation. CTA of head/neck found age indeterminate occlusion of the posterior/distal aspect of right posterior communicating artery; a 1.5 mm inferiorly projecting infundibulum versus aneurysm from terminal right ICA; and cervical spondylolysis with moderate spinal canal stenosis. MRI brain found no acute intracranial process, but showed mild scattered white matter signal changes and possible subdural hygromas. Also found evidence of possible chronic alterations in CSF flow dynamics in the setting of longstanding intracranial hypertension. EKG demonstrated normal sinus rhythm without evidence of ST elevations or depressions. Pt was treated with labetalol 10 mg IV. Pt will be admitted to the hospital for treatment and further evaluation of sudden onset paralysis. Review of Systems 2 Review of Systems: Sudden onset whole-body paralysis Headache Mild, unspecified vision changes Denies chest pain/pressure, palpitations No fever, chills, nausea, vomiting, abdominal pain Denies SOB No numbness or tingling in extremities PMFSH Medical History Impaired glucose tolerance Venous (peripheral) insufficiency Migraines Physical exam Shortness of breath Vitamin D deficiency Lupus (systemic lupus erythematosus) Hepatic steatosis Family History Father Schizophrenia Mother Arthritis Asthma Hypothyroidism Sister Diabetes Daughter Lupus Surgical History Hx of cholecystectomy History of root canal procedure History of esophagogastroduodenoscopy (EGD) (~2003) Hx of colonoscopy Social History Household Members: Spouse and Children Housing: House Alcohol intake: never Patient Tobacco Use Status: Never used Tobacco Smoked in Last 30 Days: No e-Cigarette/Vaping Use: Never Used Second Hand Smoke Exposure: No Use of substances other than those prescribed or required for medical reasons: No Advance Directives: No Advance Directives Information Provided: No service: No Current occupational status: unemployed Cognitive needs: No Hearing needs: No Vision needs: No Meds Allergies Allergy/AdvReac Type Severity Reaction Status Date / Time Penicillins [PENICILLINS] Allergy Intermediate INFANT Verified 09/13/23 15:46 ? RXN sumatriptan AdvReac Intermediate stomach Verified 09/13/23 15:46 upset Home Medications ?Medication ?Instructions ?Recorded ?Confirmed ?Last Taken ?Type acetaminophen 650 mg 650 mg PO Q8H 09/13/23 09/13/23 Unknown History tablet,extended release Physical Exam 2 Vital Signs and Narrative: Vital Signs: Last Vital Signs Temp 97.6 F 09/13/23 15:39 Pulse 80 09/13/23 17:43 Resp 16 09/13/23 17:43 BP 159/92 H 09/13/23 17:43 Pulse Ox 92 09/13/23 17:43 O2 Del Method Room Air 09/13/23 17:43 BMI result Body Mass Index 25.7 Constitutional: Alert, practically immobile, barely speaking in a whisper, barely moving lips when talking. Mental Status: Oriented to person, place and time. Eyes: Pupils are equal, round, and reactive to light. Ear, Nose, and Throat: Oropharynx clear, mucous membranes moist. Ears and nose without deformities. Trachea midline. Respiratory: Clear to auscultation bilaterally. No wheezing, rales, or rhonchi. Cardiovascular: S1, S2 regular. No murmurs, rubs, or gallops. Gastrointestinal: Abdomen soft, non-tender, non-distended. Normal bowel sounds. Neurologic: Cranial nerves II-XII are grossly intact bilaterally. Pt able to minimally wiggle toes and fingers bilaterally. Cannot lift arms or legs off of bed. Sensation to light touch intact of face and both upper and lower extremities bilaterally. Skin: Warm, dry. Extremities: No edema. Results Labs 09/13/23 16:21 09/13/23 16:21 Labs: Laboratory Results - last 24 hr 09/13/23 09/13/23 09/13/23 15:45 15:48 16:21 MCV 91.7 MCH 31.1 MCHC 34.0 RDW 13.2 Plt Count 239 MPV 10.5 Immature Gran % (Auto) 0.3 Neut % (Auto) 57.0 Lymph % (Auto) 28.9 [place] % (Auto) 11.1 H Eos % (Auto) 1.6 Baso % (Auto) 1.1 Lymph # (Auto) 1.1 L [place] # (Auto) 0.4 Eos # (Auto) 0.1 Baso # (Auto) 0.0 Abs Immat Gran (auto) 0.01 Absolute Neuts (auto) 2.2 Absolute Nucleated RBC 0.000 Nucleated RBC % (auto) 0.0 PT 11.1 Whole Blood PT 11.5 INR 0.9 Whole Blood INR 1.0 APTT 33.0 Anion Gap 14 Estim Creat Clear Calc 71.7 Estimated GFR > 60 POC Glucose 136 H Random Glucose 116 H Calcium 9.4 D Total Creatine Kinase 113 Troponin I High Sens < 2.7 Imaging Radiologist's Impressions: Impressions Head CT 09/13/23 15:58 IMPRESSION: No acute intracranial hemorrhage or territorial loss of torres-white differentiation. This critical result was discussed with Dr. Davis at 4:22 on 09/13/2023 and it was ascertained that the content and urgency of the report was understood at the time of direct communication. Head/Neck CTA 09/13/23 16:15 IMPRESSION: 1. Age indeterminate occlusion of the posterior/distal aspect of the right posterior communicating artery (image [id number], series 6). 2. 1.5 mm inferiorly projecting infundibulum versus aneurysm arising from the terminal right ICA at the right posterior communicating artery origin. 3. Patchy ground glass attenuation and interlobular septal thickening in the imaged lungs may reflect mild pulmonary edema. 4. Cervical spondylosis, notably with central disc protrusions at C4-C5 greater than C3-C4 contributing to apparent moderate spinal canal stenosis and mass effect along the ventral cord. Consider further evaluation with cervical spine MRI there is referrable myelopathy/radiculopathy. Brain MRI 09/13/23 17:14 IMPRESSION: No acute intracranial process. Mild scattered white matter signal changes which may be due to chronic microangiopathy. Chronic prominence of the bifrontal extra-axial fluid spaces which may reflect subdural hygromas. Enlargement of Meckel's cave bilaterally with petrous apex cephaloceles. Scattered prominent arachnoid granulations along the inner cortical table of the right occipital bone and arachnoid pits in the greater sphenoid wings bilaterally. Imaging findings may be incidental or could signify the effects of chronic alterations in CSF flow dynamics, as can be seen in long-standing intracranial hypertension; clinically correlate. Assessment and Plan (1) Generalized weakness: Status: Acute Plan Pt is a 63-year-old female with a PMH significant for?lupus, Raynaud's, peripheral venous insufficiency, and migraines who presents to the ED for evaluation of sudden onset whole-body paralysis. Pt was treated with labetalol 10 mg IV. Pt will be admitted to the hospital for treatment and further evaluation of sudden onset paralysis. Generalized weakness Pt reporting sudden onset, whole-body paralysis Unclear etiology: CT and MRI negative for acute intracranial pathology; labs grossly unremarkable Neurology consult Hypertensive urgency Patient's BP as high as Not previously known to have HTN, not on antihypertensives Labetalol 10 mg IV p.r.n. SBP >185 Monitor BP closely Diet NPO for now pending formal speech and swallow evaluation Will place on gentle IV maintenance fluids in the meantime Lupus Continue hydroxychloroquine when no longer NPO Migraines Hold Fioricet while NPO Tylenol IV prn Full Code Attending:?Dr. Carter DVT Prophylaxis: Lovenox Pt will require a hospitalization of at least two nights for treatment of?sudden onset generalized weakness/all body paralysis of unclear etiology. Given the patient is unable to significantly move any part of her body, she require hospitalization for further evaluation and specialist consultation with Neurology. Patient will also require close monitoring of her blood pressure and administration of IV antihypertensives as necessary. Quality Stroke Does the patient have a stroke diagnosis?: No VTE Prior VTE?: No VTE Risk Level:: Medical - moderate - high VTE Device Contraindication: Treatment Not Indicated VTE Drug Contraindication: N/A - Med Ordered
--- NOTE | 2023-09-13 18:52 | PHA.MEDREC ---
Pharmacy Consult ? Medication Reconciliation Pharmacy has completed the medication reconciliation, pt has AMS, called daughter Cherie. Daughter confirmed all the medication names but was unable to tell frequencies on a couple, utilized directions on Rx claims hx to determine doses/directions.
[2023-09-13] MEDS: Acetaminophen 325 MG TABLET 975 MG PO (19:32)
[2023-09-13] MEDS: Enoxaparin Sodium 40 MG/0.4 ML SYRINGE SUBCUT (19:33)
--- NOTE | 2023-09-13 20:02 | PC.NURSE ---
pt reported a headache, swallow eval done , pt pass, given one pill at a time, able to swallow, medicated per JUL, oral temp 98.3, purwick in place, daughter at bedside
[2023-09-13 20:54] LABS: TSH reflex Free T4 0.34 uIU/mL (0.32-4.0)
[2023-09-13] MEDS: Lactated Ringers 1,000 ML 80 ML IVCONT (21:01)
[2023-09-13] MEDS: Baclofen 20 MG TABLET PO (21:52)
[2023-09-13] MEDS: Gabapentin 400 MG CAPSULE PO (21:52)
[2023-09-14] VITALS (10 sets, daily range): BP systolic 132–190; BP diastolic 70–81; PULSE 66–75; RESP 14–20; TEMP 36.1–36.6; O2SAT 92–99
[2023-09-14] MEDS: 0.9 % Sodium Chloride Flush 3 ML SYRINGE IVFLUSH ×4 (01:23→20:57)
--- NOTE | 2023-09-14 01:44 | PC.NURSE ---
pt reported she was unable to urinate, bladder scanned <600. indwelling cath placed, urine sent. aware
--- NOTE | 2023-09-14 01:46 | PC.NURSE ---
pt reported 0/10 pain
[2023-09-14 01:51] LABS: Appearance Urine Cloudy; Color Urine Yellow; Glucose Urine UA Negative (Negative); Leukocyte Esterase Urine Large (3+) (Negative); Nitrite Urine Negative (Negative); PH 7.5 (5.0-9.0); Specific Gravity - Urine >= 1.030 (1.005-1.025); UMIC TRIGGER UACC YES; Urine Blood Negative (Negative); Urine Ketones Negative (Negative); Urine Protein Negative (Neg-Trace)
[2023-09-14 02:05] LABS: Bacteria Urine 4+ (None Seen); UACC Culture Trigger YES
--- NOTE | 2023-09-14 04:35 | PC.NURSE ---
pt howard cath output 900cc
--- NOTE | 2023-09-14 07:31 | PM.NEUROCN ---
History of Present Illness Data of Consult Service Date: 09/14/23 Primary Care Provider: Unknown Physician HPI Reason for consult: Encephalopathy 63 years old woman with underlying diagnosis of lupus taking hydroxychloroquine was to emergency room because of change in mental status. Because of acute nature of change in mental status initially she was worked for stroke but that turned out to be negative. There was no obvious shaking or overt symptoms suggestive of seizure but she was noted to be confused and with leftward gaze. Now she was feeling better. Review of Systems Review of Systems: No recent cold or flu-like illness or trauma or fall [facility] Past Medical History Medical History Impaired glucose tolerance Venous (peripheral) insufficiency Migraines Physical exam Shortness of breath Vitamin D deficiency Lupus (systemic lupus erythematosus) Hepatic steatosis Family History Family History Father Schizophrenia Mother Arthritis Asthma Hypothyroidism Sister Diabetes Daughter Lupus Surgical History Surgical History Hx of cholecystectomy History of root canal procedure History of esophagogastroduodenoscopy (EGD) (~2003) Hx of colonoscopy Social History Social History Household Members: Spouse and Children Housing: Other Housing Other:: [facility] Alcohol intake: never Patient Tobacco Use Status: Never used Tobacco Smoked in Last 30 Days: No e-Cigarette/Vaping Use: Never Used Second Hand Smoke Exposure: No Use of substances other than those prescribed or required for medical reasons: No Have you been hit, kicked, punched, or otherwise hurt by someone within the past year? If so, by whom?: No Do you feel safe in your current relationship?: Yes Is there a partner from a previous relationship who is making you feel unsafe now?: No Are you made to feel afraid or neglected: No Advance Directives: No Advance Directives Information Provided: No Do you have a plan to hurt others: No Plan Recently lost weight without trying: No Eating poorly because of decreased appetite: No Patient : No : No Poor oral hygiene: No service: No Current occupational status: unemployed Cognitive needs: No Hearing needs: No Vision needs: No Meds Allergies Allergy/AdvReac Type Severity Reaction Status Date / Time Penicillins [PENICILLINS] Allergy Intermediate Verified 09/13/23 15:46 ? RXN sumatriptan AdvReac Intermediate stomach Verified 09/13/23 15:46 upset Active Medications: Current Medications Acetaminophen/Butalbital/Caffeine (Butalb/Acetamin/Caff 50/325/40 Tablet) 1 tab PO Q8H PRN PRN Reason: Headache Baclofen (Baclofen 20 Mg Tablet) 20 mg PO TID [facility] Last Admin: 09/13/23 21:52 Dose: 20 mg Enoxaparin Sodium (Enoxaparin Sodium 40 Mg/0.4 Ml Syringe) 40 mg SUBCUT Q24H [facility] Last Admin: 09/13/23 19:33 Dose: 40 mg Gabapentin (Gabapentin 400 Mg Capsule) 400 mg PO TID [facility] Last Admin: 09/13/23 21:52 Dose: 400 mg Hydroxychloroquine Sulfate (Hydroxychloroquine Sulfate 200 Mg Tablet) 400 mg PO MoTuWeThFr@0900 [facility] Hydroxychloroquine Sulfate (Hydroxychloroquine Sulfate 200 Mg Tablet) 200 mg PO SuSa@0900 [facility] Lactated Ringer's (Lr) 1,000 mls @ 80 mls/hr IVCONT .[id number] [facility] Last Admin: 09/13/23 21:01 Dose: 80 mls/hr Labetalol HCl (Labetalol Hcl 100 Mg/20 Ml Vial) 10 mg IVPUSH Q4H PRN PRN Reason: SBP >185 Ondansetron HCl (Ondansetron Hcl 4 Mg/2 Ml Vial) 4 mg IVPUSH Q8H PRN PRN Reason: Nausea and Vomiting Sodium Chloride (0.9 % Sodium Chloride Flush 3 Ml Syringe) 3 ml IVFLUSH QSHIFT [facility] Last Admin: 09/14/23 01:23 Dose: 3 ml Vitamin D (Cholecalciferol (Vitamin D3) 25 Mcg Tablet) 25 mcg PO DAILY [facility] Home Medications ?Medication ?Instructions ?Recorded ?Confirmed ?Last Taken ?Type acetaminophen 650 mg 650 mg PO Q8H 09/13/23 09/13/23 Unknown History tablet,extended release Physical Exam Vital Signs: Vital Signs: Last Vital Signs Temp 97.1 F 09/14/23 05:32 Pulse 69 09/14/23 05:32 Resp 20 09/14/23 05:32 BP 173/81 H 09/14/23 05:32 Pulse Ox 96 09/14/23 05:32 O2 Del Method Room Air 09/14/23 05:32 BMI result Body Mass Index 25.7 Neuro: Other: She is alert and awake with normal spontaneity of speech fluency comprehension and flat affect. There is generalized bradykinesia. No significant tremor is noted. She is able to get up and take few steps holding onto hands. Results Labs 09/13/23 16:21 09/13/23 16:21 Labs: Short CBC 09/13/23 Range/Units 16:21 WBC 3.8 L (4.8-10.8) X10*3/uL Hgb 12.7 (12.0-16.0) g/dl Hct 37.4 (37.0-47.0) % Plt Count 239 (160-400) X10*3/uL BMP 09/13/23 16:21 Sodium 140 Potassium 4.0 Chloride 108 Carbon Dioxide 22 BUN 9 Creatinine 0.75 Calcium 9.4 D Cardiac Enzymes 09/13/23 Range/Units 16:21 Total Creatine Kinase 113 (26-140) U/L Urine 09/14/23 Range/Units 01:44 Urine Color Yellow Urine Appearance Cloudy Urine pH 7.5 (5.0-9.0) Ur Specific [place] >= 1.030 H (1.005-1.025) Urine Protein Negative (Neg-Trace) mg/dL Urine Glucose (UA) Negative (Negative) mg/dL MRI of brain revealed mild chronic microvascular ischemic changes but otherwise no significant abnormality noted. CTA did not reveal any large vessel disease. Assessment and Plan (1) Encephalopathy: Status: Acute 63 years old woman who probably had UTI related encephalopathy. Now she was feeling better. If similar episodes would recur, EEG is recommended to rule out complex partial seizure disorder Procedures Date of Service Date of Service: 09/14/23
[2023-09-14] MEDS: Hydroxychloroquine Sulfate 200 MG TABLET 400 MG PO (08:10)
[2023-09-14] MEDS: amLODIPine Besylate 5 MG TABLET PO (08:10)
[2023-09-14] MEDS: Cholecalciferol (Vitamin D3) 25 MCG TABLET PO (08:10)
[2023-09-14] MEDS: Gabapentin 400 MG CAPSULE PO ×3 (08:10→20:57)
[2023-09-14 08:11] LABS: Hematocrit 40.7 % (37.0-47.0); Hemoglobin 13.3 g/dl (12.0-16.0); Mean Corpuscular HGB Conc 32.7 g/dl (31.0-35.0); Mean Corpuscular Hemoglobin 30.5 pg (27.0-33.0); Mean Corpuscular Volume 93.3 fL (80.0-98.0); Mean Platelet Volume 10.3 fL (9.4-12.3); Platelet Count 240 X10*3/uL (160-400); Red Blood Count 4.36 X10*6/uL (4.20-5.50); Red Cell Distribution Width 13.3 % (11.0-16.0)
[2023-09-14] MEDS: Lactated Ringers 1,000 ML 80 ML IVCONT ×2 (08:11→20:57)
[2023-09-14] MEDS: Baclofen 20 MG TABLET PO ×3 (08:18→20:57)
[2023-09-14] MEDS: Hydroxychloroquine Sulfate 200 MG TABLET PO (08:19)
[2023-09-14 08:36] LABS: Alanine Aminotransferase 16 U/L (0-31); Albumin Level 4.3 g/dL (3.5-5.0); Alkaline Phosphatase 58 U/L (39-117); Anion Gap 14 (12-20); Aspartate Amino Transferase 21 U/L (5-31); Bilirubin Total 1.6 mg/dL (0.0-1.0); Blood Urea Nitrogen 8 mg/dL (9-16); Calcium 9.7 mg/dL (8.4-10.2); Carbon Dioxide 26 mmol/L (22-29); Chloride 107 mmol/L (96-108); Creatinine Clr Calc Pharmacy 76.8; Estimated Glomerular Filt Rate > 60; Glucose Random 96 mg/dL (60-115); Magnesium 1.9 mg/dL (1.6-2.6); Potassium 3.6 mmol/L (3.3-5.1); Sodium 143 mmol/L (135-145); Total Protein 6.9 g/dL (6.5-8.0)
[2023-09-14 08:47] LABS: Erythrocyte Sedimentation Rate 7 MM/HR (0-20)
--- NOTE | 2023-09-14 10:03 | P.PNIM_ITS ---
Subjective Subjective Date of Service: 09/14/23 Interval History: mostly resolved weakness Physical Exam 2 Vital Signs: Vital Signs: Last Vital Signs Temp 97.3 F 09/14/23 08:00 Pulse 66 09/14/23 08:00 Resp 20 09/14/23 08:00 BP 173/81 H 09/14/23 08:10 Pulse Ox 99 09/14/23 08:00 O2 Del Method Room Air 09/14/23 08:00 BMI result Body Mass Index 25.7 General: AO X 3, no acute distress Resp: CTA bilateral, no accessory muscles used CVS: S1,S2,RRR GI: soft, non tender, non distended Neuro: motor grossly intact, alert Psych: appropriate affect, appropriate insight Objective Data Active Medications Acetaminophen/Butalbital/Caffeine (Butalb/Acetamin/Caff 50/325/40 Tablet) 1 tab PO Q8H PRN PRN Reason: Headache Baclofen (Baclofen 20 Mg Tablet) 20 mg PO TID [facility] Last Admin: 09/14/23 08:18 Dose: 20 mg Documented By: MIKEL Enoxaparin Sodium (Enoxaparin Sodium 40 Mg/0.4 Ml Syringe) 40 mg SUBCUT Q24H [facility] Last Admin: 09/13/23 19:33 Dose: 40 mg Documented By: STEFANIA Gabapentin (Gabapentin 400 Mg Capsule) 400 mg PO TID [facility] Last Admin: 09/14/23 08:10 Dose: 400 mg Documented By: MIKEL Hydroxychloroquine Sulfate (Hydroxychloroquine Sulfate 200 Mg Tablet) 400 mg PO MoTuWeThFr@0900 [facility] Last Admin: 09/14/23 08:10 Dose: 400 mg Documented By: MIKEL Hydroxychloroquine Sulfate (Hydroxychloroquine Sulfate 200 Mg Tablet) 200 mg PO SuSa@0900 [facility] Last Admin: 09/14/23 08:19 Dose: 200 mg Documented By: MIKEL Lactated Ringer's (Lr) 1,000 mls @ 80 mls/hr IVCONT .[id number] [facility] Last Admin: 09/14/23 08:11 Dose: 80 mls/hr Documented By: MIKEL Labetalol HCl (Labetalol Hcl 100 Mg/20 Ml Vial) 10 mg IVPUSH Q4H PRN PRN Reason: SBP >185 Ondansetron HCl (Ondansetron Hcl 4 Mg/2 Ml Vial) 4 mg IVPUSH Q8H PRN PRN Reason: Nausea and Vomiting Sodium Chloride (0.9 % Sodium Chloride Flush 3 Ml Syringe) 3 ml IVFLUSH QSHIFT [facility] Last Admin: 09/14/23 08:11 Dose: 3 ml Documented By: MIKEL Vitamin D (Cholecalciferol (Vitamin D3) 25 Mcg Tablet) 25 mcg PO DAILY [facility] Last Admin: 09/14/23 08:10 Dose: 25 mcg Documented By: MIKLE Labs 09/14/23 08:05 09/14/23 08:05 Labs: Laboratory Results - last 24 hr 09/13/23 09/13/23 09/13/23 15:45 15:48 16:21 MCV 91.7 MCH 31.1 MCHC 34.0 RDW 13.2 Plt Count 239 MPV 10.5 Immature Gran % (Auto) 0.3 Neut % (Auto) 57.0 Lymph % (Auto) 28.9 [place] % (Auto) 11.1 H Eos % (Auto) 1.6 Baso % (Auto) 1.1 Lymph # (Auto) 1.1 L [place] # (Auto) 0.4 Eos # (Auto) 0.1 Baso # (Auto) 0.0 Abs Immat Gran (auto) 0.01 Absolute Neuts (auto) 2.2 Absolute Nucleated RBC 0.000 Nucleated RBC % (auto) 0.0 ESR PT 11.1 Whole Blood PT 11.5 INR 0.9 Whole Blood INR 1.0 APTT 33.0 Anion Gap 14 Estim Creat Clear Calc 71.7 Estimated GFR > 60 POC Glucose 136 H Random Glucose 116 H Calcium 9.4 D Magnesium Total Bilirubin AST ALT Alkaline Phosphatase Total Creatine Kinase 113 Troponin I High Sens < 2.7 C-Reactive Protein 0.10 Total Protein Albumin TSH 0.34 Urine Color Urine Appearance Urine pH Ur Specific [place] Urine Protein Urine Glucose (UA) Urine Ketones Urine Blood Urine Nitrite Ur Leukocyte Esterase Urine RBC Urine WBC Ur Squamous Epith Cells Urine Bacteria Hyaline Casts 09/14/23 09/14/23 01:44 08:05 MCV 93.3 MCH 30.5 MCHC 32.7 RDW 13.3 Plt Count 240 MPV 10.3 Immature Gran % (Auto) Neut % (Auto) Lymph % (Auto) [place] % (Auto) Eos % (Auto) Baso % (Auto) Lymph # (Auto) [place] # (Auto) Eos # (Auto) Baso # (Auto) Abs Immat Gran (auto) Absolute Neuts (auto) Absolute Nucleated RBC 0.000 Nucleated RBC % (auto) 0.0 ESR 7 PT Whole Blood PT INR Whole Blood INR APTT Anion Gap 14 Estim Creat Clear Calc 76.8 Estimated GFR > 60 POC Glucose Random Glucose 96 Calcium 9.7 Magnesium 1.9 Total Bilirubin 1.6 H AST 21 ALT 16 Alkaline Phosphatase 58 Total Creatine Kinase Troponin I High Sens C-Reactive Protein Total Protein 6.9 Albumin 4.3 TSH Urine Color Yellow Urine Appearance Cloudy Urine pH 7.5 Ur Specific [place] >= 1.030 H Urine Protein Negative Urine Glucose (UA) Negative Urine Ketones Negative Urine Blood Negative Urine Nitrite Negative Ur Leukocyte Esterase Large (3+) H Urine RBC 3-5 H Urine WBC 6-10 Ur Squamous Epith Cells 6-10 Urine Bacteria 4+ Hyaline Casts 6-10 Assessment and Plan (1) Encephalopathy: Status: Acute Plan 63F PMH sle, raynauds, migraines presented with weakness, positive ua, hypertension acute metabolic encephalpathy due to uti rocephin, follow up cultures mental status much improved pt appreciated - STR vs acute uncotnrolled htn denies history starting amlodipine 5mg daily, monitor sle hydroxychloroquine dvt prophylaxis - lovenox full code reason for continued hospitalization:bp control, awaiting cultures Quality Stroke Does the patient have a stroke diagnosis?: No VTE Prior VTE?: No VTE Risk Level:: Medical - moderate - high VTE Device Contraindication: Treatment Not Indicated VTE Drug Contraindication: N/A - Med Ordered
[2023-09-14 11:33] LABS: Appearance Urine Clear; Color Urine Yellow; Glucose Urine UA Negative (Negative); Leukocyte Esterase Urine Small (1+) (Negative); Nitrite Urine Negative (Negative); UMIC TRIGGER UACC YES; Urine Blood Moderate (2+) (Negative); Urine Ketones Negative (Negative); Urine Protein Negative (Neg-Trace)
[2023-09-14 11:41] LABS: Bacteria Urine Trace (None Seen); Hyaline Casts Urine 0-2 /LPF (0-2); UACC Culture Trigger YES
--- NOTE | 2023-09-14 13:08 | MHC.CM.PN ---
CM MET WITH PT AND SON AT BEDSIDE PT LIVES WITH HER AND SON AND IS INDEPENDENT WITH CARE PT HAS NO DME AND NO SERVICES PT UNSURE IF SHE HAS A HCP BUT WILL CONSIDER COMPLETING ONE PCP: MIKE DAMON PT AND FAMILY AWARE PT HAS RECOMMENDED AR VS STR THEY REPORT THEY WOULD PREFER PT IMPROVES ENOUGH TO GO HOME, OR GOES TO A LOCAL STR REFERRALS MADE TO LOCAL SNFS TRANSPORT TBD BY DISPOSITION
[2023-09-14] MEDS: Butalb/Acetamin/Caff 50/325/40 TABLET 1 TAB PO (14:39)
[2023-09-14] MEDS: Artificial Tears 15 ML DROPS 1 DROP EYE-BOTH (19:31)
[2023-09-14] MEDS: Enoxaparin Sodium 40 MG/0.4 ML SYRINGE SUBCUT (19:33)
[2023-09-14] MEDS: Melatonin 3 MG TABLET 6 MG PO (22:59)
[2023-09-15] VITALS (10 sets, daily range): BP systolic 98–187; BP diastolic 61–87; PULSE 61–82; RESP 16–20; TEMP 36.1–36.3; O2SAT 91–96
--- NOTE | 2023-09-15 | EEG_ITS ---
This is a 16 channel EEG with an EKG lead. The patient is reported drowsy during the tracing. Background EEG rhythm is slow alpha, low to medium amplitude posteriorly, lower amplitude fast anteriorly. Photic stimulation does not produce any significant driving. Hyperventilation is not performed. Some eye opening and closure. Muscle artifacts are noted. No definite sharp wave spikes or paroxysmal tendency noted. IMPRESSION: Mild slowing with no evidence of seizure disorder. MD JON Calderon/ANDI / [id number]
[2023-09-15] MEDS: cefTRIAXone sodium 1 GM in 0.9 % Sodium Chloride 50 ML IV (08:26)
[2023-09-15] MEDS: 0.9 % Sodium Chloride Flush 3 ML SYRINGE IVFLUSH ×3 (08:27→21:00)
[2023-09-15] MEDS: Gabapentin 400 MG CAPSULE PO ×3 (08:28→20:57)
[2023-09-15] MEDS: Baclofen 20 MG TABLET PO ×3 (08:28→20:57)
[2023-09-15] MEDS: Cholecalciferol (Vitamin D3) 25 MCG TABLET PO (08:28)
[2023-09-15] MEDS: Hydroxychloroquine Sulfate 200 MG TABLET PO (08:28)
[2023-09-15] MEDS: Losartan Potassium 50 MG TABLET PO (08:28)
--- NOTE | 2023-09-15 09:28 | HO.PM.IMPN ---
Subjective Subjective Date of Service: 09/15/23 Interval History: weakness resolved, still hypertensive Physical Exam Vital Signs: Vital Signs: Last Vital Signs Temp 97.0 F 09/15/23 08:00 Pulse 80 09/15/23 08:00 Resp 20 09/15/23 08:00 BP 187/87 H 09/15/23 08:28 Pulse Ox 95 09/15/23 08:00 O2 Del Method Room Air 09/15/23 08:00 BMI result Body Mass Index 25.7 General: AO X 3, no acute distress Resp: CTA bilateral, no accessory muscles used CVS: S1,S2,RRR GI: soft, non tender, non distended Neuro: motor grossly intact, alert Psych: appropriate affect, appropriate insight Objective Data Active Medications Acetaminophen/Butalbital/Caffeine (Butalb/Acetamin/Caff 50/325/40 Tablet) 1 tab PO Q8H PRN PRN Reason: Headache Last Admin: 09/14/23 14:39 Dose: 1 tab Documented By: MIKEL Artificial Tears (Artificial Tears 15 Ml Drops) 1 drop EYE-BOTH Q1H PRN PRN Reason: Dry Eyes Last Admin: 09/14/23 19:31 Dose: 1 drop Documented By: ANAND Baclofen (Baclofen 20 Mg Tablet) 20 mg PO TID [facility] Last Admin: 09/15/23 08:28 Dose: 20 mg Documented By: MIKEL Enoxaparin Sodium (Enoxaparin Sodium 40 Mg/0.4 Ml Syringe) 40 mg SUBCUT Q24H [facility] Last Admin: 09/14/23 19:33 Dose: 40 mg Documented By: ANAND Gabapentin (Gabapentin 400 Mg Capsule) 400 mg PO TID [facility] Last Admin: 09/15/23 08:28 Dose: 400 mg Documented By: MIKEL Hydroxychloroquine Sulfate (Hydroxychloroquine Sulfate 200 Mg Tablet) 400 mg PO MoTuWeThFr@0900 [facility] Last Admin: 09/14/23 08:10 Dose: 400 mg Documented By: MIKEL Hydroxychloroquine Sulfate (Hydroxychloroquine Sulfate 200 Mg Tablet) 200 mg PO SuSa@0900 [facility] Last Admin: 09/15/23 08:28 Dose: 200 mg Documented By: MIKEL Lactated Ringer's (Lr) 1,000 mls @ 80 mls/hr IVCONT .[id number] [facility] Last Admin: 09/15/23 08:29 Dose: Not Given Documented By: MIKEL Non-Admin Reason: Physician Held Med Ceftriaxone Sodium 1 gm/ (Sodium Chloride) 50 mls @ 100 mls/hr IV Q24H [facility] Last Infusion: 09/15/23 09:18 Dose: Infused Documented By: MIKEL Labetalol HCl (Labetalol Hcl 100 Mg/20 Ml Vial) 10 mg IVPUSH Q4H PRN PRN Reason: SBP >185 Losartan Potassium (Losartan Potassium 50 Mg Tablet) 50 mg PO DAILY [facility]; Protocol Last Admin: 09/15/23 08:28 Dose: 50 mg Documented By: MIKEL Melatonin (Melatonin 3 Mg Tablet) 6 mg PO BEDTIME PRN PRN Reason: Insomnia Last Admin: 09/14/23 22:59 Dose: 6 mg Documented By: ANAND Ondansetron HCl (Ondansetron Hcl 4 Mg/2 Ml Vial) 4 mg IVPUSH Q8H PRN PRN Reason: Nausea and Vomiting Sodium Chloride (0.9 % Sodium Chloride Flush 3 Ml Syringe) 3 ml IVFLUSH QSHIFT [facility] Last Admin: 09/15/23 08:27 Dose: 3 ml Documented By: MIKEL Vitamin D (Cholecalciferol (Vitamin D3) 25 Mcg Tablet) 25 mcg PO DAILY [facility] Last Admin: 09/15/23 08:28 Dose: 25 mcg Documented By: MIKEL Labs 09/14/23 08:05 09/14/23 08:05 Labs: Laboratory Results - last 24 hr 09/14/23 11:01 Urine Color Yellow Urine Appearance Clear Urine pH 8.0 Ur Specific [place] 1.010 Urine Protein Negative Urine Glucose (UA) Negative Urine Ketones Negative Urine Blood Moderate (2+) H Urine Nitrite Negative Ur Leukocyte Esterase Small (1+) H Urine RBC 6-10 H Urine WBC 6-10 Ur Squamous Epith Cells 3-5 Urine Bacteria Trace Hyaline Casts 0-2 Microbiology Microbiology Results: Microbiology 09/14/23 Unknown Urine Culture - Final Urine clean catch - Urine torres top No growth. Assessment and Plan (1) Encephalopathy: Status: Acute Plan 63F PMH sle, raynauds, migraines presented with weakness, positive ua, hypertension acute metabolic encephalpathy due to uti vs complex migraine, vs seizure, vs hypertensive encephalopathy rocephin, follow up cultures check eeg pt appreciated - STR vs acute uncotnrolled htn denies history started amlodipine 5mg daily still elvated will add losartan 50mg daily monitor sle hydroxychloroquine dvt prophylaxis - lovenox full code reason for continued hospitalization:bp control, awaiting cultures Quality Stroke Does the patient have a stroke diagnosis?: No VTE Prior VTE?: No VTE Risk Level:: Medical - moderate - high VTE Device Contraindication: Treatment Not Indicated VTE Drug Contraindication: N/A - Med Ordered
[2023-09-15] MEDS: Butalb/Acetamin/Caff 50/325/40 TABLET 1 TAB PO (12:20)
[2023-09-15] MEDS: Enoxaparin Sodium 40 MG/0.4 ML SYRINGE SUBCUT (20:57)
[2023-09-15] MEDS: Labetalol HCL 100 MG/20 ML VIAL 10 MG IVPUSH (22:00)
[2023-09-15] MEDS: LORazepam 2 MG/ML VIAL IVPUSH (22:00)
--- NOTE | 2023-09-15 22:01 | PM.EVENT ---
Event Note Date of Service: 09/15/23 Event Note: Rapid response was called as patient was found staring in space. As per the nurse, 20 minutes prior patient was talking appropriately. At the time of the episode, patient staring into space and not responding verbal stimulus or following commands. No rhythmic jerking movement of extremities. 2 mg IV Ativan given. EEG pending, appreciate Neurology Time Spent With Patient Time: Total time managing care of this patient today ____ minutes.
[2023-09-16] VITALS (8 sets, daily range): BP systolic 99–185; BP diastolic 57–85; PULSE 66–84; RESP 16–20; TEMP 36.1–36.6; O2SAT 97–99
--- NOTE | 2023-09-16 04:52 | PC.NURSE ---
At first assessment patient alert and oriented x4, stable vitals at beginning. Approximately at 21:30 rapid response called. Patient was not responding to questions, staring blankly at wall, hypertensive. MD ordered ativan 2mg IVpush and labetalol 10mg IVpush and administered. Vitals rechecked at 22:00. BP 155/84, HR 82, o2 91 on room air. Patient placed on 2L NC.
--- NOTE | 2023-09-16 05:01 | PC.NURSE ---
Patient bladder scanned at 04:25. Scanned for 463mls. notified ordered to straight cath. Patient straight cathed for 550mls.
--- NOTE | 2023-09-16 07:50 | PC.NURSE ---
0720 Family at bedside, stating my mom cant breathe . Patient unable to answer any questions, with family interpreting, staring straight ahead. VSS bp:130/73, HR 84, 97% on 2L NC, no respiratory distress noted. Patient noted to have difficulty swallowing secretions, suctioned with svitlanakar. Repositioned in bed, aspiration precautions in place. Patient at this time appears comfortable. MD notified. NPO at this time pending swallow eval.
[2023-09-16] MEDS: cefTRIAXone sodium 1 GM in 0.9 % Sodium Chloride 50 ML IV (09:25)
[2023-09-16] MEDS: 0.9 % Sodium Chloride Flush 3 ML SYRINGE IVFLUSH (09:26)
--- NOTE | 2023-09-16 10:15 | MHC.CM.PN ---
Per ROUNDS discussion, Patient is not yet medically cleared for dc (Rapid Response yesterday); PT is recommending STR and CM will continue to follow.
[2023-09-16] MEDS: Cholecalciferol (Vitamin D3) 25 MCG TABLET PO (10:29)
[2023-09-16] MEDS: Losartan Potassium 50 MG TABLET PO (10:29)
[2023-09-16] MEDS: Hydroxychloroquine Sulfate 200 MG TABLET 400 MG PO (10:29)
[2023-09-16] MEDS: Gabapentin 400 MG CAPSULE PO ×3 (10:29→19:44)
[2023-09-16] MEDS: Baclofen 20 MG TABLET PO ×3 (10:29→19:44)
--- NOTE | 2023-09-16 10:30 | HO.PM.IMPN ---
Subjective Subjective Date of Service: 09/16/23 Interval History: had similar episode to presentation early am, with ams weakness aphasia, quickly resolved, also hypoxic Physical Exam Vital Signs: Vital Signs: Last Vital Signs Temp 97.1 F 09/16/23 07:18 Pulse 84 09/16/23 07:18 Resp 16 09/16/23 07:18 BP 130/73 09/16/23 07:18 Pulse Ox 97 09/16/23 07:18 O2 Del Method Nasal Cannula 09/16/23 07:18 O2 Flow Rate 2 09/16/23 07:18 BMI result Body Mass Index 25.7 General: AO X 3, no acute distress Resp: CTA bilateral, no accessory muscles used CVS: S1,S2,RRR GI: soft, non tender, non distended Neuro: motor grossly intact, alert Psych: appropriate affect, appropriate insight Objective Data Active Medications Acetaminophen/Butalbital/Caffeine (Butalb/Acetamin/Caff 50/325/40 Tablet) 1 tab PO Q8H PRN PRN Reason: Headache Last Admin: 09/15/23 12:20 Dose: 1 tab Documented By: MIKEL Artificial Tears (Artificial Tears 15 Ml Drops) 1 drop EYE-BOTH Q1H PRN PRN Reason: Dry Eyes Last Admin: 09/14/23 19:31 Dose: 1 drop Documented By: ANAND Baclofen (Baclofen 20 Mg Tablet) 20 mg PO TID [facility] Last Admin: 09/15/23 20:57 Dose: 20 mg Enoxaparin Sodium (Enoxaparin Sodium 40 Mg/0.4 Ml Syringe) 40 mg SUBCUT Q24H [facility] Last Admin: 09/15/23 20:57 Dose: 40 mg Documented By: JUNIOR Gabapentin (Gabapentin 400 Mg Capsule) 400 mg PO TID [facility] Last Admin: 09/15/23 20:57 Dose: 400 mg Hydroxychloroquine Sulfate (Hydroxychloroquine Sulfate 200 Mg Tablet) 400 mg PO MoTuWeThFr@0900 [facility] Last Admin: 09/14/23 08:10 Dose: 400 mg Documented By: MIKEL Hydroxychloroquine Sulfate (Hydroxychloroquine Sulfate 200 Mg Tablet) 200 mg PO SuSa@0900 [facility] Last Admin: 09/15/23 08:28 Dose: 200 mg Documented By: MIKEL Ceftriaxone Sodium 1 gm/ (Sodium Chloride) 50 mls @ 100 mls/hr IV Q24H [facility] Last Infusion: 09/16/23 10:10 Dose: Infused Documented By: HARLAN Labetalol HCl (Labetalol Hcl 100 Mg/20 Ml Vial) 10 mg IVPUSH Q4H PRN PRN Reason: SBP >185 Last Admin: 09/15/23 22:00 Dose: 10 mg Documented By: JUNIOR Losartan Potassium (Losartan Potassium 50 Mg Tablet) 50 mg PO DAILY [facility]; Protocol Last Admin: 09/15/23 08:28 Dose: 50 mg Melatonin (Melatonin 3 Mg Tablet) 6 mg PO BEDTIME PRN PRN Reason: Insomnia Last Admin: 09/14/23 22:59 Dose: 6 mg Documented By: ANAND Ondansetron HCl (Ondansetron Hcl 4 Mg/2 Ml Vial) 4 mg IVPUSH Q8H PRN PRN Reason: Nausea and Vomiting Sodium Chloride (0.9 % Sodium Chloride Flush 3 Ml Syringe) 3 ml IVFLUSH QSHIFT [facility] Last Admin: 09/16/23 09:26 Dose: 3 ml Documented By: HARLAN Vitamin D (Cholecalciferol (Vitamin D3) 25 Mcg Tablet) 25 mcg PO DAILY [facility] Last Admin: 09/15/23 08:28 Dose: 25 mcg Labs 09/14/23 08:05 09/14/23 08:05 Microbiology Microbiology Results: Microbiology 09/14/23 Unknown Urine Culture - Final Urine clean catch - Urine torres top No growth. 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
--- NOTE | 2023-09-16 12:58 | MHC.SL.SWA ---
Speech Pathologist Impression: WFL Dysphasia Diet Status: Start on regular texture diet Liquid Consistency and Strategies for Safe Swallow: Liquid Intake Recommendation: Thin Liquid Intake Strategies: Small Sips Solid Food Consistency: Dietary Recommendations: Regular Additional Modifications to Solid Foods: Patient was seen for bedside dysphagia evaluation this morning. Note slowed oral motor movements and mastication secondary to overall generalized weakness. Swallow in the oral and pharyngeal phases otherwise deemed to be functional. No overt s/s of aspiration with PO trials. Good oral clearance. Recommend UPGRADE from NPO, start on REGULAR texture diet with THIN liquids, pills WHOLE in LIQUID. PROGRAM ARCHITECT to f/u 1x to ensure tolerance. Oral Medication Intake: Whole with Liquid Please contact the pharmacy regarding appropriate crushable or liquid drug formulations that are available whenever modified delivery is recommended. Compensatory Strategies and Precautions to be Taken for Safe Swallow: Sitting Upright (90 deg) Small Bites and Sips Alternate Liquids/Solids Rate of Ingestion Change Supervision While Eating and Drinking for Safe Swallow: Total Supervision (1:1) Swallowing Recommended Treatments: Compens. Strategy Educat. Recommendation for Speech: Inpatient Speech Therapy Comment: 1 f/u Frequency/Duration: Date Range for Service Req: Timeline to reassess: Search Engine Marketing Manager Clinican/Clinical Fellow: No Supervisory Statement: I have reviewed and agree with the student/clinical fellow's documentation: N/A Speech Language Pathologist: Maura Francisco M.A., CCC-PROGRAM ARCHITECT
[2023-09-16] MEDS: Enoxaparin Sodium 40 MG/0.4 ML SYRINGE SUBCUT (19:44)
--- NOTE | 2023-09-16 19:55 | ECG_ITS ---
Test Reason : CP Blood Pressure : / mmHG Vent. Rate : 083 BPM Atrial Rate : 083 BPM P-R Int : 134 ms QRS Dur : 092 ms QT Int : 398 ms P-R-T Axes : 042 -19 031 degrees QTc Int : 467 ms Normal sinus rhythm Moderate voltage criteria for LVH, may be normal variant ( R in aVL , Sherman product ) Nonspecific ST and T wave abnormality Abnormal ECG When compared with ECG of 13-SEP-2023 17:15, No significant change was found Referred By: Zack Carter Electronically Signed By:MARTY LOVING MD
[2023-09-16 20:03] LABS: Glucose, Whole Blood 102 mg/dL (60-115)
[2023-09-16] MEDS: LORazepam 2 MG/ML VIAL 1 MG IVPUSH (20:17)
--- NOTE | 2023-09-16 20:19 | PC.NURSE ---
rapid resonse called as patient found to be not responding to voice commands or painful stimuli, did eventually open eyes but stares off and still not responding, vitals stable, poc 102, ekg ok per md, 1 mg IV ativan ordered and administered now
--- NOTE | 2023-09-16 20:37 | PM.EVENT ---
Event Note Date of Service: 09/16/23 Event Note: 8:00 pm - A rapid response was activated as the patient became unresponsive. Her son was at bedside and said that before mental changes occurred patient told him that she could sense she is going to have another episode. Received today tx with gabapentin and baclofen. On arrival patient was laying on her left side. VS stable: no tachycardia or hypotension. O2 sats 100 % (2L/min) of supplemental oxygen via NC. Glucose stat was 102. She grimaced to painful stimuli (sternal rub). Pupils looked equally round. No tonic clonic movements observed. As there is a concern for seizure activity Ativan 1 mg IV was given. ECG stat is normal. She had EEG recently but no results yet. We will continue to monitor. Aspiration or seizures precautions ordered. Time Spent With Patient Time: Total time managing care of this patient today ____ minutes.
[2023-09-17] VITALS (8 sets, daily range): BP systolic 100–144; BP diastolic 55–84; PULSE 67–81; RESP 18–20; TEMP 36.1–36.9; O2SAT 92–98
[2023-09-17] MEDS: 0.9 % Sodium Chloride Flush 3 ML SYRINGE IVFLUSH ×4 (00:02→19:53)
[2023-09-17] MEDS: Cholecalciferol (Vitamin D3) 25 MCG TABLET PO (09:36)
[2023-09-17] MEDS: Gabapentin 400 MG CAPSULE PO ×3 (09:36→19:52)
[2023-09-17] MEDS: Losartan Potassium 50 MG TABLET PO (09:36)
[2023-09-17] MEDS: Baclofen 20 MG TABLET PO ×3 (09:36→19:52)
[2023-09-17] MEDS: cefTRIAXone sodium 1 GM in 0.9 % Sodium Chloride 50 ML IV (09:37)
[2023-09-17] MEDS: Hydroxychloroquine Sulfate 200 MG TABLET 400 MG PO (09:37)
--- NOTE | 2023-09-17 11:38 | MHC.SL.DTX ---
Dysphagia Diet modifications: Last documented Solid diet consistencies: Regular Last documented Liquid consistency: Thin Changes made to current diet?: No Liquid Consistency and Strategies: Liquid Intake Recommendation: Thin Compensatory Strategies for Safe Swallow: Unrestricted Compensatory Strategies for Safe Swallow(b): Sitting Upright (90 deg) Solid Food Consistency: Dietary Recommendations: Regular Additional Modifications to Solids: Oral Medication Intake: Whole with Liquid Strategies and Precautions to be Taken for Safe Swallow: Sitting Upright (90 deg) Supervision While Eating and/Drinking: Intermittent Supervision Foods to Avoid: Swallowing Recommended Treatments: Compens. Strategy Educat. Level of Impact on: Daily activities: None Interpersonal interactions: Education: None Employment: None Community: None Prognosis for Improvement: Good Recommendation for Speech: Inpatient Speech Therapy Comment: 1 f/u Frequency/Duration: Date Range for Service Req: Timeline to reassess: Treatment: Pt was seen at bedside after working with PT. Her Son and Daughter are present and assist with interpreting. She tolerated consecutive sips of Thin Liquids via Straw with no overt s/s of aspiration both before and after administration of a Regular Solid. She took small bites of a Regular Solid (Saltine with Peanut Butter) with mild preparation delay but sufficient oral clearance with no overt s/s of aspiration. When asked if she has any other questions or concerns she politely declines. Wood Window And Door Craftsman Clinican/Clinical Fellow: No Supervisory Statement: I have reviewed and agree with the student/clinical fellow's documentation: N/A Speech Language Pathologist: Sergio Scruggs M.A., CCC-SENIOR MANAGER
--- NOTE | 2023-09-17 11:39 | P.PNIM_ITS ---
Subjective Subjective Date of Service: 09/17/23 Interval History: had another episode this AM Physical Exam 2 Vital Signs: Vital Signs: Last Vital Signs Temp 97.4 F 09/17/23 08:00 Pulse 76 09/17/23 08:00 Resp 20 09/17/23 08:00 BP 144/72 H 09/17/23 10:33 Pulse Ox 97 09/17/23 08:00 O2 Del Method Room Air 09/17/23 08:00 O2 Flow Rate 2 09/17/23 00:00 Oxygen Flow Rate 2 09/16/23 21:10 BMI result Body Mass Index 25.7 General: AO X 3, no acute distress Resp: CTA bilateral, no accessory muscles used CVS: S1,S2,RRR GI: soft, non tender, non distended Neuro: motor grossly intact, alert Psych: appropriate affect, appropriate insight Objective Data Active Medications Acetaminophen/Butalbital/Caffeine (Butalb/Acetamin/Caff 50/325/40 Tablet) 1 tab PO Q8H PRN PRN Reason: Headache Last Admin: 09/15/23 12:20 Dose: 1 tab Documented By: MIKEL Artificial Tears (Artificial Tears 15 Ml Drops) 1 drop EYE-BOTH Q1H PRN PRN Reason: Dry Eyes Last Admin: 09/14/23 19:31 Dose: 1 drop Documented By: ANAND Baclofen (Baclofen 20 Mg Tablet) 20 mg PO TID [facility] Last Admin: 09/17/23 09:36 Dose: 20 mg Documented By: HARLAN Enoxaparin Sodium (Enoxaparin Sodium 40 Mg/0.4 Ml Syringe) 40 mg SUBCUT Q24H [facility] Last Admin: 09/16/23 19:44 Dose: 40 mg Documented By: ROBERT Gabapentin (Gabapentin 400 Mg Capsule) 400 mg PO TID [facility] Last Admin: 09/17/23 09:36 Dose: 400 mg Documented By: HARLAN Hydroxychloroquine Sulfate (Hydroxychloroquine Sulfate 200 Mg Tablet) 400 mg PO MoTuWeThFr@0900 [facility] Last Admin: 09/17/23 09:37 Dose: 400 mg Documented By: HARLAN Hydroxychloroquine Sulfate (Hydroxychloroquine Sulfate 200 Mg Tablet) 200 mg PO SuSa@0900 [facility] Last Admin: 09/15/23 08:28 Dose: 200 mg Documented By: MIKEL Ceftriaxone Sodium 1 gm/ (Sodium Chloride) 50 mls @ 100 mls/hr IV Q24H [facility] Last Infusion: 09/17/23 10:46 Dose: Infused Documented By: HARLAN Labetalol HCl (Labetalol Hcl 100 Mg/20 Ml Vial) 10 mg IVPUSH Q4H PRN PRN Reason: SBP >185 Last Admin: 09/15/23 22:00 Dose: 10 mg Documented By: JUNIOR Losartan Potassium (Losartan Potassium 50 Mg Tablet) 50 mg PO DAILY [facility]; Protocol Last Admin: 09/17/23 09:36 Dose: 50 mg Documented By: HARLAN Melatonin (Melatonin 3 Mg Tablet) 6 mg PO BEDTIME PRN PRN Reason: Insomnia Last Admin: 09/14/23 22:59 Dose: 6 mg Documented By: ANAND Ondansetron HCl (Ondansetron Hcl 4 Mg/2 Ml Vial) 4 mg IVPUSH Q8H PRN PRN Reason: Nausea and Vomiting Sodium Chloride (0.9 % Sodium Chloride Flush 3 Ml Syringe) 3 ml IVFLUSH QSHIFT [facility] Last Admin: 09/17/23 09:46 Dose: 3 ml Documented By: HARLAN Vitamin D (Cholecalciferol (Vitamin D3) 25 Mcg Tablet) 25 mcg PO DAILY [facility] Last Admin: 09/17/23 09:36 Dose: 25 mcg Documented By: HARLAN Labs 09/14/23 08:05 09/14/23 08:05 Labs: Laboratory Results - last 24 hr 09/16/23 19:59 POC Glucose 102 Assessment and Plan (1) Encephalopathy: Status: Acute Plan 63F PMH sle, raynauds, migraines presented with weakness, positive ua, hypertension acute metabolic encephalpathy due to uti vs complex migraine, vs seizure, vs hypertensive encephalopathy completed 3 days rocephin, cultures was negative eeg prelim negative follow up neurology pt appreciated - STR vs acute uncotnrolled htn denies history variable started amlodipine 5mg daily, losartan 50mg daily but now borderline low, will dc amlodipine acute hypoxic respiratory failure ?aspiration pneumonitis during episode 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
[2023-09-17] MEDS: Enoxaparin Sodium 40 MG/0.4 ML SYRINGE SUBCUT (19:52)
[2023-09-18] VITALS: BP 124/75; PULSE 65; RESP 18; TEMP 36.2; O2SAT 95
[2023-09-18 02:26] LABS: Glucose, Whole Blood 86 mg/dL (60-115)
[2023-09-18] MEDS: diazePAM 10 MG/2 ML CARTRIDGE 5 MG IVPUSH (02:30)
[2023-09-18 04:00] VITALS: BP 122/69; PULSE 68; RESP 18; TEMP 36.2; O2SAT 95
--- NOTE | 2023-09-18 05:54 | PC.NURSE ---
rapid response called on patient approximately at 2:30. pt unresponsive blankly staring at wall. vitals stable. MD at bedside ordered valium 5mg IVpush and administered. will continue to monitor
--- NOTE | 2023-09-18 06:59 | PM.EVENT ---
Event Note Date of Service: 09/18/23 Event Note: 2:10 AM - Rapid response was activated. Patient had another event of unresponsiveness. No tonic-clonic activity noted. VS normal except for hypertension. Cardiopulmonary exam normal. Valium IV given. Family was at bedside. They are very concerned because Irina continues to have more events despite EEG is negative and would like to speak with the neurologist. Neurology has been re-consulted. Time Spent With Patient Time: Total time managing care of this patient today ____ minutes.
[2023-09-18 07:09] VITALS: BP 137/76; PULSE 71; RESP 14; TEMP 36.3; O2SAT 93
[2023-09-18] MEDS: Baclofen 20 MG TABLET PO ×3 (08:42→19:33)
[2023-09-18] MEDS: 0.9 % Sodium Chloride Flush 3 ML SYRINGE IVFLUSH ×2 (08:42→16:03)
[2023-09-18] MEDS: Gabapentin 400 MG CAPSULE PO ×3 (08:42→19:33)
[2023-09-18] MEDS: Losartan Potassium 50 MG TABLET PO (08:42)
[2023-09-18] MEDS: Hydroxychloroquine Sulfate 200 MG TABLET 400 MG PO (08:42)
[2023-09-18] MEDS: Cholecalciferol (Vitamin D3) 25 MCG TABLET PO (08:42)
--- NOTE | 2023-09-18 10:32 | MHC.CM.PN ---
Patient is not yet medically cleared for dc (Rapid Response called earlier today); PT is recommending STR and CM will continue to follow.
[2023-09-18 11:36] VITALS: BP 144/78; PULSE 82; RESP 16; TEMP 36.3; O2SAT 94
[2023-09-18 14:47] LABS: Appearance Urine Clear; Color Urine Yellow; Glucose Urine UA Negative (Negative); Leukocyte Esterase Urine Negative (Negative); Nitrite Urine Negative (Negative); PH 7.5 (5.0-9.0); Specific Gravity - Urine <= 1.005 (1.005-1.025); Urine Blood Negative (Negative); Urine Ketones Negative (Negative); Urine Protein Negative (Neg-Trace)
[2023-09-18 15:53] VITALS: BP 143/77; PULSE 77; RESP 18; TEMP 36.3; O2SAT 93
--- NOTE | 2023-09-18 16:38 | HO.PM.IMPN ---
Subjective Subjective Date of Service: 09/18/23 Interval History: seen and evaluated this morning one more episode happenend overnight no reported seizure activities or losing of sphencter control Review of Systems Review of Systems: Yes all other systems are reviewed and are negative Physical Exam Vital Signs: Vital Signs: Last Vital Signs Temp 97.3 F 09/18/23 15:53 Pulse 77 09/18/23 15:53 Resp 18 09/18/23 15:53 BP 143/77 H 09/18/23 15:53 Pulse Ox 93 09/18/23 15:53 O2 Del Method Room Air 09/18/23 15:53 O2 Flow Rate 2 09/17/23 00:00 Oxygen Flow Rate 2 09/16/23 21:10 BMI result Body Mass Index 25.7 Const: Other: Constitutional : interactive, not in distress Cardiovascular : no JVP, no lower extremity edema Respiratory : bilateral chest movement, not in resp distress Gastrointestinal: soft, lax, Non tender Skin : Warm, Dry Neurological : Alert & oriented , No focal deficit Objective Data Active Medications Acetaminophen/Butalbital/Caffeine (Butalb/Acetamin/Caff 50/325/40 Tablet) 1 tab PO Q8H PRN PRN Reason: Headache Last Admin: 09/15/23 12:20 Dose: 1 tab Documented By: MIKEL Artificial Tears (Artificial Tears 15 Ml Drops) 1 drop EYE-BOTH Q1H PRN PRN Reason: Dry Eyes Last Admin: 09/14/23 19:31 Dose: 1 drop Documented By: ANAND Baclofen (Baclofen 20 Mg Tablet) 20 mg PO TID [facility] Last Admin: 09/18/23 16:03 Dose: 20 mg Documented By: FERNANDA Enoxaparin Sodium (Enoxaparin Sodium 40 Mg/0.4 Ml Syringe) 40 mg SUBCUT Q24H [facility] Last Admin: 09/17/23 19:52 Dose: 40 mg Documented By: JUNIOR Gabapentin (Gabapentin 400 Mg Capsule) 400 mg PO TID [facility] Last Admin: 09/18/23 16:03 Dose: 400 mg Documented By: FERNANDA Hydroxychloroquine Sulfate (Hydroxychloroquine Sulfate 200 Mg Tablet) 400 mg PO MoTuWeThFr@0900 [facility] Last Admin: 09/18/23 08:42 Dose: 400 mg Documented By: FERNANDA Hydroxychloroquine Sulfate (Hydroxychloroquine Sulfate 200 Mg Tablet) 200 mg PO SuSa@0900 [facility] Last Admin: 09/15/23 08:28 Dose: 200 mg Documented By: MIKEL Losartan Potassium (Losartan Potassium 50 Mg Tablet) 50 mg PO DAILY [facility]; Protocol Last Admin: 09/18/23 08:42 Dose: 50 mg Documented By: FERNANDA Melatonin (Melatonin 3 Mg Tablet) 6 mg PO BEDTIME PRN PRN Reason: Insomnia Last Admin: 09/14/23 22:59 Dose: 6 mg Documented By: ANAND Ondansetron HCl (Ondansetron Hcl 4 Mg/2 Ml Vial) 4 mg IVPUSH Q8H PRN PRN Reason: Nausea and Vomiting Sodium Chloride (0.9 % Sodium Chloride Flush 3 Ml Syringe) 3 ml IVFLUSH QSHIFT [facility] Last Admin: 09/18/23 16:03 Dose: 3 ml Documented By: FERNANDA Vitamin D (Cholecalciferol (Vitamin D3) 25 Mcg Tablet) 25 mcg PO DAILY [facility] Last Admin: 09/18/23 08:42 Dose: 25 mcg Documented By: FERNANDA Labs 09/14/23 08:05 09/14/23 08:05 Labs: Laboratory Results - last 24 hr 09/18/23 09/18/23 02:18 14:28 POC Glucose 86 Urine Color Yellow Urine Appearance Clear Urine pH 7.5 Ur Specific [place] <= 1.005 Urine Protein Negative Urine Glucose (UA) Negative Urine Ketones Negative Urine Blood Negative Urine Nitrite Negative Ur Leukocyte Esterase Negative Assessment and Plan (1) Encephalopathy: Status: Acute (2) Generalized weakness: Status: Acute (3) Weakness: Status: Acute Plan 63F PMH sle, raynauds, migraines presented with weakness, positive ua, hypertension acute metabolic encephalpathy due to uti vs complex migraine, vs seizure, vs hypertensive encephalopathy completed 3 days rocephin, cultures was negative EEG negative for seizure activity Neurology leaning more toward non-epileptic cause and rec outpatient 24-48 hours EEG monitoring and to hold on any anti-seizure medications PT rec STR vs acute, family wants to take her home with PT uncotnrolled htn denies history variable started amlodipine 5mg daily, losartan 50mg daily but now borderline low, will dc amlodipine acute hypoxic respiratory failure ?aspiration pneumonitis during episode 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
[2023-09-18] MEDS: Enoxaparin Sodium 40 MG/0.4 ML SYRINGE SUBCUT (19:33)
[2023-09-18 19:53] VITALS: BP 131/60; PULSE 80; RESP 16; TEMP 36.5; O2SAT 92
[2023-09-19] VITALS: BP 137/77; PULSE 93; RESP 16; TEMP 36.3; O2SAT 95
[2023-09-19] MEDS: diazePAM 10 MG/2 ML CARTRIDGE 2.5 MG IVPUSH (00:07)
[2023-09-19] MEDS: 0.9 % Sodium Chloride Flush 3 ML SYRINGE IVFLUSH ×2 (00:07→08:36)
--- NOTE | 2023-09-19 00:50 | PC.NURSE ---
Addendum entered by Demetrice Mcmahon RN 09/19/23 06:10: 0600 patient awake and alert, on NC 2 L until am with SpO2 >97%, asked for an icepack for headache Addendum entered by Demetrice Mcmahon RN 09/19/23 03:12: 0230 patient still with no changes, daughter very concerned, Hospitalist ordered 5 mg Valium IVP which were given at 3am, patient placed on continuous O2 monitor for concerns of hypoxia due to sedation, noted to have long periods of apnea with O2 down to 81%, placed on NC 2L, Original Note: around 2350 [employer] GAUGER notified this RN that patient is unresponsive, MD called at bedside, patient blinking with sternal rub, pupils 5 mm large fixed, flaccid extremities, no reflexes to painful stimuli, IVP 2.5 mg Valium administrated
[2023-09-19 02:28] VITALS: BP 147/75; PULSE 75; RESP 15; O2SAT 95
[2023-09-19] MEDS: diazePAM 10 MG/2 ML CARTRIDGE 5 MG IVPUSH (03:00)
[2023-09-19 04:00] VITALS: BP 136/77; PULSE 67; RESP 15; TEMP 36.3; O2SAT 99
--- NOTE | 2023-09-19 06:58 | PM.EVENT ---
Event Note Date of Service: 09/19/23 Event Note: 09/18/23 - 11:53 PM - Pt had another event of unconsciousness. Vital signs are normal (no hypertension this time). Pupils equally round and reactive to light. Corneal reflex positive. Responsive to sternal rub. Valium 7.5 mg IV (total) given. Time Spent With Patient Time: Total time managing care of this patient today ____ minutes.
[2023-09-19 07:10] VITALS: BP 117/64; PULSE 74; RESP 20; TEMP 36.3; O2SAT 98
[2023-09-19] MEDS: Gabapentin 400 MG CAPSULE PO (08:35)
[2023-09-19] MEDS: Hydroxychloroquine Sulfate 200 MG TABLET 400 MG PO (08:35)
[2023-09-19] MEDS: Cholecalciferol (Vitamin D3) 25 MCG TABLET PO (08:36)
[2023-09-19] MEDS: Baclofen 20 MG TABLET PO (08:36)
[2023-09-19] MEDS: Losartan Potassium 50 MG TABLET PO (08:36)
--- NOTE | 2023-09-19 10:50 | P.DS_ITS ---
DS: Providers Provider Date of Service: 09/19/23 Date of admission: 09/13/23 19:26 Primary care physician: Nneka Everett MD Consults: 09/13/23 19:12 Consult to Neurology Routine Consulting Provider: [facility] Reason for consultation: Sudden onset whole body paralysis 09/18/23 06:57 Consult to Neurology Routine Consulting Provider: [facility] Reason for consultation: Recurrent events of unresponsiveness. Has provider been notified: No DS: Diagnosis Discharge Diagnosis (1) Encephalopathy: Status: Acute (2) Generalized weakness: Status: Acute (3) Weakness: Status: Acute (4) UTI (urinary tract infection): Status: Acute DS: Summary Hospital Course Hospital Course: Admission note HPI Pt is a 63-year-old female with a PMH significant for?lupus, Raynaud's, peripheral venous insufficiency, and migraines who presents to the ED for evaluation of sudden onset whole-body paralysis. Patient reports she was in her normal state of health yesterday and initially this morning upon waking. However, later developed a headache that was different in unspecified ways from her normal migraines. A few hours later pt was resting on the couch playing BINGO on her iPad when she felt lightheaded and dizzy and experienced some difficulty seeing she is unable to offer further clarification on. Closed her eyes for a few minutes and then found she could barely move, including speaking, holding up her head, or even wiggling fingers or toes. Denies any other symptoms: No confusion or LOC. Denies any musculoskeletal pain. No loss of bowel or bladder function. No numbness or tingling in extremities. Denies ronaldo st pain/pressure, palpitations. No shortness of breath. Denies fever, chills, nausea, vomiting, abdominal pain. Patient denies any recent illness. No sick contacts. Has never experienced anything like this before. Patient not on antihypertensives and not noted to have high blood pressure in the past. In the ED pt was tachycardic up to 104, and hypertensive as high as 201/104. Labs were significant for leukopenia of 3.8, otherwise grossly unremarkable and at baseline for patient. Stable H& H. No significant electrolyte abnormalities. Renal and hepatic function WNL. Troponin negative. CT?of head negative for acute intracranial hemorrhage or territorial loss of torres-white differentiation. CTA of head/neck found age indeterminate occlusion of the posterior/distal aspect of right posterior communicating artery; a 1.5 mm inferiorly projecting infundibulum versus aneurysm from terminal right ICA; and cervical spondylolysis with moderate spinal canal stenosis. MRI brain found no acute intracranial process, but showed mild scattered white matter signal changes and possible subdural hygromas. Also found evidence of possible chronic alterations in CSF flow dynamics in the setting of longstanding intracranial hypertension. EKG demonstrated normal sinus rhythm without evidence of ST elevations or depressions. Pt was treated with labetalol 10 mg IV. Pt will be admitted to the hospital for treatment and further evaluation of sudden onset paralysis. Hospital course She was admitted for evaluation of acute metabolic encephalpathy due to uti vs complex migraine vs seizure activity vs hypertensive encephalopathy as she had head CT and MRI showing no evidence of stroke. She completed 3 days rocephin for possible UTI, cultures was negative. EEG negative for seizure activity. She had recurrent episodes of what she describes as (i am awake and aware to my surroundings but i can not move or talk). She always recovers back to her baseline. no abnormal movements or LOC noticed while inpatient. She was evaluated by Neurology who were leaning more toward non-epileptic cause and recommended outpatient 24-48 hours EEG monitoring and to hold on any anti- seizure medications at this time. She was seen by PT who recommended STR vs acute, family wants to take her home with PT. She was noticed to have uncotnrolled HTN. Better controlled with Losartan. To be discharged on 25 mg daily and monitor BP at home. Evaluated by speech therapy who recommended regular diet. Discharge plan Start Losartan 25mg daily, record readings of BP for 1 week and report them to PCP schedule EEG as outpatient Follow with dr Bunn in clinic please go to the hospital if any worsening symptoms, altered mentation or seizure activity. Time Attestation Discharge Coordination Time (in mins): 38 Quality: Safe Use of Opioids Does Pt have an Active Cancer Diagnosis on the Problem List?: No Quality: Stroke Does the patient have a stroke diagnosis?: No Physical Exam Vital Signs: Vital Signs: Last Vital Signs Temp 97.4 F 09/19/23 07:10 Pulse 74 09/19/23 07:10 Resp 20 09/19/23 07:10 BP 117/64 09/19/23 07:10 Pulse Ox 98 09/19/23 07:10 O2 Del Method Nasal Cannula 09/19/23 07:10 O2 Flow Rate 2 09/19/23 07:10 Oxygen Flow Rate 2 09/16/23 21:10 BMI result Body Mass Index 25.7 Const: Other: Constitutional : interactive, not in distress Cardiovascular : no JVP, no lower extremity edema Respiratory : bilateral chest movement, not in resp distress Gastrointestinal: soft, lax, Non tender Skin : Warm, Dry Neurological : Alert & oriented , No focal deficit DS: Data Data Completed and Pending Labs on day of discharge: Laboratory Results - last 24 hr 09/18/23 14:28 Urine Color Yellow Urine Appearance Clear Urine pH 7.5 Ur Specific [place] <= 1.005 Urine Protein Negative Urine Glucose (UA) Negative Urine Ketones Negative Urine Blood Negative Urine Nitrite Negative Ur Leukocyte Esterase Negative Imaging CT scan - head: Radiologist's impression: ITS Impressions Head CT 09/13/23 15:58 IMPRESSION: No acute intracranial hemorrhage or territorial loss of torres-white differentiation. This critical result was discussed with Dr. Davis at 4:22 on 09/13/2023 and it was ascertained that the content and urgency of the report was understood at the time of direct communication. Head/Neck CTA 09/13/23 16:15 IMPRESSION: 1. Age indeterminate occlusion of the posterior/distal aspect of the right posterior communicating artery (image [id number], series 6). 2. 1.5 mm inferiorly projecting infundibulum versus aneurysm arising from the terminal right ICA at the right posterior communicating artery origin. 3. Patchy ground glass attenuation and interlobular septal thickening in the imaged lungs may reflect mild pulmonary edema. 4. Cervical spondylosis, notably with central disc protrusions at C4-C5 greater than C3-C4 contributing to apparent moderate spinal canal stenosis and mass effect along the ventral cord. Consider further evaluation with cervical spine MRI there is referrable myelopathy/radiculopathy. Brain MRI 09/13/23 17:14 IMPRESSION: No acute intracranial process. Mild scattered white matter signal changes which may be due to chronic microangiopathy. Chronic prominence of the bifrontal extra-axial fluid spaces which may reflect subdural hygromas. Enlargement of Meckel's cave bilaterally with petrous apex cephaloceles. Scattered prominent arachnoid granulations along the inner cortical table of the right occipital bone and arachnoid pits in the greater sphenoid wings bilaterally. Imaging findings may be incidental or could signify the effects of chronic alterations in CSF flow dynamics, as can be seen in long-standing intracranial hypertension; clinically correlate. Chest X-Ray 09/16/23 08:43 IMPRESSION: 1. No convincing evidence of pneumonia. 2. Question of trace left pleural effusion. Discharge Plan Discharge Anticipated Discharge Date/Time: 09/19/23 10:45 Patient Disposition: Home Health Service Discharge Diagnosis: Generalized weakness episodes Referrals: [facility] [Outside] - 1 Week Nneka Daly MD [Primary Care Provider] - 1 Week Discharge Medications: New losartan 25 mg tablet 25 mg PO DAILY Qty: 90 0RF Continued (DME) compression stockings See Rx Instructions .Route .MEDSUPPLY Qty: 1 0RF Rx Instructions: As directed cholecalciferol (vitamin D3) 25 mcg (1,000 unit) capsule 25 mcg PO DAILY Qty: 90 1RF baclofen 20 mg tablet 20 mg PO TID 90 Days Qty: 270 2RF betamethasone valerate 0.1 % cream 1 appl topical DAILY PRN (Reason: skin irritation) 14 Days Qty: 15 0RF acetaminophen 650 mg tablet extended release 650 mg PO Q8H gabapentin 400 mg capsule 400 mg PO TID 30 Days Qty: 90 3RF oarhzhzupp-vdgrpvwfypmiu-obnd 50-300-40 mg capsule 1 cap PO Q8H PRN (Reason: pain) 30 Days Qty: 10 0RF hydroxychloroquine [Plaquenil] 200 mg tablet See Rx Instructions PO .COMPLEX Qty: 144 1RF Rx Instructions: Take 2 tabs daily 5 days a week and 1 tab daily 2 days a week Discharge Orders: Discharge Order (Routine); Ordered 09/19/23 Ordered By: Anita Santos Diet: Advance to usual diet Activity on Discharge: As tolerated Stand Alone Forms: Patient Portal Discharge page Print Language: Persian Care Plan Goals: Read below Health Concerns: Read below Plan of Treatment: Read below Assessment: You were admitted to the hospital for evaluation of episodes of weakness and lethargy. had CT and MRI of the brain with no evidence of stroke\inflammation. an EEG study of the brain was negative for seizure disorder. You were evaluated by neurologist who thinks of these episodes as non-epileptic seizures\anxiety related and recommended further work up as outpatient with 24/48 hours ambulatory EEG to be arranged at [facility]. Start Losartan 25mg daily, record readings of BP for 1 week and report them to PCP schedule EEG as outpatient Follow with dr Bunn in clinic please go to the hospital if any worsening symptoms, altered mentaiton or seizure activity.
--- NOTE | 2023-09-19 10:53 | MHC.CM.PN ---
Patient has been medically cleared for dc to home with services today. PT is recommending STR but Patient wants to go home. A referral was made to NA, who has been made aware of today's dc.
--- NOTE | 2023-09-19 11:34 | P.F2F_ITS ---
Service Date Service Date: 09/19/23 Encounter Date of encounter: 09/19/23 Reasons for Services Signs and symptoms assessed: PHysical deconditioning Reason for physical therapy: home safety and mobility and therapeutic exercises Homebound: Leaving the home is medically contraindicated at this time without the asist of a device and/or another person due th the listed conditions above and below. Reason homebound: unsteady gait / fall risk Certification: Based on the above findings, I certify that this patient is confined to the home and needs intermittent residential care, physical therapy and/or speech therapy, or continues to need occupational therapy. The patient is under my care, and I have initiated the establishment of the plan of care. The patient will be followed by a physician who will periodically review the plan of care. Time Spent With Patient Time: Total time managing care of this patient today ____ minutes.
== END 2023-09-19 13:31 | disposition home health service (06) | DRG 463 ==
LOC: HO.ED 18:08 → HO.EDOVER 19:28 → HO.IMC 09-14 04:17
PROVIDERS: Internal Medicine; Student in an Organized Health Care Education/Training Program; Admitting Provider Student in an Organized Health Care Education/Training Program; Emergency Provider Emergency Medicine; PCP Internal Medicine; Visit Provider Student in an Organized Health Care Education/Training Program
DX: N39.0 Urinary tract infection, site not specified (principal); J96.01 Acute respiratory failure with hypoxia; J69.0 Pneumonitis due to inhalation of food and vomit; G93.41 Metabolic encephalopathy; G43.909 Migraine, unspecified, not intractable, without status migrainosus; I73.00 Raynaud's syndrome without gangrene; M32.9 Systemic lupus erythematosus, unspecified; I16.0 Hypertensive urgency; Z88.0 Allergy status to penicillin; Z79.899 Other long term (current) drug therapy
CPT/HCPCS: 36415; 70450; 70496; 70498; 70551; 71045; 80048; 80053; 81001; 81003; 82550; 82947; 83735; 84443; 84484; 85025; 85027; 85610; 85652; 85730; 86140; 87086; 92526; 92610; 92950; 93005; 94799; 95816; 97116; 97162; 97530; 99285; C1758; J0696; J1650; J1920; J2060; J3360; J7120; Q9967

== ENCOUNTER → 2023-09-13 15:49 | Outpatient (BNV) | payer OTHER, SELFPAY | PROVIDERS: Admitting Provider Student in an Organized Health Care Education/Training Program; Emergency Provider Emergency Medicine; Visit Provider Internal Medicine Cardiovascular Disease | DX: R94.31 Abnormal electrocardiogram [ECG] [EKG] (principal) | CPT/HCPCS: 93010 ==

== ENCOUNTER 2023-09-13 19:26 | Outpatient (BNV) | payer OTHER, SELFPAY | END 2023-09-16 19:55 | PROVIDERS: Admitting Provider Student in an Organized Health Care Education/Training Program; Emergency Provider Emergency Medicine; PCP Internal Medicine; Visit Provider Internal Medicine Cardiovascular Disease | DX: R94.31 Abnormal electrocardiogram [ECG] [EKG] (principal) | CPT/HCPCS: 93010 ==

== ENCOUNTER → 2023-09-13 19:26 | Outpatient (BNV) | payer OTHER, SELFPAY | PROVIDERS: Admitting Provider Student in an Organized Health Care Education/Training Program; Emergency Provider Emergency Medicine; Visit Provider Psychiatry & Neurology Neurology | DX: G93.40 Encephalopathy, unspecified (principal) | CPT/HCPCS: 99222 ==

== ENCOUNTER → 2023-09-13 19:26 | Outpatient (BNV) | payer OTHER, SELFPAY | PROVIDERS: Admitting Provider Student in an Organized Health Care Education/Training Program; Emergency Provider Emergency Medicine; Visit Provider Student in an Organized Health Care Education/Training Program | DX: G93.41 Metabolic encephalopathy (principal); R53.1 Weakness | CPT/HCPCS: 99223; 99232; 99233; 99239; 99499; G0180 ==

== ENCOUNTER 2023-10-03 12:17 | Outpatient (AMB) | payer OTHER, SELFPAY ==
--- NOTE | 2023-10-03 12:21 | MHC.PC.OV ---
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 RXN sumatriptan Adverse Reaction (Intermediate, Verified 10/03/23 12:37) stomach upset Medication List - Last Reconciled 10/03/23 by Nneka Everett MD acetaminophen ER 650 mg PO Q8H baclofen 20 mg PO TID 90 days betamethasone valerate 0.1% 1 appl topical DAILY PRN 2 weeks kpwoeepxmc-ywrlcoopuynjs-fwzt 50-300-40 mg 1 cap PO Q8H PRN 30 days cholecalciferol (vitamin D3) 25 mcg PO DAILY [compression stockings As directed] gabapentin 400 mg PO TID 30 days hydroxychloroquine (Plaquenil) Take 2 tabs daily 5 days a week and 1 tab daily 2 days a week losartan 25 mg PO DAILY Tobacco use date assessed: 05/16/23 Fall risk assessment: No Falls in past year Last assessed Fall Risk: 10/03/23 Dental Screening Dental Screen Date: 05/16/23 HPI HPI Comments History of Present Illness Details This is a 63-year-old female with lupus, migraines and cervical spine stenosis that comes today accompanied by daughter for hospital discharge follow-up with discharge date 09/19/2023 due to seizure-like activity. She was hospitalized at [facility] with date of admission 09/13/2023 due to having episodes of sudden onset whole body paralysis that started with a headache that was different than her regular migraines associated with dizziness and blurry vision. After that she had a was not able to speak, open her eyes or move any part of the body. She did not lost consciousness and was able to hear everything. No loss of bowel or bladder function. No numbness or tingling in extremities. No chest pain, palpitations, shortness of breath, nausea, vomiting or abdominal pain. Where arrived to the hospital patient had elevated blood pressure and tachycardic. CT of the head was negative. She had an MRI of the brain at [facility] which was negative. CTA of head and neck showed an indeterminate occlusion of the posterior/distal aspect of right posterior communicating artery, a 1.5 mm inferiorly projecting infundibulum versus aneurysm from terminal right ICA. Also found evidence of possible chronic alterations in CSF flow dynamics in the setting of longstanding intracranial hypertension. Incidentally it shows moderate cervical spine stenosis and MRI will also be order. She denies any arm numbness. Complains of occasional neck pain. She had an EEG before being hospitalized at [facility] that was negative and does have an appointment October 14 to have awake and asleep EEG for 48 hours. I refer her to Neurology at [facility] so that she can follow the results. This episodes started September 12 and has had 15 of this episodes. Last episode was 09/27/2023. Lupus stable with hydroxychloroquine. Migraines well control with Fioricet as needed. EKG and labs did not show any significant abnormality. At the present moment patient is awake, alert and oriented to time, person and place. Has no neurological deficit. [facility] Medical History (Updated 10/03/23 @ 12:59 by Nneka Everett MD) Paralysis Impaired glucose tolerance Venous (peripheral) insufficiency Migraines Physical exam Shortness of breath Vitamin D deficiency Lupus (systemic lupus erythematosus) Hepatic steatosis Surgical History Hx of cholecystectomy History of root canal procedure History of esophagogastroduodenoscopy (EGD) (~2003) Hx of colonoscopy Family History Father Schizophrenia Mother Arthritis Asthma Hypothyroidism Sister Diabetes Daughter Lupus Social History Household Members: Spouse and Children Housing: Other Housing Other:: [facility] Alcohol intake: never Patient Tobacco Use Status: Never used Tobacco e-Cigarette/Vaping Use: Never Used Second Hand Smoke Exposure: No service: No Current occupational status: unemployed Cognitive needs: No Hearing needs: No Vision needs: No Questionnaire Thrive Questionnaire Date Thrive assessed: 09/14/23 IVON-7 AMB Questionnaire IVON-7 Date IVON - 7 assessed: 05/16/23 Source: Developed by Drs. Elpidio Cabrera, [place] B.Pete Hensley and colleagues, with an educational tommie from [employer]. Review of Systems Const All systems reviewed & are unremarkable except as noted in HPI and below Reports headache(s) and Reports weakness ENT Reports headache(s) Card Denies chest pain at rest, Denies chest pain with activity, Denies edema, Denies irregular heart rhythm, Denies claudication, Denies dyspnea, Denies dyspnea on exertion, Denies orthopnea, Denies paroxysmal nocturnal dyspnea and Denies slow heart rate Resp Denies cough, Denies dyspnea and Denies dyspnea on exertion Neuro Denies confusion, Reports headache(s), Reports seizure-like activity and Reports weakness Psych Denies confusion Physical exam (Primary Care) Vital Signs: Last Vital Signs Pulse 76 10/03/23 12:23 BP 144/82 H 10/03/23 12:23 Pulse Ox 96 10/03/23 12:23 Oxygen Delivery Method Room Air 10/03/23 12:23 BMI result Body Mass Index 26.5 Tobacco/Smoking Status: Tobacco use Status Tobacco use date assessed 05/16/23 10/03/23 12:22 Patient Tobacco Use Status Never used Tobacco 10/03/23 12:22 e-Cigarette/Vaping Use Never Used 10/03/23 12:22 Thrive Assessment: Date of Thrive Assessment Date Thrive assessed 09/14/23 10/03/23 12:22 Const General: No confusion Orientation/consciousness: patient oriented x3 and No confusion Eyes General: appearance normal, both eyes and all related structures Eyelids: Yes eyelids normal Conjunctivae: conjunctivae normal Neck Neck: Yes normal visual inspection and Yes supple Resp Effort & Inspection: normal respiratory effort Auscultation: clear to auscultation bilaterally Cardio Jugular venous distension: no JVD Rate: regular rate Rhythm: regular rhythm Heart sounds: S1 normal heart sound present and S2 normal heart sound present Neuro General: patient oriented x3, no focal motor deficits and No confusion Cognition (Neuro): normal cognition Gait exam (Neuro): Normal gait present Motor exam (neuro): 5/5 motor strength present throughout Romberg Test: Negative Pupils: Normal pupillary reactivity/response: right and left Extrem General: Yes full ROM Assessment and Plan Assessment & Plan (1) Hospital discharge follow-up: Code(s): Z09 - Encounter for follow-up examination after completed treatment for conditions other than malignant neoplasm Plan: Discharge date 09/19/2023 with diagnosis of acute metabolic encephalopathy. CT of head was normal. CTA of head and neck show 1.5 mm inferiorly projecting infundibulum versus aneurysm of right ICA. MRI of the brain and EEG were normal. Has an appointment October 14 for awake and asleep EEG for 48 hours at [facility]. Last episode of whole body paralysis was 09/27/2023. (2) Seizure-like activity: Code(s): R56.9 - Unspecified convulsions Plan: Awake and asleep EEG for 48 hours scheduled for October 14. Patient was referred to [facility] Neurology. (3) Lupus (systemic lupus erythematosus): Comment: dx 2017(leukopenia, photosensitive rash, fatigue + NNEKA + dsDNA) Code(s): M32.9 - Systemic lupus erythematosus, unspecified Qualifiers: Systemic lupus erythematosus type: other Systemic lupus erythematosus organ involvement: unspecified Qualified Code(s): M32.8 - Other forms of systemic lupus erythematosus Plan: Continue hydroxychloroquine. Follow-up with rheumatology. (4) Migraines: Code(s): G43.909 - Migraine, unspecified, not intractable, without status migrainosus Qualifiers: Migraine type: without aura Status migrainosus presence: without status migrainosus Intractability: not intractable Qualified Code(s): G43.009 - Migraine without aura, not intractable, without status migrainosus Plan: Continue Fioricet as needed. (5) Cervical stenosis of spine: Code(s): M48.02 - Spinal stenosis, cervical region Plan: MRI of cervical spine ordered Orders: Orders MR cervical spine wo con Today M48.02 - Spinal stenosis, cervical region Referrals Neurology Referral G83.9 - Paralytic syndrome, unspecified Coding Level of Care Code Est Pt Level 5 (95546) Complex EM visit Add On G2211 Diagnoses Hospital discharge follow-up Z09 Seizure-like activity R56.9 Other forms of systemic lupus erythematosus, unspecified organ involvement status M32.8 Systemic lupus erythematosus type: other Systemic lupus erythematosus organ involvement: unspecified Migraine without aura and without status migrainosus, not intractable G43.009 Migraine type: without aura Status migrainosus presence: without status migrainosus Intractability: not intractable Cervical stenosis of spine M48.02 Time Spent (min) 30
[2023-10-03 12:23] VITALS: BP 144/82; PULSE 76; O2SAT 96; BMI 26.5
== END 2023-10-03 12:52 | disposition home or self-care (01) ==
LOC: HO.HMGH 12:17
PROVIDERS: PCP Internal Medicine; Visit Provider Internal Medicine
DX: R56.9 Unspecified convulsions (principal); M32.8 Other forms of systemic lupus erythematosus; G43.009 Migraine without aura, not intractable, without status migrainosus; M48.02 Spinal stenosis, cervical region
CPT/HCPCS: 99215; G2211

== ENCOUNTER 2023-11-11 07:56 | Outpatient (AMB) | payer OTHER, SELFPAY ==
--- NOTE | 2023-11-11 08:07 | MHC.OFFVIS ---
Vital Signs 11/11/23 08:08 Height 5 ft 2 in Weight 147 lb 7.828 oz BMI 27.0 BP 124/70 Blood Pressure Location Rt brachial Position Sitting Pulse 62 Pulse Source Pulse Oximeter Temp 97 F Pulse Oximetry (%) 97 Oxygen Delivery Method Room Air Intake Visit Reasons: SLE Intake Note: Patient present SLE. Allergies Penicillins [PENICILLINS] Allergy (Intermediate, Verified 11/11/23 08:08) ? RXN sumatriptan Adverse Reaction (Intermediate, Verified 11/11/23 08:08) stomach upset Medication List - Last Reconciled 11/11/23 by Jj Saul MD acetaminophen ER 650 mg PO Q8H baclofen 20 mg PO TID 90 days betamethasone valerate 0.1% 1 appl topical DAILY PRN 2 weeks rgieeadpnv-frtbqyygjabrn-gztx 50-300-40 mg 1 cap PO Q8H PRN 30 days cholecalciferol (vitamin D3) 25 mcg PO DAILY [compression stockings As directed] gabapentin 400 mg PO TID 30 days hydroxychloroquine (Plaquenil) Take 2 tabs daily 5 days a week and 1 tab daily 2 days a week losartan 25 mg PO DAILY HPI Comments Details: This is a 63-year-old female with SLE who presents for follow-up. She remains on hydroxychloroquine. She was admitted to [facility] in September due to episodes of abnormal movements. She had extensive evaluation by Neurology and no clear-cut etiology was found. Per neurologist, symptoms might be due to periodic limb movement disorder versus conversion disorder. Patient states that she gets intermittent mild rashes on her upper chest, usually worse when she takes cold or hot showers. She used to apply betamethasone cream with some improvement. She would like a refill Per Dr. Whelan Patient's SLE was diagnosed based on a positive MIKE, elevated ds DNA, leukopenia, photosensitive rash, fatigue. On Plaquenil 400 mg daily tolerating medication well. Follows regularly with Ophthalmology for monitoring. Patient states she did not increase her Plaquenil dose to 200 mg twice daily as she did not remember. She reports incidence of mouth sores approximately 2 weeks ago which were painful but they have resolved. She denies any recent fevers, skin rash, joint swelling. She does report some difficulty with sleep. Specifically, she has trouble staying asleep and states she has only been sleeping 3-4 hours per night. States that pain is not the reason she is having difficulty sleeping, she is not quite sure why. Continues to follow with GI for transaminitis. . [facility] Medical History Paralysis Impaired glucose tolerance Venous (peripheral) insufficiency Migraines Physical exam Shortness of breath Vitamin D deficiency Lupus (systemic lupus erythematosus) Hepatic steatosis Surgical History Hx of cholecystectomy History of root canal procedure History of esophagogastroduodenoscopy (EGD) (~2003) Hx of colonoscopy Family History Father Schizophrenia Mother Arthritis Asthma Hypothyroidism Sister Diabetes Daughter Lupus Social History Household Members: Spouse and Children [facility] Alcohol intake: never Patient Tobacco Use Status: Never used Tobacco e-Cigarette/Vaping Use: Never Used Second Hand Smoke Exposure: No service: No Current occupational status: unemployed Cognitive needs: No Hearing needs: No Vision needs: No Review of Systems Const Denies fatigue, Denies weakness and Denies weight loss Musc Denies arthralgias Skin/Breast Reports rash Neuro Denies weakness Endo Denies fatigue Physical Exam Vital Signs: Last Vital Signs Temp 97 F 11/11/23 08:08 Pulse 62 11/11/23 08:08 BP 124/70 11/11/23 08:08 Pulse Ox 97 11/11/23 08:08 Oxygen Delivery Method Room Air 11/11/23 08:08 BMI result Body Mass Index 27.0 Const General: cooperative, healthy appearing, comfortable and no acute distress Nutritional Appearance: overweight Orientation/consciousness: patient oriented x3 Limitations: no limitations HEENT Head: Yes normocephalic and Yes atraumatic Mouth: moist mucous membranes Resp Effort & Inspection: normal respiratory effort and able to speak in complete sentences Auscultation: clear to auscultation bilaterally Cardio Rate: regular rate Skin General skin exam: no rashes or lesions noted Neuro General: patient oriented x3 Extrem Other: Mild osteoarthritic changes of both hands with no active synovitis Normal nailfold capillaroscopy Normal range of motion of hands, wrists, elbows and shoulders without pain Negative straight leg raise test bilaterally Assessment & Plan Assessment & Plan (1) Lupus (systemic lupus erythematosus): Comment: dx 2017(leukopenia, photosensitive rash, fatigue + MIKE + dsDNA) Code(s): M32.9 - Systemic lupus erythematosus, unspecified Category: Medical Qualifiers: Systemic lupus erythematosus type: other Systemic lupus erythematosus organ involvement: unspecified Qualified Code(s): M32.8 - Other forms of systemic lupus erythematosus Plan: This is a 63-year-old female with SLE who presents for follow-up. On hydroxychloroquine 200 mg Twice daily x5 days a week and 200 mg daily x2 days a week. Doing well overall. no signs of active SLE. Continue current meds. Labs before next visit in 4 month (2) Long-term use of hydroxychloroquine: Code(s): Z79.899 - Other rehab office coordinator (current) drug therapy Category: Medical Plan: Follow-up regularly with Ophthalmology Plan I spent 26 minutes reviewing patient's chart, evaluating patient, ordering diagnostic workup, counseling patient and documenting in the chart Orders: Orders Erythrocyte Sedimentation Rate 4 Months M32.9 - Systemic lupus erythematosus, unspecified UA w Microscopic 4 Months M32.9 - Systemic lupus erythematosus, unspecified Complete Blood Count Auto Diff 4 Months M32.9 - Systemic lupus erythematosus, unspecified Anti DNA DS Antibody 4 Months M32.9 - Systemic lupus erythematosus, unspecified Complement C3 4 Months M32.9 - Systemic lupus erythematosus, unspecified Complement C4 4 Months M32.9 - Systemic lupus erythematosus, unspecified Protein Creatinine Ratio, Ur 4 Months M32.9 - Systemic lupus erythematosus, unspecified Comprehensive Met. Panel 4 Months M32.9 - Systemic lupus erythematosus, unspecified Medications: Refilled betamethasone valerate 0.1% 1 appl topical DAILY 30 days PRN 45 grams 1RF skin irritation Coding Level of Care Code Est Pt Level 4 (32353) Diagnoses Other forms of systemic lupus erythematosus, unspecified organ involvement status M32.8 Systemic lupus erythematosus type: other Systemic lupus erythematosus organ involvement: unspecified Long-term use of hydroxychloroquine Z79.899
[2023-11-11 08:08] VITALS: BP 124/70; PULSE 62; TEMP 36.1; O2SAT 97; BMI 27.0
== END 2023-11-11 08:26 | disposition home or self-care (01) ==
PROVIDERS: PCP Internal Medicine; Visit Provider Student in an Organized Health Care Education/Training Program
DX: M32.8 Other forms of systemic lupus erythematosus (principal); Z79.899 Other long term (current) drug therapy
CPT/HCPCS: 99214

== ENCOUNTER → 2023-11-11 07:56 | Outpatient (BNVA) | payer OTHER, SELFPAY | PROVIDERS: PCP Internal Medicine; Visit Provider Student in an Organized Health Care Education/Training Program | DX: M32.9 Systemic lupus erythematosus, unspecified (principal); Z79.899 Other long term (current) drug therapy | CPT/HCPCS: 99212 ==

== ENCOUNTER 2023-11-20 06:38 | Outpatient (REF) | payer OTHER, SELFPAY ==
[2023-11-20 06:50] LABS: MANUAL DIFF FLAG NO
[2023-11-20 08:54] LABS: Basophils Absolute Auto 0.1 X10*3/uL (0.0-0.2); Basophils Percent Auto 1.2 % (0-2); Eosinophils Absolute Auto 0.1 X10*3/uL (0.0-0.4); Eosinophils Percent Auto 2.6 % (0-4); Hematocrit 40.3 % (37.0-47.0); Hemoglobin 13.5 g/dl (12.0-16.0); Imm Gran Abs Auto 0.02 X10*3/uL (0.00-0.03); Imm Gran Pct Auto 0.5 % (0.0-0.4); Lymphocytes Absolute Auto 1.7 X10*3/uL (1.2-4.9); Lymphocytes Percent Auto 38.9 % (20-40); Mean Corpuscular HGB Conc 33.5 g/dl (31.0-35.0); Mean Corpuscular Hemoglobin 30.8 pg (27.0-33.0); Mean Platelet Volume 10.4 fL (9.4-12.3); Monocytes Absolute Auto 0.5 X10*3/uL (0.1-1.2); Monocytes Percent Auto 10.8 % (2-11); Platelet Count 294 X10*3/uL (160-400); Red Blood Count 4.38 X10*6/uL (4.20-5.50); Red Cell Distribution Width 13.5 % (11.0-16.0); White Blood Count 4.3 X10*3/uL (4.8-10.8)
[2023-11-20 09:34] LABS: Alanine Aminotransferase 17 U/L (0-31); Albumin Level 4.7 g/dL (3.5-5.0); Alkaline Phosphatase 57 U/L (39-117); Anion Gap 13 (12-20); Aspartate Amino Transferase 26 U/L (5-31); Bilirubin Total 1.5 mg/dL (0.0-1.0); Blood Urea Nitrogen 7 mg/dL (9-16); Calcium 9.8 mg/dL (8.4-10.2); Carbon Dioxide 28 mmol/L (22-29); Chloride 107 mmol/L (96-108); Cholesterol 158 mg/dL (<200); Estimated Glomerular Filt Rate > 60; Glucose Fasting 95 mg/dL (60-99); HDL Cholesterol 60 mg/dL (>40); LDL Cholesterol Calculated 85 mg/dL (<100); Potassium 3.6 mmol/L (3.3-5.1); Sodium 144 mmol/L (135-145); Total Protein 7.3 g/dL (6.5-8.0); Triglycerides 68 mg/dL (<150)
[2023-11-20 09:53] LABS: Vitamin D 25-OH Total 34.6 ng/mL (>30)
[2023-11-21 10:59] LABS: Complement C3 133 mg/dL (83-193)
== END 2023-11-20 06:39 | disposition home or self-care (01) ==
LOC: HO.LAB 06:38
PROVIDERS: PCP Internal Medicine; Visit Provider Internal Medicine
DX: Z00.00 Encounter for general adult medical examination without abnormal findings (principal); M32.8 Other forms of systemic lupus erythematosus; G43.909 Migraine, unspecified, not intractable, without status migrainosus; E55.9 Vitamin D deficiency, unspecified
CPT/HCPCS: 36415; 80053; 80061; 82306; 85025; 86160

== ENCOUNTER 2023-12-10 08:13 | Outpatient (AMB) | payer OTHER, SELFPAY ==
--- NOTE | 2023-12-10 08:17 | MHC.PC.OV ---
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 RXN sumatriptan Adverse Reaction (Intermediate, Verified 12/10/23 08:41) stomach upset Medication List - Last Reconciled 12/10/23 by Nneka Everett MD acetaminophen ER 650 mg PO Q8H baclofen 20 mg PO TID 90 days betamethasone valerate 0.1% 1 appl topical DAILY PRN 30 days xvfltceaud-rgtmjfymkeimk-ixoh 50-300-40 mg 1 cap PO Q8H PRN 30 days cholecalciferol (vitamin D3) 25 mcg PO DAILY [compression stockings As directed] gabapentin 400 mg PO TID 30 days hydroxychloroquine (Plaquenil) Take 2 tabs daily 5 days a week and 1 tab daily 2 days a week losartan 25 mg PO DAILY Tobacco use date assessed: 05/16/23 Fall risk assessment: No Falls in past year Last assessed Fall Risk: 12/10/23 Dental Screening Dental Screen Date: 12/10/23 Did you have a dental visit in the last 12 months?: No Did you have a dental problem in the last 6 months where you did not have access to dental care?: No Was dental information given to patient?: Patient has dentist HPI HPI Comments History of Present Illness Details This is a 63-year-old female with lupus that comes for her physical exam. Lupus has been follow by Rheumatology. Mammogram done 2022 was normal. Pap smear done 2021. Colonoscopy done 2015 and next colonoscopy should be 2025. Last DEXA scan was done 2021 and will be order for this year. No chest pain or shortness on breath. No acute complaints. [facility] Medical History (Updated 12/10/23 @ 09:05 by Nneka Everett MD) Seizure-like activity Paralysis Impaired glucose tolerance Venous (peripheral) insufficiency Migraines Physical exam Shortness of breath Vitamin D deficiency Lupus (systemic lupus erythematosus) Hepatic steatosis Surgical History Hx of cholecystectomy History of root canal procedure History of esophagogastroduodenoscopy (EGD) (~2003) Hx of colonoscopy Family History (Updated 12/10/23 @ 08:57 by Nneka Everett MD) Father Schizophrenia Mother Arthritis Asthma Hypothyroidism Dementia Sister Diabetes Daughter Lupus Social History Household Members: Spouse and Children Housing: Other Housing Other:: townhouse Alcohol intake: never Patient Tobacco Use Status: Never used Tobacco e-Cigarette/Vaping Use: Never Used Second Hand Smoke Exposure: No service: No Current occupational status: unemployed Cognitive needs: No Hearing needs: No Vision needs: No Questionnaire Thrive Questionnaire Date Thrive assessed: 09/14/23 IVON-7 AMB Questionnaire IVON-7 Date IVON - 7 assessed: 05/16/23 Source: Developed by Drs. Elpidio Cabrera, [place] Murphy, Pete Elizabeth and colleagues, with an educational tommie from [employer]. Review of Systems Const All systems reviewed & are unremarkable except as noted in HPI and below Card Denies chest pain at rest, Denies chest pain with activity, Denies edema, Denies irregular heart rhythm, Denies claudication, Denies dyspnea, Denies dyspnea on exertion, Denies orthopnea, Denies paroxysmal nocturnal dyspnea and Denies slow heart rate Resp Denies cough, Denies dyspnea and Denies dyspnea on exertion GI Denies abdominal pain, Denies change in bowel habits, Denies excessive flatus, Denies nausea and Denies vomiting Denies urinary incontinence, Denies urinary hesitancy and Denies urinary urgency Physical exam (Primary Care) Vital Signs: Last Vital Signs BP 120/82 12/10/23 08:18 BMI result Body Mass Index 26.5 Tobacco/Smoking Status: Tobacco use Status Tobacco use date assessed 05/16/23 12/10/23 08:19 Patient Tobacco Use Status Never used Tobacco 12/10/23 08:19 e-Cigarette/Vaping Use Never Used 12/10/23 08:19 Thrive Assessment: Date of Thrive Assessment Date Thrive assessed 09/14/23 12/10/23 08:19 HENMT Head: Yes normal to inspection, Yes normocephalic and Yes atraumatic Ears: external ears normal Eyes General: appearance normal, both eyes and all related structures Eyelids: Yes eyelids normal Conjunctivae: conjunctivae normal Neck Neck: Yes normal visual inspection and Yes supple Resp Effort & Inspection: normal respiratory effort Auscultation: clear to auscultation bilaterally Cardio Jugular venous distension: no JVD Rate: regular rate Rhythm: regular rhythm Heart sounds: S1 normal heart sound present and S2 normal heart sound present GI Inspection: Yes normal to inspection Palpation (GI): Soft to palpation and nontender Auscultation: normal bowel sounds Skin General skin exam: no rashes or lesions noted Neuro General: no focal motor deficits Extrem General: Yes full ROM Psych Appearance: grossly normal Assessment and Plan Assessment & Plan (1) Physical exam: Code(s): Z00.00 - Encounter for general adult medical examination without abnormal findings Plan: Repeat in a year. (2) Lupus (systemic lupus erythematosus): Comment: dx 2017(leukopenia, photosensitive rash, fatigue + NNEKA + dsDNA) Code(s): M32.9 - Systemic lupus erythematosus, unspecified Qualifiers: Systemic lupus erythematosus type: other Systemic lupus erythematosus organ involvement: unspecified Qualified Code(s): M32.8 - Other forms of systemic lupus erythematosus Plan: Continue hydroxychloroquine. Follow-up with rheumatology. Orders: Orders XR DEXA axial skeleton Today N95.9 - Unspecified menopausal and perimenopausal disorder Medications: Refilled vbvpuihzuu-kwhkopadvomjk-awtt 50-300-40 mg 1 cap PO Q8H 30 days PRN 10 caps 0RF pain gabapentin 400 mg PO TID 30 days 90 caps 3RF Coding Level of Care Code Est Pt Prev Care 40-64y(29829) Diagnoses Physical exam Z00.00 Other forms of systemic lupus erythematosus, unspecified organ involvement status M32.8 Systemic lupus erythematosus type: other Systemic lupus erythematosus organ involvement: unspecified Time Spent (min) 30
[2023-12-10 08:18] VITALS: BP 120/82; BMI 26.5
== END 2023-12-10 09:10 | disposition home or self-care (01) ==
PROVIDERS: PCP Internal Medicine; Visit Provider Internal Medicine
DX: Z00.00 Encounter for general adult medical examination without abnormal findings (principal); M32.8 Other forms of systemic lupus erythematosus
CPT/HCPCS: 99396

== ENCOUNTER 2023-12-18 08:26 | Outpatient (REF) | payer OTHER, SELFPAY ==
--- NOTE | ~2023-12-18 | MM_ITS ---
EXAMINATION: MM SCREENING DIGITAL BREAST TOMOSYNTHESIS, BILATERAL CLINICAL INFORMATION: Screening. Asymptomatic. COMPARISON: Mammography: This study is compared with 12/10/2022. TECHNIQUE: Digital breast tomosynthesis is performed in both the craniocaudal and mediolateral oblique views along with computer-aided detection (CAD). Synthesized 2D images are generated from the tomosynthesis. FINDINGS: There are scattered areas of fibroglandular density (ACR BI-RADS breast composition Category b). Focal asymmetry identified at mid depth lower breast, CC , MLO . Patient should return for CC and MLO compression views and if persistent, ultrasound. No suspicious findings left breast. MM/MM tomosynthesis screening BI IMPRESSION: Right breast focal asymmetry No mammographic evidence of malignancy left breast. ASSESSMENT: BI-RADS BI-RADS 0 - Incomplete: Needs additional Imaging. RECOMMENDATION: 1. Additional views of the right breast. 2. Targeted ultrasound if warranted after review of the additional views. 3. Radiology department staff will contact the patient for additional imaging. Bilateral all all This examination should not preclude the clinical evaluation of a suspicious palpable abnormality. This patient's information was entered into a reminder system with a target due date for their next mammogram. Electronically signed by: Dorothea Preston MD 01/15/2024 09:46 AM EDT
== END 2023-12-18 08:27 | disposition home or self-care (01) ==
LOC: HO.MAMMO 08:26
PROVIDERS: PCP Internal Medicine; Visit Provider Internal Medicine
DX: Z12.31 Encounter for screening mammogram for malignant neoplasm of breast (principal)
CPT/HCPCS: 77063; 77067

== ENCOUNTER 2024-03-03 11:19 | Outpatient (REF) | payer OTHER, SELFPAY ==
--- NOTE | ~2024-03-03 | MM_ITS ---
EXAMINATION: BONE DENSITOMETRY CLINICAL INDICATION: Unspecified menopausal and perimenopausal disorder. COMPARISON: Previous BD dated 02/28/2022 and baseline BD dated 07/01/2015. TECHNIQUE: Using a [employer] DXA System (software version: 13.1) manufactured by [employer], dual-energy x-ray absorptiometry was performed of the lumbar spine and left hip. The images are of good technical quality. Summary results are attached. FINDINGS: LEFT FEMUR, NECK: Current: BMD 0.872 g/cm2, Z-score 0.2, T-score -1.2, osteopenia. Prior: BMD 0.870 g/cm2. Baseline: BMD 0.861 g/cm2. LEFT FEMUR, TOTAL: Current: BMD 0.948 g/cm2, Z-score 0.6, T-score -0.5, normal, 1.1% increase from previous, 1.7% increase from baseline (<5% change is not significant). Prior: BMD 0.938 g/cm2. Baseline: BMD 0.932 g/cm2. AP SPINE L1-L4: Current: BMD 1.024 g/cm2, Z-score 0.1, T-score -1.3, osteopenia, 1.0% increase from previous, 0.5% increase from baseline (<5% change is not significant). Prior: BMD 1.014 g/cm2. Baseline: BMD 1.019 g/cm2. IDENTIFIED RISK FACTORS: Low calcium intake, menopause. HISTORY OF FRACTURE: None listed. MEDICATIONS: None listed. MM/XR DEXA axial skeleton IMPRESSION: 1. DIAGNOSIS: Osteopenia based on the lowest T-score value of -1.3 in the lumbar spine applying World Health Organization criteria. 2. 10-YEAR FRACTURE RISK PREDICTION, FRAX: Major osteoporotic fracture (clinical spine, forearm, hip or shoulder) 4.5%. Hip fracture 0.4%. 3. Treatment Recommendations: NOF guidelines recommend consideration for treatment in postmenopausal women and men age 50 and older presenting with the following: -A hip or vertebral (clinical or morphometric) fracture. -T-score less than or equal to -2.5 at the femoral neck or spine after appropriate evaluation to exclude secondary causes. -Low bone mass at the hip or spine and a 10-year fracture probability by FRAX of greater than or equal to 3% for hip fracture or greater than or equal to 20% for major osteoporotic fracture based on the [place] adapted WHO algorithm. 4. Other Recommendations: All treatment decisions require clinical judgment and consideration of individual patient factors, including patient preferences, comorbidities, previous drug use, risk factors not captured in the FRAX model (e.g. frailty, falls, vitamin D deficiency, increased bone turnover, interval significant decline in bone density) and possible under or overestimation of fracture risk by FRAX. Additional medical evaluation for secondary cause of low bone mineral density may be appropriate. FUTURE SCAN RECOMMENDATION: People with diagnosed cases of osteoporosis or at high risk for fracture should have regular bone mineral density tests. For patients eligible for Medicare, routine testing is allowed once every 2 years. The testing frequency can be increased to one year for patients who have rapidly progressing disease, those who are receiving or discontinuing medical therapy to restore bone mass, or have additional risk factors. Electronically signed by: Renata Hayes MD 03/05/2024 09:04 AM EDT
== END 2024-03-03 11:20 | disposition home or self-care (01) ==
LOC: HO.MAMMO 11:19
PROVIDERS: PCP Internal Medicine; Visit Provider Internal Medicine
DX: N95.9 Unspecified menopausal and perimenopausal disorder (principal)
CPT/HCPCS: 77080

== ENCOUNTER 2024-03-10 11:06 | Outpatient (REF) | payer OTHER, SELFPAY ==
[2024-03-10 11:35] LABS: MANUAL DIFF FLAG NO
[2024-03-10 12:03] LABS: Basophils Percent Auto 0.8 % (0-2); Eosinophils Absolute Auto 0.1 X10*3/uL (0.0-0.4); Eosinophils Percent Auto 1.4 % (0-4); Hematocrit 41.3 % (37.0-47.0); Hemoglobin 13.5 g/dl (12.0-16.0); Imm Gran Abs Auto 0.01 X10*3/uL (0.00-0.03); Imm Gran Pct Auto 0.2 % (0.0-0.4); Lymphocytes Absolute Auto 1.5 X10*3/uL (1.2-4.9); Lymphocytes Percent Auto 29.8 % (20-40); Mean Corpuscular HGB Conc 32.7 g/dl (31.0-35.0); Mean Corpuscular Hemoglobin 30.1 pg (27.0-33.0); Mean Platelet Volume 10.6 fL (9.4-12.3); Monocytes Absolute Auto 0.5 X10*3/uL (0.1-1.2); Monocytes Percent Auto 9.5 % (2-11); Neutrophils Absolute Auto 2.9 x10*3/uL (2.0-8.3); Neutrophils Percent Auto 58.3 % (45-73); Platelet Count 261 X10*3/uL (160-400); Red Blood Count 4.49 X10*6/uL (4.20-5.50); Red Cell Distribution Width 13.2 % (11.0-16.0)
[2024-03-10 12:22] LABS: Appearance Urine Clear; Color Urine Yellow; Glucose Urine UA Negative (Negative); Leukocyte Esterase Urine Small (1+) (Negative); Nitrite Urine Negative (Negative); PH 6.5 (5.0-9.0); UMIC TRIGGER UA YES; Urine Blood Negative (Negative); Urine Ketones Negative (Negative); Urine Protein Negative (Neg-Trace)
[2024-03-10 12:46] LABS: Alanine Aminotransferase 24 U/L (0-31); Albumin Level 4.8 g/dL (3.5-5.0); Alkaline Phosphatase 61 U/L (39-117); Anion Gap 15 (12-20); Aspartate Amino Transferase 29 U/L (5-31); Bilirubin Total 1.1 mg/dL (0.0-1.0); Blood Urea Nitrogen 8 mg/dL (9-16); Calcium 10.2 mg/dL (8.4-10.2); Carbon Dioxide 27 mmol/L (22-29); Chloride 106 mmol/L (96-108); Estimated Glomerular Filt Rate > 60; Glucose Random 96 mg/dL (60-115); Potassium 4.4 mmol/L (3.3-5.1); Sodium 144 mmol/L (135-145); Total Protein 7.4 g/dL (6.5-8.0)
[2024-03-10 12:49] LABS: Bacteria Urine Trace (None Seen); Hyaline Casts Urine 0-2 /LPF (0-2); RBC Urine 0-2 /HPF (0-2); WBC Urine 0-5 /HPF (0-5)
[2024-03-10 13:09] LABS: Creatinine Urine 42.01 mg/dL; Total Protein Urine Random < 7 mg/dL (<12)
[2024-03-10 13:20] LABS: Erythrocyte Sedimentation Rate 6 MM/HR (0-20)
[2024-03-11 11:58] LABS: Complement C3 140 mg/dL (83-193)
[2024-03-13 13:22] LABS: Anti DNA DS Antibody 8 IU/mL
== END 2024-03-10 11:07 | disposition home or self-care (01) ==
LOC: HO.LAB 11:06
PROVIDERS: PCP Internal Medicine; Visit Provider Student in an Organized Health Care Education/Training Program
DX: M32.9 Systemic lupus erythematosus, unspecified (principal)
CPT/HCPCS: 36415; 80053; 81001; 82570; 84156; 85025; 85652; 86160; 86225

== ENCOUNTER 2024-03-11 14:47 | Outpatient (REF) | payer OTHER, SELFPAY ==
--- NOTE | ~2024-03-11 | US_ITS ---
EXAMINATION: MM DIAGNOSTIC DIGITAL BREAST TOMOSYNTHESIS, RIGHT US BREAST LIMITED, RIGHT CLINICAL INFORMATION: Diagnostic exam; evaluate focal nodular asymmetry 6:00 axis right breast, middle one third. COMPARISON: Mammography: 12/18/2021, 12/10/2022, 12/18/2023. TECHNIQUE: Digital breast tomosynthesis is performed in following views: 3-D spot compression right MLO and right CC views. Computer-aided diagnosis was used for this study. This was followed by targeted right breast ultrasound. FINDINGS: There are scattered areas of fibroglandular density (ACR BI-RADS breast composition Category b). Spot compression views demonstrate persistence of an oval circumscribed mass measuring 6 mm in length in the 6:00 axis of the right breast, middle one third. This will be evaluated with ultrasound. No additional findings. ULTRASOUND: CLINICAL INFORMATION: As above. COMPARISON: None relevant. TECHNIQUE: Targeted sonographic evaluation was performed using a high frequency linear transducer. Selected archived documentation. FINDINGS: RIGHT BREAST: There is a mixture of fatty and fibroglandular tissue. No suspicious mass is seen. There is no pathologic acoustic shadowing. There is a simple cyst of the 6:00 axis right breast measuring 5 mm in diameter, correlating with mammographic index finding. This is benign. No suspicious findings right breast. US/US breast RT limited mamm only IMPRESSION: -There are no findings suspicious for malignancy in the right breast. -There is a 5 mm simple cyst in the 6:00 axis of the right breast. This correlates with the mammographic index focus of concern and is benign. -Recommend the patient return to routine annual screening in one year. OVERALL ASSESSMENT: Mammography: BI-RADS 1 - Negative Ultrasound: BI-RADS 1 - Negative RECOMMENDATION: 1 year F/U This patient's information was entered into a reminder system with a target due date for their next mammogram. Electronically signed by: Pepito Pruitt MD 03/11/2024 03:54 PM [facility]
== END 2024-03-11 14:48 | disposition home or self-care (01) ==
LOC: HO.MAMMO 14:47
PROVIDERS: PCP Internal Medicine; Visit Provider Internal Medicine
DX: N64.89 Other specified disorders of breast (principal); N60.01 Solitary cyst of right breast
CPT/HCPCS: 76642; 77061; 77065

== ENCOUNTER → 2024-03-11 15:00 | Outpatient (BNV) | payer OTHER, SELFPAY | PROVIDERS: PCP Internal Medicine; Visit Provider Radiology Diagnostic Radiology | DX: R92.8 Other abnormal and inconclusive findings on diagnostic imaging of breast (principal) | CPT/HCPCS: 76642; 77061; 77065 ==

== ENCOUNTER 2024-03-12 07:29 | Outpatient (AMB) | payer OTHER, SELFPAY ==
--- NOTE | 2024-03-12 07:38 | A.OFFVIS_ITS ---
Vital Signs 03/12/24 07:41 Height 5 ft 2 in Weight 151 lb 7.321 oz BMI 27.7 BP 115/64 Blood Pressure Location Rt brachial Position Sitting Pulse 72 Pulse Source Pulse Oximeter Pulse Oximetry (%) 97 Oxygen Delivery Method Room Air Intake Visit Reasons: SLE/cm Intake Note: Patient presents for SLE. Pipe Fitter Welding Required: Yes Pipe Fitter Welding Language: Student Life Dean Services: Pipe Fitter Welding Present Pipe Fitter Welding Name: Venkatesh [id number] Information Interpreted: non-clinical & clinical Allergies Penicillins [PENICILLINS] Allergy (Intermediate, Verified 03/12/24 07:40) ? RXN sumatriptan Adverse Reaction (Intermediate, Verified 03/12/24 07:40) stomach upset Medication List - Last Reconciled 03/12/24 by Jj Saul MD acetaminophen ER 650 mg PO Q8H baclofen 20 mg PO TID 90 days betamethasone valerate 0.1% 1 appl topical DAILY PRN 30 days wjzmkgidok-qymecppvsddsr-qdsg 50-300-40 mg 1 cap PO Q8H PRN 30 days cholecalciferol (vitamin D3) 25 mcg PO DAILY [compression stockings As directed] gabapentin 400 mg PO TID 30 days hydroxychloroquine (Plaquenil) Take 2 tabs daily 5 days a week and 1 tab daily 2 days a week HPI Comments Details: This is a 63-year-old female with SLE who presents for follow-up. She remains on hydroxychloroquine. She states that she has been having worsening low back pain and right groin pain. It gets worse as the weather gets colder. She has had this right hip pain for almost 1 year. She has subtle rashes on the top of her chest. She denies any new skin rashes or swollen joints. She states that she feels about the same overall. Per Dr. Whelan Patient's SLE was diagnosed based on a positive MIKE, elevated ds DNA, leukopenia, photosensitive rash, fatigue. On Plaquenil 400 mg daily tolerating medication well. Follows regularly with Ophthalmology for monitoring. Patient states she did not increase her Plaquenil dose to 200 mg twice daily as she did not remember. She reports incidence of mouth sores approximately 2 weeks ago which were painful but they have resolved. She denies any recent fe vers, skin rash, joint swelling. She does report some difficulty with sleep. Specifically, she has trouble staying asleep and states she has only been sleeping 3-4 hours per night. States that pain is not the reason she is having difficulty sleeping, she is not quite sure why. Continues to follow with GI for transaminitis. . [facility] Medical History Seizure-like activity Paralysis Impaired glucose tolerance Venous (peripheral) insufficiency Migraines Physical exam Shortness of breath Vitamin D deficiency Lupus (systemic lupus erythematosus) Hepatic steatosis Surgical History Hx of cholecystectomy History of root canal procedure History of esophagogastroduodenoscopy (EGD) (~2003) Hx of colonoscopy Family History Father Schizophrenia Mother Arthritis Asthma Hypothyroidism Dementia Sister Diabetes Daughter Lupus Social History Household Members: Spouse and Children Housing: Other Housing Other:: [facility] Alcohol intake: never Patient Tobacco Use Status: Never used Tobacco e-Cigarette/Vaping Use: Never Used Second Hand Smoke Exposure: No service: No Current occupational status: unemployed Cognitive needs: No Hearing needs: No Vision needs: No Female Reproductive History Menstrual control method: permanent sterilization Menopause type: natural Total pregnancies: 5 Full term: 4 Number of Living Children: 4 Review of Systems Const Denies fatigue, Denies weakness and Denies weight loss Skin/Breast Reports rash Neuro Denies weakness Endo Denies fatigue Physical Exam Vital Signs: Last Vital Signs Pulse 72 03/12/24 07:41 BP 115/64 03/12/24 07:41 Pulse Ox 97 03/12/24 07:41 Oxygen Delivery Method Room Air 03/12/24 07:41 BMI result Body Mass Index 27.7 Const General: cooperative, healthy appearing, comfortable and no acute distress Nutritional Appearance: overweight Orientation/consciousness: patient oriented x3 Limitations: no limitations HEENT Head: Yes normocephalic and Yes atraumatic Mouth: moist mucous membranes Resp Effort & Inspection: normal respiratory effort and able to speak in complete sentences Auscultation: clear to auscultation bilaterally Cardio Rate: regular rate Skin Other: Subtle rashes on the top of her chest Neuro General: patient oriented x3 Extrem Other: Mild osteoarthritic changes of both hands with no active synovitis Normal nailfold capillaroscopy Normal range of motion of hands, wrists, elbows and shoulders without pain Right groin pain with right foot inversion Right groin pain with hip manipulation especially with flexion adduction and external rotation Negative straight leg raise test bilaterally Assessment & Plan Assessment & Plan (1) Lupus (systemic lupus erythematosus): Comment: dx 2017(leukopenia, photosensitive rash, fatigue + MIKE + dsDNA) Code(s): M32.9 - Systemic lupus erythematosus, unspecified Category: Medical Qualifiers: Systemic lupus erythematosus type: other Systemic lupus erythematosus organ involvement: unspecified Qualified Code(s): M32.8 - Other forms of systemic lupus erythematosus Plan: This is a 63-year-old female with SLE who presents for follow-up. On hydroxychloroquine 200 mg Twice daily x5 days a week and 200 mg daily x2 days a week. Doing well overall. no signs of active SLE. Continue hydroxychloroquine as prescribed Labs before next visit in 6 month (2) Long-term use of hydroxychloroquine: Comment: Eye exam okay 11/2023 Code(s): Z79.899 - Other snf (current) drug therapy Category: Medical Plan: Follow-up regularly with Ophthalmology (3) Chronic right hip pain: Code(s): M25.551 - Pain in right hip; G89.29 - Other chronic pain Category: Medical Plan: Chronic right hip pain for over 1 year, not improving, ongoing right hip pain with manipulation. I will order right hip MRI to evaluate for internal derangement or other etiologies such as AVN Plan I spent 26 minutes reviewing patient's chart, evaluating patient, ordering diagnostic workup, counseling patient and documenting in the chart Orders: Orders MR hip RT wo con Today G89.29 - Other chronic pain, M25.551 - Pain in right hip Complement C3 6 Months M32.8 - Other forms of systemic lupus erythematosus Complement C4 6 Months M32.8 - Other forms of systemic lupus erythematosus C Reactive Protein 6 Months M32.8 - Other forms of systemic lupus erythematosus DNA Double Stranded-Crithidia 6 Months M32.8 - Other forms of systemic lupus erythematosus Erythrocyte Sedimentation Rate 6 Months M32.8 - Other forms of systemic lupus erythematosus UA w Microscopic 6 Months M32.8 - Other forms of systemic lupus erythematosus Anti DNA DS Antibody 6 Months M32.8 - Other forms of systemic lupus erythematosus Protein Creatinine Ratio, Ur 6 Months M32.8 - Other forms of systemic lupus erythematosus Complete Blood Count Auto Diff 6 Months M32.8 - Other forms of systemic lupus erythematosus Comprehensive Met. Panel 6 Months M32.8 - Other forms of systemic lupus erythematosus Medications: Refilled hydroxychloroquine (Plaquenil) Take 2 tabs daily 5 days a week and 1 tab daily 2 days a week 144 tabs 1RF M32.8 - Other forms of systemic lupus erythematosus Coding Level of Care Code Est Pt Level 4 (22836) Complex EM visit Add On G2211 Diagnoses Other forms of systemic lupus erythematosus, unspecified organ involvement status M32.8 Systemic lupus erythematosus type: other Systemic lupus erythematosus organ involvement: unspecified Long-term use of hydroxychloroquine Z79.899 Chronic right hip pain M25.551; G89.29
[2024-03-12 07:41] VITALS: BP 115/64; PULSE 72; O2SAT 97; BMI 27.7
== END 2024-03-12 08:01 | disposition home or self-care (01) ==
LOC: HO.RHE 07:29
PROVIDERS: PCP Internal Medicine; Visit Provider Student in an Organized Health Care Education/Training Program
DX: M32.8 Other forms of systemic lupus erythematosus (principal); Z79.899 Other long term (current) drug therapy; M25.551 Pain in right hip; G89.29 Other chronic pain
CPT/HCPCS: 99214; G2211

== ENCOUNTER → 2024-03-12 07:29 | Outpatient (BNVA) | payer OTHER, SELFPAY | PROVIDERS: PCP Internal Medicine; Visit Provider Student in an Organized Health Care Education/Training Program | DX: M32.8 Other forms of systemic lupus erythematosus (principal); M25.511 Pain in right shoulder; G89.29 Other chronic pain; Z79.899 Other long term (current) drug therapy | CPT/HCPCS: 99212 ==

== ENCOUNTER 2024-04-20 07:22 | Outpatient (REF) | payer OTHER, SELFPAY ==
--- NOTE | ~2024-04-20 | MR_ITS ---
EXAMINATION: MR HIP WITHOUT IV CONTRAST, RIGHT CLINICAL INFORMATION: Chronic right hip pain for almost 1 year. Not improving. Please evaluate for internal derangement or other etiologies such as AVN. Pain in right hip M25.551. Pain aggravated if patient doesn't take meds. COMPARISON: XR Right hip 05/14/2023. TECHNIQUE: MRI of the right hip was obtained using routine sequences on a high-field strength magnet. FINDINGS: No focal articular cartilage defect. Mild cartilage thinning posteriorly. Small marginal osteophytes of the acetabular rim. There is a small os acetabuli at the anterior superior acetabular rim. Trace joint effusion. No definite labral tear. No stress reaction, fracture, or evidence of avascular necrosis. Gluteus medius and minimus insertional tendinitis. Trace trochanteric bursitis. No acute muscle strain or tear. Degenerative marrow edema at the pubic symphysis. No adenopathy. MR/MR hip RT wo con IMPRESSION: 1. Mild right hip osteoarthritis with a trace joint effusion. No definite labral tear. No evidence of avascular necrosis. 2. Gluteus medius and minimus insertional tendinitis with trace trochanteric bursitis. Electronically signed by: Ruben Adams MD 04/23/2024 03:37 PM EST
== END 2024-04-20 07:23 | disposition home or self-care (01) ==
LOC: HO.MRI 07:22
PROVIDERS: PCP Internal Medicine; Visit Provider Student in an Organized Health Care Education/Training Program
DX: M25.551 Pain in right hip (principal); G89.29 Other chronic pain
CPT/HCPCS: 73721

== ENCOUNTER 2024-07-23 07:54 | Outpatient (AMB) | payer OTHER, SELFPAY ==
--- NOTE | 2024-07-23 07:59 | A.OFFVIS_ITS ---
Vital Signs 07/23/24 08:05 Height 5 ft 2 in Weight 146 lb BMI 26.7 BP 144/92 H Intake Visit Reasons: annual Fur Finisher Required: Yes Fur Finisher Language: Reversal Print Inspector Services: Fur Finisher Present (in person) Fur Finisher Name: Lani Smith JAREN Information Interpreted: non-clinical & clinical Piano Case And Bench Assembler: Piano Case And Bench Assembler Present (Lani EASTMAN) Accompanied by: Self / Same As Patient Allergies Penicillins [PENICILLINS] Allergy (Intermediate, Verified 07/23/24 08:06) ? RXN sumatriptan Adverse Reaction (Intermediate, Verified 07/23/24 08:06) stomach upset Post menopausal: Yes HPI Comments Details: Presenting for annual exam. No complaints. Last Pap/HPV was negative in 01/25 Last Mammogram was BI-RADS 1 in 03/29 No previous Colonoscopy Last DEXA scan was in 02/26 [facility] Medical History Seizure-like activity Paralysis Impaired glucose tolerance Venous (peripheral) insufficiency Migraines Physical exam Shortness of breath Vitamin D deficiency Lupus (systemic lupus erythematosus) Hepatic steatosis Surgical History Hx of cholecystectomy History of root canal procedure History of esophagogastroduodenoscopy (EGD) (~2003) Hx of colonoscopy Family History Father Schizophrenia Mother Arthritis Asthma Hypothyroidism Dementia Sister Diabetes Daughter Lupus Social History Household Members: Spouse and Children Housing: Other Housing Other:: [facility] Alcohol intake: never Patient Tobacco Use Status: Never used Tobacco e-Cigarette/Vaping Use: Never Used Second Hand Smoke Exposure: No service: No Current occupational status: unemployed Cognitive needs: No Hearing needs: No Vision needs: No Female Reproductive History Menstrual Date of last pap smear: 01/25/22 Date of Mammogram: 03/11/24 Review of Systems Const All systems reviewed & are unremarkable except as noted in HPI and below Card Reports as per HPI Resp Reports as per HPI GI Reports as per HPI and Reports no additional complaints Reports as per HPI Physical Exam Vital Signs: Last Vital Signs BP 144/92 H 07/23/24 08:05 BMI result Body Mass Index 26.7 Const General: cooperative, healthy appearing and comfortable Chest Chest palpation & inspection: normal inspection of the chest and normal palpation of entire chest wall Breast/axilla inspection: normal inspection of the breasts and normal inspection of the axillae Breast/axilla palpation: normal palpation of the breasts, normal palpation of the axillae and no axillary lymphadenopathy Resp Effort & Inspection: normal respiratory effort Auscultation: clear to auscultation bilaterally Percussion: percussion normal Cardio Palpation: normal PMI Rate: regular rate Rhythm: regular rhythm Heart sounds: no murmurs and no rubs Peripheral pulses: Peripheral pulses 2+ throughout GI Inspection: Yes normal to inspection Palpation (GI): Soft to palpation, nontender, no guarding, not rigid and No hepatosplenomegaly present Percussion: Yes normal to percussion Auscultation: normal bowel sounds Rectal Exam - Female: deferred General: Yes bladder normal to palpation External Female Exam: No lesion Speculum Exam - Vagina: normal appearance of the vagina, normal palpation, normal vaginal discharge and not erythematous Speculum Exam - Cervix: normal appearance of the cervix and normal palpation Bimanual exam- vagina & uterus: normal bimanual exam, normal palpation, uterine size normal, bladder normal to palpation, consistency normal and normal palpation Bimanual Exam- Adnexa, other: normal adnexae, no masses and no tenderness Assessment & Plan Assessment & Plan (1) Well woman exam: Code(s): Z01.419 - Encounter for gynecological examination (general) (routine) without abnormal findings Category: Medical Plan: Co testing not indicated since the patient 's age is above 65 with no history of abnormal Pap smears last 25 years. Counseled the patient about the recommended dietary allowance of 1200 mg of Calcium & 800 IU of vitamin D. Instructions given the patient to schedule next screening Mammogram in 03/25. Referred her for screening colonoscopy done. The patient was instructed to perform monthly self-breast exams and to schedule an annual exam in a year; All questions answered and the patient verbalized understanding. Orders: Orders XR DEXA axial skeleton Today Z78.0 - Asymptomatic menopausal state Referrals Gastroenterology Referral Z12.11 - Encounter for screening for malignant neoplasm of colon Coding Level of Care Code Est Pt Prev Care 40-64y(76352) Diagnoses Well woman exam Z01.419
[2024-07-23 08:05] VITALS: BP 144/92; BMI 26.7
== END 2024-07-23 08:26 | disposition home or self-care (01) ==
LOC: HO.HWS 07:54
PROVIDERS: PCP Internal Medicine; Visit Provider Obstetrics & Gynecology
DX: Z01.419 Encounter for gynecological examination (general) (routine) without abnormal findings (principal)
CPT/HCPCS: 99396; 99459

== ENCOUNTER → 2024-07-23 07:54 | Outpatient (BNVA) | payer OTHER, SELFPAY | PROVIDERS: PCP Internal Medicine; Visit Provider Obstetrics & Gynecology | DX: Z01.419 Encounter for gynecological examination (general) (routine) without abnormal findings (principal) | CPT/HCPCS: 99396; 99459 ==

== ENCOUNTER 2024-09-01 14:02 | Outpatient (AMB) | payer MEDICARE, MEDICAID, SELFPAY ==
--- NOTE | 2024-09-01 14:07 | A.OFFPC_ITS ---
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 RXN sumatriptan Adverse Reaction (Intermediate, Verified 09/01/24 14:18) stomach upset Medication List - Last Reconciled 09/01/24 by Nneka Everett MD acetaminophen ER 650 mg PO Q8H 30 days baclofen 20 mg PO TID 90 days betamethasone valerate 0.1% 1 appl topical DAILY PRN lsnkbleyky-evdsxulwxugwl-ulnr 50-300-40 mg 1 cap PO Q8H PRN 30 days cholecalciferol (vitamin D3) 25 mcg PO DAILY [compression stockings As directed] gabapentin 400 mg PO TID 30 days hydroxychloroquine Take 2 tabs daily x5 days a week and 1 tab daily x2 days a week Tobacco use date assessed: 09/01/24 Fall risk assessment: No Falls in past year Last assessed Fall Risk: 09/01/24 Dental Screening Dental Screen Date: 09/01/24 Did you have a dental visit in the last 12 months?: Yes Did you have a dental problem in the last 6 months where you did not have access to dental care?: No Was dental information given to patient?: Patient has dentist HPI HPI Comments History of Present Illness Details The patient is a 64-year-old female presenting for management of systemic lupus erythematosus, migraines, and osteoarthritis. In the context of SLE, she has a rheumatology appointment upcoming to further address her lupus management. Her current medications include Tylenol, Baclofen, Fioricet, Vitamin D, Gabapentin, and Plaquenil. She uses oxycodone sparingly, averaging 15 tablets monthly, primarily for arthritis-related pain. The patient previously underwent bone densitometry in the prior year, with the next due in 2025. Preventative measures include vaccination for pneumococcal pneumonia. Planned laboratory assessments for cholesterol, blood glucose, renal function, and liver panels are set for December, aligned with her physical examination. [facility] Medical History Seizure-like activity Paralysis Impaired glucose tolerance Venous (peripheral) insufficiency Migraines Physical exam Shortness of breath Vitamin D deficiency Lupus (systemic lupus erythematosus) Hepatic steatosis Surgical History Hx of cholecystectomy History of root canal procedure History of esophagogastroduodenoscopy (EGD) (~2003) Hx of colonoscopy Family History Father Schizophrenia Mother Arthritis Asthma Hypothyroidism Dementia Sister Diabetes Daughter Lupus Social History Household Members: Spouse and Children Housing: Other Housing Other:: [facility] Alcohol intake: never Patient Tobacco Use Status: Never used Tobacco e-Cigarette/Vaping Use: Never Used Second Hand Smoke Exposure: No service: No Current occupational status: unemployed Cognitive needs: No Hearing needs: No Vision needs: No Questionnaire PHQ-9 Over the last 2 weeks, how often have you been bothered by any of the following problems? 1. Little interest or pleasure in doing things: not at all 2. Feeling down, depressed, or hopeless: not at all 3. Trouble falling or staying asleep, or sleeping too much: several days 4. Feeling tired or having little energy: nearly every day 5. Poor appetite or overeating: several days 6. Feeling bad about yourself - or that you are a failure or have let yourself or your family down: not at all 7. Trouble concentrating on things, such as reading the newspaper or watching television: several days 8. Moving or speaking so slowly that other people could have noticed. Or the opposite - being so fidgety or restless that you have been moving around a lot more than usual: several days 9. Thoughts that you would be better off or of hurting yourself in some way: not at all Total score: 7 Depression Screening Interpretation: Positive Depression Screening Follow-up: Existing condition and Follow-up Visit Requested Depression Screening Done: Yes 59173 - PHQ-9 Billing: Yes Source: Developed by Drs. Elpidio Cabrera, Indiana Murphy, Pete Elizabeth and colleagues, with an educational tommie from [employer]. Thrive Questionnaire Date Thrive assessed: 09/01/24 I am a: Parent/Caregiver What is your living situation today?: I have a steady place to live Within the past 12 months, did the food you bought not last and you didn't have the money to get more?: I choose not to answer this question Within the past 12 months, did you worry whether your food would run out before you got money to buy more?: Never true Do you have trouble paying for medicines?: No Do you have trouble getting transportation to medical appointments?: No Do you have trouble paying your heating and electricity bill?: No Do you have trouble taking care of your child, family member or friend?: Yes Do you have trouble with day-to-day activities such as bathing, preparing meals, shopping, managing finances, etc.?: Yes Are you currently unemployed and looking for a job?: I choose not to answer this question Are you interested in more education?: No Please select the resources that you would like help with: None Currently or been in a relationship where the following occur: I choose not to answer THRIVE Score: 0 AUDIT C Alcohol Use Questionnaire (AUDIT-C) 1. How often do you have a drink containing alcohol?: Never Total Score: 0 Score Reviewed/Action Taken: No IVON-7 AMB Questionnaire IVON-7 Date IVON - 7 assessed: 09/01/24 Feeling nervous, anxious, or on edge: 1 = Several days Not being able to stop or control worryin = Not at all Worrying too much about different things: 1 = Several days Trouble relaxin = Several days Being so restless that it is hard to sit still: 1 = Several days Becoming easily annoyed or irritable: 0 = Not at all Feeling afraid as if something awful might happen: 0 = Not at all Total IVON-7 score (0-4 normal; 5-9 mild; 10-14 moderate; 15-21 severe): 4 Source: Developed by Drs. Elpidio Carbera, Indiana Murphy, Pete Elizabeth and colleagues, with an educational tommie from [employer]. IVON-7 Assessment Billing IVON-7 Assessment Tool: IVON-7 Assessment 10373 Review of Systems Const All systems reviewed & are unremarkable except as noted in HPI and below Card Denies chest pain at rest, Denies chest pain with activity, Denies edema, Denies irregular heart rhythm, Denies claudication, Denies dyspnea, Denies dyspnea on exertion, Denies orthopnea, Denies paroxysmal nocturnal dyspnea and Denies slow heart rate Resp Denies cough, Denies dyspnea and Denies dyspnea on exertion GI Denies abdominal pain, Denies change in bowel habits, Denies excessive flatus, Denies nausea and Denies vomiting Physical exam (Primary Care) Vital Signs: Last Vital Signs BP 136/82 09/01/24 14:08 BMI result Body Mass Index 26.0 Tobacco/Smoking Status: Tobacco use Status Tobacco use date assessed 09/01/24 09/01/24 14:13 Patient Tobacco Use Status Never used Tobacco 09/01/24 14:13 e-Cigarette/Vaping Use Never Used 09/01/24 14:13 PHQ-9: PHQ-9 Score PHQ-9: Total score 7 09/01/24 14:34 Depression Screening Interpretation: Positive Depression Screening Follow-up: Existing condition and Follow-up Visit Requested Thrive Assessment: Date of Thrive Assessment Date Thrive assessed 09/01/24 09/01/24 14:13 Currently or been in a relationship where the following occur: I choose not to answer Resp Effort & Inspection: normal respiratory effort Auscultation: clear to auscultation bilaterally Cardio Jugular venous distension: no JVD Rate: regular rate Rhythm: regular rhythm Heart sounds: S1 normal heart sound present and S2 normal heart sound present Extrem General: Yes full ROM Immunizations pneumoc 20-viviane conj-dip cr(PF) 0.5 mL IM syringe Performing Provider: Nneka Everett MD Performing Location: [facility] Administered by: JAREN Espinoza on 09/01/24 14:34 Dose Route Admin Location Dispensed Lot Number Expiration Date [facility] Passenger Brakeman 0.5 mL IM Left Deltoid 0.5 mL [id number] 06/06/25 8265-8955-23 FractureETH/PFIZER VIS Given Date VIS Provided VIS Publication Date 09/01/24 Single Vaccine 22 Eligibility Eligibility Date Funding Source Not [facility] Eligible 09/01/24 Private Coding Level of Care Code Est Pt Level 4 (02387) Complex EM visit Add On G2211 Diagnoses Migraine without aura and without status migrainosus, not intractable G43.009 Migraine type: without aura Status migrainosus presence: without status migrainosus Intractability: not intractable Osteopenia of multiple sites M85.89 Osteopenia location: multiple sites Other forms of systemic lupus erythematosus, unspecified organ involvement status M32.8 Systemic lupus erythematosus type: other Systemic lupus erythematosus organ involvement: unspecified Vitamin D deficiency E55.9 Additional Codes IVON-7 Assessment Billing - IVON-7 Assessment Tool: IVON-7 Assessment 39501 ( [id number]) PHQ-9 - 29348 - PHQ-9 Billing: Yes ([id number]) Time Spent (min) 22 Assessment & Plan Assessment & Plan (1) Migraines: Code(s): G43.909 - Migraine, unspecified, not intractable, without status migrainosus Category: Medical Qualifiers: Migraine type: without aura Status migrainosus presence: without status migrainosus Intractability: not intractable Qualified Code(s): G43.009 - Migraine without aura, not intractable, without status migrainosus (2) Osteopenia: Code(s): M85.80 - Other specified disorders of bone density and structure, unspecified site Category: Medical Qualifiers: Osteopenia location: multiple sites Qualified Code(s): M85.89 - Other specified disorders of bone density and structure, multiple sites (3) Lupus (systemic lupus erythematosus): Comment: dx 2017(leukopenia, photosensitive rash, fatigue + NNEKA + dsDNA) Code(s): M32.9 - Systemic lupus erythematosus, unspecified Category: Medical Qualifiers: Systemic lupus erythematosus type: other Systemic lupus erythematosus organ involvement: unspecified Qualified Code(s): M32.8 - Other forms of systemic lupus erythematosus (4) Vitamin D deficiency: Code(s): E55.9 - Vitamin D deficiency, unspecified Category: Medical Plan Rheumatology will review systemic lupus erythematosus management with the patient soon. We'll continue her current medication regimen while regulating oxycodone intake for arthritis pain. We emphasized vigilance regarding her penicillin and sumatriptan allergies. Preventative care with a pneumococcal vaccine and regular blood tests in December aims to monitor and manage cholesterol, glucose, renal, and liver health, synchronizing with her physical exam. Osteoporosis monitoring remains current with densitometry planned for 2025. Patient was informed and verbally consented to the use of an ambient scribe for clinic note documentation during this visit. I discussed with the patient the need to continue managing her systemic lupus erythematosus through a regular rheumatology follow-up. The emphasis was placed on the controlled usage of oxycodone for severe arthritis pain and ensuring adherence to current medication. The necessity of updating her pneumococcal vaccination was outlined, considering her age and risk profile. I explained the plan for a comprehensive lab review during her physical exam in December. The patient was informed about monitoring osteoporosis via the planned bone densitometry. Understanding and compliance with treatment regimens were confirmed, and any concerns were resolved through the shared decision-making process. Orders: Orders Vitamin D 25-OH Total 4 Months E55.9 - Vitamin D deficiency, unspecified Comprehensive Worth. Panel Fast 4 Months M32.8 - Other forms of systemic lupus erythematosus Lipid Panel 4 Months E78.5 - Hyperlipidemia, unspecified Pneumococcal 20 Immunization Today Z23 - Encounter for immunization Medications: New oxycodone Partial Fill upon patient request. 5 mg PO BID PRN 15 tabs 0RF pain 30 days Refilled gabapentin 400 mg PO TID 90 caps 3RF 30 days Patient Instructions: - Continue current medications as prescribed. - Attend rheumatology appointment next week for lupus management. - Use oxycodone for severe pain episodes as discussed, not exceeding 15 tablets per month. - Schedule for pneumococcal vaccine to stay updated. - Prepare for December physical exam; expect lab tests for cholesterol, sugar, kidney, and liver. - Monitor for adverse reactions from medications. - Maintain regular follow-ups and call if symptoms worsen or new issues arise.
[2024-09-01 14:08] VITALS: BP 136/82; BMI 26.0
--- OUTSIDE RECORDS SUMMARY | 2024-09-01 16:16 | XMS_ITS | Clinical Summary ---
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 Phone Unavailable Primary Care Provider Unavailabl e Social History Tobacco Use Types Packs/Day Years Used Date Smoking Tobacco: Never Assessed Comments Unknown Sex and Gender Information Value Date Recorded Sex Assigned at Female 12/03/2023 9:10 AM EDT Legal Sex Female 9:09 AM EDT Gender Identity Female 12/03/2023 9:10 AM EDT Sexual Orientation Straight 12/03/2023 9: 10 AM EDT Plan of Treatment Health Maintenance Due Date Last Done Comments CT Colonography 1959 Colonoscopy 1959 Colorectal Cancer Screening 1959 Depression Screening 1959 FIT DNA/Cologuard 1959 FIT 1959 FOBT 1959 HIV Screening 1959 SDOH Screening 1959 Sigmoidoscopy 1959 Alcohol/Substance Use Screening 1971 Tobacco Screening 1971 Hepatitis C Screening 08/21/1977 DTaP/Tdap/Td Vaccines (1 - Tdap) 08/21/1978 Pap Smear 08/21/1980 Cervical Cancer Screening 08/21/1989 HPV/Cotest 08/21/1989 Mammogram 1999 Pneumococcal Vaccine: 50+ Ye ars (1 of 1 - PCV) 08/21/2009 Zoster Vaccines (1 of 2) 08/21/2009 COVID-19 Vaccine ( - 2023-2 5 season) 2024 Influenza Vaccine (#1) 2024 RSV Patients and Pa tients Aged 60 years or older (1 - 1-dose 75+ series) 08/21/2034 HIB Vaccines Aged Out No longer eligi ble based on patient's age to complete this topic HPV Vaccines Aged Out No longer eligi ble based on patient's age to complete this topic Hepatitis A Vaccines Aged Out No long er eligible based on patient's age to complete this topic Hepatitis B Vaccines Aged Out No long er eligible based on patient's age to complete this topic IPV Vaccines Aged Out No longer eligi ble based on patient's age to complete this topic Meningococcal Vaccine Aged Out No sherrell verenice eligible based on patient's age to complete this topic RSV under 20 months Aged Out No longe r eligible based on patient's age to complete this topic Rotavirus Vaccines Aged Out No longer eligible based on patient's age to complete this topic Insurance [facility]
== END 2024-09-01 14:32 | disposition home or self-care (01) ==
LOC: HO.HMCH 14:03
PROVIDERS: PCP Internal Medicine; Visit Provider Internal Medicine
DX: G43.009 Migraine without aura, not intractable, without status migrainosus (principal); M85.89 Other specified disorders of bone density and structure, multiple sites; M32.8 Other forms of systemic lupus erythematosus; E55.9 Vitamin D deficiency, unspecified; Z23 Encounter for immunization

== ENCOUNTER → 2024-09-01 14:02 | Outpatient (BNVA) | payer MEDICARE, MEDICAID, SELFPAY | PROVIDERS: PCP Internal Medicine; Visit Provider Internal Medicine | DX: Z23 Encounter for immunization (principal); G43.009 Migraine without aura, not intractable, without status migrainosus; M85.89 Other specified disorders of bone density and structure, multiple sites; M32.8 Other forms of systemic lupus erythematosus; E55.9 Vitamin D deficiency, unspecified | CPT/HCPCS: 90471; 90677; 96127; 99212 ==

== ENCOUNTER 2024-09-07 08:06 | Outpatient (REF) | payer OTHER, SELFPAY ==
--- OUTSIDE RECORDS SUMMARY | 2024-09-07 08:26 | XMS_ITS | Clinical Summary ---
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 Role Phone Unavailable Primary Care Provider [...] FIT DNA/Cologuard 1959 FIT 1959 FOBT 1959 SDOH Screening 1959 Sigmoidoscopy 1959 Alcohol/Substance Use Screening 1971 Tobacco Screening 1971 Hepatitis C Screening 08/21/1977 DTaP/Tdap/Td Vaccines (1 - Tdap) 08/21/1978 Pap Smear 08/21/1980 Cervical Cancer Screening 08/21/1989 HPV/Cotest 08/21/1989 Mammogram 1999 Pneumococcal Vaccine: 50+ Ye ars (1 of 1 - PCV) 08/21/2009 Zoster Vaccines (1 of 2) 08/21/2009 COVID-19 Vaccine (2023-2 5 season) 2024 Influenza Vaccine (#1) 2024 [...] patient's age to complete this topic Insurance [facility]
[2024-09-07 08:28] LABS: MANUAL DIFF FLAG NO
[2024-09-07 08:55] LABS: Basophils Percent Auto 0.7 % (0-2); Eosinophils Absolute Auto 0.1 X10*3/uL (0.0-0.4); Hematocrit 41.7 % (37.0-47.0); Hemoglobin 13.7 g/dl (12.0-16.0); Imm Gran Abs Auto 0.01 X10*3/uL (0.00-0.03); Imm Gran Pct Auto 0.2 % (0.0-0.4); Lymphocytes Absolute Auto 0.9 X10*3/uL (1.2-4.9); Lymphocytes Percent Auto 21.6 % (20-40); Mean Corpuscular HGB Conc 32.9 g/dl (31.0-35.0); Mean Corpuscular Hemoglobin 30.2 pg (27.0-33.0); Mean Corpuscular Volume 92.1 fL (80.0-98.0); Mean Platelet Volume 11.1 fL (9.4-12.3); Monocytes Absolute Auto 0.3 X10*3/uL (0.1-1.2); Monocytes Percent Auto 7.6 % (2-11); Neutrophils Absolute Auto 2.8 x10*3/uL (2.0-8.3); Neutrophils Percent Auto 67.9 % (45-73); Platelet Count 255 X10*3/uL (160-400); Red Blood Count 4.53 X10*6/uL (4.20-5.50); Red Cell Distribution Width 13.3 % (11.0-16.0); White Blood Count 4.1 X10*3/uL (4.8-10.8)
[2024-09-07 09:15] LABS: Alanine Aminotransferase 38 U/L (0-31); Albumin Level 4.9 g/dL (3.5-5.0); Alkaline Phosphatase 71 U/L (39-117); Anion Gap 11 (12-20); Aspartate Amino Transferase 44 U/L (5-31); Bilirubin Total 1.6 mg/dL (0.0-1.0); Blood Urea Nitrogen 7 mg/dL (9-16); C Reactive Protein 0.19 mg/dL (< or = 0.50); Calcium 9.9 mg/dL (8.4-10.2); Carbon Dioxide 30 mmol/L (22-29); Chloride 106 mmol/L (96-108); Estimated Glomerular Filt Rate > 60; Glucose Random 98 mg/dL (60-115); Potassium 4.1 mmol/L (3.3-5.1); Sodium 143 mmol/L (135-145); Total Protein 7.6 g/dL (6.5-8.0)
[2024-09-07 09:29] LABS: Appearance Urine Cloudy; Color Urine Yellow; Glucose Urine UA Negative (Negative); Leukocyte Esterase Urine Moderate (2+) (Negative); Nitrite Urine Negative (Negative); Specific Gravity - Urine 1.015 (1.005-1.025); UMIC TRIGGER UA YES; Urine Blood Negative (Negative); Urine Ketones Negative (Negative); Urine Protein Negative (Neg-Trace)
[2024-09-07 09:33] LABS: Bacteria Urine 3+ (None Seen); Hyaline Casts Urine 0-2 /LPF (0-2); RBC Urine 0-2 /HPF (0-2)
[2024-09-07 09:40] LABS: Erythrocyte Sedimentation Rate 7 MM/HR (0-20)
[2024-09-07 09:43] LABS: Creatinine Urine 113.69 mg/dL; Total Protein Urine Random < 7 mg/dL (<12)
[2024-09-08 19:52] LABS: Complement C3 154 mg/dL (83-193)
[2024-09-08 22:38] LABS: Anti DNA DS Antibody 8 IU/mL
[2024-09-11 08:44] LABS: DNAds, Crithidia Antibody Negative (Negative)
== END 2024-09-07 08:07 | disposition home or self-care (01) ==
LOC: HO.LAB 08:06
PROVIDERS: PCP Internal Medicine; Visit Provider Student in an Organized Health Care Education/Training Program
DX: M32.8 Other forms of systemic lupus erythematosus (principal)
CPT/HCPCS: 36415; 80053; 81001; 82570; 84156; 85025; 85652; 86140; 86160; 86225; 86255

== ENCOUNTER 2024-09-09 07:01 | Outpatient (AMB) | payer MEDICARE, OTHER, SELFPAY ==
--- OUTSIDE RECORDS SUMMARY | 2024-09-09 07:04 | XMS_ITS | Clinical Summary ---
Author Organization [employer] Address [address] [place] [address] Care Team Providers Care Hot Man Name Role Phone Unavailable Primary Care Provider [...] patient's age to complete this topic Insurance [facility]
--- NOTE | 2024-09-09 07:26 | A.OFFVIS_ITS ---
Vital Signs 09/09/24 07:32 Height 5 ft 2 in Weight 149 lb 4.047 oz BMI 27.3 BP 130/82 Blood Pressure Location Rt brachial Position Sitting Respiration 16 Pulse 86 Pulse Source Pulse Oximeter Pulse Oximetry (%) 95 Oxygen Delivery Method Room Air Intake Visit Reasons: SLE Intake Note: Patient presents for SLE follow up. Verification Clerk Required: Yes Verification Clerk Language: Bulk Gas Specialist Services: Verification Clerk Present Verification Clerk Name: Cher Rich [id number] Information Interpreted: non-clinical & clinical Allergies Penicillins [PENICILLINS] Allergy (Intermediate, Verified 09/09/24 07:30) ? RXN sumatriptan Adverse Reaction (Intermediate, Verified 09/09/24 07:30) stomach upset Medication List - Last Reconciled 09/09/24 by Kimberly Godinez MD acetaminophen ER 650 mg PO Q8H 30 days baclofen 20 mg PO TID 90 days betamethasone valerate 0.1% 1 appl topical DAILY PRN pqcjpdhypf-uinkqxnzeztai-pwif 50-300-40 mg 1 cap PO Q8H PRN 30 days cholecalciferol (vitamin D3) 25 mcg PO DAILY [compression stockings As directed] gabapentin 400 mg PO TID 30 days hydroxychloroquine Take 2 tabs daily x5 days a week and 1 tab daily x2 days a week oxycodone 5 mg PO BID PRN 30 days HPI Comments Details: Patient is a 64 y.o. female with migraines, hepatic steatosis, and SLE presents today for follow up Interval History: Patient last seen 03/[address] Saul. At that time she was being followed up for her lupus on hydroxychloroquine monotherapy. There were no signs or symptoms of active lupus however she was complaining of right hip pain. A right hip MRI was ordered which showed tendonitis as well as mild osteoarthritis of the hip. She was recommended to do physical therapy but patient deferred. Today patient states she is doing better with respect to her hip pain still has a little bit of residual pain. No rash, ulcers, alopecia. No prolonged morning stiffness or inflammatory type joint pain. She has complain of bilateral shoulder pain and lower back pain today. Rheumatologic History: SLE dx 2017(leukopenia, photosensitive rash, fatigue + NNEKA + dsDNA) Current Rheumatology Medication(s): Hydroxychloroquine 400mg x 5 days a week then 200mg x 2 days a week PFSH Medical History Seizure-like activity Paralysis Impaired glucose tolerance Venous (peripheral) insufficiency Migraines Physical exam Shortness of breath Vitamin D deficiency Lupus (systemic lupus erythematosus) Hepatic steatosis Surgical History Hx of cholecystectomy History of root canal procedure History of esophagogastroduodenoscopy (EGD) (~2003) Hx of colonoscopy Family History Father Schizophrenia Mother Arthritis Asthma Hypothyroidism Dementia Sister Diabetes Daughter Lupus Social History Household Members: Spouse and Children Housing: Other Housing Other:: [facility] Alcohol intake: never Patient Tobacco Use Status: Never used Tobacco e-Cigarette/Vaping Use: Never Used Second Hand Smoke Exposure: No service: No Current occupational status: unemployed Cognitive needs: No Hearing needs: No Vision needs: No Review of Systems Const Details: Review of Systems Constitutional: Denies fever, chills, weight loss ENT: Denies vision changes, eye pain or eye redness, dental caries, dry mouth GI: Denies nausea, vomiting, diarrhea, abdominal pain, change in BM Pulm: Denies SOB, [place], hemoptysis, wheezing Cards: Denies chest pain, palpitations Skin: Denies Raynaud's, rash, nail changes, photosensitivity, [employer]YING [employer] REPAIRER: Denies headaches, weakness, paresthesias, recurrent falls MSK: as per HPI All other systems reviewed and are unremarkable except noted above Physical Exam Vital Signs: Last Vital Signs Pulse 86 09/09/24 07:32 Resp 16 09/09/24 07:32 BP 130/82 09/09/24 07:32 Pulse Ox 95 09/09/24 07:32 Oxygen Delivery Method Room Air 09/09/24 07:32 BMI result Body Mass Index 27.3 Vital signs reviewed Physical Examination CONSTITUITIONAL Patient alert and cooperative. Well appearing and in no apparent painful distress Hair thinning but no alopecia HEENT Conjunctiva and sclera clear. ?Pupils equal round and reactive to light. ?No lymphadenopathy. ? CHEST/RESPIRATORY SYSTEM Normal respiratory effort and able to speak in complete sentences. ?Clear to auscultation bilaterally. ?No crackles, rales, rhonchi, wheezes heard. CARDIAC SYSTEM Regular rate and rhythm. ?S1 and S2 heard no murmurs. ?Radial pulses intact bilaterally MSK Hands: ?Able to make a fist. No synovitis noted to the MCPs, PIPs or DIPs. ?No tenderness to palpation of these joints. [place] nodes. ? Wrists: ?Full range of motion at the wrists without pain. ?No tenderness to palpation or synovitis noted to the wrists. Elbows: Full range of motion without pain. No tenderness, weakness, swelling, increased warmth or erythema. Shoulders: Full range of active range of motion bilaterally with pain at the extremes of the range of motion. No weakness, swelling, increased warmth or erythema. TTP of bilateral subacromial bursa Hips: Full range of motion without pain. Hip bursa: Bilateral tenderness to palpation Knees: ?Full range of motion. ?No tenderness, swelling, increased warmth or erythema.?Crepitations bilaterally Ankles: Full range of motion. ?No tenderness, swelling, increased warmth or erythema.? Feet: ?Negative squeeze test. ?No tenderness to palpation or swelling of the MTPs. Tender points:?No tenderness to palpation of the bilateral trapezius, supraspinatus, greater trochanters, anterior costochondral junctions, bilateral gluteal areas, bilateral suboccipital muscle insertions SKIN Skin intact without rashes. Results Reviewed Results Reviewed: Laboratory Tests 09/07/24 08:27 WBC 4.1 L RBC 4.53 Hgb 13.7 Hct 41.7 Plt Count 255 ESR 7 Sodium 143 Potassium 4.1 Chloride 106 Carbon Dioxide 30 H BUN 7 L Creatinine 0.73 Total Bilirubin 1.6 H AST 44 H ALT 38 H Alkaline Phosphatase 71 C-Reactive Protein 0.19 Immunology Labs 09/07/24 08:27 Double Strand DNA Ab 8 H Complement C3 154 Complement C4 25 Urine Tests 09/07/24 08:16 Urine Color Yellow Urine Appearance Cloudy Urine Blood Negative Urine Nitrite Negative U Random Total Protein < 7 MRI Right Hip 04/20/24 FINDINGS: No focal articular cartilage defect. Mild cartilage thinning posteriorly. Small marginal osteophytes of the acetabular rim. There is a small os acetabuli at the anterior superior acetabular rim. Trace joint effusion. No definite labral tear. No stress reaction, fracture, or evidence of avascular necrosis. Gluteus medius and minimus insertional tendinitis. Trace trochanteric bursitis. No acute muscle strain or tear. Degenerative marrow edema at the pubic symphysis. No adenopathy. IMPRESSION: 1. Mild right hip osteoarthritis with a trace joint effusion. No definite labral tear. No evidence of avascular necrosis. 2. Gluteus medius and minimus insertional tendinitis with trace trochanteric bursitis. Assessment & Plan Assessment & Plan (1) Lupus (systemic lupus erythematosus): Comment: dx 2017(leukopenia, photosensitive rash, fatigue + NNEKA + dsDNA) Code(s): M32.9 - Systemic lupus erythematosus, unspecified Category: Medical Qualifiers: Systemic lupus erythematosus type: other Systemic lupus erythematosus organ involvement: unspecified Qualified Code(s): M32.8 - Other forms of systemic lupus erythematosus Plan: #SLE Patient is a 64-year-old female with lupus here today for follow up. Lupus is currently in remission on Plaquenil monotherapy Plan - Hydroxychloroquine 400 mg x 5 days a week and 200 mg x 2 days a week - RTC 6 months - Labs before visit: CBC, CMP, ESR, CRP, C3, C4, dsDNA, UA, UPC (2) Polyarticular osteoarthritis: Code(s): M15.9 - Polyosteoarthritis, unspecified Plan: #Polyarticular OA Patient with complaints of bilateral shoulder pain and low back pain. Likely related to rotator cuff disease and osteoarthritis. Will send to PT. If no improvement will consider steroid injections Plan - PT referral printed (3) Transaminitis: Code(s): R74.01 - Elevation of levels of liver transaminase levels Plan: #Transaminitis Patient with mild elevated AST/ALT. Likely related to her hepatic steatosis. Discussed limiting alcohol, Tylenol, [id number] NSAIDs and fatty foods (4) Long-term use of hydroxychloroquine: Comment: Eye exam okay 11/2023 Code(s): Z79.899 - Other penitentiary (current) drug therapy Category: Medical Plan: #Long-term Use of Hydroxychloroquine Discussed with patient the risks and benefits of hydroxychloroquine in managing the rheumatic condition Benefits include: - Reduced pain, reduce mortality, maintenance of remission and reduction of flares Risks include: - GI upset, skin hyperpigmentation, retinal toxicity (especially after more than 5 years of use), myopathy Advised yearly ophthalmology visits Last ophthalmology visit: 11/2023 Plan I spent 30 minutes reviewing the record and labs, taking a history, examining the patient, discussing the treatment plan, ordering diagnostic work up and documenting in the medical record Orders: Orders PT Evaluation and Treatment Today M19.011 - Primary osteoarthritis, right shoulder, M19.012 - Primary osteoarthritis, left shoulder, M47.816 - Spondylosis without myelopathy or radiculopathy, lumbar region Complete Blood Count Auto Diff 6 Months M32.8 - Other forms of systemic lupus erythematosus Complement C3 6 Months M32.8 - Other forms of systemic lupus erythematosus Anti DNA DS Antibody 6 Months M32.8 - Other forms of systemic lupus erythematosus C Reactive Protein 6 Months M32.8 - Other forms of systemic lupus erythematosus Complement C4 6 Months M32.8 - Other forms of systemic lupus erythematosus Comprehensive Met. Panel 6 Months M32.8 - Other forms of systemic lupus erythematosus Erythrocyte Sedimentation Rate 6 Months M32.8 - Other forms of systemic lupus erythematosus Protein Creatinine Ratio, Ur 6 Months M32.8 - Other forms of systemic lupus erythematosus UA w Microscopic 6 Months M32.8 - Other forms of systemic lupus erythematosus Coding Level of Care Code Est Pt Level 4 (61567) Complex EM visit Add On G2211 Diagnoses Other forms of systemic lupus erythematosus, unspecified organ involvement status M32.8 Systemic lupus erythematosus type: other Systemic lupus erythematosus organ involvement: unspecified Polyarticular osteoarthritis M15.9 Transaminitis R74.01 Long-term use of hydroxychloroquine Z79.899
[2024-09-09 07:32] VITALS: BP 130/82; PULSE 86; RESP 16; O2SAT 95; BMI 27.3
== END 2024-09-09 08:05 | disposition home or self-care (01) ==
PROVIDERS: PCP Internal Medicine; Visit Provider Student in an Organized Health Care Education/Training Program
DX: M32.8 Other forms of systemic lupus erythematosus (principal); M15.9 Polyosteoarthritis, unspecified; R74.01 Elevation of levels of liver transaminase levels; Z79.899 Other long term (current) drug therapy
CPT/HCPCS: 99214

== ENCOUNTER → 2024-09-09 07:01 | Outpatient (BNVA) | payer OTHER, SELFPAY | PROVIDERS: PCP Internal Medicine; Visit Provider Student in an Organized Health Care Education/Training Program | DX: Z13.89 Encounter for screening for other disorder (principal) ==

== ENCOUNTER 2024-09-17 16:18 | Outpatient (AMB) | payer OTHER, SELFPAY ==
--- OUTSIDE RECORDS SUMMARY | 2024-09-17 16:21 | XMS_ITS | Clinical Summary ---
Author Organization [email or web address] Address [address] [place] [address] Care Team Providers Care Storage Management Architect Name Role Phone Unavailable Primary Care Provider [...] patient's age to complete this topic Meningococcal B Vaccine Aged Out No l onger eligible based on patient's age to complete this topic Meningococcal Vaccine Aged Out No sherrell verenice eligible based on patient's age to complete this topic RSV under 20 months Aged Out No longe r eligible based on patient's age to complete this topic Rotavirus Vaccines Aged Out No longer eligible based on patient's age to complete this topic Insurance [facility]
[2024-09-17 16:23] VITALS: BP 180/96; BMI 26.9
--- NOTE | 2024-09-17 16:23 | A.OFFPC_ITS ---
Vital Signs 09/17/24 16:23 Height 5 ft 2 in Weight 147 lb BMI 26.9 BP 180/96 H Blood Pressure Location Lt brachial Position Sitting Intake Visit Reasons: cough South Asian History Professor Required: No Accompanied by: Daughter Allergies Penicillins [PENICILLINS] Allergy (Intermediate, Verified 09/17/24 16:30) ? RXN sumatriptan Adverse Reaction (Intermediate, Verified 09/17/24 16:30) stomach upset Medication List - Last Reconciled 09/17/24 by Nneka Everett MD acetaminophen ER 650 mg PO Q8H 30 days baclofen 20 mg PO TID 90 days betamethasone valerate 0.1% 1 appl topical DAILY PRN rjlnibrsas-xnjgsteljdmmu-qris 50-300-40 mg 1 cap PO Q8H PRN 30 days cholecalciferol (vitamin D3) 25 mcg PO DAILY [compression stockings As directed] gabapentin 400 mg PO TID 30 days hydroxychloroquine Take 2 tabs daily x5 days a week and 1 tab daily x2 days a week oxycodone 5 mg PO BID PRN 30 days Tobacco use date assessed: 09/01/24 Dental Screening Dental Screen Date: 09/01/24 HPI HPI Comments History of Present Illness Details The patient is a 64-year-old female presenting with elevated blood pressure and upper respiratory symptoms. She notes a recent increase in blood pressure, usually well-managed but recently affected, potentially due to mask usage, causing discomfort. Her respiratory complaints include noticeable nasal congestion and a persistent dry cough, absent of sputum, with no associated fever. She recalls a history of penicillin allergy from childhood and notes a similar adverse reaction to sumatriptan with resulting headaches. Her current medications consist of Baclofen, Vitamin D, Gabapentin, Plaquenil, and sparing use of Oxycodone. She leads a lifestyle without smoking or alcohol consumption. Evaluative tests encompassing COVID-19, influenza, RSV, and a chest X-ray were advised to assess the new-onset symptoms and gauge respiratory health She has lupus, migraines and fatty liver. Lupus is follow by Rheumatology. Migraines follow by Neurology. Fatty liver has been stable.. [facility] Medical History (Updated 09/17/24 @ 16:39 by Nneka Everett MD) Seizure-like activity Paralysis Impaired glucose tolerance Venous (peripheral) insufficiency Migraines Physical exam Shortness of breath Vitamin D deficiency Lupus (systemic lupus erythematosus) Hepatic steatosis Surgical History Hx of cholecystectomy History of root canal procedure History of esophagogastroduodenoscopy (EGD) (~2003) Hx of colonoscopy Family History Father Schizophrenia Mother Arthritis Asthma Hypothyroidism Dementia Sister Diabetes Daughter Lupus Social History Household Members: Spouse and Children Housing: Other Housing Other:: [facility] Alcohol intake: never Patient Tobacco Use Status: Never used Tobacco e-Cigarette/Vaping Use: Never Used Second Hand Smoke Exposure: No service: No Current occupational status: unemployed Cognitive needs: No Hearing needs: No Vision needs: No Questionnaire Thrive Questionnaire Date Thrive assessed: 09/01/24 I am a: Parent/Caregiver What is your living situation today?: I have a steady place to live Within the past 12 months, did the food you bought not last and you didn't have the money to get more?: I choose not to answer this question Within the past 12 months, did you worry whether your food would run out before you got money to buy more?: Never true Do you have trouble paying for medicines?: No Do you have trouble getting transportation to medical appointments?: No Do you have trouble paying your heating and electricity bill?: No Do you have trouble taking care of your child, family member or friend?: Yes Do you have trouble with day-to-day activities such as bathing, preparing meals, shopping, managing finances, etc.?: Yes Are you currently unemployed and looking for a job?: I choose not to answer this question Are you interested in more education?: No Please select the resources that you would like help with: None Currently or been in a relationship where the following occur: I choose not to answer THRIVE Score: 0 AUDIT C Alcohol Use Questionnaire (AUDIT-C) 3. How often do you have six or more drinks on one occasion?: Never Total Score: 0 IVON-7 AMB Questionnaire IVON-7 Date IVON - 7 assessed: 09/01/24 Source: Developed by Drs. Elpidio Cabrera, [place] BPete Booth and colleagues, with an educational tommie from [employer]. Review of Systems Const All systems reviewed & are unremarkable except as noted in HPI and below Card Denies chest pain at rest, Denies chest pain with activity, Denies edema, Denies irregular heart rhythm, Denies claudication, Denies dyspnea, Denies dyspnea on exertion, Denies orthopnea, Denies paroxysmal nocturnal dyspnea and Denies slow heart rate Resp Denies cough, Denies dyspnea and Denies dyspnea on exertion GI Denies abdominal pain, Denies change in bowel habits, Denies excessive flatus, Denies nausea and Denies vomiting Physical exam (Primary Care) Vital Signs: Last Vital Signs BP 180/96 H 09/17/24 16:23 BMI result Body Mass Index 26.9 Tobacco/Smoking Status: Tobacco use Status Tobacco use date assessed 09/01/24 09/17/24 16:26 Patient Tobacco Use Status Never used Tobacco 09/17/24 16:26 e-Cigarette/Vaping Use Never Used 09/17/24 16:26 Thrive Assessment: Date of Thrive Assessment Date Thrive assessed 09/01/24 09/17/24 16:26 Currently or been in a relationship where the following occur: I choose not to answer Resp Effort & Inspection: normal respiratory effort Auscultation: clear to auscultation bilaterally Cardio Jugular venous distension: no JVD Rate: regular rate Rhythm: regular rhythm Heart sounds: S1 normal heart sound present and S2 normal heart sound present Extrem General: Yes full ROM Coding Level of Care Code Est Pt Level 4 (51081) Complex EM visit Add On G2211 Diagnoses URI (upper respiratory infection) J06.9 Other forms of systemic lupus erythematosus, unspecified organ involvement status M32.8 Systemic lupus erythematosus type: other Systemic lupus erythematosus organ involvement: unspecified Migraine without aura and without status migrainosus, not intractable G43.009 Migraine type: without aura Status migrainosus presence: without status migrainosus Intractability: not intractable Hepatic steatosis K76.0 Time Spent (min) 22 Assessment & Plan Assessment & Plan (1) URI (upper respiratory infection): Code(s): J06.9 - Acute upper respiratory infection, unspecified Category: Medical (2) Lupus (systemic lupus erythematosus): Comment: dx 2017(leukopenia, photosensitive rash, fatigue + NNEKA + dsDNA) Code(s): M32.9 - Systemic lupus erythematosus, unspecified Category: Medical Qualifiers: Systemic lupus erythematosus type: other Systemic lupus erythematosus organ involvement: unspecified Qualified Code(s): M32.8 - Other forms of systemic lupus erythematosus (3) Migraines: Code(s): G43.909 - Migraine, unspecified, not intractable, without status migrainosus Category: Medical Qualifiers: Migraine type: without aura Status migrainosus presence: without status migrainosus Intractability: not intractable Qualified Code(s): G43.009 - Migraine without aura, not intractable, without status migrainosus (4) Hepatic steatosis: Comment: pleasant-maintain good weight, cholesterol and glucose control continue to abstain from alcohol monitor labs every 6 months Elevated enzymes-12/26/21- kimberly Gong to [place] until May- will f/u on retun Son interpreted- very supportive Code(s): K76.0 - Fatty (change of) liver, not elsewhere classified Category: Medical Plan To address the patient's elevated blood pressure and reported upper respiratory symptoms, I recommended a chest X-ray along with testing for COVID-19, influenza, and RSV to ascertain any potential underlying issues. I initiated prednisone to ease any bronchial inflammation and prescribed antibiotics while waiting for the results of the tests. The importance of isolation was emphasized for safety, given her mask usage. Further, she was advised to avoid medications like penicillin and sumatriptan due to previous adverse reactions. Her current regimen of Baclofen, Vitamin D, Gabapentin, and Plaquenil will be continued, with adjustments dependent on symptom changes and what the diagnostic results reveal. Patient was informed and verbally consented to the use of an ambient scribe for clinic note documentation during this visit. I discussed with the patient the diagnostic tests needed to better understand her symptoms, including a chest X-ray and testing for COVID-19, influenza, and RSV. The risks and benefits of initiating treatment with prednisone and an antibiotic were explained, with the emphasis on managing her bronchial inflammation and preventing further symptom progression. The need for precautio nary isolation was advised due to the potential infectious nature of her symptoms. A distinct recall of her allergic reactions to penicillin and sumatriptan was noted to prevent possible future adverse events. Orders: Orders XR chest 2V Today J06.9 - Acute upper respiratory infection, unspecified SARS-CoV2/FLU/RSV Today R09.89 - Other specified symptoms and signs involving the circulatory and respiratory systems Medications: New doxycycline hyclate 100 mg PO BID 7 days 14 caps 0RF J06.9 - Acute upper respiratory infection, unspecified prednisone Take 4 tabs for 2 days, then 3 tabs for 2 days, then 2 tabs for 2 days, then 1 tab for 2 days 10 mg PO DIRECTED 8 days 20 tabs 0RF J06.9 - Acute upper respiratory infection, unspecified Patient Instructions: - Keep track of any symptom changes and note any new symptoms. - Proceed to the hospital for a chest X-ray and COVID-19, influenza, and RSV testing as soon as possible. - Start prescribed prednisone and antibiotic as directed. - Practice self-isolation to prevent spreading infection. - If symptoms worsen or new symptoms arise, contact the clinic for reassessment. - Avoid penicillin and sumatriptan due to known drug allergies. - Use face masks where necessary and maintain personal hygiene.
== END 2024-09-17 16:42 | disposition home or self-care (01) ==
LOC: HO.HMCH 16:19
PROVIDERS: PCP Internal Medicine; Visit Provider Internal Medicine
DX: J06.9 Acute upper respiratory infection, unspecified (principal); M32.8 Other forms of systemic lupus erythematosus; G43.009 Migraine without aura, not intractable, without status migrainosus; K76.0 Fatty (change of) liver, not elsewhere classified

== ENCOUNTER → 2024-09-17 16:18 | Outpatient (BNVA) | payer OTHER, SELFPAY | PROVIDERS: PCP Internal Medicine; Visit Provider Internal Medicine | DX: J06.9 Acute upper respiratory infection, unspecified (principal); M32.8 Other forms of systemic lupus erythematosus; G43.009 Migraine without aura, not intractable, without status migrainosus; K76.0 Fatty (change of) liver, not elsewhere classified | CPT/HCPCS: 99212 ==

== ENCOUNTER 2024-09-18 08:17 | Outpatient (REF) | payer OTHER, SELFPAY ==
--- NOTE | ~2024-09-18 | XR_ITS ---
EXAMINATION: XR CHEST 2 VIEWS HISTORY: J06.9 - Acute upper respiratory infection, unspecified COMPARISON: Comparison is made with the prior examination dated 09/16/2023. FINDINGS: PA and lateral views of the chest are submitted. The lungs are expanded and clear. There is no pleural effusion, pneumothorax, or pulmonary vascular congestion. The heart is normal in size. There is degenerative disc disease of the spine. There are surgical clips in the right upper quadrant. XR/XR chest 2V IMPRESSION: No acute cardiopulmonary abnormality. Electronically signed by: Elpidio Richardson MD 09/18/2024 08:58 AM EDT
--- OUTSIDE RECORDS SUMMARY | 2024-09-18 08:29 | XMS_ITS | Clinical Summary ---
Author Organization [employer] Address [address] [place] [address] Care Team Providers Care Revenue Agent Name Role Phone Unavailable Primary Care Provider [...] patient's age to complete this topic Insurance [facility]
[2024-09-18 09:13] LABS: Influenza A PCR NEGATIVE (Negative); Influenza B PCR NEGATIVE (Negative); Resp Syncy Virus RNA Qual PCR NEGATIVE (Negative); SARS COV2 PCR INHOUSE NEGATIVE (Negative)
== END 2024-09-18 08:18 | disposition home or self-care (01) ==
LOC: HO.XRAY 08:17
PROVIDERS: PCP Internal Medicine; Visit Provider Internal Medicine
DX: R09.89 Other specified symptoms and signs involving the circulatory and respiratory systems (principal); J06.9 Acute upper respiratory infection, unspecified
CPT/HCPCS: 0241U; 71046

== ENCOUNTER → 2024-09-18 08:30 | Outpatient (BNV) | payer OTHER, MEDICAID, SELFPAY | PROVIDERS: PCP Internal Medicine; Visit Provider Radiology Diagnostic Radiology | DX: J06.9 Acute upper respiratory infection, unspecified (principal) | CPT/HCPCS: 71046 ==

== ENCOUNTER 2024-10-26 07:33 | Outpatient (AMB) | payer MEDICARE, MEDICAID, SELFPAY ==
--- NOTE | 2024-10-26 07:35 | A.OFFVIS_ITS ---
Vital Signs 10/26/24 07:36 Height 5 ft 2 in Weight 145 lb 8.081 oz BMI 26.6 BP 163/70 H Blood Pressure Location Lt brachial Position Sitting Pulse 84 Intake Visit Reasons: hepatic steatosis Intake Note: Patient complex follow up for Hepatic steatosis /Abigail lorenz dayna was 01/1923. Patient cc: She states that she is feeling okay and not having conerns today! Finish Saw Operator Required: Yes Finish Saw Operator Name: Son Allergies Penicillins (PENICILLINS) Allergy (Intermediate, Verified 10/26/24 07:35) INFANT ? RXN sumatriptan Adverse Reaction (Intermediate, Verified 10/26/24 07:35) stomach upset Medication List - Last Reconciled 10/26/24 by Kellee Vega MD acetaminophen ER 650 mg PO Q8H 30 days baclofen 20 mg PO TID 90 days betamethasone valerate 0.1% 1 appl topical DAILY PRN sudczxbbou-avsggxmdhumzm-yzsf 50-300-40 mg 1 cap PO Q8H PRN 30 days cholecalciferol (vitamin D3) 25 mcg PO DAILY [compression stockings As directed] gabapentin 400 mg PO TID 30 days hydroxychloroquine Take 2 tabs daily x5 days a week and 1 tab daily x2 days a week oxycodone 5 mg PO BID PRN 30 days HPI HPI hepatic steatosis: Details: GI clinic visit for this 64 year old Taiwanese-speaking female with lupus, Raynaud's, peripheral venous insufficiency, and migraines for follow-up of hepatic steatosis. Patient is referred by Dr. James to schedule a screening colonoscopy. TODAY'S VISIT: Patient is accompanied by her son who interpreted for the patient. Patient complex follow up for Hepatic steatosis /Abigail pt dayna was 01/1923. Patient cc: She states that she is feeling okay and not having conerns today! Patient denies symptoms of heartburn, dysphagia, nausea, vomiting, change in appetite or weight. Denies recent change in bowel habits, constipation, diarrhea, black stools or rectal bleeding. Has chronic constipation and managing with diet and fluids. Patient denies major cardiac or pulmonary problems, loud snoring or sleep apnea Denies problems with anesthesia in the past. Denies being on chronic anticoagulation. Patient denies known family history of colon polyps, colon cancer or other GI malignancies. LABS IN [facility] : Reviewed IMAGING STUDIES: 06/2022 ABD US SHOWED: LIVER: The liver is normal in size. The liver contour is normal. There is mild increased liver echogenicity No focal hepatic lesion. There is no intrahepatic biliary duct dilatation seen. GALLBLADDER: Surgically absent. ENDOSCOPIC STUDIES: Jun 2015 patient had a colonoscopy performed by Dr. Vaqzuez which was negative. Repeat colonoscopy was advised in 10 years - due in June of 2025 PAST GI HISTORY BY REVIEW OF MEDICAL RECORDS: Patient was previously followed by WESLEY Petty and was last seen in January, Assessment & Plan (1) Hepatic steatosis: Comment: pleasant-maintain good weight, cholesterol and glucose control continue to a bstain from alcohol monitor labs every 6 months Elevated enzymes-12/26/21- kimberly Gong to ID until May- will f/u on retun Son interpreted- very supportive Code(s): K76.0 - Fatty (change of) liver, not elsewhere classified Orders: Orders US abdomen limited 4 Months K76.0 - Fatty (change of) liver, not elsewhere classified Patient Instructions: Very pleasant 61-year-old female NAFLD follows up no GI or general complaints.?Her son is presents Her son present in very supportive She will continue to manage her weight, cholesterol and glucose.? Continue to abstain from alcohol.? Will see her on return from ID [facility] Medical History Seizure-like activity Paralysis Impaired glucose tolerance Venous (peripheral) insufficiency Migraines Physical exam Shortness of breath Vitamin D deficiency Lupus (systemic lupus erythematosus) Hepatic steatosis Surgical History Hx of cholecystectomy History of root canal procedure History of esophagogastroduodenoscopy (EGD) (~2003) Hx of colonoscopy Family History Father Schizophrenia Mother Arthritis Asthma Hypothyroidism Dementia Sister Diabetes Daughter Lupus Social History Household Members: Spouse and Children Housing: Other Housing Other:: [facility] Alcohol intake: never Patient Tobacco Use Status: Never used Tobacco e-Cigarette/Vaping Use: Never Used Second Hand Smoke Exposure: No service: No Current occupational status: unemployed Cognitive needs: No Hearing needs: No Vision needs: No Review of Systems Const All systems reviewed & are unremarkable except as noted in HPI and below Card Denies chest pain at rest, Denies chest pain with activity, Denies edema, Denies irregular heart rhythm, Denies claudication, Denies dyspnea, Denies dyspnea on exertion, Denies orthopnea, Denies paroxysmal nocturnal dyspnea and Denies slow heart rate Resp Denies cough, Denies dyspnea and Denies dyspnea on exertion GI Denies abdominal pain, Denies change in bowel habits, Denies excessive flatus, Denies nausea and Denies vomiting Physical Exam Vital Signs: Last Vital Signs Pulse 84 10/26/24 07:36 BP 163/70 H 10/26/24 07:36 BMI result Body Mass Index 26.6 Const General: healthy appearing and no acute distress Nutritional Appearance: overweight Orientation/consciousness: patient oriented x3 Limitations: language barrier HEENT Head: Yes normal to inspection Ears: hearing grossly normal bilaterally Mouth: Normal oral and palatal mucosa present Eyes Sclerae: sclerae normal Pupils: Equal, round and reactive pupils present Neck Neck: Yes normal visual inspection Chest Chest palpation & inspection: normal inspection of the chest Resp Effort & Inspection: normal respiratory effort Auscultation: clear to auscultation bilaterally Cardio Palpation: normal PMI Rate: regular rate Rhythm: regular rhythm Heart sounds: S1 normal heart sound present, S2 normal heart sound present and no murmurs GI Palpation (GI): Soft to palpation, nontender and No hepatosplenomegaly present Auscultation: normal bowel sounds Rectal Exam - Female: deferred Skin General skin exam: no rashes or lesions noted Neuro General: patient oriented x3, gait normal and moves all extremities Cranial nerves: Yes Equal, round and reactive pupils present Psych Appearance: grossly normal Mental Status: mental status grossly normal Assessment & Plan Assessment & Plan (1) Hepatic steatosis: Comment: pleasant-maintain good weight, cholesterol and glucose control continue to abstain from alcohol monitor labs every 6 months Elevated enzymes-12/26/21- kimberly Gong to ID until May- will f/u on retun Son interpreted- very supportive Code(s): K76.0 - Fatty (change of) liver, not elsewhere classified Category: Medical (2) Colon cancer screening: Comment: Jun 2015 patient had a colonoscopy performed by Dr. Vazquez which was negative. Repeat colonoscopy was advised in 10 years - due in June of 2025 Code(s): Z12.11 - Encounter for screening for malignant neoplasm of colon Category: Medical Plan 64 year old Taiwanese-speaking female with lupus, Raynaud's, peripheral venous insufficiency, and migraines for follow-up of hepatic steatosis. Pt noted to have elevated LFTs in Sep, 2024 - possibly due to steato-hepatitis or acetaminophen use. Patient reports she has taking acetaminophen several times a day and has cut back on acetaminophen to two 650 mg tab twice a day. Pt advised to have repeat LFTs and labs to rule out metabolic causes of chronic liver disease. Patient is referred by Dr. James to schedule a screening colonoscopy. Jun 2015 patient had a colonoscopy performed by Dr. Vazquez which was negative. Repeat colonoscopy was advised in 10 years - due in June of 2025. Patient was offered an appointment to schedule her colonoscopy. She prefers to schedule it next year when she is due. Pt will be scheduled for a colonoscopy on her follow-up visit. Follow-up in 3 months Orders: Orders Transglutaminase IgA Today K76.0 - Fatty (change of) liver, not elsewhere classified Smooth Muscle Antibody Today K76.0 - Fatty (change of) liver, not elsewhere classified Liver Fibrosis Pnl Today K76.0 - Fatty (change of) liver, not elsewhere classified Prothrombin Time INR Today K76.0 - Fatty (change of) liver, not elsewhere classified Bilirubin Direct Today K76.0 - Fatty (change of) liver, not elsewhere classified MIKE Reflex Titer and Pattern Today K76.0 - Fatty (change of) liver, not elsewhere classified Ferritin Today K76.0 - Fatty (change of) liver, not elsewhere classified Immunoglobulin A Today K76.0 - Fatty (change of) liver, not elsewhere classified IRON PROFILE Today K76.0 - Fatty (change of) liver, not elsewhere classified Bilirubin Total Today K76.0 - Fatty (change of) liver, not elsewhere classified Medications: Discontinued doxycycline hyclate Discontinued Reason: Patient no longer taking 100 mg PO BID 7 days 14 caps 0RF J06.9 - Acute upper respiratory infection, unspecified prednisone Take 4 tabs for 2 days, then 3 tabs for 2 days, then 2 tabs for 2 days, then 1 tab for 2 days Discontinued Reason: Patient no longer taking 10 mg PO DIRECTED 8 days 20 tabs 0RF J06.9 - Acute upper respiratory infection, unspecified Coding Level of Care Code Est Pt Level 4 (59334) Diagnoses Hepatic steatosis K76.0 Colon cancer screening Z12.11 Time Spent (min) 23
[2024-10-26 07:36] VITALS: BP 163/70; PULSE 84; BMI 26.6
--- OUTSIDE RECORDS SUMMARY | 2024-10-26 07:36 | XMS_ITS | Clinical Summary ---
Author Organization [email or web address] Address [address] [facility] [address] [place] [address] Care Team Providers Care Scrapper Name Role Phone Unavailable Primary Care Provider [...] Vaccine (2023-2 5 season) 2024 Influenza Vaccine (Season Ended) 2025 RSV Patients and Pa tients Aged 60 [...] patient's age to complete this topic Insurance [facility]
== END 2024-10-26 08:12 | disposition home or self-care (01) ==
LOC: HO.HGI 07:34
PROVIDERS: PCP Internal Medicine; Visit Provider Internal Medicine Gastroenterology
DX: K76.0 Fatty (change of) liver, not elsewhere classified (principal)
CPT/HCPCS: 99214

== ENCOUNTER → 2024-10-26 07:33 | Outpatient (BNVA) | payer OTHER, SELFPAY | PROVIDERS: PCP Internal Medicine; Visit Provider Internal Medicine Gastroenterology | DX: Z12.11 Encounter for screening for malignant neoplasm of colon (principal); K76.0 Fatty (change of) liver, not elsewhere classified | CPT/HCPCS: 99212 ==

== ENCOUNTER 2024-12-12 07:28 | Outpatient (REF) | payer OTHER, SELFPAY ==
[2024-12-12 08:48] LABS: Alanine Aminotransferase 24 U/L (0-31); Albumin Level 4.6 g/dL (3.5-5.0); Alkaline Phosphatase 69 U/L (39-117); Anion Gap 11 (12-20); Aspartate Amino Transferase 38 U/L (5-31); Blood Urea Nitrogen 10 mg/dL (9-16); Calcium 9.6 mg/dL (8.4-10.2); Carbon Dioxide 29 mmol/L (22-29); Chloride 107 mmol/L (96-108); Cholesterol 169 mg/dL (<200); Estimated Glomerular Filt Rate > 60; HDL Cholesterol 58 mg/dL (>40); Potassium 4.4 mmol/L (3.3-5.1); Sodium 143 mmol/L (135-145); Total Protein 6.9 g/dL (6.5-8.0); Triglycerides 71 mg/dL (<150)
== END 2024-12-12 07:29 | disposition home or self-care (01) ==
LOC: HO.LAB 07:28
PROVIDERS: PCP Internal Medicine; Visit Provider Internal Medicine
DX: M32.8 Other forms of systemic lupus erythematosus (principal); E78.5 Hyperlipidemia, unspecified; E55.9 Vitamin D deficiency, unspecified
CPT/HCPCS: 36415; 80053; 80061; 82306

== ENCOUNTER 2024-12-16 08:20 | Outpatient (AMB) | payer MEDICARE, MEDICAID, SELFPAY ==
--- NOTE | 2024-12-16 08:32 | MHC.PC.OV ---
Vital Signs 12/16/24 08:33 Height 5 ft 2 in Weight 147 lb 2 oz BMI 26.9 BP 120/82 Blood Pressure Location Lt brachial Position Sitting Pulse 82 Pulse Source Pulse Oximeter Temp 97.1 F Temp Source Temporal Artery Scan Pulse Oximetry (%) 97 Oxygen Delivery Method Room Air Intake Visit Reasons: annual Intake Note: Patient is here today for a physical. Sports Editor Required: Yes Sports Editor Language: Box Fabricator Name: Marcelle (Daughter) Information Interpreted: non-clinical & clinical (Pt decline mixing roll operator sever prefer daughter to translate) Yarn Inspector: Present (DA) Accompanied by: Daughter Allergies Penicillins (PENICILLINS) Allergy (Intermediate, Verified 12/16/24 09:07) INFANT ? RXN sumatriptan Adverse Reaction (Intermediate, Verified 12/16/24 09:07) stomach upset Medication List - Last Reconciled 12/16/24 by Nneka Everett MD acetaminophen ER 650 mg PO Q8H 30 days baclofen 20 mg PO TID 90 days betamethasone valerate 0.1% 1 appl topical DAILY PRN ywnqkhpmyt-cfmyzqablfgjo-twlm 50-300-40 mg 1 cap PO Q8H PRN 30 days cholecalciferol (vitamin D3) 25 mcg PO DAILY [compression stockings As directed] gabapentin 400 mg PO TID 30 days hydroxychloroquine Take 2 tabs daily x5 days a week and 1 tab daily x2 days a week oxycodone 5 mg PO BID PRN 30 days prednisolone acetate 1% 1 drp ophthalmic-Right QID Tobacco use date assessed: 12/16/24 Fall risk assessment: No Falls in past year Last assessed Fall Risk: 12/16/24 Dental Screening Dental Screen Date: 09/01/24 HPI HPI Comments History of Present Illness Details The patient is a 64-year-old female presenting with systemic lupus erythematosus that comes for her physical exam. Lupus with hydroxychloroquine and gabapentin, occasionally using oxycodone for severe pain, mindful of its side effects like constipation. Her white blood cell count fluctuates, often slightly below normal, attributed to lupus. Complains of dry eyes. Recently, she experienced eye dry, leading to a diagnosis of eye abrasions due to dryness, managed with prednisone eye drops. Given her autoimmune conditions, Sjogren's syndrome is suspected, with laboratory tests planned for confirmation. Preventative care includes up-to-date vaccinations and screenings like mammography and colonoscopy. - Vaccinations: Up to date, including pneumococcal and tetanus - Screenings: Mammography and colonoscopy completed REPLACED BY [facility] Medical History (Updated 12/16/24 @ 09:40 by Nneka Everett MD) Seizure-like activity Paralysis Impaired glucose tolerance Venous (peripheral) insufficiency Migraines Physical exam Shortness of breath Vitamin D deficiency Lupus (systemic lupus erythematosus) Hepatic steatosis Surgical History Hx of cholecystectomy History of root canal procedure History of esophagogastroduodenoscopy (EGD) (~2003) Hx of colonoscopy Family History Father Schizophrenia Mother Arthritis Asthma Hypothyroidism Dementia Sister Diabetes Daughter Lupus Social History Household Members: Spouse and Children Housing: Other Housing Other:: [facility] Alcohol intake: never Patient Tobacco Use Status: Never used Tobacco e-Cigarette/Vaping Use: Never Used Second Hand Smoke Exposure: No service: No Current occupational status: unemployed Cognitive needs: No Hearing needs: No Vision needs: No Questionnaire Thrive Questionnaire Date Thrive assessed: 09/01/24 I am a: Parent/Caregiver What is your living situation today?: I have a steady place to live Within the past 12 months, did the food you bought not last and you didn't have the money to get more?: I choose not to answer this question Within the past 12 months, did you worry whether your food would run out before you got money to buy more?: Never true Do you have trouble paying for medicines?: No Do you have trouble getting transportation to medical appointments?: No Do you have trouble paying your heating and electricity bill?: No Do you have trouble taking care of your child, family member or friend?: Yes Do you have trouble with day-to-day activities such as bathing, preparing meals, shopping, managing finances, etc.?: Yes Are you currently unemployed and looking for a job?: I choose not to answer this question Are you interested in more education?: No Please select the resources that you would like help with: None Currently or been in a relationship where the following occur: I choose not to answer THRIVE Score: 0 IVON-7 AMB Questionnaire IVON-7 Date IVON - 7 assessed: 09/01/24 Source: Developed by Drs. Elpidio Cabrera, Indiana Murphy, Pete Elizabeth and colleagues, with an educational tommie from [employer]. Review of Systems Const All systems reviewed & are unremarkable except as noted in HPI and below Card Denies chest pain at rest, Denies chest pain with activity, Denies edema, Denies irregular heart rhythm, Denies claudication, Denies dyspnea, Denies dyspnea on exertion, Denies orthopnea, Denies paroxysmal nocturnal dyspnea and Denies slow heart rate Resp Denies cough, Denies dyspnea and Denies dyspnea on exertion GI Denies abdominal pain, Denies change in bowel habits, Denies excessive flatus, Denies nausea and Denies vomiting Physical exam (Primary Care) Vital Signs: Last Vital Signs Temp 97.1 F 12/16/24 08:33 Pulse 82 12/16/24 08:33 BP 120/82 12/16/24 08:33 Pulse Ox 97 12/16/24 08:33 Oxygen Delivery Method Room Air 12/16/24 08:33 BMI result Body Mass Index 26.9 Tobacco/Smoking Status: Tobacco use Status Tobacco use date assessed 12/16/24 12/16/24 08:34 Patient Tobacco Use Status Never used Tobacco 12/16/24 08:34 e-Cigarette/Vaping Use Never Used 12/16/24 08:34 Thrive Assessment: Date of Thrive Assessment Date Thrive assessed 09/01/24 12/16/24 08:34 Currently or been in a relationship where the following occur: I choose not to answer Const Orientation/consciousness: patient oriented x3 HENMT Head: Yes normal to inspection, Yes normocephalic and Yes atraumatic Ears: external ears normal Eyes General: appearance normal, both eyes and all related structures Eyelids: Yes eyelids normal Conjunctivae: conjunctivae normal Neck Neck: Yes normal visual inspection and Yes supple Resp Effort & Inspection: normal respiratory effort Auscultation: clear to auscultation bilaterally Cardio Jugular venous distension: no JVD Rate: regular rate Rhythm: regular rhythm Heart sounds: S1 normal heart sound present and S2 normal heart sound present GI Inspection: Yes normal to inspection Palpation (GI): Soft to palpation and nontender Auscultation: normal bowel sounds Skin General skin exam: no rashes or lesions noted Neuro General: patient oriented x3 and no focal motor deficits Extrem General: Yes full ROM Psych Appearance: grossly normal Coding Level of Care Code Est Pt Level 3 (30981) Est Pt Prev Care >65y(45198) Diagnoses Physical exam Z00.00 Other forms of systemic lupus erythematosus, unspecified organ involvement status M32.8 Systemic lupus erythematosus type: other Systemic lupus erythematosus organ involvement: unspecified Dry eyes H04.123 Time Spent (min) 35 Assessment & Plan Assessment & Plan (1) Physical exam: Code(s): Z00.00 - Encounter for general adult medical examination without abnormal findings Category: Medical (2) Lupus (systemic lupus erythematosus): Comment: dx 2017(leukopenia, photosensitive rash, fatigue + NNEKA + dsDNA) Code(s): M32.9 - Systemic lupus erythematosus, unspecified Category: Medical Qualifiers: Systemic lupus erythematosus type: other Systemic lupus erythematosus organ involvement: unspecified Qualified Code(s): M32.8 - Other forms of systemic lupus erythematosus (3) Dry eyes: Code(s): H04.123 - Dry eye syndrome of bilateral lacrimal glands Category: Medical Plan The management of systemic lupus erythematosus includes hydroxychloroquine and gabapentin, with oxycodone for severe pain, mindful of its side effects. Prednisolone eye drops are prescribed for eye abrasions and dryness, with plans for laboratory testing to evaluate for Sjogren's syndrome. Preventative care involves maintaining vaccinations and regular screenings like mammography and colonoscopy. Patient was informed and verbally consented to the use of an ambient scribe for clinic note documentation during this visit. Orders: Orders Sjogren's Antibodies Today H04.123 - Dry eye syndrome of bilateral lacrimal glands
[2024-12-16 08:33] VITALS: BP 120/82; PULSE 82; TEMP 36.2; O2SAT 97; BMI 26.9
== END 2024-12-16 09:42 | disposition home or self-care (01) ==
LOC: HO.HMCH 08:21
PROVIDERS: PCP Internal Medicine; Visit Provider Internal Medicine
DX: Z00.00 Encounter for general adult medical examination without abnormal findings (principal); M32.8 Other forms of systemic lupus erythematosus; H04.123 Dry eye syndrome of bilateral lacrimal glands

== ENCOUNTER → 2024-12-16 08:20 | Outpatient (BNVA) | payer MEDICARE, SELFPAY | PROVIDERS: PCP Internal Medicine; Visit Provider Internal Medicine | DX: Z00.00 Encounter for general adult medical examination without abnormal findings (principal); M32.8 Other forms of systemic lupus erythematosus; H04.123 Dry eye syndrome of bilateral lacrimal glands | CPT/HCPCS: 99212; 99397 ==

== ENCOUNTER 2024-12-23 07:52 | Outpatient (REF) | payer MEDICARE, MEDICAID, SELFPAY ==
--- NOTE | ~2024-12-23 | MM_ITS ---
EXAMINATION: MM SCREENING DIGITAL BREAST TOMOSYNTHESIS, BILATERAL CLINICAL INFORMATION: Screening. Asymptomatic. COMPARISON: Mammography: Comparison is made with available priors TECHNIQUE: Digital breast mammography with tomosynthesis is performed in both the craniocaudal and mediolateral oblique views along with computer-aided detection (CAD). FINDINGS: There are scattered areas of fibroglandular density (ACR BI-RADS breast composition Category b). Oval mass lower central right breast previously demonstrated to be simple cyst on prior ultrasound. There are no significant masses, abnormal calcifications, or other abnormalities. MM/MM tomosynthesis screening BI IMPRESSION: No mammographic evidence of malignancy. ASSESSMENT: BI-RADS BI-RADS 2 - Benign Findings RECOMMENDATION: Routine annual mammography screening. 1 year F/U This examination should not preclude the clinical evaluation of a suspicious palpable abnormality. This patient's information was entered into a reminder system with a target due date for their next mammogram. Electronically signed by: Pamela Hui DO 12/24/2024 01:16 PM EDT
--- OUTSIDE RECORDS SUMMARY | 2024-12-23 07:54 | XMS_ITS | Clinical Summary ---
Author Organization [employer] Address [address] [facility] [address] [place] [address] Care Team Providers Care Chocolate Molder Name Role Phone Unavailable Primary Care Provider [...] (2023-2 5 season) 2024 Influenza Vaccine (#1) 2025 RSV Patients and Pa tients Aged [...] patient's age to complete this topic Insurance [facility]
== END 2024-12-23 07:53 | disposition home or self-care (01) ==
LOC: HO.MAMMO 07:52
PROVIDERS: PCP Internal Medicine; Visit Provider Internal Medicine
DX: Z12.31 Encounter for screening mammogram for malignant neoplasm of breast (principal)
CPT/HCPCS: 77063; 77067

== ENCOUNTER → 2024-12-23 08:30 | Outpatient (BNV) | payer MEDICARE, MEDICAID, SELFPAY | PROVIDERS: PCP Internal Medicine; Visit Provider Internal Medicine | DX: Z12.31 Encounter for screening mammogram for malignant neoplasm of breast (principal) | CPT/HCPCS: 77063; 77067 ==

== ENCOUNTER 2025-02-04 08:03 | Outpatient (AMB) | payer MEDICARE, MEDICAID, SELFPAY ==
--- NOTE | 2025-02-04 08:21 | A.OFFVIS_ITS ---
Vital Signs 02/04/25 08:26 Height 5 ft 2 in Weight 148 lb BMI 27.1 BP 144/72 H Blood Pressure Location Lt brachial Position Sitting Pulse 67 Pulse Oximetry (%) 96 Oxygen Delivery Method Room Air Intake Visit Reasons: 3m Intake Note: Patient follow up for Hepatic steatosis and no lab results Patient denies any GI issues. 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 RXN sumatriptan Adverse Reaction (Intermediate, Verified 05/12/25 16:06) stomach upset Medication List - Last Reconciled 02/04/25 by Kellee Vega MD acetaminophen ER 650 mg PO Q8H 30 days baclofen 20 mg PO TID 90 days betamethasone valerate 0.1% 1 appl topical DAILY PRN qepbxpwrvn-qgxeznwsgsttn-naop 50-300-40 mg 1 cap PO Q8H PRN 30 days cholecalciferol (vitamin D3) 25 mcg PO DAILY [compression stockings As directed] gabapentin 400 mg PO TID 30 days hydroxychloroquine Take 2 tabs daily x5 days a week and 1 tab daily x2 days a week oxycodone 5 mg PO BID PRN 30 days prednisolone acetate 1% 1 drp ophthalmic-Right QID HPI HPI 3m: Details: GI clinic visit for this 64 year old Yi-speaking female with lupus, Raynaud's, peripheral venous insufficiency, and migraines for follow-up of hepatic steatosis. Patient is referred by Dr. James to schedule a screening colonoscopy. TODAY'S VISIT: Patient is accompanied by her son who interpreted for the patient. Pt forgot to have labs done after her last visit Patient denies symptoms of heartburn, dysphagia, nausea, vomiting, change in appetite or weight. Denies recent change in bowel habits, constipation, diarrhea, black stools or rectal bleeding. Has chronic constipation and managing with diet and fluids. Discontinued acetaminophen 3 months ago. Patient denies major cardiac or pulmonary problems, loud snoring or sleep apnea Denies problems with anesthesia in the past. Denies being on chronic anticoagulation. Patient denies known family history of colon polyps, colon cancer or other GI malignancies. LABS IN [facility] : Reviewed IMAGING STUDIES: 06/2022 ABD US SHOWED: LIVER: The liver is normal in size. The liver contour is normal. There is mild increased liver echogenicity No focal hepatic lesion. There is no intrahepatic biliary duct dilatation seen. GALLBLADDER: Surgically absent. ENDOSCOPIC STUDIES: Jun 2015 patient had a colonoscopy performed by Dr. Vazquez which was negative. Repeat colonoscopy was advised in 10 years - due in June of 2025 PAST GI HISTORY BY REVIEW OF MEDICAL RECORDS: Patient was previously followed by WESLEY Petty and was last seen in January, Assessment & Plan (1) Hepatic steatosis: Comment: pleasant-maintain good weight, cholesterol and glucose control continue to abstain from alcohol monitor labs every 6 months Elevated enzymes-12/26/21- kimberly Gong to [place] until May- will f/u on retun Son interpreted- very supportive Code(s): K76.0 - Fatty (change of) liver, not elsewhere classified Orders: Orders US abdomen limited 4 Months K76.0 - Fatty (change of) liver, not elsewhere classified Patient Instructions: Very pleasant 61-year-old female NAFLD follows up no GI or general complaints.?Her son is presents Her son present in very supportive She will continue to manage her weight, cholesterol and glucose.? Continue to abstain from alcohol.? Will see her on return from [place] [facility] Medical History Seizure-like activity Paralysis Impaired glucose tolerance Venous (peripheral) insufficiency Migraines Physical exam Shortness of breath Vitamin D deficiency Lupus (systemic lupus erythematosus) Hepatic steatosis Surgical History (Updated 06/08/25 @ 11:29 by Ricarda Dunn) Hx of cholecystectomy History of root canal procedure History of esophagogastroduodenoscopy (EGD) (~2003) Hx of colonoscopy Family History Father Schizophrenia Mother Arthritis Asthma Hypothyroidism Dementia Sister Diabetes Daughter Lupus Social History Household Members: Spouse and Children Housing: Other Housing Other:: [facility] Are you a primary client care representative to a significant other at home: No Do you presently have visiting nurse or other home services: No Alcohol intake: never Patient Tobacco Use Status: Never used Tobacco e-Cigarette/Vaping Use: Never Used Second Hand Smoke Exposure: No service: No Current occupational status: unemployed Cognitive needs: No Hearing needs: No Vision needs: No Review of Systems Const All systems reviewed & are unremarkable except as noted in HPI and below Physical Exam Vital Signs: Last Vital Signs Pulse 67 02/04/25 08:26 BP 144/72 H 02/04/25 08:26 Pulse Ox 96 02/04/25 08:26 Oxygen Delivery Method Room Air 02/04/25 08:26 BMI result Body Mass Index 27.1 Const General: healthy appearing and no acute distress Nutritional Appearance: overweight Orientation/consciousness: patient oriented x3 Limitations: language barrier HEENT Head: Yes normal to inspection Ears: hearing grossly normal bilaterally Eyes Sclerae: sclerae normal Pupils: Equal, round and reactive pupils present Neck Neck: Yes normal visual inspection Chest Chest palpation & inspection: normal inspection of the chest Resp Effort & Inspection: normal respiratory effort Auscultation: clear to auscultation bilaterally Cardio Palpation: normal PMI Rate: regular rate Rhythm: regular rhythm Heart sounds: S1 normal heart sound present, S2 normal heart sound present and no murmurs GI Palpation (GI): Soft to palpation, nontender and No hepatosplenomegaly present Auscultation: normal bowel sounds Rectal Exam - Female: deferred Skin General skin exam: no rashes or lesions noted Neuro General: patient oriented x3, gait normal and moves all extremities Cranial nerves: Yes Equal, round and reactive pupils present Psych Appearance: grossly normal Mental Status: mental status grossly normal Assessment & Plan Assessment & Plan (1) Hepatic steatosis: Comment: pleasant-maintain good weight, cholesterol and glucose control continue to abstain from alcohol monitor labs every 6 months Elevated enzymes-12/26/21- kimberly Gong to [place] until May- will f/u on retun Son interpreted- very supportive Code(s): K76.0 - Fatty (change of) liver, not elsewhere classified Category: Medical (2) S/P laparoscopic cholecystectomy: Code(s): Z90.49 - Acquired absence of other specified parts of digestive tract Category: Surgical (3) Colon cancer screening: Comment: Jun 2015 patient had a colonoscopy performed by Dr. Vazquez which was negative. Repeat colonoscopy was advised in 10 years - due in June of 2025 Code(s): Z12.11 - Encounter for screening for malignant neoplasm of colon Category: Medical Plan 64 year old Yi-speaking female with lupus, Raynaud's, peripheral venous insufficiency, and migraines for follow-up of hepatic steatosis. Pt noted to have elevated LFTs in Sep, 2024 - possibly due to steato-hepatitis or acetaminophen use. Patient reports she has taking acetaminophen several times a day and has cut back on acetaminophen to two 650 mg tab twice a day. Pt advised to have repeat LFTs and labs to rule out metabolic causes of chronic liver disease. Patient is referred by Dr. James to schedule a screening colonoscopy. Jun 2015 patient had a colonoscopy performed by Dr. Vazquez which was negative. Repeat colonoscopy was advised in 10 years - due in June of 2025. Patient was offered an appointment to schedule her colonoscopy She prefers to schedule it next year when she is due. 02/04/25 Has chronic constipation and managing with diet and fluids. Pt advised to schedule a colonoscopy - procedure, prep instructions and potential complications were reviewed with the patient and her son. Follow-up in 3 months - scheduled 06/17/25 Orders: Referrals GI Procedure Notification Z12.11 - Encounter for screening for malignant neoplasm of colon Coding Level of Care Code Est Pt Level 4 (32809) Diagnoses Hepatic steatosis K76.0 S/P laparoscopic cholecystectomy Z90.49 Colon cancer screening Z12.11 Time Spent (min) 22
[2025-02-04 08:26] VITALS: BP 144/72; PULSE 67; O2SAT 96; BMI 27.1
== END 2025-02-04 08:50 | disposition home or self-care (01) ==
LOC: HO.HGI 08:03
PROVIDERS: PCP Internal Medicine; Visit Provider Internal Medicine Gastroenterology
DX: K76.0 Fatty (change of) liver, not elsewhere classified (principal); Z90.49 Acquired absence of other specified parts of digestive tract; Z12.11 Encounter for screening for malignant neoplasm of colon
CPT/HCPCS: 99499

== ENCOUNTER 2025-02-13 07:12 | Outpatient (REF) | payer OTHER, SELFPAY ==
--- OUTSIDE RECORDS SUMMARY | 2025-02-13 07:16 | XMS_ITS | Clinical Summary ---
Author Organization [employer] Address [address] [place] [address] Care Team Providers Care Gang Sawyer Name Role Phone Unavailable Primary Care Provider [...] COVID-19 Vaccine ( - 2023-2 5 season) 2025 Influenza Vaccine (#1) 2025 RSV Patients and [...] patient's age to complete this topic Insurance [facility]
[2025-02-13 07:48] LABS: MANUAL DIFF FLAG NO
[2025-02-13 08:12] LABS: Hematocrit 42.3 % (37.0-47.0); Hemoglobin 13.8 g/dl (12.0-16.0); Imm Gran Abs Auto 0.01 X10*3/uL (0.00-0.03); Imm Gran Pct Auto 0.2 % (0.0-0.4); Lymphocytes Absolute Auto 1.4 X10*3/uL (1.2-4.9); Mean Corpuscular HGB Conc 32.6 g/dl (31.0-35.0); Mean Corpuscular Hemoglobin 29.4 pg (27.0-33.0); Mean Corpuscular Volume 90.0 fL (80.0-98.0); NRBC Abs Auto 0.000 X10*3/uL (0.0-0.012); NRBC Pct Auto 0.0 /100WBC (0.0-0.2); Platelet Count 274 X10*3/uL (160-400); Red Blood Count 4.70 X10*6/uL (4.20-5.50); White Blood Count 4.4 X10*3/uL (4.8-10.8)
[2025-02-13 08:20] LABS: INTERNATIONAL NORM RATIO 0.9 (0.9-1.1); Prothrombin Time 10.2 SEC (10.9-12.4)
[2025-02-13 08:43] LABS: Appearance Urine Clear; Glucose Urine UA Negative (Negative); PH 6.5 (5.0-9.0); Specific Gravity - Urine 1.015 (1.005-1.025); UMIC TRIGGER UA YES
[2025-02-13 09:07] LABS: Alanine Aminotransferase 25 U/L (0-31); Albumin Level 4.7 g/dL (3.5-5.0); Alkaline Phosphatase 72 U/L (39-117); Anion Gap 12 (12-20); Aspartate Amino Transferase 32 U/L (5-31); Blood Urea Nitrogen 9 mg/dL (9-16); Calcium 9.7 mg/dL (8.4-10.2); Carbon Dioxide 30 mmol/L (22-29); Chloride 106 mmol/L (96-108); Estimated Glomerular Filt Rate > 60; Iron 44 mcg/dL (30-160); Percent Iron Saturation 13 % (15-50); Potassium 4.0 mmol/L (3.3-5.1); Sodium 144 mmol/L (135-145); Total Iron Binding Capacity 330 mcg/dL (228-428); Total Protein 7.0 g/dL (6.5-8.0); Unsaturated Iron Binding 286 ug/dL
[2025-02-13 09:29] LABS: Ferritin 19 ng/mL (10-250)
[2025-02-13 09:44] LABS: Total Protein Urine Random < 7 mg/dL (<12)
[2025-02-15 22:38] LABS: Immunoglobulin A 171 mg/dL (70-320)
[2025-02-16 21:44] LABS: Antibody to SS-A Antigen <1.0 NEG AI (<1.0 NEG); Antibody to SS-B Antigen <1.0 NEG AI (<1.0 NEG)
[2025-02-19 09:44] LABS: Anti Nuclear Antibody Screen NEGATIVE (NEGATIVE)
[2025-02-21 21:29] LABS: FIB-ALT 20 U/L (6-29); FIB-Alpha-2-Macroglobulin 159 mg/dL (106-279); FIB-Apolipoprotein A1 191 mg/dL (101-198); FIB-GGT 19 U/L (3-65); FIB-Haptoglobin 163 mg/dL (43-212); FIB-Total Bilirubin 0.9 mg/dL (0.2-1.2); Liver Fibrosis Score 0.12; Liver Fibrosis Stage F0; Nec Inflam Act Grade A0; Nec Inflam Act Score 0.06
== END 2025-02-13 07:13 | disposition home or self-care (01) ==
LOC: HO.LAB 07:12
PROVIDERS: Student in an Organized Health Care Education/Training Program; PCP Internal Medicine; Visit Provider Internal Medicine Gastroenterology
DX: M32.8 Other forms of systemic lupus erythematosus (principal); K76.0 Fatty (change of) liver, not elsewhere classified; H04.123 Dry eye syndrome of bilateral lacrimal glands
CPT/HCPCS: 36415; 80053; 81001; 81596; 82248; 82570; 82728; 82784; 83540; 84156; 85025; 85610; 85652; 86015; 86038; 86140; 86160; 86225; 86235; 86364